=== PATIENT | male | born 1960 | race Caucasian/White ===

== ENCOUNTER 2021-06-10 14:45 | Inpatient (IN) | payer MEDICAID, SELFPAY ==
[2021-06-10] VITALS (28 sets, daily range): BP systolic 116–188; BP diastolic 29–129; PULSE 54–67; RESP 14–22; TEMP 36.5; O2SAT 96–100; BMI 36.3
--- NOTE | 2021-06-10 14:52 | PC.NURSE ---
1430: recd via ambulance from [place], [place]
--- NOTE | 2021-06-10 15:10 | PC.NURSE ---
pt. wishes to receive covid vax but refuses flu and pneumonia at this time
--- NOTE | 2021-06-10 15:59 | PC.NURSE ---
dr. mendes in.
--- NOTE | 2021-06-10 16:23 | PM.HP ---
Providers/Chief Complaint Admitting Physician: Lauro Carrera MD Chief Complaint: resp distress History of Present Illness Alvarado Park is a 61 year old male with no significant past medical history, is a direct admit from [facility], he went there with chief complaint of worsening shortness of breath, on minimal exertion, as well as worsening bilateral lower extremity swelling, going on for the last 7 days. He denies any cough, fever, chest pain, nausea, vomiting, abdominal pain, difficulty passing urine, headache. He has not seen a physician in last 15/ 20 years. Upon arrival in the ER He was worked up for above-mentioned: Pertinent labs: WBC;6.9, H&H 7.3/23, plt:v267, Serum sodium:141, BUN /serum creatinine: 107/13.9, serum potassium:5.8, AST 14 ALT 9 ALp:71 proBNP:>97299, D-dimer: 6.57, baseline troponin: 0.05, creatinine kinase:84, rapid Covid antigen: Negative Patient received: Patient received Kayexalate for hyperkalemia treatment in the ER. As well as 80 of Lasix x1 dose. Was transferred to [facility] as he needed higher level of care. Review of Systems Const: Denies: fever(s), chills, body aches, change in appetite or diaphoresis Card: Denies: edema Resp: Denies: productive cough, wheezing or pain on inspiration GI: Denies: abdominal pain, nausea, vomiting, diarrhea or constipation : Denies: flank pain or difficulty urinating Musc: Denies: back pain or extremity pain Neuro: Denies: headache(s), difficulty walking or confusion Medications/Allergies Home Medications Medication Instructions Recorded Confirmed Last Taken Type No Known Home Medications 06/10/21 06/10/21 Unknown History Allergies Allergy/AdvReac Type Severity Reaction Status Date / Time aspirin Allergy Severe ALGY-Hives Verified 06/10/21 15:35 Vitals/I&O/Wt Last Vital Signs Pulse 61 06/10/21 16:06 Weight last 48 hrs Weight 124.965 kg Physical Exam Const: COMMON NORMALS: patient oriented x3 HENMT: COMMON NORMALS: normocephalic and atraumatic HEAD & SCALP: normocephalic and atraumatic Resp: AUSCULTATION: clear to auscultation bilaterally OTHER: Diminished air entry at bases, minimum b/l basal crackles Cardio: COMMON NORMALS: regular rate, regular rhythm, S1 normal heart sound present, S2 normal heart sound present, No gallops present (Cardio), No murmurs present (Cardio), No rub (Cardio) and Peripheral pulses 2+ throughout RATE: regular rate RHYTHM: regular rhythm HEART SOUNDS: S1 normal heart sound present and S2 normal heart sound present PERIPHERAL PULSES: Peripheral pulses 2+ throughout GI: COMMON NORMALS: Normal to inspection, nondistended, normoactive bowel sounds present, Soft to palpation, non-tender, No hepatosplenomegaly present and no masses AUSCULTATION: Yes normoactive bowel sounds PALPATION: Yes Soft to palpation and Yes No hepatosplenomegaly present RECTAL EXAM: Yes deferred Back/Pelvis: COMMON NORMALS: no CVA tenderness Extremity: NARRATIVE EXTREMITY EXAM: 4+B/L PITTING EDEMA PRESENT IN BOTH L/E WITH CHRONIC STASIS CHANGES Neuro: COMMON NORMALS: patient oriented x3 A&P Assessment and plan (1) Acute renal failure: YNES on worsening CKD likely secondary to longstanding uncontrolled hypertension Monitor BMP Intake output charting Urine electrolytes Renal ultrasound Renal consult Avoid nephrotoxic Status: Acute (2) Heart failure: Decompensated heart failure: Elevated proBNP, bilateral lower extremity swelling, worsening shortness of breath Lasix 60 twice daily 2D echo: Intake output charting Daily weight K>4, MG>2 Status: Acute (3) Anemia: Likely anemia of renal disease Monitor CBC Transfuse to maintain hemoglobin greater than 7 Status: Acute (4) Uncontrolled hypertension: Amlodipine 10 mg p.o. daily Status: Acute (5) Hyperkalemia: Monitor BMP Status: Acute Additional A&P Information CODE STATUS: Full code DVT prophylaxis: Heparin 5000 units subcu every 12 hours Daily Attestations Medical Necessity Statement*: For management of renal failure. Anticipated length of stay greater than 2 midnights. 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
--- NOTE | 2021-06-10 17:12 | PC.NURSE ---
awakened to give meds.
[2021-06-10 17:13] LABS: Urine Creatinine 48 mg/dL (39-259); Urine Random Sodium 96 mmol/L
[2021-06-10] MEDS: cloNIDine 0.1 mg Tablet 0.2 MG PO (17:18)
[2021-06-10] MEDS: hyDRALAzine 50 mg Tablet PO (17:19)
[2021-06-10] MEDS: FUROsemide 10 mg/mL SDV 10mL 60 MG IVP (17:20)
[2021-06-10] MEDS: heparin 5,000 unit/mL INJ 1 mL 5000 UNIT SUBCUT ×2 (17:20→17:25)
--- NOTE | 2021-06-10 17:24 | PC.NURSE ---
scd's not applied at this time. will discuss condition of lower ext. before applying. heparin started.
[2021-06-10 17:33] LABS: Urine Protein Random 351 mg/dL
--- NOTE | 2021-06-10 17:36 | PC.NURSE ---
dozing intermittently
[2021-06-10 17:47] LABS: Anion Gap 20.8 (5-19); Calcium 7.6 mg/dL (8.5-10.5); Carbon Dioxide 18 mmol/L (22-29); Chloride 109 mmol/L (98-107); Glomerular Filtration Rate 4.3 mL/min (90-130); Glucose 124 mg/dL (65-115); Osmolality Calculated 325 mOsm/kg (285-295); Potassium 5.8 mmol/L (3.5-5.1); Sodium 142 mmol/L (136-145)
--- NOTE | 2021-06-10 17:48 | PC.NURSE ---
dr. mendes in. will d/c scds
[2021-06-10 18:00] LABS: Blood Urea Nitrogen 96 mg/dL (8-23)
--- NOTE | 2021-06-10 18:26 | PC.NURSE ---
pt. wishes to be referred for covid vax. when discharged.
--- NOTE | 2021-06-10 19:35 | PC.NURSE ---
Hygiene Patient was asked if he would like a bath or oral care done this evening; patient refused both and stated he would rather wait until in the morning.
--- NOTE | 2021-06-10 20:53 | ECG_ITS ---
[facility] Test Date: 2021-06-10 Pat Name: Alvarado Park Department: Room: [facility] Gender: Male Learning And Development Consultant: : 1960 Requested By: Lauro Carrera Order Number: [id number] MD: Sivan Moore M.D. Measurements Intervals [place] Rate: 59 P: 69 [place]: 165 QRS: 10 QRSD: 108 T: 89 QT: 440 QTc: 438 Interpretive Statements SINUS BRADYCARDIA NONSPECIFIC T-WAVE ABNORMALITY No previous ECG available for comparison Electronically Signed On 06-11-2021 21:27:31 CDT by Sivan Moore M.D. [id number]
[2021-06-10] MEDS: sodium bicarbonate 650 mg Tablet 1300 MG PO (21:13)
[2021-06-10] MEDS: sodium polystyrene sulfonate 15 gm/60 mL Btl PO (21:14)
[2021-06-10] MEDS: insulin regular-human 5 UNIT in SYRINGE 1 EACH IVP (21:16)
[2021-06-10] MEDS: dextrose 50% syringe 50 mL 25 ML IVP (21:19)
[2021-06-11] VITALS (55 sets, daily range): BP systolic 124–174; BP diastolic 68–106; PULSE 55–85; RESP 2–24; TEMP 36.5–36.8; O2SAT 86–100; BMI 36.5
--- NOTE | 2021-06-11 | SCC_ITS ---
Procedure Done: Placement of 16 Fr. 31 cm HemoSplit long-term dialysis catheter into the right internal jugular vein using intraoperative ultrasound guidance and intraoperative fluoroscopy. 7.3 seconds of fluoroscopic guidance, for a cumulative dose of 1.63 mGy, was provided to Dr. Huff by the radiology department. C-arm images of the chest were saved for the patient's permanent record. MATHEW
--- NOTE | 2021-06-11 01:48 | PC.NURSE ---
Commode Patient got out of bed and transferred to bedside commode with minimal assistance. Patient tolerated activity well.
[2021-06-11 02:42] LABS: Anion Gap 19.4 (5-19); Calcium 7.3 mg/dL (8.5-10.5); Carbon Dioxide 20 mmol/L (22-29); Chloride 106 mmol/L (98-107); Glomerular Filtration Rate 3.4 mL/min (90-130); Glucose 92 mg/dL (65-115); Osmolality Calculated 322 mOsm/kg (285-295); Potassium 5.4 mmol/L (3.5-5.1); Sodium 140 mmol/L (136-145)
[2021-06-11 02:47] LABS: Blood Urea Nitrogen 103 mg/dL (8-23)
[2021-06-11 04:17] LABS: Basophils % 0.6 %; Eosinophils # 0.5 10^3/uL (0.0-0.8); Hematocrit 22.8 % (42.0-52.0); Hemoglobin 6.6 g/dL (11.7-16.6); Lymphocytes # 0.8 10^3/uL (0.8-4.8); Lymphocytes % 12.1 %; Mean Corpuscular HGB Conc 28.9 g/dL (30.0-36.0); Mean Corpuscular Hemoglobin 28.4 pg (28.0-34.0); Mean Corpuscular Volume 98.3 fl (80-94); Monocytes # 0.7 10^3/uL (0.2-0.9); Monocytes % 10.9 %; Neutrophils # 4.64 10^3/uL (1.8-7.7); Nucleated Red Blood Cells % 0 %; Platelet Count 202 10^3/cmm (130-400); Red Blood Count 2.32 10^6/uL (4.1-5.3); Red Cell Distribution Width 14.7 % (12.1-15.1); White Blood Count 6.7 10^3/uL (4.0-10.0)
[2021-06-11 04:27] LABS: Partial Thromboplastin Time 38.4 SECONDS (23.9-36.7)
[2021-06-11 04:43] LABS: Alanine Aminotransferase < 5 U/L (0-41); Albumin Level 2.6 g/dL (3.5-5.2); Alkaline Phosphatase 52 IU/L (40-130); Aspartate Amino Transferase 7 U/L (0-40); Calcium 7.3 mg/dL (8.5-10.5); Carbon Dioxide 18 mmol/L (22-29); Chloride 106 mmol/L (98-107); Globulin 3.9 g/dL (1.3-4.6); Glomerular Filtration Rate 3.7 mL/min (90-130); Glucose 85 mg/dL (65-115); Osmolality Calculated 321 mOsm/kg (285-295); Sodium 140 mmol/L (136-145); Total Bilirubin 0.2 mg/dL (0.15-1.2); Total Protein 6.5 g/dL (6.6-8.7)
[2021-06-11 04:44] LABS: Anion Gap 21.8 (5-19); Potassium 5.8 mmol/L (3.5-5.1)
[2021-06-11 04:45] LABS: Blood Urea Nitrogen 102 mg/dL (8-23); Phosphorus 10.1 mg/dL (2.5-4.5)
--- NOTE | 2021-06-11 04:50 | PC.NURSE ---
Physician Communication Dr. Amin notified of critical labs BUN 102, Creatinine 13.5, and phosphorous 10.1. Dr. Amin also notified of potassium level increasing to 5.8 at 0345 from 5.4 at 0114 despite IV insulin and kayexelate administered earlier in the night. No new orders received.
--- NOTE | 2021-06-11 05:00 | XRR_ITS ---
PROCEDURE INFORMATION: Exam: XR Chest Exam date and time: 06/11/2021 5:00 AM Age: 61 years old Clinical indication: Dyspnea; Additional info: SOB TECHNIQUE: Imaging protocol: XR of the chest. Views: 1 view. COMPARISON: No relevant prior studies available. FINDINGS: Lungs: Opacities of the lower lungs are suspicious for pneumonic infiltrates with greatest involvement on the right. Pleural spaces: Right-sided pleural effusion and probably component of left effusion. Heart/Mediastinum: Accentuation of the cardiac silhouette. Bones/joints: Osteopenia. Other findings: Limited inspiration. XR/XR chest 1V portable [id number] IMPRESSION: 1. Cardiomegaly. 2. Suspicion right lower lobe pneumonia with right-sided parapneumonic effusion. 3. Left effusion with limited assessment of the lingula and left lower lobe could not exclude underlying component of atelectasis or infiltrate less prominent as compared to the right. Radiation Dose CTDIVOL = (mGy): DLP = (mGy-cm)
[2021-06-11] MEDS: FUROsemide 10 mg/mL SDV 10mL 60 MG IVP ×2 (05:34→18:38)
[2021-06-11] MEDS: sodium polystyrene sulfonate 15 gm/60 mL Btl PO ×2 (05:34→16:28)
--- NOTE | 2021-06-11 05:35 | PC.NURSE ---
Director Of Intelligence Nurse asked patient if he had any care coming to home for health purposes, patient stated no. When asked if he would like to speak to case management to discuss this as an option, patient stated, No, I don't want to talk to anybody. I can take care of myself.
--- NOTE | 2021-06-11 06:00 | USR_ITS ---
PROCEDURE INFORMATION: Exam: US Retroperitoneal; Complete; Kidneys and Bladder Exam date and time: 06/11/2021 6:00 AM Age: 61 years old Clinical indication: Other: Roman TECHNIQUE: Imaging protocol: Real-time ultrasound of the retroperitoneum with image documentation. Complete exam focused on the kidneys and bladder. COMPARISON: No relevant prior studies available. FINDINGS: Right kidney: The right kidney measures 14.4 x 6.9 x 7.3 cm, with scattered cortical scarring and slightly increased echogenicity. No hydronephrosis. No visualized stones or masses. Left kidney: The left kidney measures 12.3 x 4.9 x 5.3 cm with scattered cortical scarring and slightly increased echogenicity. No hydronephrosis. No visualized stones or masses. Aorta: The aorta and IVC are not well visualized. Urinary bladder: The bladder is partially filled and unremarkable in appearance. US/US renal BI* [id number] IMPRESSION: 1. No hydronephrosis. 2. Echogenic kidneys with cortical scarring. Correlate for medical renal disease. Radiation Dose CTDIVOL = (mGy): DLP = (mGy-cm)
--- NOTE | 2021-06-11 06:00 | USCV_ITS ---
Alvarado Park Age: 61 Gender: M : 1960 Exam Date: 06/11/2021 07:20 Ordering Phys: Lauro Carrera MD Technologist: Exam Location: [facility] [place] Indication: SOB BP: 166 / 96 HR: 63 Rhythm: Sinus Technical Quality: Adequate MEASUREMENTS (Male / Female) Normal Values 2D ECHO LV Diastolic Diameter PLAX 3.7 cm 4.2 - 5.9 / 3.9 - 5.3 cm LV Systolic Diameter PLAX 3.0 cm IVS Diastolic Thickness 1.1 cm 0.6 - 1.0 / 0.6 - 0.9 cm IVS Systolic Thickness 1.3 cm LVPW Diastolic Thickness 1.5 cm 0.6 - 1.0 / 0.6 - 0.9 cm LVPW Systolic Thickness 1.5 cm LVOT Diameter 2.0 cm LV Ejection Fraction 2D Teich 42.4 % LV Ejection Fraction MOD 2C 46.1 % LV Ejection Fraction 2C AL 45.0 % LA Diameter 4.5 cm LA Width 5.6 cm LA Height 6.0 cm RA Width 5.0 cm RA Height 5.9 cm Aorta at Sinotubular Diameter 3.7 cm DOPPLER AV Peak Velocity 196.0 cm/s LVOT Peak Velocity 96.0 cm/s AV Area Cont Eq vti 1.7 cm squared AV Area Cont Eq pk 1.6 cm squared MV Area PHT 5.0 cm squared Mitral E to A Ratio 1.2 MV E' Velocity 48.5 cm/s Mitral E to MV E' Ratio 12.2 Mitral E to LV E' Lateral Ratio 9.9 Mitral E to LV E' Septal Ratio 16.0 TR Peak Velocity 273.0 cm/s TR Peak Gradient 29.8 mmHg TV Peak E Velocity 73.0 cm/s Right Atrial Pressure 3.0 mmHg Pulmonary Artery Systolic Pressu 32.8 mmHg FINDINGS Left Ventricle Normal left ventricular cavity size. Mildly decreased left ventricular systolic function. Left ventricular ejection fraction is estimated at 50-55 %. Grade II diastolic dysfunction, moderately elevated filling pressures. Right Ventricle Upper normal right ventricular size and low normal systolic function. Right ventricular systolic pressure 43 mmHg. Right Atrium Normal right atrial size. Right atrial pressure estimated at 15 mmHg. Left Atrium Mildly increased left atrial size. Mitral Valve Mildly thickened mitral valve. No mitral valve stenosis. Trace to mild mitral valve regurgitation. Aortic Valve Probably trileaflet aortic valve. No aortic valve stenosis. No aortic valve regurgitation. Tricuspid Valve Structurally normal tricuspid valve. Mild tricuspid valve regurgitation. Pulmonic Valve Structurally normal pulmonic valve. Pericardium No pericardial effusion. Aorta Normal-sized aortic root. Dilated inferior vena cava with less than 50% respiratory variation. CONCLUSIONS 1. This is a technically difficult study. 2. Normal left ventricular cavity size. Mildly decreased left ventricular systolic function. Left ventricular ejection fraction is estimated at 50-55 %. Grade II diastolic dysfunction, moderately elevated filling pressures. 3. Upper normal right ventricular size and low normal systolic function. 4. Trace to mild mitral valve regurgitation. 5. Mild tricuspid valve regurgitation. 6. Pulmonary artery pressure estimated at 43 mmHg. 7. No prior similar studies to compare. Sivan Moore MD (Electronically Signed) Final Date: 11 June 2021 14:52 S
--- NOTE | 2021-06-11 06:38 | PC.NURSE ---
Shift Note Frequent safety and comfort rounds continue. Orders and/or nursing care completed as indicated. Patient monitored for response to intervention and treatment(s). Education provided includes information about kayexelate/lasix, NPO diet, and infection prevention. Patient verbalized understanding. Will continue to monitor.
[2021-06-11] MEDS: calcium acetate 667 mg Capsule 1334 MG PO ×2 (08:29→18:38)
[2021-06-11] MEDS: sodium bicarbonate 650 mg Tablet 1300 MG PO ×3 (08:29→21:06)
[2021-06-11] MEDS: amlodipine 10 mg Tablet PO (08:29)
--- NOTE | 2021-06-11 09:10 | PC.NURSE ---
Contacted Dr. Carrera regarding pt hemaglobin being 6.6. WAiting orders for type and screen.
[2021-06-11 09:52] LABS: NT Pro B Type Natriuretic Pept > 70000 pg/mL (0-125)
--- NOTE | 2021-06-11 10:03 | PM.CONSULT ---
Providers/Reason For Consult Consulting Physician/Specialty*: Nephrology Reason for Consult*: Eval for renal failure Attending Physician: Lauro Carrera MD History of Present Illness History of Present Illness Thank you for consultation today, today I had the pleasure of reviewing this very pleasant 61-year-old gentleman for evaluation of renal failure. He has not received any medical care for most of his life. He checked his blood pressure once many years ago and it was noted to be a little bit high. He now presents to the hospital with increasing lower extremity edema and is noted to be hypertensive. On arrival he was found to have an elevated serum creatinine of 12. He did receive some gentle diuretics, his creatinine actually increased slightly to 13.5. In addition to this he has a potassium of 5.8, bicarb 18, anion gap of 21.8 and a hemoglobin down to 6.6. Renal sonogram is performed, demonstrates echogenic kidneys but no evidence of hydronephrosis. Of note they are a good size. He denies [id number] anti-inflammatory medications regularly, did take Advil in the evening from time to time. No other known medical history. No other exposures. He specifically denies any other overt uremic symptoms including confusion, myoclonus, nausea vomiting, dysgeusia. Although he has lower extremity edema, no shortness of breath at rest. Review of Systems Narrative: ROS - 12 point review of systems completed per HPI and subjective assessment, this includes Constitutional: Weakness, fatigue Respiratory: No SOB on exertion, comfortable at rest CardioVasc: No chest pain, palpitations Gastrointestinal: No nausea, no vomiting Neurological: No seizures, no AMS Derm: No new rashes, lesions or wounds Immunological: No seasonal and no food allergies Meds/Allergies Home Medications and Allergies Home Medications Medication Instructions Recorded Confirmed Last Taken Type No Known Home Medications 06/10/21 06/10/21 Unknown History Allergies Allergy/AdvReac Type Severity Reaction Status Date / Time aspirin Allergy Severe ALGY-Hives Verified 06/10/21 15:35 Current Medications Current Medications Generic Name Dose Route Start Last Admin Trade Name Freq PRN Reason Stop Dose Admin Amlodipine Besylate 10 mg 06/11/21 09:00 06/11/21 08:29 Amlodipine 10 Mg Tablet PO 10 mg DAILY GONZALO Administration Calcium Acetate 1,334 mg 06/11/21 08:00 06/11/21 08:29 Calcium Acetate 667 Mg Capsule PO 1,334 mg TIDWM GONZALO Administration Furosemide 60 mg 06/10/21 17:30 06/11/21 05:34 Furosemide 10 Mg/Ml Sdv 10ml IVP 60 mg Q12H GONZALO Administration Heparin Sodium (Porcine) 5,000 unit 06/10/21 17:30 06/10/21 17:25 Heparin 5,000 Unit/Ml Inj 1 Ml SUBCUT 5,000 unit Q12H GONZALO Administration Sodium Bicarbonate 1,300 mg 06/10/21 21:00 06/11/21 08:29 Sodium Bicarbonate 650 Mg Tablet PO 1,300 mg TID GONZALO Administration Sodium Polystyrene Sulfonate 15 gm 06/10/21 21:00 06/11/21 05:34 Sodium Polystyrene Sulfonate 15 Gm/60 Ml Btl PO 15 gm Q8H GONZALO Administration Vitals/I&O/Wt Last Vital Signs Temp 98.1 F 06/11/21 04:00 Pulse 70 06/11/21 08:30 Resp 16 06/11/21 05:00 BP 151/95 06/11/21 08:30 Pulse Ox 99 06/11/21 07:30 06/10/21 06/11/21 06/11/21 22:59 06:59 14:59 Intake Total 720.05 / 720.05 320 / 320 Output Total 180 / 180 300 / 480 260 / 260 Balance 540.05 / 540.05 -300 / 240.05 60 / 60 Weight last 48 hrs Weight 125.464 kg Weight 124.965 kg Physical Exam Narrative: EXAM NARRATIVE: Constitutional: Awake, comfortable HEENT: Wet mucosa, no jvp, non icteric Lungs: Bilaterally clear without discernible wheeze or rales in all lung zones CVS: S1 S2, no murmurs Abdo: Soft, BS ok Ext 4: 2-3+ edema, peripheral perfusion with no cyanosis Neurological: Grossly non-focal A&P Additional A&P Information 1. Renal failure Looking at the kidney ultrasound scan and the degree of echogenicity, it is almost certain that we are dealing with very advanced, end-stage kidney disease. Given the size of the kidneys, an infiltrative disease is possible i.e. amyloidosis versus undiagnosed hypertension antihypertensive renovascular disease. We will do work-up to include SPEP, ANCA, complement profile, hepatitis profile, urinalysis with micro Renal biopsy unlikely to be diagnostic use given likelihood of renal scarring We will initiate hemodialysis tomorrow on low flow settings to avoid disequilibrium. Daily dialysis for the first 3 days with progressive increase in the intensity of dialysis prescription A.m. labs Avoid usual nephrotoxic agents Dose medication for GFR less than 15 on dialysis. Okay to continue diuretics for the time being. 2. Chemistry Reflective of end-stage kidney disease including nongap metabolic acidosis, hyperkalemia, hyperphosphatemia, hypocalcemia. We will give him a phosphorus binder with PhosLo We we will give him some Kayexalate today. We will initiate calcitriol low-dose He is currently on sodium bicarbonate 3. Anemia Again consistent with end-stage kidney disease. We will check iron levels and initiate some EPO for him. 4. Hypertension Currently on amlodipine, Lasix, will review his blood pressure after initiation of dialysis and ultrafiltration. 5. 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
--- NOTE | 2021-06-11 11:08 | PC.NURSE ---
Spoke with Dr. Huff about preparation for dialysis cath to be put in today. States he will be in to visit with the pt.
--- NOTE | 2021-06-11 11:17 | P.PN_ITS ---
Subjective Subjective: Interval history: Patient was seen and examined this morning.Resting comfortably in bed, feels better today, shortness of breath is better. Documented urine output 560 cc. Medications: Reviewed: Yes Vitals/I&O/Wt Last Vital Signs Temp 98.1 F 06/11/21 04:00 Pulse 63 06/11/21 10:30 Resp 16 06/11/21 05:00 BP 132/82 06/11/21 10:30 Pulse Ox 96 06/11/21 10:30 06/10/21 06/11/21 06/11/21 22:59 06:59 14:59 Intake Total 720.05 / 720.05 320 / 320 Output Total 180 / 180 300 / 480 260 / 260 Balance 540.05 / 540.05 -300 / 240.05 60 / 60 Weight last 48 hrs Weight 125.464 kg Weight 124.965 kg Physical Exam Const: COMMON NORMALS: patient oriented x3 HENMT: COMMON NORMALS: normocephalic and atraumatic HEAD & SCALP: normocephalic and atraumatic Resp: COMMON NORMALS: clear to auscultation bilaterally AUSCULTATION: clear to auscultation bilaterally OTHER: Diminished air entry at bases, minimum b/l basal crackles Cardio: COMMON NORMALS: regular rate, regular rhythm, S1 normal heart sound present, S2 normal heart sound present, No gallops present (Cardio), No murmurs present (Cardio), No rub (Cardio) and Peripheral pulses 2+ throughout RATE: regular rate RHYTHM: regular rhythm HEART SOUNDS: S1 normal heart sound present and S2 normal heart sound present PERIPHERAL PULSES: Peripheral p ulses 2+ throughout GI: COMMON NORMALS: Normal to inspection, nondistended, normoactive bowel sounds present, Soft to palpation, non-tender, No hepatosplenomegaly present and no masses AUSCULTATION: Yes normoactive bowel sounds PALPATION: Yes Soft to palpation and Yes No hepatosplenomegaly present RECTAL EXAM: Yes deferred : COMMON NORMALS: Yes no CVA tenderness BLADDER/KIDNEY EXAM: Yes no CVA tenderness Back/Pelvis: COMMON NORMALS: no CVA tenderness Extremity: NARRATIVE EXTREMITY EXAM: 4+B/L PITTING EDEMA PRESENT IN BOTH L/E WITH CHRONIC STASIS CHANGES Neuro: COMMON NORMALS: patient oriented x3 Data : 06/11/21 03:45 06/11/21 03:45 A&P Assessment and plan (1) Acute renal failure: End-stage renal disease: Urine electrolytes: Random urine sodium: 96, normal creatinine:48, random urine protein:351, Random UPCR: 7.3G/DAY Renal ultrasound:: No hydronephrosis. Echogenic kidneys with cortical scarring. SPEP ANCA complement: Monitor BMP Intake output charting Renal consult: S/P Permcath placement H/D from am Status: Acute (2) Heart failure: Heart failure Elevated proBNP, bilateral lower extremity swelling, worsening shortness of breath Lasix 60 twice daily 2D echo: Normal LV cavity size, estimated LVEF 50 to 55%, grade 2 diastolic dysfunction, mild MR, mild TR PAp: 43mm hg Intake output charting Daily weight K>4, MG>2 Status: Acute (3) Anemia: Likely anemia of renal disease S/P I U PRBC Transfusion procrit 20 0000 u sc once Monitor CBC Transfuse to maintain hemoglobin greater than 7 Status: Acute (4) Uncontrolled hypertension: Amlodipine 10 mg p.o. daily Status: Acute (5) Hyperkalemia: Received hyperkalemia cocktail. Kayexalate 15 mg po q8h Monitor BMP Status: Acute Additional A&P Information CODE STATUS: Full code DVT prophylaxis: Heparin 5000 units subcu every 12 hours Daily Attestations Medical Necessity Statement*: Patient needs to be in hospital for management of renal failure. 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
[2021-06-11 12:10] LABS: Bilirubin Urine Neg (Negative); Blood Urine Neg (Negative); Glucose Urine UA 1+ (Normal); Ketones Urine Negative (Negative); Leukocyte Esterase Urine Negative (Negative); Nitrate Urine Negative (Negative); Protein Urine 3+ (Negative); Urine Appearance Clear (CLEAR); Urine Color Yellow (Yellow); Urobilinogen Urine Norm (Negative); pH Urine 5 (5-7)
[2021-06-11 12:15] LABS: Add Urine Culture? No; Bacteria Urine TRACE /hpf; Mucus Urine TRACE /hpf
--- NOTE | 2021-06-11 13:31 | PM.CONSULT ---
Providers/Reason For Consult Consulting Physician/Specialty*: General Surgery Brian Huff MD Reason for Consult*: Request for hemodialysis catheter placement. Attending Physician: Lauro Carrera MD History of Present Illness History of Present Illness Alvarado Park is a 61 year old male admitted yesterday with worsening bilateral lower extremity edema. This had apparently been going on for over a week at home. The patient freely admits he does not see physicians. He was diagnosed with acute renal failure and hyperkalemia. He has been treated medically from that standpoint and says that his swelling is better. Dialysis has been planned for him for tomorrow. I have been asked to place a long-term hemodialysis catheter for him. The patient denies ever having any injury on the upper chest. He has not had any clavicular injury to his knowledge. He has never had a central line placed in the past. Review of Systems Const: Denies: fever(s) Resp: Reports: dyspnea (With exertion prior to admission) Musc: Reports: extremity swelling Meds/Allergies Home Medications and Allergies Home Medications Medication Instructions Recorded Confirmed Last Taken Type No Known Home Medications 06/10/21 06/10/21 Unknown History Allergies Allergy/AdvReac Type Severity Reaction Status Date / Time aspirin Allergy Severe ALGY-Hives Verified 06/10/21 15:35 Current Medications Current Medications Generic Name Dose Route Start Last Admin Trade Name Regi PRN Reason Stop Dose Admin Amlodipine Besylate 10 mg 06/11/21 09:00 06/11/21 08:29 Amlodipine 10 Mg Tablet PO 10 mg DAILY GONZALO Administration Calcium Acetate 1,334 mg 06/11/21 08:00 06/11/21 08:29 Calcium Acetate 667 Mg Capsule PO 1,334 mg TIDWM GONZALO Administration Furosemide 60 mg 06/10/21 17:30 06/11/21 05:34 Furosemide 10 Mg/Ml Sdv 10ml IVP 60 mg Q12H GONZALO Administration Heparin Sodium (Porcine) 5,000 unit 06/10/21 17:30 06/10/21 17:25 Heparin 5,000 Unit/Ml Inj 1 Ml SUBCUT 5,000 unit Q12H GONZALO Administration Sodium Bicarbonate 1,300 mg 06/10/21 21:00 06/11/21 08:29 Sodium Bicarbonate 650 Mg Tablet PO 1,300 mg TID GONZALO Administration Sodium Polystyrene Sulfonate 15 gm 06/10/21 21:00 06/11/21 05:34 Sodium Polystyrene Sulfonate 15 Gm/60 Ml Btl PO 15 gm Q8H GONZALO Administration PFSH Acute PFSH: Medical History (Updated 06/11/21 @ 13:33 by Brian Huff MD) Acute renal failure Uncontrolled hypertension Surgical History (Updated 06/11/21 @ 13:33 by Brian Huff MD) No significant past surgical history Vitals/I&O/Wt Last Vital Signs Temp 98.1 F 06/11/21 04:00 Pulse 67 06/11/21 12:00 Resp 16 06/11/21 05:00 BP 142/84 06/11/21 12:00 Pulse Ox 100 06/11/21 12:00 06/10/21 06/11/21 06/11/21 22:59 06:59 14:59 Intake Total 720.05 / 720.05 320 / 320 Output Total 180 / 480 300 / 480 260 / 260 Balance 540.05 / 240.05 -300 / 240.05 60 / 60 Weight last 48 hrs Weight 276 lb 9.6 oz Weight 275 lb 8 oz Physical Exam Narrative: EXAM NARRATIVE: The patient was encountered in his room in the intensive care unit. He is resting comfortably but is easily arousable. Vital signs appear stable and relatively normal. The pupils are equal. No carotid bruits are heard. The patient has a diaz of moderate length. The lungs are clear anteriorly. The heart seems regular. The abdomen is moderately obese but is soft and has good bowel sounds. The lower extremities reveal some mild edema with some chronic venous stasis changes. He can move all limbs to command. A&P Assessment and plan (1) Acute renal failure: The patient is in need of dialysis. I have been asked to place a hemodialysis catheter. Initially, the thought was we could do this tomorrow but it sounds like the operating rooms are going to be quite busy and they definitely want to do dialysis tomorrow from what I understand. For that reason, I discussed placing the catheter with the patient today. Surgical risks of bleeding, infection, pneumothorax, etc. were all gone over. He seems to understand and is agreeable to proceeding with dialysis catheter placement today. The patient ate breakfast today but has been n.p.o. since. His subcutaneous heparin has been on hold. We will make arrangements for a tunneled hemodialysis catheter placement later today. Status: Acute Consult Attestations Medical Necessity Statement: See admitting service's notation. 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
--- NOTE | 2021-06-11 14:30 | SC_ITS ---
WS: [id number] INTRAOPERATIVE TECHNIQUE: 2 Spot fluoroscopic images for intraoperative purposes. FLUOROSCOPY TIME: 7.3 seconds CLINICAL INFORMATION: intraop COMPARISON: None. FINDINGS: Dual lumen right central venous catheter traverses the SVC. Distal tip not included on this exam. No visualized pneumothorax. SC/C-arm FL for CVA [id number] IMPRESSION: Images obtained for intraoperative purposes.
--- NOTE | 2021-06-11 14:51 | ANES.PREANE2 ---
Pre-Anesthetic Assessment Pre-Anesthetic Assessment: Height/Weight: Height 1.85 m Weight 125.464 kg Temp Pulse Resp BP Pulse Ox 98.1 F 67 16 142/84 100 06/11/21 04:00 06/11/21 12:00 06/11/21 05:00 06/11/21 12:00 06/11/21 12:00 Preop Diagnosis: YNES Proposed Procedure: Operation Date: 06/11/21 14:50 Proposed Procedures p Dialysis Catheter Insertion(Not Applicable) - Brian Huff MD Familial anesthetic complications: None Last intake: Breakfast 0800 Social: Social History: No alcohol and No tobacco Exam: Pre-Anes Outpt Exam: alert, oriented x 3, clear to auscultation bilaterally and regular rate & rhythm Airway: MP: 3 Dentition: Other (poor dentition, multiple missing and discolored) Additional comments: full diaz CV/HEM: CV/HEM: Anemia and CHF (acute) : Comments: YNES Metabolic: Comments: Hyperkalemia Anesthetic Plan: ASA status: 4 Anesthesia: MAC Risk of > 500 ml blood loss (7ml/kg in children): No Other Pertinent Information: Patient prefers staying awake for procedure if possible Meds/Allergies Current Medications: Current Medications Generic Name Dose Route Start Last Admin Trade Name Freq PRN Reason Stop Dose Admin Amlodipine Besylat e 10 mg 06/11/21 09:00 06/11/21 08:29 Amlodipine 10 Mg Tablet PO 10 mg DAILY GONZALO Administration Calcium Acetate 1,334 mg 06/11/21 08:00 06/11/21 08:29 Calcium Acetate 667 Mg Capsule PO 1,334 mg TIDWM GONZALO Administration Furosemide 60 mg 06/10/21 17:30 06/11/21 05:34 Furosemide 10 Mg /Ml Sdv 10ml IVP 60 mg Q12H GONZALO Administration Heparin Sodium (Po rcine) 5,000 unit 06/10/21 17:30 06/10/21 17:25 Heparin 5,000 Un it/Ml Inj 1 Ml SUBCUT 5,000 unit Q12H GONZALO Administration Sodium Bicarbonate 1,300 mg 06/10/21 21:00 06/11/21 08:29 Sodium Bicarbona te 650 Mg Tablet PO 1,300 mg TID GONZALO Administration Sodium Polystyrene Sulfonate 15 gm 06/10/21 21:00 06/11/21 05:34 Sodium Polystyre ne Sulfonate 15 Gm /60 Ml Btl PO 15 gm Q8H GONZALO Administration PFSH Anesthesia PFSH: Medical History (Updated 06/11/21 @ 14:12 by Brian Huff MD) Acute renal failure Uncontrolled hypertension Surgical History (Updated 06/11/21 @ 13:33 by Brian Huff MD) No significant past surgical history Data Anesthesia CBC & Chem 7: 06/11/21 03:45 06/11/21 03:45 Other Labs: Laboratory Results - last 48 hr 06/10/21 06/10/21 06/11/21 16:15 17:09 01:14 WBC RBC Hgb Hct MCV MCH MCHC RDW Plt Count MPV Neut % (Auto) Lymph % (Auto) [place] % (Auto) Eos % (Auto) Baso % (Auto) Neut # (Auto) Lymph # (Auto) [place] # (Auto) Eos # (Auto) Baso # (Auto) Nucleated RBC % (auto) Nucleated RBCs # PT INR APTT Sodium 142 140 Potassium 5.8 H 5.4 H Chloride 109 H 106 Carbon Dioxide 18 L 20 L Anion Gap 20.8 H 19.4 H BUN 96 H* 103 H* Creatinine 12.0 H* 14.5 H* GFR Calculation 4.3 L 3.4 L Glucose 124 H 92 Calculated Osmolality 325 H 322 H Calcium 7.6 L 7.3 L Phosphorus Magnesium 2.0 Total Bilirubin AST ALT Alkaline Phosphatase NT-Pro-B Natriuret Pep Total Protein Albumin Globulin Urine Color Urine Appearance Urine pH Ur Specific [place] Urine Protein Urine Glucose (UA) Urine Ketones Urine Blood Urine Nitrate Urine Bilirubin Urine Urobilinogen Ur Leukocyte Esterase Urine RBC Urine WBC Ur Squamous Epith Cells Amorphous Sediment Urine Bacteria Urine Mucus U Random Total Protein 351 Ur Random Sodium 96 Urine Creatinine 48 06/11/21 06/11/21 06/11/21 03:45 03:45 03:45 WBC 6.7 RBC 2.32 L Hgb 6.6 L Hct 22.8 L MCV 98.3 H MCH 28.4 MCHC 28.9 L RDW 14.7 Plt Count 202 MPV 11.0 H Neut % (Auto) 69.0 Lymph % (Auto) 12.1 [place] % (Auto) 10.9 Eos % (Auto) 7.0 Baso % (Auto) 0.6 Neut # (Auto) 4.64 Lymph # (Auto) 0.8 [place] # (Auto) 0.7 Eos # (Auto) 0.5 Baso # (Auto) 0.0 Nucleated RBC % (auto) 0 Nucleated RBCs # 0.0 PT 16.50 H INR 1.30 H APTT 38.4 H Sodium 140 Potassium 5.8 H Chloride 106 Carbon Dioxide 18 L Anion Gap 21.8 H BUN 102 H* Creatinine 13.5 H* GFR Calculation 3.7 L Glucose 85 Calculated Osmolality 321 H Calcium 7.3 L Phosphorus 10.1 H* Magnesium 2.0 Total Bilirubin 0.2 AST 7 ALT < 5 Alkaline Phosphatase 52 NT-Pro-B Natriuret Pep Total Protein 6.5 L Albumin 2.6 L Globulin 3.9 Urine Color Urine Appearance Urine pH Ur Specific [place] Urine Protein Urine Glucose (UA) Urine Ketones Urine Blood Urine Nitrate Urine Bilirubin Urine Urobilinogen Ur Leukocyte Esterase Urine RBC Urine WBC Ur Squamous Epith Cells Amorphous Sediment Urine Bacteria Urine Mucus U Random Total Protein Ur Random Sodium Urine Creatinine 06/11/21 06/11/21 03:45 10:40 WBC RBC Hgb Hct MCV MCH MCHC RDW Plt Count MPV Neut % (Auto) Lymph % (Auto) [place] % (Auto) Eos % (Auto) Baso % (Auto) Neut # (Auto) Lymph # (Auto) [place] # (Auto) Eos # (Auto) Baso # (Auto) Nucleated RBC % (auto) Nucleated RBCs # PT INR APTT Sodium Potassium Chloride Carbon Dioxide Anion Gap BUN Creatinine GFR Calculation Glucose Calculated Osmolality Calcium Phosphorus Magnesium Total Bilirubin AST ALT Alkaline Phosphatase NT-Pro-B Natriuret Pep > 67361 H Total Protein Albumin Globulin Urine Color Yellow Urine Appearance Clear Urine pH 5 Ur Specific [place] 1.010 Urine Protein 3+ H Urine Glucose (UA) 1+ H Urine Ketones Negative Urine Blood Neg Urine Nitrate Negative Urine Bilirubin Neg Urine Urobilinogen Norm Ur Leukocyte Esterase Negative Urine RBC None Urine WBC None Ur Squamous Epith Cells None Amorphous Sediment Not Reportable Urine Bacteria Trace Urine Mucus Trace U Random Total Protein Ur Random Sodium Urine Creatinine Cardiac Studies: No Data to Display
[2021-06-11] MEDS: heparin, porcine 1,000 unit/mL INJ 10 mL 10000 UNIT INJECTION (15:30)
--- NOTE | 2021-06-11 15:45 | PM.OP ---
Operative Report Date of procedure: June 11, 2021 Pre-op Diagnosis: Acute kidney failure/CKD. Post-op diagnosis: same Procedure Done: Placement of 16 Fr. 31 cm HemoSplit long-term dialysis catheter into the right internal jugular vein using intraoperative ultrasound guidance and intraoperative fluoroscopy. Implants: See above. Pathology: none sent Surgeon: Brian Huff Anesthesia: MAC Estimated blood loss (mL): 10 Procedure: The patient was brought to the operating room and was placed in a supine position on the operating room table. A monitored anesthetic was induced. The right side of the neck and chest were prepped and draped in a sterile fashion. Intraoperative ultrasound was used to find the right internal jugular vein as evidenced by its size and compressibility. 1% lidocaine was used for local anesthetic on the neck and the right internal jugular vein was accessed on the first pass with a needle and syringe as evidenced by the return of dark nonpulsatile blood. The guidewire was easily passed down the needle and the needle was removed. The C-arm was positioned and showed the guidewire extending down the vena cava. A 16 Maur[place] 31 cm (from cuff to tip) HemoSplit long-term dialysis catheter was then placed on the right side of the chest and measured so that the subcutaneous cuff would be an appropriate location in the subcutaneous tunnel. A combination of 1% lidocaine and 0.5% bupivacaine with 1-200,000 parts epinephrine was used to anesthetize a subcutaneous tract from the right chest wall to the right side of the neck over the top of the clavicle. A small incision was made on the chest wall at the proposed exit point and a small incision was also made adjacent to the guidewire on the right side of the neck. The HemoSplit catheter was then tunneled from the small incision on the chest to the small incision on the right side of the neck using the passer provided in the kit. Small to medium sized dilators were then placed over the guidewire to dilate the skin opening and the subcutaneous tissue. The introducer and sheath were then passed over the guidewire easily into the right internal jugular vein. The guidewire and introducer were removed and the arms of the HemoSplit dialysis catheter were easily passed down the sheath which was then torn away. The C-arm was once again positioned and showed good placement of the dialysis catheter tip in the vena cava. Both ports were aspirated and flushed with hep flush solution. Both ports showed excellent flow and were then left filled with concentrated hep flush solution. The catheter was sewn in place at the skin on the chest with some sutures of 3-0 Prolene. The small incision on the right side of the neck was closed using some interrupted inverted sutures of 4-0 Vicryl. The incision on the neck was covered with some Dermabond. A sterile dressing was placed over the HemoSplit exit site on the chest. The patient was taken back to the recovery area postoperatively in stable condition. INTRAOPERATIVE FLUOROSCOPY interpretation: FINDINGS: Intraoperative fluoroscopic images of a hemodialysis catheter placement were reviewed. An initial image reveals a guidewire entering the right internal jugular vein and extending down the vena cava. Subsequent images reveal a dialysis catheter on that side of the chest with its tubing tip in good location in the superior vena cava/right atrium. No obvious pneumothorax is identified.
[2021-06-11 16:27] LABS: Iron 33 ug/dL (59-158); Percent Saturation 19.8 % (20-50); Total Iron Binding Capacity 166 mcg/dl; Unsaturated Iron Binding 133 ug/dL (112-347); Uric Acid 6.7 mg/dL (3.4-7.0)
[2021-06-11 16:37] LABS: Hepatitis A Antibody IgM Non-Reactive (Nonreactive); Hepatitis B Core IgM Non-Reactive (Nonreactive); Hepatitis B Surface Antigen Non-Reactive (Nonreactive); Hepatitis C Virus Antibody Non-Reactive (Nonreactive)
[2021-06-11 16:47] LABS: Complement C3 103 mg/dL (90-180)
--- NOTE | 2021-06-11 16:56 | PC.NURSE ---
$245 was counted with Boy from security and then taken down to hospital safe.
[2021-06-11] MEDS: calcitriol 0.25 mcg Capsule PO (18:38)
[2021-06-11] MEDS: sodium chloride 0.9% (100 ml) 100 ML (19:54)
[2021-06-12] VITALS (34 sets, daily range): BP systolic 138–191; BP diastolic 75–124; PULSE 65–77; RESP 0–32; TEMP 36.2–36.9; O2SAT 88–99
[2021-06-12] MEDS: HYDROcodone-acetaminophen 5-325 mg Tablet PO (04:39)
[2021-06-12] MEDS: FUROsemide 10 mg/mL SDV 10mL 60 MG IVP (04:40)
[2021-06-12] MEDS: heparin 5,000 unit/mL INJ 1 mL 5000 UNIT SUBCUT ×2 (04:40→18:09)
--- NOTE | 2021-06-12 04:51 | PC.NURSE ---
No acute changes on patient overnight. Patient very friendly and complaint with staff and cares. Patient does refuse kayexolate, continue care.
[2021-06-12 05:25] LABS: Basophils % 0.5 %; Eosinophils # 0.7 10^3/uL (0.0-0.8); Eosinophils % 9.6 %; Hematocrit 23.3 % (42.0-52.0); Hemoglobin 7.1 g/dL (11.7-16.6); Lymphocytes # 1.1 10^3/uL (0.8-4.8); Lymphocytes % 13.6 %; Mean Corpuscular HGB Conc 30.5 g/dL (30.0-36.0); Mean Corpuscular Hemoglobin 29.7 pg (28.0-34.0); Mean Corpuscular Volume 97.5 fl (80-94); Mean Platelet Volume 10.7 fL (7.4-10.4); Monocytes # 0.7 10^3/uL (0.2-0.9); Monocytes % 9.4 %; Neutrophils # 5.16 10^3/uL (1.8-7.7); Neutrophils % 66.6 %; Nucleated Red Blood Cells % 0 %; Platelet Count 204 10^3/cmm (130-400); Red Blood Count 2.39 10^6/uL (4.1-5.3); Red Cell Distribution Width 14.6 % (12.1-15.1); White Blood Count 7.7 10^3/uL (4.0-10.0)
[2021-06-12 05:49] LABS: Alanine Aminotransferase < 5 U/L (0-41); Albumin Level 2.8 g/dL (3.5-5.2); Alkaline Phosphatase 57 IU/L (40-130); Anion Gap 21.2 (5-19); Aspartate Amino Transferase 7 U/L (0-40); Calcium 6.8 mg/dL (8.5-10.5); Carbon Dioxide 19 mmol/L (22-29); Chloride 108 mmol/L (98-107); Globulin 3.5 g/dL (1.3-4.6); Glomerular Filtration Rate 4.2 mL/min (90-130); Glucose 105 mg/dL (65-115); Osmolality Calculated 328 mOsm/kg (285-295); Potassium 5.2 mmol/L (3.5-5.1); Sodium 143 mmol/L (136-145); Total Bilirubin 0.2 mg/dL (0.15-1.2); Total Protein 6.3 g/dL (6.6-8.7)
[2021-06-12 05:55] LABS: Blood Urea Nitrogen 100 mg/dL (8-23); Phosphorus 9.6 mg/dL (2.5-4.5)
[2021-06-12] MEDS: calcium acetate 667 mg Capsule 1334 MG PO ×3 (07:36→18:09)
[2021-06-12] MEDS: sodium bicarbonate 650 mg Tablet 1300 MG PO ×3 (08:36→20:11)
[2021-06-12] MEDS: calcitriol 0.25 mcg Capsule PO ×2 (08:36→19:00)
[2021-06-12] MEDS: amlodipine 10 mg Tablet PO (08:36)
--- NOTE | 2021-06-12 09:55 | PC.CHAP ---
Pastoral Care Encounter/Spiritual Assessment Type of Contact [] Declined hide measuring machine operator visit [] Patient/Family/Request visit [] Outpatient visit [] Follow-up visit [] Physician referral [] Code/Alert [x] Routine visit [] Staff referral [] Actively dying [] Patient sleeping [] Family support [] [] Out of room [] Palliative care [] [] Receiving care in room [] Pre-surgical visit [] Trauma [] Long length of stay [x] ICU visit [] Other: Relational/Emotional Strength [] Patient feels connected with others/family/visitors/staff [] Distress [] Loneliness/isolation [] Abandonment Spirituality of Patient [] Person of Isabella [] Attends Sikh of their Isabella [] Believes in Prayer [] Reads Bible or Catholic materials [] There are Spiritual issues to be addressed Social Science Teacher Interventions [x] Prayer [] Active listening [] Non-anxious presence [] Spiritual/emotional support [] Crisis/trauma care [] Spiritual counseling [] Bereavement support [] Provided bereavement packet [] Provided Bible/devotional materials [] Provided toy/stuffed animal, coloring book to patient or family member [] Provided Communion [] Anointing/[place] [] Salvation [x] Completed spiritual assessment [] Other: Impact on Illness or Injury [] Angry [] Fearful [] Anxious [] Often cries [] Exhaustion [] Unable to work [] Unable to attend confucianist [] Unable to walk/stand [] Unable to read [] Unable to drive [] Unable to eat/drink [] Unable to sleep [] Unable to be with family [] Patient intubated [] Other: Summary Time spent with patient
--- NOTE | 2021-06-12 12:53 | P.PN_ITS ---
Subjective Subjective: Interval history: Seen and examined on dialysis today. Tolerating the procedure well. Hemodynamics and dialysis parameters are reviewed in detail. Medications: Reviewed: Yes Vitals/I&O/Wt Last Vital Signs Temp 98.1 F 06/12/21 12:00 Pulse 73 06/12/21 12:00 Resp 12 06/12/21 12:00 BP 165/98 06/12/21 12:00 Pulse Ox 99 06/12/21 12:00 06/11/21 06/12/21 06/12/21 22:59 06:59 14:59 Intake Total 550 / 870 240 / 1110 360 / 360 Output Total 600 / 860 600 / 1460 250 / 250 Balance -50 / 10 -360 / -350 110 / 110 Weight last 48 hrs Weight 130.861 kg Weight 125.464 kg Weight 124.965 kg Physical Exam Narrative: EXAM NARRATIVE: Constitutional: Awake, comfortable HEENT: Wet mucosa, no jvp, non icteric Lungs: Bilaterally clear without discernible wheeze or rales in all lung zones CVS: S1 S2, no murmurs Abdo: Soft, BS ok Ext 4: 2-3+ edema, peripheral perfusion with no cyanosis Neurological: Grossly non-focal Data : 06/12/21 04:51 06/12/21 04:51 A&P Additional A&P Information 1. Renal failure Looking at the kidney ultrasound scan and the degree of echogenicity, it is almost certain that we are dealing with very advanced, end-stage kidney disease. Given the size of the kidneys, an infiltrative disease is possible i.e. amyloidosis versus undiagnosed hypertension antihypertensive renovascular disease. Work up is so far unrevealing although serology pending Dialysis 1/3 session today, will up-titrate prescription for tomorrow A.m. labs Avoid usual nephrotoxic agents Dose medication for GFR less than 15 on dialysis. Okay to continue diuretics for the time being. 2. Chemistry Reflective of end-stage kidney disease including nongap metabolic acidosis, hyperkalemia, hyperphosphatemia, hypocalcemia. We will give him a phosphorus binder with PhosLo Ok to DC Kayexalate Calcitriol added He is currently on sodium bicarbonate 3. Anemia Again consistent with end-stage kidney disease. Will load with iv iron 4. Hypertension Currently on amlodipine, Lasix, will review his blood pressure after initiation of dialysis and ultrafiltration. 5. Disposition exhibitions and collections manager to set up outpatient hemodialysis for him Thank you for consultation, it is a pleasure to follow these cases with you Exam and interview performed with aid of bedside RN using telemedicine Time spent 20 min inc > 50% of time in face to face counseling Alex Borjas MD 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
[2021-06-12] MEDS: iron sucrose 200 MG in sodium chloride 0.9% (100 ml) 100 ML 220 MG IV (14:05)
[2021-06-12] MEDS: heparin, porcine 1,000 unit/mL INJ 10 mL 10000 UNIT HE (14:05)
[2021-06-12] MEDS: losartan 50 mg Tablet 25 MG PO (14:07)
[2021-06-12] MEDS: acetaminophen 325 mg Tablet 650 MG PO (14:38)
--- NOTE | 2021-06-12 16:21 | PM.PN ---
Subjective Subjective: Interval history: Hospital course, labs appreciated. Examination today patient getting first session of dialysis. Tolerating well. Blood pressures have been running on the higher side. Denies any nausea vomiting, headache. We discussed in detail that most likely he will require long-term dialysis going forward. Patient did have tunneled catheter placed yesterday. Medications: Reviewed: Yes Vitals/I&O/Wt Last Vital Signs Temp 98.1 F 06/12/21 12:00 Pulse 69 06/12/21 14:00 Resp 17 06/12/21 14:00 BP 170/95 06/12/21 14:07 Pulse Ox 98 06/12/21 14:00 06/12/21 06/12/21 06/12/21 06:59 14:59 22:59 Intake Total 240 / 1110 960 / 960 Output Total 600 / 1460 550 / 550 Balance -360 / -350 410 / 410 Weight last 48 hrs Weight 130.861 kg Weight 125.464 kg Physical Exam Narrative: EXAM NARRATIVE: General: No acute distress, AO x3 HEENT: PERRLA, pupils bilaterally equal and reactive Chest: Normal vesicular breath sounds, no added sounds, equal good air entry bilaterally CVS: S1-S2 regular, no murmurs, no tachycardia, no gallops, no rubs Abdomen: Soft, nontender, no organomegaly, bowel sounds present Neuro: No focal deficits, no facial deformity, AO x3, power 5/5 in all limbs, bilateral lower limb edema present 2+ mid calf Data : 06/12/21 04:51 06/12/21 04:51 A&P Assessment and plan (1) Acute renal failure: Status: Acute (2) Heart failure: Status: Acute (3) Anemia: Status: Acute (4) Uncontrolled hypertension: Status: Acute (5) Hyperkalemia: Status: Acute Additional A&P Information End-stage renal disease: Most likely secondary to prolonged uncontrolled hypertension. Appreciate renal ultrasound. No hydronephrosis or concerns for obstructive uropathy. AVI/ANCA sent out. Check CT abdomen pelvis. Getting first session of dialysis today. Most likely will need long-term dialysis. Appreciate nephrology recommendations. Tunneled cath placed with Dr. Huff on June 11. Continue with PhosLo. Stop Kayexalate as patient during dialysis now. Anemia: Post to monitor blood transfusion early in the admission. Most likely secondary to end-stage renal disease. Start on IV iron supplementation. Check vitamin B12, folate levels. Check erythropoietin levels. Heart failure: Diastolic. Echocardiogram results appreciated with EF 55%, grade 2 diastolic dysfunction, without regional motion abnormality or valvular abnormalities. Continue with IV Lasix at 40 mg twice daily. Dialysis and ultrafiltrate progressively increasing within next 3 days. Hypertension: Uncontrolled. Continue with amlodipine. Add losartan 50 mg daily, hydralazine 25 mg 3 times daily. Goal blood pressure less than 140/90 mmHg. Renal dialysis diet. CODE STATUS: Full code DVT prophylaxis: Heparin 5000 units subcu every 12 hours Daily Transfer out of ICU. Attestations Medical Necessity Statement*: Further hospitalization for management of acute renal failure, new dialysis, uncontrolled hypertension Time Spent in Patient Care: Greater than 35 minutes (>than 50% of time spent in counselling and/or direct pt care on unit). 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
[2021-06-12] MEDS: FUROsemide 10 mg/mL SDV 10mL 40 MG IVP (18:10)
[2021-06-12] MEDS: hyDRALAzine 25 mg Tablet PO ×2 (18:10→20:11)
--- NOTE | 2021-06-12 20:36 | PC.HD ---
Initial hemodialysis treatment for this patient. Questions were answered and consent signed. BP started high and trended down some with treatment but no hemodynamic instability or symptoms noted. Fluid removal goal of 1000ml (net) acheived, pt tolerated treatment well, said he felt better post treatment.
[2021-06-13] VITALS (12 sets, daily range): BP systolic 142–177; BP diastolic 72–96; PULSE 65–95; RESP 16–18; TEMP 36.4–37.1; O2SAT 93–96
[2021-06-13] MEDS: FUROsemide 10 mg/mL SDV 10mL 40 MG IVP ×2 (05:19→18:46)
[2021-06-13] MEDS: heparin 5,000 unit/mL INJ 1 mL 5000 UNIT SUBCUT ×2 (05:20→18:49)
[2021-06-13 05:21] LABS: Basophils % 0.5 %; Eosinophils # 0.7 10^3/uL (0.0-0.8); Eosinophils % 11.2 %; Hematocrit 22.5 % (42.0-52.0); Hemoglobin 6.9 g/dL (11.7-16.6); Lymphocytes # 1.2 10^3/uL (0.8-4.8); Lymphocytes % 19.8 %; Mean Corpuscular HGB Conc 30.7 g/dL (30.0-36.0); Mean Corpuscular Hemoglobin 29.6 pg (28.0-34.0); Mean Corpuscular Volume 96.6 fl (80-94); Mean Platelet Volume 10.9 fL (7.4-10.4); Monocytes # 0.7 10^3/uL (0.2-0.9); Monocytes % 11.7 %; Neutrophils # 3.52 10^3/uL (1.8-7.7); Neutrophils % 56.3 %; Nucleated Red Blood Cells % 0 %; Platelet Count 203 10^3/cmm (130-400); Red Blood Count 2.33 10^6/uL (4.1-5.3); Red Cell Distribution Width 14.8 % (12.1-15.1); White Blood Count 6.3 10^3/uL (4.0-10.0)
[2021-06-13 05:55] LABS: Alanine Aminotransferase < 5 U/L (0-41); Albumin Level 2.7 g/dL (3.5-5.2); Alkaline Phosphatase 47 IU/L (40-130); Anion Gap 18.5 (5-19); Aspartate Amino Transferase 6 U/L (0-40); Carbon Dioxide 22 mmol/L (22-29); Chloride 106 mmol/L (98-107); Globulin 3.3 g/dL (1.3-4.6); Glomerular Filtration Rate 4.5 mL/min (90-130); Glucose 82 mg/dL (65-115); Osmolality Calculated 319 mOsm/kg (285-295); Phosphorus 7.5 mg/dL (2.5-4.5); Potassium 4.5 mmol/L (3.5-5.1); Sodium 142 mmol/L (136-145); Total Bilirubin 0.2 mg/dL (0.15-1.2)
[2021-06-13 06:03] LABS: Blood Urea Nitrogen 84 mg/dL (8-23)
[2021-06-13 07:37] LABS: PROTEIN, TOTAL 5.8 g/dL (6.1-8.1)
[2021-06-13] MEDS: losartan 50 mg Tablet PO (08:30)
[2021-06-13] MEDS: amlodipine 10 mg Tablet PO (08:30)
[2021-06-13] MEDS: sodium bicarbonate 650 mg Tablet 1300 MG PO (08:30)
[2021-06-13] MEDS: calcium acetate 667 mg Capsule 1334 MG PO ×3 (08:30→18:43)
[2021-06-13] MEDS: calcitriol 0.25 mcg Capsule PO ×2 (08:30→18:43)
[2021-06-13] MEDS: hyDRALAzine 25 mg Tablet PO ×3 (08:30→16:27)
--- NOTE | 2021-06-13 09:16 | PM.PN ---
Subjective Subjective: Interval history: Feels a little better today, no new issues. Swelling is a little better. Good urine output. Dialysis went well and is pending for today. No overt uremic Sx Mobilizing well. Medications: Reviewed: Yes Vitals/I&O/Wt Last Vital Signs Temp 97.9 F 06/13/21 07:26 Pulse 70 06/13/21 07:26 Resp 18 06/13/21 07:26 BP 176/96 06/13/21 08:30 Pulse Ox 93 06/13/21 07:26 06/12/21 06/13/21 06/13/21 22:59 06:59 14:59 Intake Total 230 / 1690 400 / 2090 240 / 240 Output Total 600 / 2708 125 / 125 Balance 230 / -418 -200 / -618 115 / 115 Weight last 48 hrs Weight 128.503 kg Weight 131.7 kg Weight 130.861 kg Physical Exam Narrative: EXAM NARRATIVE: Constitutional: Awake, comfortable HEENT: Wet mucosa, no jvp, non icteric Lungs: Bilaterally clear without discernible wheeze or rales in all lung zones CVS: S1 S2, no murmurs Abdo: Soft, BS ok Ext 4: 2-3+ edema, peripheral perfusion with no cyanosis Neurological: Grossly non-focal Data : 06/13/21 04:41 06/13/21 04:41 A&P Additional A&P Information 1. Renal failure Looking at the kidney ultrasound scan and the degree of echogenicity, it is almost certain that we are dealing with very advanced, end-stage kidney disease. Given the size of the kidneys, an infiltrative disease is possible i.e. amyloidosis versus undiagnosed hypertension antihypertensive renovascular disease. Work up is so far unrevealing although serology pending (inc ANCA, AVI, SPEP) Dialysis 2/3 session today, will up-titrate prescription for tomorrow A.m. labs Avoid usual nephrotoxic agents Dose medication for GFR less than 15 on dialysis. Okay to continue diuretics for the time being. 2. Chemistry Reflective of end-stage kidney disease including nongap metabolic acidosis, hyperkalemia, hyperphosphatemia, hypocalcemia. We will give him a phosphorus binder with PhosLo Calcitriol added He is currently on sodium bicarbonate; will stop this today 3. Anemia Again consistent with end-stage kidney disease. Will load with iv iron, EPO given today 06/13 4. Hypertension Currently on amlodipine, Lasix. Continue to bring down dry weight with dialysis 5. 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
[2021-06-13] MEDS: acetaminophen 325 mg Tablet 650 MG PO (12:13)
[2021-06-13] MEDS: epoetin alfa 1000 Unit/0.05 mL (ESRD) 20000 UNIT SUBCUT (13:37)
[2021-06-13] MEDS: sodium chloride 0.9% (100 ml) 100 ML 125 ML (14:00)
[2021-06-13 15:02] LABS: ABNORMAL PROTEIN BAND 1 0.5 g/dL (NONE DETECTED); ALBUMIN 2.4 g/dL (3.8-4.8); ALPHA 1 GLOBULIN 0.5 g/dL (0.2-0.3); ALPHA 2 GLOBULIN 0.8 g/dL (0.5-0.9); BETA 1 GLOBULIN 0.4 g/dL (0.4-0.6); BETA 2 GLOBULIN 0.4 g/dL (0.2-0.5); GAMMA GLOBULIN 1.4 g/dL (0.8-1.7)
[2021-06-13 15:22] LABS: Anti-Nuclear Antibody Screen NEGATIVE (NEGATIVE)
[2021-06-13] MEDS: heparin, porcine 1,000 unit/mL INJ 10 mL 10000 UNIT HE (16:04)
--- NOTE | 2021-06-13 16:05 | PM.PN ---
Subjective Subjective: Interval history: No events overnight. Patient has remained hemodynamically stable. On examination today sitting up in chair. Had 1 session of dialysis yesterday which he tolerated well. Plan for the session of dialysis later in the afternoon today. Discussed with the need for continued dialysis and regular follow-up as an outpatient. Patient verbalized understanding. Medications: Reviewed: Yes Vitals/I&O/Wt Last Vital Signs Temp 98.4 F 06/13/21 13:52 Pulse 74 06/13/21 13:52 Resp 16 06/13/21 13:52 BP 142/82 06/13/21 13:52 Pulse Ox 94 06/13/21 12:52 06/13/21 06/13/21 06/13/21 06:59 14:59 22:59 Intake Total 400 / 2090 830 / 830 Output Total 600 / 2708 325 / 325 Balance -200 / -618 505 / 505 Weight last 48 hrs Weight 128.503 kg Weight 131.7 kg Weight 130.861 kg Physical Exam Narrative: EXAM NARRATIVE: General: No acute distress, AO x3 HEENT: PERRLA, pupils bilaterally equal and reactive Chest: Normal vesicular breath sounds, no added sounds, equal good air entry bilaterally CVS: S1-S2 regular, no murmurs, no tachycardia, no gallops, no rubs Abdomen: Soft, nontender, no organomegaly, bowel sounds present Neuro: No focal deficits, no facial deformity, AO x3, power 5/5 in all limbs, bilateral lower limb edema present 2+ mid calf Tunneled catheter present in right upper thorax, no soakage around the dressing. Data : 06/13/21 04:41 06/13/21 04:41 A&P Assessment and plan (1) Acute renal failure: Status: Acute (2) Heart failure: Status: Acute (3) Anemia: Likely anemia of renal disease S/P I U PRBC Transfusion procrit 20 0000 u sc once Monitor CBC Transfuse to maintain hemoglobin greater than 7 Status: Acute (4) Uncontrolled hypertension: Amlodipine 10 mg p.o. daily Status: Acute (5) Hyperkalemia: Status: Acute Additional A&P Information End-stage renal disease: Most likely secondary to prolonged uncontrolled hypertension. Appreciate renal ultrasound. No hydronephrosis or concerns for obstructive uropathy. SPEP/AVI/ANCA sent out. Check CT abdomen pelvis. Post 1 session of dialysis. Plan to uptitrate dialysis treatment over next 2 days. Most likely will need long-term dialysis. Appreciate nephrology recommendations. Tunneled cath placed with Dr. Huff on June 11. Continue with PhosLo. Stop Kayexalate and sodium bicarbonate as patient during dialysis now. Anemia: Post monitor blood transfusion early in the admission. Hemoglobin again down to 6.9 today. Check erythropoietin. Procrit 20,000 units once. Transfuse 1 monitor blood transfusion today along with dialysis with target hemoglobin over 8. Continue with IV iron supplementation for 1 g overall. Day 2/5 today. Heart failure: Diastolic. Echocardiogram results appreciated with EF 55%, grade 2 diastolic dysfunction, without regional motion abnormality or valvular abnormalities. Continue with IV Lasix at 40 mg twice daily. Dialysis and ultrafiltrate progressively increasing within next 3 days. Hypertension: Better control. Continue with amlodipine, losartan 50 mg daily, hydralazine 25 3 times daily. Will uptitrate medications with target blood pressure less than 140/90 mmHg. Renal dialysis diet. CODE STATUS: Full code DVT prophylaxis: Heparin 5000 units subcu every 12 hours Daily Discharge planning: We will plan to discharge home. Patient will require long-term outpatient dialysis set up. Case management involved. Given social discord patient would need financial assistance. Plan to discharge once financial assistance and outpatient dialysis set up. 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
--- NOTE | 2021-06-13 16:06 | CTR_ITS ---
PROCEDURE INFORMATION: Exam: CT Abdomen And Pelvis Without Contrast Exam date and time: 06/13/2021 4:06 PM Age: 61 years old Clinical indication: Condition or disease; Kidney or ureter condition; Chronic kidney disease or failure; Additional info: New end-stage renal disease, rule out obstructive nephropath TECHNIQUE: Imaging protocol: Computed tomography of the abdomen and pelvis without contrast. Radiation optimization: All CT scans at this facility use at least one of these dose optimization techniques: automated exposure control; mA and/or kV adjustment per patient size (includes targeted exams where dose is matched to clinical indication); or iterative reconstruction. COMPARISON: US renal BI* [id number] 06/11/2021 7:32 AM RADIATION DOSE METRICS: Total DLP (mGy-cm): 1756.49 FINDINGS: Lungs: Bibasilar atelectasis. Posterior consolidation in the left lower lobe with parenchymal calcifications. Pleural spaces: Medium sized bilateral pleural fluid collections. There is pleural thickening on the right with inhomogenous material within the fluid. Mild pleural thickening on the left. Liver: Normal. No mass. Gallbladder and bile ducts: Contracted gallbladder with mild wall thickening and pericholecystic fat stranding. Pancreas: Normal. No ductal dilation. Spleen: Normal. No splenomegaly. Adrenal glands: Normal. No mass. Kidneys and ureters: Bilateral renal cortical thinning. Mild right hydronephrosis versus central cysts. No left hydronephrosis. No calculus. Stomach and bowel: Unremarkable. No obstruction. No mucosal thickening. Appendix: The appendix is visualized and is normal. Intraperitoneal space: Mild pelvic ascites. No free air. Vasculature: Arterial calcifications. No aneurysm. Lymph nodes: Prominent inguinal and iliac chain lymph nodes are most likely reactive. Urinary bladder: Unremarkable as visualized. Reproductive: Unremarkable as visualized. Bones/joints: Unremarkable. No acute fracture. Soft tissues: Small fat containing right inguinal hernia. Other findings: Diffuse body wall edema. CT/CT abdomen pelvis wo con [id number] IMPRESSION: 1. Mild right hydronephrosis versus central cysts. No ureteral calculus identified. 2. Bilateral pleural effusions with pleural thickening and inhomogeneous material on the right. This is suspicious for bilateral empyemas. 3. Consolidation in the posterior left lower lobe could represent atelectasis or pneumonia. 4. Diffuse body wall edema. 5. Mild pelvic ascites. Radiation Dose CTDIVOL = (mGy): DLP = 1756.49 (mGy-cm)
[2021-06-13] MEDS: iron sucrose 200 MG in sodium chloride 0.9% (100 ml) 100 ML 220 MG IV (16:29)
[2021-06-13] MEDS: pantoprazole DR 40 mg Tablet PO (18:43)
[2021-06-13 20:42] LABS: Hemoglobin 8.2 g/dL (11.7-16.6)
[2021-06-13] MEDS: hyDRALAzine 50 mg Tablet PO (20:49)
[2021-06-14 00:50] VITALS: BP 179/83; PULSE 70; RESP 17; TEMP 36.8; O2SAT 95
[2021-06-14] MEDS: FUROsemide 10 mg/mL SDV 10mL 40 MG IVP ×2 (05:06→17:34)
[2021-06-14] MEDS: heparin 5,000 unit/mL INJ 1 mL 5000 UNIT SUBCUT (05:06)
[2021-06-14 05:40] LABS: Basophils # 0.1 10^3/uL (0.0-0.1); Basophils % 0.9 %; Eosinophils # 0.5 10^3/uL (0.0-0.8); Eosinophils % 7.7 %; Hematocrit 26.9 % (42.0-52.0); Hemoglobin 8.3 g/dL (11.7-16.6); Lymphocytes # 1.4 10^3/uL (0.8-4.8); Lymphocytes % 19.9 %; Mean Corpuscular HGB Conc 30.9 g/dL (30.0-36.0); Mean Corpuscular Hemoglobin 30.1 pg (28.0-34.0); Mean Corpuscular Volume 97.5 fl (80-94); Mean Platelet Volume 10.5 fL (7.4-10.4); Monocytes # 0.9 10^3/uL (0.2-0.9); Monocytes % 12.1 %; Neutrophils # 4.15 10^3/uL (1.8-7.7); Neutrophils % 58.8 %; Nucleated Red Blood Cells % 0 %; Platelet Count 219 10^3/cmm (130-400); Red Blood Count 2.76 10^6/uL (4.1-5.3); Red Cell Distribution Width 15.5 % (12.1-15.1)
[2021-06-14 06:09] LABS: Alanine Aminotransferase < 5 U/L (0-41); Albumin Level 2.7 g/dL (3.5-5.2); Alkaline Phosphatase 49 IU/L (40-130); Aspartate Amino Transferase 8 U/L (0-40); Blood Urea Nitrogen 62 mg/dL (8-23); Calcium 7.6 mg/dL (8.5-10.5); Carbon Dioxide 23 mmol/L (22-29); Chloride 103 mmol/L (98-107); Globulin 3.7 g/dL (1.3-4.6); Glomerular Filtration Rate 5.7 mL/min (90-130); Glucose 84 mg/dL (65-115); Osmolality Calculated 309 mOsm/kg (285-295); Sodium 141 mmol/L (136-145); Total Bilirubin 0.2 mg/dL (0.15-1.2); Total Protein 6.4 g/dL (6.6-8.7)
[2021-06-14 08:00] VITALS: BP 179/83; PULSE 70; RESP 17; TEMP 36.8
[2021-06-14] MEDS: hyDRALAzine 50 mg Tablet PO ×3 (08:36→22:23)
[2021-06-14] MEDS: pantoprazole DR 40 mg Tablet PO ×2 (08:36→17:34)
[2021-06-14] MEDS: amlodipine 10 mg Tablet PO (08:36)
[2021-06-14] MEDS: losartan 50 mg Tablet PO (08:36)
[2021-06-14] MEDS: calcitriol 0.25 mcg Capsule PO ×2 (08:36→17:34)
[2021-06-14] MEDS: calcium acetate 667 mg Capsule 1334 MG PO ×3 (08:36→17:34)
--- NOTE | 2021-06-14 09:13 | PM.PN ---
Subjective Subjective: Interval history: Mr Mattson feels well today with no acute issues. Dialysis went well yesterday. With resolution of the lower extremity edema. No other symptoms of hypervolemia. No uremic symptoms. Mobilizing well without dyspnea on exertion. Medications: Reviewed: Yes Vitals/I&O/Wt Last Vital Signs Temp 98.2 F 06/14/21 00:50 Pulse 70 06/14/21 00:50 Resp 17 06/14/21 00:50 BP 179/83 06/14/21 00:50 Pulse Ox 95 06/14/21 00:50 06/13/21 06/14/21 06/14/21 22:59 06:59 14:59 Intake Total 1300 / 2130 300 / 2430 Output Total 2055 / 2380 700 / 3080 Balance -755 / -250 -400 / -650 Weight last 48 hrs Weight 128.452 kg Weight 128.2 kg Weight 128.503 kg Weight 131.7 kg Physical Exam Narrative: EXAM NARRATIVE: Constitutional: Awake, comfortable HEENT: Wet mucosa, no jvp, non icteric Lungs: Bilaterally clear without discernible wheeze or rales in all lung zones CVS: S1 S2, no murmurs Abdo: Soft, BS ok Ext 4: 2-3+ edema, peripheral perfusion with no cyanosis Neurological: Grossly non-focal Data : 06/14/21 05:18 06/14/21 05:18 A&P Additional A&P Information 1. Renal failure The kidneys are good size, however, there is increased echogenicity consistent with very chronic kidney disease. 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 If this is indeed MGRS, he would qualify for therapy given renal involvement. We will send kappa/lambda and serum immunofixation. Discussion with oncology about bone marrow versus renal biopsy. Dialysis 3/3 session today A.m. labs Avoid usual nephrotoxic agents Dose medication for GFR less than 15 on dialysis. Okay to continue diuretics for the time being. 2. Chemistry Reflective of end-stage kidney disease including nongap metabolic acidosis, hyperkalemia, hyperphosphatemia, hypocalcemia. Cont phosphorus binder with PhosLo Calcitriol added He is currently on sodium bicarbonate; will stop this today 3. Anemia Again consistent with end-stage kidney disease. Will load with iv iron, EPO given today 06/13 4. Hypertension Currently on amlodipine, Lasix. Continue to bring down dry weight with dialysis 5. 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
[2021-06-14 13:52] VITALS: BP 150/76; BP 173/99; PULSE 72; PULSE 78; RESP 16; TEMP 36.5
--- NOTE | 2021-06-14 14:01 | PC.HD ---
Patient brought to dialysis room via wheelchair, unable to weigh patient (too heavy to weigh on floor scale) and no weight provided by nurse.
[2021-06-14 14:17] LABS: INR 1.19 (0.8-1.2)
--- NOTE | 2021-06-14 14:32 | P.PN_ITS ---
Subjective Subjective: Interval history: No acute events overnight. Patient has remained stable. Tolerating the third session of dialysis well. Documented urine output appropriate. Denies any nausea vomiting, headache. Medications: Reviewed: Yes Vitals/I&O/Wt Last Vital Signs Temp 97.7 F 06/14/21 13:52 Pulse 78 06/14/21 13:52 Resp 16 06/14/21 13:52 BP 173/99 06/14/21 13:52 Pulse Ox 95 06/14/21 00:50 06/13/21 06/14/21 06/14/21 22:59 06:59 14:59 Intake Total 1300 / 2130 300 / 2430 500 / 500 Output Total 2055 / 2380 700 / 3080 3041 / 3041 Balance -755 / -250 -400 / -650 -2541 / -2541 Weight last 48 hrs Weight 0 g Weight 128.452 kg Weight 128.2 kg Weight 128.503 kg Physical Exam Narrative: EXAM NARRATIVE: General: No acute distress, AO x3 HEENT: PERRLA, pupils bilaterally equal and reactive Chest: Normal vesicular breath sounds, no added sounds, equal good air entry bilaterally CVS: S1-S2 regular, no murmurs, no tachycardia, no gallops, no rubs Abdomen: Soft, nontender, no organomegaly, bowel sounds present Neuro: No focal deficits, no facial deformity, AO x3, power 5/5 in all limbs, bilateral lower limb edema present 2+ mid calf Tunneled catheter present in right upper thorax, no soakage around the dressing. Data : 06/14/21 05:18 06/14/21 05:18 A&P Assessment and plan (1) Acute renal failure: Status: Acute (2) Heart failure: Status: Acute (3) Anemia: Likely anemia of renal disease S/P I U PRBC Transfusion procrit 20 0000 u sc once Monitor CBC Transfuse to maintain hemoglobin greater than 7 Status: Acute (4) Uncontrolled hypertension: Amlodipine 10 mg p.o. daily Status: Acute (5) Hyperkalemia: Status: Acute Additional A&P Information End-stage renal disease: Most likely secondary to prolonged uncontrolled hypertension. Appreciate renal ultrasound. No hydronephrosis or concerns for obstructive uropathy. SPEP mildly positive. AVI/ANCA negative. With concerns for possible MGUS, and MGRA case was further discussed with Dr. Oleary and Dr. Daigle. As per Dr. Oleary patient would need renal biopsy to confirm renal involvement and will be better than a bone biopsy. Discussed with patient and he is agreeable. Dr. Melton has agreed for renal biopsy. N.p.o. after midnight. Hold heparin subcu for now. Third dialysis session today. Most likely will need long-term dialysis. Appreciate nephrology recommendations. Tunneled cath placed with Dr. Huff on June 11. Continue with PhosLo. Anemia: Post 2 unit blood transfusion during admission. Hemoglobin stable today. Erythropoietin levels awaited. Awaited. Procrit 20,000 units once. Continue with IV iron supplementation. Day 3/5 today. Heart failure: Diastolic. Echocardiogram results appreciated with EF 55%, grade 2 diastolic dysfunction, without regional motion abnormality or valvular abnormalities. Continue with IV Lasix at 40 mg twice daily. Dialysis and ultrafiltrate progressively increasing within next 3 days. Hypertension: Better control. Continue with amlodipine, losartan 50 mg daily, hydralazine 50 mg 3 times a day. Will uptitrate keeping goal less than 140/90 mmHg. Renal dialysis diet. CODE STATUS: Full code DVT prophylaxis: Heparin 5000 units subcu every 12 hours Daily Discharge planning: We will plan to discharge home. Patient will require long- term outpatient dialysis set up. Case management involved. Given social discord patient would need financial assistance. Plan to discharge once financial assistance and outpatient dialysis set up. Tried calling patient's family and chart multiple times. Unfortunately unable to get in touch with them for now. Will confirm numbers again with patient. Attestations Medical Necessity Statement*: Requires further hospitalization for management of new diagnosis end-stage renal disease on maintenance hemodialysis, renal biopsy to rule out MGUS with renal involvement while safe discharge planning is sought. Time Spent in Patient Care: Greater than 35 minutes (>than 50% of time spent in counselling and/or direct pt care on unit) . 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
[2021-06-14] MEDS: acetaminophen 325 mg Tablet 650 MG PO (14:56)
[2021-06-14 16:00] VITALS: BP 167/83; PULSE 78; RESP 17; TEMP 36.8; O2SAT 96
[2021-06-14] MEDS: iron sucrose 200 MG in sodium chloride 0.9% (100 ml) 100 ML 220 MG IV (16:04)
[2021-06-14 20:00] VITALS: BP 170/87; PULSE 72; RESP 16; TEMP 36.7; O2SAT 96
[2021-06-15] VITALS (7 sets, daily range): BP systolic 159–196; BP diastolic 75–91; PULSE 56–95; RESP 16–18; TEMP 36.5–37; O2SAT 94–97
[2021-06-15 05:24] LABS: Basophils # 0.1 10^3/uL (0.0-0.1); Basophils % 0.7 %; Eosinophils # 0.7 10^3/uL (0.0-0.8); Hematocrit 27.2 % (42.0-52.0); Hemoglobin 8.3 g/dL (11.7-16.6); Lymphocytes # 1.5 10^3/uL (0.8-4.8); Lymphocytes % 17.9 %; Mean Corpuscular HGB Conc 30.5 g/dL (30.0-36.0); Mean Corpuscular Volume 98.2 fl (80-94); Mean Platelet Volume 10.7 fL (7.4-10.4); Monocytes # 1.1 10^3/uL (0.2-0.9); Monocytes % 12.5 %; Neutrophils # 5.13 10^3/uL (1.8-7.7); Neutrophils % 60.4 %; Nucleated Red Blood Cells % 0 %; Platelet Count 236 10^3/cmm (130-400); Red Blood Count 2.77 10^6/uL (4.1-5.3); Red Cell Distribution Width 15.6 % (12.1-15.1); White Blood Count 8.5 10^3/uL (4.0-10.0)
[2021-06-15 05:45] LABS: Alanine Aminotransferase < 5 U/L (0-41); Albumin Level 2.7 g/dL (3.5-5.2); Alkaline Phosphatase 46 IU/L (40-130); Anion Gap 15.7 (5-19); Aspartate Amino Transferase 6 U/L (0-40); Blood Urea Nitrogen 39 mg/dL (8-23); Calcium 7.8 mg/dL (8.5-10.5); Carbon Dioxide 25 mmol/L (22-29); Chloride 102 mmol/L (98-107); Creatinine Clr Calc Pharmacy 0; Globulin 3.5 g/dL (1.3-4.6); Glomerular Filtration Rate 8.7 mL/min (90-130); Glucose 84 mg/dL (65-115); Osmolality Calculated 297 mOsm/kg (285-295); Potassium 3.7 mmol/L (3.5-5.1); Sodium 139 mmol/L (136-145); Total Bilirubin 0.2 mg/dL (0.15-1.2); Total Protein 6.2 g/dL (6.6-8.7)
[2021-06-15] MEDS: FUROsemide 10 mg/mL SDV 10mL 40 MG IVP ×2 (05:50→17:17)
[2021-06-15] MEDS: calcitriol 0.25 mcg Capsule PO ×2 (08:04→17:17)
[2021-06-15] MEDS: hyDRALAzine 50 mg Tablet PO (08:04)
[2021-06-15] MEDS: pantoprazole DR 40 mg Tablet PO ×2 (08:04→17:17)
[2021-06-15] MEDS: amlodipine 10 mg Tablet PO (08:04)
[2021-06-15] MEDS: calcium acetate 667 mg Capsule 1334 MG PO ×3 (08:04→17:17)
[2021-06-15] MEDS: losartan 50 mg Tablet PO (08:05)
--- NOTE | 2021-06-15 12:13 | PC.CHAP ---
Pastoral Care Encounter/Spiritual Assessment Type of Contact [] Declined watch commander visit [] Patient/Family/Request visit [] Outpatient visit [] Follow-up visit [] Physician referral [] Code/Alert [x] Routine visit [] Staff referral [] Actively dying [] Patient sleeping [] Family support [] [] Out of room [] Palliative care [] [x] Receiving care in room [] Pre-surgical visit [] Trauma [] Long length of stay [] ICU visit [] Other: Relational/Emotional Strength [x] Patient feels connected with others/family/visitors/staff [X] Distress [] Loneliness/isolation [] Abandonment Spirituality of Patient [x] Person of Isabella [] Attends Yarsanism of their Isabella [x] Believes in Prayer [] Reads Bible or Cheondoism materials [] There are Spiritual issues to be addressed [facility] Psychiatrist Interventions [x] Prayer [x] Active listening [x] Non-anxious presence [x] Spiritual/emotional support [x] Crisis/trauma care [x] Spiritual counseling [] Bereavement support [] Provided bereavement packet [] Provided Bible/devotional materials [] Provided toy/stuffed animal, coloring book to patient or family member [] Provided Communion [] Anointing/[place] [] Salvation [x] Completed spiritual assessment [] Other: Impact on Illness or Injury [] Angry [] Fearful [x] Anxious [] Often cries [] Exhaustion [x] Unable to work [] Unable to attend faith [] Unable to walk/stand [] Unable to read [] Unable to drive [] Unable to eat/drink [] Unable to sleep [] Unable to be with family [] Patient intubated [] Other: Summary He is on dylises kindey has [facility] health problems feels good has a good attitude and wants to go home soon Time spent with patient 10 mins
[2021-06-15 12:57] LABS: KAPPA LIGHT CHAIN, FREE, SERUM 450.7 mg/L (3.3-19.4); KAPPA/LAMBDA LIGHT CHAINS FREE 3.35 (0.26-1.65); LAMBDA LIGHT CHAIN, FREE, SERU 134.4 mg/L (5.7-26.3)
--- NOTE | 2021-06-15 13:07 | P.PN_ITS ---
Subjective Subjective: Interval history: No acute events overnight. Patient has remained stable. Blood pressure still elevated but better controlled. Tolerated third session of dialysis well yesterday. Medications: Reviewed: Yes Vitals/I&O/Wt Last Vital Signs Temp 97.7 F 06/15/21 11:57 Pulse 56 L 06/15/21 11:57 Resp 16 06/15/21 11:57 BP 159/84 06/15/21 11:57 Pulse Ox 96 06/15/21 11:57 06/14/21 06/15/21 06/15/21 22:59 06:59 14:59 Intake Total 470 / 970 60 / 1030 120 / 120 Output Total 250 / 3541 275 / 3816 150 / 150 Balance 220 / -2571 -215 / -2786 -30 / -30 Weight last 48 hrs Weight 126.779 kg Weight 0 g Weight 128.452 kg Weight 128.2 kg Physical Exam Narrative: EXAM NARRATIVE: General: No acute distress, AO x3 HEENT: PERRLA, pupils bilaterally equal and reactive Chest: Normal vesicular breath sounds, no added sounds, equal good air entry bilaterally CVS: S1-S2 regular, no murmurs, no tachycardia, no gallops, no rubs Abdomen: Soft, nontender, no organomegaly, bowel sounds present Neuro: No focal deficits, no facial deformity, AO x3, power 5/5 in all limbs, bilateral lower limb edema present 2+ mid calf Tunneled catheter present in right upper thorax, no soakage around the dressing. Data : 06/15/21 04:30 06/15/21 04:30 A&P Assessment and plan (1) Acute renal failure: Status: Acute (2) Heart failure: Status: Acute (3) Anemia: Likely anemia of renal disease S/P I U PRBC Transfusion procrit 20 0000 u sc once Monitor CBC Transfuse to maintain hemoglobin greater than 7 Status: Acute (4) Uncontrolled hypertension: Amlodipine 10 mg p.o. daily Status: Acute (5) Hyperkalemia: Status: Acute Additional A&P Information End-stage renal disease: Most likely secondary to prolonged uncontrolled hypertension. Appreciate renal ultrasound. No hydronephrosis or concerns for obstructive uropathy. SPEP mildly positive. AVI/ANCA negative. With concerns for possible MGUS, and MGRA case was further discussed with Dr. Oleary and Dr. Daigle. As per Dr. Oleary patient would need renal biopsy to confirm renal involvement and will be better than a bone biopsy. Discussed with patient and he is agreeable. Dr. Melton has agreed for renal biopsy. N.p.o. after midnight. Hold heparin s ubcu for now. Most likely will need long-term dialysis. Appreciate nephrology recommendations. Tunneled cath placed with Dr. Huff on June 11. Continue with PhosLo. Anemia: Post 2 unit blood transfusion during admission. Hemoglobin stable today. Erythropoietin levels awaited. Awaited. Procrit 20,000 units once. Continue with IV iron supplementation. Day 4/5 today. Heart failure: Diastolic. Echocardiogram results appreciated with EF 55%, grade 2 diastolic dysfunction, without regional motion abnormality or valvular abnormalities. Continue with IV Lasix at 40 mg twice daily. Dialysis and ultrafiltrate progressively increasing within next 3 days. Hypertension: Better control. Continue amlodipine 10 mg daily, losartan 50 mg daily. Increase hydralazine to 75 mg 3 times a day, add clonidine 0.2 mg transdermal patch. Goal blood pressure less than 140/90 mmHg. Renal dialysis diet. CODE STATUS: Full code DVT prophylaxis: Heparin 5000 units subcu every 12 hours Daily Discharge planning: We will plan to discharge home. Patient will require long- term outpatient dialysis set up. Case management involved. Given social discord patient would need financial assistance. Plan to discharge once financial assistance and outpatient dialysis set up. Plan for today: Further adjustment of antihypertensives. Plan for renal biopsy tomorrow. Discharge planning with dialysis set up as an outpatient. Attestations Medical Necessity Statement*: Requires further hospitalization for management of end-stage renal disease, severely uncontrolled hypertension, need a renal biopsy to rule out MGUS while safe discharge planning and outpatient dialysis is set up Time Spent in Patient Care: Greater than 35 minutes (>than 50% of time spent in counselling and/or direct pt care on unit) . Coding Level of Care Code Acute Marketing Analytics Manager for [facility] Diagnoses Acute renal failure N17.9 Heart failure I50.9 Anemia D64.9 Uncontrolled hypertension I10 Hyperkalemia E87.5
--- NOTE | 2021-06-15 14:47 | P.PN_ITS ---
Subjective Subjective: Interval history: Mr. Mattson feels well today with no acute complaints. His legs are looking less edematous and getting wrinkle. He does have some mild orthostatic hypotension. No uremic space symptoms. Tolerated dialysis nicely yesterday. Still making good volume of urine. Medications: Reviewed: Yes Vitals/I&O/Wt Last Vital Signs Temp 97.7 F 06/15/21 11:57 Pulse 56 L 06/15/21 11:57 Resp 16 06/15/21 11:57 BP 159/84 06/15/21 11:57 Pulse Ox 96 06/15/21 11:57 06/14/21 06/15/21 06/15/21 22:59 06:59 14:59 Intake Total 470 / 970 60 / 1030 120 / 120 Output Total 250 / 3541 275 / 3816 150 / 150 Balance 220 / -2571 -215 / -2786 -30 / -30 Weight last 48 hrs Weight 126.779 kg Weight 0 g Weight 128.452 kg Weight 128.2 kg Physical Exam 2 Narrative: EXAM NARRATIVE: Constitutional: Awake, comfortable HEENT: Wet mucosa, no jvp, non icteric Lungs: Bilaterally clear without discernible wheeze or rales in all lung zones CVS: S1 S2, no murmurs Abdo: Soft, BS ok Ext 4: 2-3+ edema, peripheral perfusion with no cyanosis Neurological: Grossly non-focal Data : 06/15/21 04:30 06/15/21 04:30 A&P Additional A&P Information 1. Renal failure The kidneys are good size, however, there is increased echogenicity consistent with very chronic kidney disease. SPEP came back positive at 0.5 mg/dL consi stent with MGUS, however, could also be consistent with MGRS. Of note he has [address] dominance, ie this is more assoc with LCDD/HCDD/Cast nephropathy than [place] amyloidosis If this is indeed MGRS, he would qualify for therapy given renal involvement. Renal Biopsy in the am to see if this is hypertensive arterionephrosclerosis vs MGRS A.m. labs Avoid usual nephrotoxic agents Dose medication for GFR less than 15 on dialysis. Okay to continue diuretics for the time being. 2. Chemistry Well balanced now Cont phosphorus binder with PhosLo Calcitriol added 3. Anemia Again consistent with end-stage kidney disease. Will load with iv iron, EPO given 06/13 4. Hypertension Currently on amlodipine, Lasix. Continue to bring down dry weight with dialysis Clonidine dosing today 5. Disposition security operations manager to set up outpatient hemodialysis for him Thank you for consultation, it is a pleasure to follow these cases with you Exam and interview performed with aid of bedside RN using telemedicine Time spent 20 min inc > 50% of time in face to face counseling Alex Borjas MD [facility] [phone] Attestations Medical Necessity Statement*: Eval for renal failure Coding Level of Care Code Acute Client Services Coordinator for Chg Pawan
[2021-06-15 14:48] LABS: Erythropoietin 150.3 mIU/mL (2.6-18.5)
[2021-06-15] MEDS: cloNIDine 0.2 mg/24 hr Patch 1 PATCH TRANSDERMA (15:00)
[2021-06-15] MEDS: iron sucrose 200 MG in sodium chloride 0.9% (100 ml) 100 ML 220 MG IV (15:00)
[2021-06-15] MEDS: hyDRALAzine 50 mg Tablet 75 MG PO ×2 (15:00→21:51)
[2021-06-16 04:00] VITALS: BP 173/91; PULSE 69; RESP 17; TEMP 36.7; O2SAT 93
[2021-06-16] MEDS: FUROsemide 10 mg/mL SDV 10mL 40 MG IVP (05:44)
--- NOTE | 2021-06-16 06:53 | P.PN_ITS ---
Subjective Subjective: Interval history: feels better with dialysis. no n/v/f/c/diego/d/leg pain. good appetite, good uop Medications: Reviewed: Yes Medication Review Details: Current Medications Acetaminophen (Acetaminophen 325 Mg Tablet) 650 mg PO Q6H PRN PRN Reason: Mild/Mod Pain Or Temp >/= 101 Last Admin: 06/14/21 14:56 Dose: 650 mg Documented by: Amlodipine Besylate (Amlodipine 10 Mg Tablet) 10 mg PO DAILY [facility] Last Admin: 06/15/21 08:04 Dose: 10 mg Documented by: Bisacodyl (Bisacodyl 5 Mg Tablet) 10 mg PO DAILY PRN; Protocol PRN Reason: Constipation (see protocol) Calcitriol (Calcitriol 0.25 Mcg Capsule) 0.25 mcg PO BID [facility] Last Admin: 06/15/21 17:17 Dose: 0.25 mcg Documented by: Calcium Acetate (Calcium Acetate 667 Mg Capsule) 1,334 mg PO TIDWM [facility] Last Admin: 06/15/21 17:17 Dose: 1,334 mg Documented by: Clonidine HCl (Clonidine 0.2 Mg/24 Hr Patch) 1 patch TRANSDERMA Q7D [facility] Last Admin: 06/15/21 15:00 Dose: 1 patch Documented by: Furosemide (Furosemide 10 Mg/Ml Sdv 10ml) 40 mg IVP Q12H [facility] Last Admin: 06/16/21 05:44 Dose: 40 mg Documented by: Heparin Sodium (Porcine) (Heparin 5,000 Unit/Ml Inj 1 Ml) 5,000 unit SUBCUT Q12H [facility] Last Admin: 06/16/21 04:25 Dose: Not Given Documented by: Hydralazine HCl (Hydralazine 50 Mg Tablet) 75 mg PO TID [facility] Last Admin: 06/15/21 21:51 Dose: 75 mg Documented by: Iron Sucrose 200 mg/ Sodium (Chloride) 110 mls @ 220 mls/hr IV Q24H [facility] Stop: 06/16/21 13:59 Last Infusion: 06/15/21 15:31 Dose: Infused Documented by: Losartan Potassium (Losartan 50 Mg Tablet) 50 mg PO DAILY [facility] Last Admin: 06/15/21 08:05 Dose: 50 mg Documented by: Pantoprazole Sodium (Pantoprazole Dr 40 Mg Tablet) 40 mg PO BID [facility] Last Admin: 06/15/21 17:17 Dose: 40 mg Documented by: Vitals/I&O/Wt Last Vital Signs Temp 98.1 F 06/16/21 04:00 Pulse 69 06/16/21 04:00 Resp 17 06/16/21 04:00 BP 173/91 06/16/21 04:00 Pulse Ox 93 06/16/21 04:00 06/15/21 06/15/21 06/16/21 14:59 22:59 06:59 Intake Total 120 / 120 230 / 350 Output Total 150 / 150 250 / 400 Balance -30 / -30 -20 / -50 Weight last 48 hrs Weight 126.637 kg Weight 126.779 kg Weight 0 g Physical Exam Narrative: EXAM NARRATIVE: Constitutional: Awake, comfortable NARd BP elevated HEENT: nc/at, eomi, anicteric neck- supple, no jvp Lungs: good air moevement b/l CVS: S1 S2, no murmurs Abdo: Soft, nt, nd, +BS Ext 4: 1+ edema, no clubbing Neurological: a,a, o x 2+, moves all 4 rxt Data : 06/15/21 04:30 06/15/21 04:30 A&P Additional A&P Information 1. Renal failure The kidneys are good size, however, there is increased echogenicity consistent w ith very chronic kidney disease. 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 Of note he has [place] dominance, ie this is more assoc with LCDD/HCDD/Cast nephropathy than [place] amyloidosis If this is indeed MGRS, he would qualify for therapy given renal involvement. Renal Biopsy needed to diagnose possible MGRS HD today Avoid usual nephrotoxic agents Dose medication for GFR less than 15 on dialysis. Okay to continue diuretics for the time being. 2. renal bone- mineral- disease Cont phosphorus binder with PhosLo Calcitriol added 3. Anemia Again consistent with end-stage kidney disease. - iv iron, EPO given 06/13 4. Hypertension Currently on amlodipine, clonidine, hydralazine, losartan, and Lasix. Continue to bring down dry weight with dialysis 5. Disposition lead project manager to set up outpatient hemodialysis for him Exam and interview performed with aid of bedside RN using telemedicine Time spent seeing pt, reviewing chart, and coordinating care =30 min Attestations Medical Necessity Statement*: YNES/ ESRD- per medicine Time Spent in Patient Care: 16 - 35 minutes Coding Level of Care Code Acute Speech Language Therapist for Jah Villalta
[2021-06-16 08:00] VITALS: BP 190/109; PULSE 63; RESP 18; TEMP 36.5; O2SAT 96
[2021-06-16 08:42] VITALS: BP 190/109
[2021-06-16] MEDS: calcitriol 0.25 mcg Capsule PO (08:42)
[2021-06-16] MEDS: amlodipine 10 mg Tablet PO (08:42)
[2021-06-16] MEDS: pantoprazole DR 40 mg Tablet PO (08:42)
[2021-06-16] MEDS: hyDRALAzine 50 mg Tablet 75 MG PO ×2 (08:42→15:38)
[2021-06-16] MEDS: losartan 50 mg Tablet PO (08:42)
[2021-06-16] MEDS: heparin, porcine 1,000 unit/mL INJ 10 mL HE (08:43)
--- NOTE | 2021-06-16 08:56 | PC.NURSE ---
Notified DOROTA French of [facility] BP of 190/109
--- NOTE | 2021-06-16 13:07 | PC.CHAP ---
Pastoral Care Encounter/Spiritual Assessment Type of Contact [] Declined gmat tutor visit [] Patient/Family/Request visit [] Outpatient visit [xx] Follow-up visit [] Physician referral [] Code/Alert [xx] Routine visit [] Staff referral [] Actively dying [] Patient sleeping [] Family support [] [] Out of room [] Palliative care [] [] Receiving care in room [] Pre-surgical visit [] Trauma [xx] Long length of stay [] ICU visit [] Other: Relational/Emotional Strength [] Patient feels connected with others/family/visitors/staff [] Distress [] Loneliness/isolation [] Abandonment Spirituality of Patient [] Person of [place] [] Attends Anabaptism of their [place] [] Believes in Prayer [] Reads Bible or Adventism materials [] There are Spiritual issues to be addressed [employer] Interventions [] Prayer [] Active listening [] Non-anxious presence [] Spiritual/emotional support [] Crisis/trauma care [] Spiritual counseling [] Bereavement support [] Provided bereavement packet [] Provided Bible/devotional materials [] Provided toy/stuffed animal, coloring book to patient or family member [] Provided Communion [] Anointing/[place] [] Salvation [] Completed spiritual assessment [] Other: Impact on Illness or Injury [] Angry [] Fearful [] Anxious [] Often cries [] Exhaustion [] Unable to work [] Unable to attend congregation [] Unable to walk/stand [] Unable to read [] Unable to drive [] Unable to eat/drink [] Unable to sleep [] Unable to be with family [] Patient intubated [] Other: Summary Patient is being discharged. Time spent with patient
--- NOTE | 2021-06-16 14:42 | PM.TDS ---
Transfer Summary Providers Date of Admission: 06/10/21 14:45 Date of Discharge: 06/16/21 Attending Provider at Admission: Lauro Carrera MD Attending Provider at Transfer: Chito Mayberry MD Consults: Tele nephrology Anticipated Date of Transfer: Anticipated date of transfer: 06/16/21 Receiving Facility & Provider: Receiving Provider: [Dr. Boyle] Receiving facility: [facility]] Diagnoses at Discharge Discharge Diagnosis (1) Acute renal failure: Status: Acute (2) Heart failure: Status: Acute Permanent problem details: Diastolic grade 2, EF 50 to 55% (3) Anemia: Status: Acute (4) Uncontrolled hypertension: Status: Acute (5) Hyperkalemia: Status: Acute (6) MGUS (monoclonal gammopathy of unknown significance): Status: Acute Reason for Visit Reason for Visit: resp distress Hospital Course Hospital Course As per H&P from Dr. Carrera on 06/10. Alvarado Park is a 61 year old male with no significant past medical history, is a direct admit from [facility], he went there with chief complaint of worsening shortness of breath, on minimal exertion, as well as worsening bilateral lower extremity swelling, going on for the last 7 days. He denies any cough, fever, chest pain, nausea, vomiting, abdominal pain, difficulty passing urine, headache. He has not seen a physician in last 15/ 20 years. Pertinent labs: WBC;6.9, H&H 7.3/23, plt:v267, Serum sodium:141, BUN /serum creatinine: 107/13.9, serum potassium:5.8, AST 14 ALT 9 ALp:71 proBNP:>63652, D-dimer: 6.57, baseline troponin: 0.05, creatinine kinase:84, Rapid Covid antigen: Negative He was admitted to ICU for management of new onset renal failure. Nephrology was consulted. He was recommended to be started on dialysis. Surgery was consulted and he underwent tunnel catheter insertion on June 11. Patient was started on daily agreement of dialysis which he had been tolerating well. His symptoms of heart failure which were present on admission improved with dialysis and he is currently been on room air for last 4 days. Echocardiogram was done which showed no regional wall motion of normality, mild concentric LVH, EF of 50 to 55%, upon RV contractility with grade 2 LV diastolic dysfunction. Patient was not on admission was found to have anemia which is most likely secondary to end-stage renal disease. Work-up was sent which showed iron deficiency anemia and anemia of chronic disease. During hospitalization he received 5-day course of IV iron infusion. He also received 2 units of blood transfusion. His hemoglobin has remained stable over last 3 days. During hospitalization he was also found to have elevated blood pressures for which his antihypertensives have been uptitrated on a daily basis. Initial work-up was sent regarding renal failure which came back negative for AVI but SPEP came back mildly positive with abnormal protein of 0.5 with IgM monoclonal kappa bands present. Further work-up showed elevated kappa and free light chains. Given the above there was a concern for MGUS/and MG RA for which he was advised a renal biopsy. Case was also discussed with oncology and given his mildly abnormal protein on SPEP it was deemed that he has less likely brady of multiple myeloma hence renal biopsy is preferred over bone biopsy. As per nephrology patient should get renal biopsy at the earliest for starting on etiology directed treatment. Patient was being set up for outpatient continuous dialysis. After discussion with radiology unfortunately, currently [facility] does not have capability of doing renal biopsy at the earliest hence transfer to a higher facility was sought. Patient's care was discussed in detail with hospitalist at [facility] and he was accepted for the same. He has been transferred in hemodynamically stable condition. Physical Exam Narrative: EXAM NARRATIVE: General: No acute distress, AO x3 HEENT: PERRLA, pupils bilaterally equal and reactive Chest: Normal vesicular breath sounds, no added sounds, equal good air entry bilaterally CVS: S1-S2 regular, no murmurs, no tachycardia, no gallops, no rubs Abdomen: Soft, nontender, no organomegaly, bowel sounds present Neuro: No focal deficits, no facial deformity, AO x3, power 5/5 in all limbs, bilateral lower limb edema present 2+ mid calf Tunneled catheter present in right upper thorax, no soakage around the dressing. TS Data Data Completed and Pending: Completed Studies During Hospitalization Category Date Time Status CT abdomen pelvis wo con [id number] Rout ine Cat Scan 06/13/21 16:06 Completed XR chest 1V bruce ble [id number] Routine Exams 06/11/21 05:00 Completed CV. echo complete * [id number] Routine Ultrasound 06/11/21 06:00 Completed US renal BI* [id number] Routine Ultrasound 06/11/21 06:00 Completed Pending at discharge Category Date Time Status Anti Double Stran ded DNA AB Routine Lab 06/16/21 04:30 Received Anti-Neutrophil C ytoplasmic AB Rout ine Lab 06/11/21 15:40 Received Complete Blood Co unt w/Auto AM LABS Lab 06/17/21 04:00 Ordered Complete Blood Co unt w/Auto AM LABS Lab 06/18/21 04:00 Ordered Complete Blood Co unt w/Auto AM LABS Lab 06/19/21 04:00 Ordered Comprehensive Met abolic Panel AM LA BS Lab 06/17/21 04:00 Ordered Comprehensive Met abolic Panel AM LA BS Lab 06/18/21 04:00 Ordered Comprehensive Met abolic Panel AM LA BS Lab 06/19/21 04:00 Ordered Immunochemical Fe lorene OCB Routine Lab 06/13/21 10:57 Ordered Magnesium AM LABS Lab 06/17/21 04:00 Ordered Magnesium AM LABS Lab 06/18/21 04:00 Ordered Magnesium AM LABS Lab 06/19/21 04:00 Ordered Phosphorus AM LAB S Lab 06/17/21 04:00 Ordered Phosphorus AM LAB S Lab 06/18/21 04:00 Ordered Phosphorus AM LAB S Lab 06/19/21 04:00 Ordered Labs from last 24 hours 06/16/21 06/13/21 06/11/21 04:30 15:09 15:40 Erythropoietin 150.3 H Anti-ds DNA IgG Ab Pending Crossmatch See Detail Addt'l Data from Hospital Stay: Echocardiogram: CONCLUSIONS 1. This is a technically difficult study. 2. Normal left ventricular cavity size. Mildly decreased left ventricular systolic function. Left ventricular ejection fraction is estimated at 50-55 %. Grade II diastolic dysfunction, moderately elevated filling pressures. 3. Upper normal right ventricular size and low normal systolic function. 4. Trace to mild mitral valve regurgitation. 5. Mild tricuspid valve regurgitation. 6. Pulmonary artery pressure estimated at 43 mmHg. 7. No prior similar studies to compare. Sivan Moore MD (Electronically Signed) Final Date: 11 June 2021 14:52 Laboratory Results WBC 8.5 10^3/uL (4.0- 10.0) 06/15/21 04:30 RBC 2.77 10^6/uL (4.1 -5.3) L 06/15/21 04:30 Hgb 8.3 g/dL (11.7-16 .6) L 06/15/21 04:30 Hct 27.2 % (42.0-52.0 ) L 06/15/21 04:30 MCV 98.2 fl (80-94) H 06/15/21 04:30 MCH 30.0 pg (28.0-34. 0) 06/15/21 04:30 MCHC 30.5 g/dL (30.0-3 6.0) 06/15/21 04:30 RDW 15.6 % (12.1-15.1 ) H 06/15/21 04:30 Plt Count 236 10^3/cmm (130 -400) 06/15/21 04:30 MPV 10.7 fL (7.4-10.4 ) H 06/15/21 04:30 Neut % (Auto) 60.4 % 06/15/21 04:30 Lymph % (Auto) 17.9 % 06/15/21 04:30 Thurston % (Auto) 12.5 % 06/15/21 04:30 Eos % (Auto) 8.0 % 06/15/21 04:30 Baso % (Auto) 0.7 % 06/15/21 04:30 Neut # (Auto) 5.13 10^3/uL (1.8 -7.7) 06/15/21 04:30 Lymph # (Auto) 1.5 10^3/uL (0.8- 4.8) 06/15/21 04:30 Thurston # (Auto) 1.1 10^3/uL (0.2- 0.9) H 06/15/21 04:30 Eos # (Auto) 0.7 10^3/uL (0.0- 0.8) 06/15/21 04:30 Baso # (Auto) 0.1 10^3/uL (0.0- 0.1) 06/15/21 04:30 Nucleated RBC % (a uto) 0 % 06/15/21 04:30 Nucleated RBCs # 0.0 /100WBC 06/15/21 04:30 PT 15.50 SECONDS (12 .1-14.9) H 06/14/21 13:55 INR 1.19 (0.8-1.2) 06/14/21 13:55 APTT 38.4 SECONDS (23. 9-36.7) H 06/11/21 03:45 Sodium 139 mmol/L (136-1 45) 06/15/21 04:30 Potassium 3.7 mmol/L (3.5-5 .1) 06/15/21 04:30 Chloride 102 mmol/L (98-10 7) 06/15/21 04:30 Carbon Dioxide 25 mmol/L (22-29) 06/15/21 04:30 Anion Gap 15.7 (5-19) 06/15/21 04:30 BUN 39 mg/dL (8-23) H 06/15/21 04:30 Creatinine 6.5 mg/dL (0.7-1. 2) H* 06/15/21 04:30 GFR Calculation 8.7 mL/min (90-13 0) L 06/15/21 04:30 Glucose 84 mg/dL (65-115) 06/15/21 04:30 Calculated Osmolal ity 297 mOsm/kg (285- 295) H 06/15/21 04:30 Uric Acid 6.7 mg/dL (3.4-7. 0) 06/11/21 15:40 Calcium 7.8 mg/dL (8.5-10 .5) L 06/15/21 04:30 Phosphorus 7.5 mg/dL (2.5-4. 5) H 06/13/21 04:41 Magnesium 2.0 mg/dL (1.7-2. 3) 06/11/21 03:45 Iron 33 ug/dL (59-158) L 06/11/21 15:40 TIBC 166 mcg/dl 06/11/21 15:40 % Saturation 19.8 % (20-50) L 06/11/21 15:40 Unsat Iron Binding 133 ug/dL (112-34 7) 06/11/21 15:40 Erythropoietin 150.3 mIU/mL (2.6 -18.5) H 06/13/21 15:09 Total Bilirubin 0.2 mg/dL (0.15-1 .2) 06/15/21 04:30 AST 6 U/L (0-40) 06/15/21 04:30 ALT < 5 U/L (0-41) 06/15/21 04:30 Alkaline Phosphata se 46 IU/L (40-130) 06/15/21 04:30 NT-Pro-B Natriuret Pep > 77643 pg/mL (0- 125) H 06/11/21 03:45 Total Protein 6.2 g/dL (6.6-8.7 ) L 06/15/21 04:30 Albumin 2.7 g/dL (3.5-5.2 ) L 06/15/21 04:30 Globulin 3.5 g/dL (1.3-4.6 ) 06/15/21 04:30 Secrc-1-Keghrdvdc 0.5 g/dL (0.2-0.3 ) H 06/11/21 15:40 Wzbul-4-Mobtqgdjf 0.8 g/dL (0.5-0.9 ) 06/11/21 15:40 Kghh-9-Mrdpymft 0.4 g/dL (0.4-0.6 ) 06/11/21 15:40 Qbtc-8-Xkpishcd 0.4 g/dL (0.2-0.5 ) 06/11/21 15:40 Gamma Globulins 1.4 g/dL (0.8-1.7 ) 06/11/21 15:40 Abnorm Protein Ban d 1 0.5 g/dL (NONE DE TECTED) H 06/11/21 15:40 Urine Color Yellow (Yellow) 06/11/21 10:40 Urine Appearance Clear (CLEAR) 06/11/21 10:40 Urine pH 5 (5-7) 06/11/21 10:40 Ur Specific Gravit y 1.010 (1.005-1.0 30) 06/11/21 10:40 Urine Protein 3+ (Negative) H 06/11/21 10:40 Urine Glucose (UA) 1+ (Normal) H 06/11/21 10:40 Urine Ketones Negative (Negati ve) 06/11/21 10:40 Urine Blood Neg (Negative) 06/11/21 10:40 Urine Nitrate Negative (Negati ve) 06/11/21 10:40 Urine Bilirubin Neg (Negative) 06/11/21 10:40 Urine Urobilinogen Norm mg/dL (Negat cindy) 06/11/21 10:40 Ur Leukocyte Rachel ase Negative (Negati ve) 06/11/21 10:40 Urine RBC None /hpf (0-2) 06/11/21 10:40 Urine WBC None /hpf (0-5) 06/11/21 10:40 Ur Squamous Epith Cells None /hpf (0-5) 06/11/21 10:40 Amorphous Sediment Not Reportable 06/11/21 10:40 Urine Bacteria Trace /hpf (NONE) 06/11/21 10:40 Urine Mucus Trace /hpf 06/11/21 10:40 U Random Total Pro tein 351 mg/dL 06/10/21 16:15 Ur Random Sodium 96 mmol/L 06/10/21 16:15 Urine Creatinine 48 mg/dL (39-259) 06/10/21 16:15 U Abnormal Prot Ba nd 2 Not Reportable 06/11/21 15:40 U Abnormal Prot Ba nd 3 Not Reportable 06/11/21 15:40 Pro Electrophoresi s Int See note 06/11/21 15:40 Serum Immunofixati on See note 06/12/21 04:51 AVI Screen Negative (NEGATI VE) 06/11/21 15:40 Complement C3 103 mg/dL (90-180 ) 06/11/21 15:40 Complement C4 15 mg/dL (10-40) 06/11/21 15:40 Free Kendall Light C hains 450.7 mg/L (3.3-1 9.4) H 06/14/21 05:18 Free Lambda Light Chain 134.4 mg/L (5.7-2 6.3) H 06/14/21 05:18 Free Kendall/Lambda Ratio 3.35 (0.26-1.65) H 06/14/21 05:18 Hepatitis A IgM Ab Non-reactive (No nreactive) 06/11/21 15:40 Hep Bs Antigen Non-reactive (No nreactive) 06/11/21 15:40 Hep B Core IgM Ab Non-reactive (No nreactive) 06/11/21 15:40 Hepatitis C Antibo dy Non-reactive (No nreactive) 06/11/21 15:40 Blood Type A Negative 06/11/21 15:40 Rho(D) Type Negative 06/11/21 15:40 Antibody Screen Negative 06/11/21 15:40 Crossmatch See Detail 06/11/21 15:40 Impressions Chest X-Ray 06/11/21 05:00 IMPRESSION: 1. Cardiomegaly. 2. Suspicion right lower lobe pneumonia with right-sided parapneumonic effusion. 3. Left effusion with limited assessment of the lingula and left lower lobe could not exclude underlying component of atelectasis or infiltrate less prominent as compared to the right. Radiation Dose CTDIVOL = (mGy): DLP = (mGy-cm) Renal Ultrasound 06/11/21 06:00 IMPRESSION: 1. No hydronephrosis. 2. Echogenic kidneys with cortical scarring. Correlate for medical renal disease. Radiation Dose CTDIVOL = (mGy): DLP = (mGy-cm) C-Arm Fluoroscopy 06/11/21 14:30 IMPRESSION: Images obtained for intraoperative purposes. Abdomen/Pelvis CT 06/13/21 16:06 IMPRESSION: 1. Mild right hydronephrosis versus central cysts. No ureteral calculus identified. 2. Bilateral pleural effusions with pleural thickening and inhomogeneous material on the right. This is suspicious for bilateral empyemas. 3. Consolidation in the posterior left lower lobe could represent atelectasis or pneumonia. 4. Diffuse body wall edema. 5. Mild pelvic ascites. Radiation Dose CTDIVOL = (mGy): DLP = 1756.49 (mGy-cm) Vitals: Last Vital Signs Temp 97.7 F 06/16/21 08:00 Pulse 63 06/16/21 08:00 Resp 18 06/16/21 08:00 BP 190/109 06/16/21 08:42 Pulse Ox 96 06/16/21 08:00 TS Medications Medications Home Medications No Known Home Medications 06/10/21 [History Confirmed 06/10/21] Active Medications Acetaminophen (Acetaminophen 325 Mg Tablet) 650 mg PO Q6H PRN PRN Reason: Mild/Mod Pain Or Temp >/= 101 Last Admin: 06/14/21 14:56 Dose: 650 mg Documented by: Amlodipine Besylate (Amlodipine 10 Mg Tablet) 10 mg PO DAILY [facility] Last Admin: 06/16/21 08:42 Dose: 10 mg Documented by: Bisacodyl (Bisacodyl 5 Mg Tablet) 10 mg PO DAILY PRN; Protocol PRN Reason: Constipation (see protocol) Calcitriol (Calcitriol 0.25 Mcg Capsule) 0.25 mcg PO DAILY [facility] Last Admin: 06/16/21 08:42 Dose: 0.25 mcg Documented by: Calcium Acetate (Calcium Acetate 667 Mg Capsule) 1,334 mg PO TIDWM [facility] Last Admin: 06/16/21 13:45 Dose: Not Given Documented by: Clonidine HCl (Clonidine 0.2 Mg/24 Hr Patch) 1 patch TRANSDERMA Q7D [facility] Last Admin: 06/15/21 15:00 Dose: 1 patch Documented by: Furosemide (Furosemide 10 Mg/Ml Sdv 10ml) 40 mg IVP Q12H [facility] Last Admin: 06/16/21 05:44 Dose: 40 mg Documented by: Heparin Sodium (Porcine) (Heparin 5,000 Unit/Ml Inj 1 Ml) 5,000 unit SUBCUT Q12H [facility] Last Admin: 06/16/21 04:25 Dose: Not Given Documented by: Hydralazine HCl (Hydralazine 50 Mg Tablet) 75 mg PO TID [facility] Last Admin: 06/16/21 08:42 Dose: 75 mg Documented by: Losartan Potassium (Losartan 50 Mg Tablet) 50 mg PO DAILY [facility] Last Admin: 06/16/21 08:42 Dose: 50 mg Documented by: Pantoprazole Sodium (Pantoprazole Dr 40 Mg Tablet) 40 mg PO BID [facility] Last Admin: 06/16/21 08:42 Dose: 40 mg Documented by: Discharge Plan Discharge Patient Disposition: Home Condition: Stable Prescriptions: No Action No Known Home Medications RF: 0 Referrals: [facility] [Other] (You have been accepted at [facility] for hemodialysis. You are tentatively scheduled for Saturday, Saturday, and Fridays at 2:30. We have arranged for transportation with [employer]. Their phone number is [phone]. They have quoted $60/roundtrip to dialysis. Sunita stated that they will work out a payment plan with you. Please call [employer] Saturday morning to confirm your reservation so you are not late to your first appointment. Again, once your medicaid is processed, if you are approved Medicaid will pay for transportation. ) Ziyad Negrete DO [Physician] - 06/21/21 10:30 am (You will have a new patient appointment with Dr. Negrete on June 21 at 10:30 am. If you have any questions or need to reschedule for any reason please call them at [phone].) Patient Instructions: Opioid Safety Transfer Attestations Time Spent in Transfer Care*: greater than 30 min Specific Discharge Activities: Specific discharge activities: educating patient, discussing with pcp/other providers, discussing with counter caser/social workers/dc planners, documenting/other paperwork and evaluating patient/reviewing data Status at Transfer: Cognitive status at transfer: cognitively intact, Behavioral status at transfer: cooperative, Functional status at transfer: uses cane/walker Overall status at transfer: patient has a new baseline Quality Metrics Clinical Quality Measures: During this hospital stay, did patient experience: None Coding Level of Care Code Acute Stockroom Coordinator for Chg Fwd Diagnoses Acute renal failure N17.9 Heart failure I50.9 Anemia D64.9 Uncontrolled hypertension I10 Hyperkalemia E87.5 MGUS (monoclonal gammopathy of unknown significance) D47.2
[2021-06-16 15:02] VITALS: BP 176/80; BP 182/108; PULSE 62; PULSE 75; RESP 16; TEMP 36.5
[2021-06-16] MEDS: iron sucrose 200 MG in sodium chloride 0.9% (100 ml) 100 ML 220 MG IV (15:37)
--- NOTE | 2021-06-16 15:53 | ECG_ITS ---
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 Measurements Intervals [place] Rate: 78 P: 26 GA: 166 QRS: 2 QRSD: 108 T: 93 QT: 437 QTc: 499 Interpretive Statements SINUS RHYTHM NONSPECIFIC T-WAVE ABNORMALITY PROLONGED QT INTERVAL Compared to ECG 06/10/2021 21:03:36 Prolonged QT interval now present Sinus bradycardia no longer present T-wave abnormality still present Electronically Signed On 06-16-2021 22:38:12 CDT by Jean Kohler M.D. [id number]
[2021-06-16 16:00] VITALS: BP 164/78; PULSE 68; RESP 16; TEMP 36.4; O2SAT 96
[2021-06-16] MEDS: TRAMadol 50 mg Tablet PO (16:02)
[2021-06-16 17:30] VITALS: BP 164/78; PULSE 68; RESP 16; TEMP 36.4; O2SAT 96
[2021-06-22 00:17] LABS: Anti-Double Strand DNA AB 2 IU/mL
== END 2021-06-16 17:37 | disposition short-term general hospital (02) | DRG 291 ==
LOC: ICU 06-12 07:17 → MEDSURG 06-12 16:00
PROVIDERS: Hospitalist; Internal Medicine Nephrology; Student in an Organized Health Care Education/Training Program; Surgery; Admitting Provider Internal Medicine; Visit Provider Student in an Organized Health Care Education/Training Program
PROC: 0JH63XZ Insertion of Tunneled Vascular Access Device into Chest Subcutaneous Tissue and Fascia, Percutaneous Approach (ICD-10-PCS; principal; 2021-06-11 14:30)
DX: I13.2 Hypertensive heart and chronic kidney disease with heart failure and with stage 5 chronic kidney disease, or end stage renal disease (principal); N18.6 End stage renal disease; I50.33 Acute on chronic diastolic (congestive) heart failure; E87.2 Acidosis; D63.1 Anemia in chronic kidney disease; E87.5 Hyperkalemia; D50.9 Iron deficiency anemia, unspecified; D47.2 Monoclonal gammopathy
CPT/HCPCS: 36415; 36430; 71045; 74176; 76000; 76770; 77001; 80048; 80053; 80074; 81001; 82570; 82668; 83516; 83540; 83550; 83735; 83880; 83883; 84100; 84155; 84156; 84165; 84260; 84300; 84550; 85018; 85025; 85610; 85730; 86038; 86160; 86225; 86850; 86900; 86920; 90935; 93005; 93306; 96372; C1750; J0690; J1644; J1756; J1815; J1940; J2704; J3010; J3490; P9016; Q3014; Q4081

== ENCOUNTER 2021-06-26 09:46 | Observation (INO) | payer BC, MEDICAID, SELFPAY ==
[2021-06-26] VITALS (7 sets, daily range): BP systolic 162–189; BP diastolic 81–91; PULSE 80–89; RESP 15–22; TEMP 36.5–36.8; O2SAT 95–100; BMI 35.6; BMI 38.6
--- NOTE | 2021-06-26 09:54 | XRR_ITS ---
PROCEDURE INFORMATION: Exam: XR Chest Exam date and time: 06/26/2021 9:54 AM Age: 61 years old Clinical indication: Cough and dyspnea; Additional info: Dyspnea/cough TECHNIQUE: Imaging protocol: XR of the chest. Views: 1 view. Total images: 1 COMPARISON: CR (CHEST, ) 06/11/2021 5:46 AM FINDINGS: Tubes, catheters and devices: Right-sided hemodialysis catheter in satisfactory location. Lungs: Stable bilateral pleuroparenchymal disease. Pleural spaces: No pneumothorax. Heart/Mediastinum: Mild cardiomegaly stable. Bones/joints: Osseous structures are unchanged from the prior exam. XR/XR chest 1V portable [id number] IMPRESSION: 1. Mild cardiomegaly stable. 2. Stable bilateral pleuroparenchymal disease. Radiation Dose CTDIVOL = (mGy): DLP = (mGy-cm)
--- NOTE | 2021-06-26 09:55 | ECG_ITS ---
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
--- NOTE | 2021-06-26 09:57 | W.ED.SOB ---
HPI - SOB/Dyspnea General: Chief Complaint: Shortness of Breath/Dyspnea Stated Complaint: WEAKNESS, SOB Time Seen by Provider: 06/26/21 09:47 History of Present Illness: HPI Narrative: 61yo male presents emergency room via EMS with complaints of shortness of breath and edema. Patient has a history of end-stage renal disease.He was recently diagnosed and a dialysis catheter was placed in right subclavian dialysis was initiated. Patient was at [facility] in [place] where the catheter was placed he was here for a time and then transferred there and renal biopsy was done the results of that are not available. He had studiously avoided any medical interaction prior to this recent of revelation that he has renal failure. Today he presents in acute renal failure with fluid overload in need of dialysis. He is significantly short of breath with severe orthopnea. MD elicited complaint: shortness of breath and cough Pertinent past history: COPD Onset (ago): hour(s) Timing: constant Associated symptoms: Deny abdominal pain, chest pain, fever(s), nausea, orthopnea or vomiting Review of Systems Const: Denies: fever(s), chills, body aches, change in appetite, fatigue or malaise ENMT: Denies: throat pain, ear or mastoid pain, nasal discharge or nasal congestion Card: Denies: chest pain, edema, dyspnea on exertion or orthopnea Resp: Denies: dyspnea, productive cough or non-productive cough GI: Denies: abdominal pain, nausea, vomiting, hematemesis, coffee ground emesis, diarrhea, constipation, bloating, hematochezia or melena : Denies: flank pain, dysuria, urinary frequency or urinary urgency Skin/Breast: Denies: rash or pruritus PFSH ED PFSH: Medical History Acute renal failure End stage renal disease Hemodialysis initiated 06/15 Heart failure Diastolic grade 2, EF 50 to 55% Uncontrolled hypertension Surgical History No significant past surgical history Social History Smoking and tobacco status: never smoked Alcohol intake: never Substance/Drug Use: current Substance/Drug use type: Marijuana Physical Exam Const: COMMON NORMALS: no acute distress GENERAL APPEARANCE: cooperative and comfortable ORIENTATION/CONSCIOUSNESS: Yes awake, Yes oriented to person, Yes oriented to place and Yes oriented to time HENMT: COMMON NORMALS: normocephalic, atraumatic and hearing grossly normal bilaterally HEAD & SCALP: normocephalic and atraumatic Neck/C-Spine: COMMON NORMALS: no JVD Resp: COMMON NORMALS: normal respiratory effort, No retractions, No use of accessory muscles and clear to auscultation bilaterally AUSCULTATION: clear to auscultation bilaterally Cardio: COMMON NORMALS: no JVD, regular rate, regular rhythm and No murmurs present (Cardio) RATE: regular rate RHYTHM: regular rhythm GI: COMMON NORMALS: Soft to palpation and No hepatosplenomegaly present AUSCULTATION: Yes normoactive bowel sounds PALPATION: Yes Soft to palpation, No Tenderness to palpation present (GI), No Guarding due to palpation present (GI) and Yes No hepatosplenomegaly present Extremity: GENERAL: Yes edema (3+ edema) Neuro: SENSORIUM/ORIENTATION: Yes oriented to person, Yes oriented to place and Yes oriented to time Skin: COMMON NORMALS: no rashes or lesions noted GENERAL SKIN EXAM: no rashes or lesions noted Course Vital Signs: Vital signs: Vital Signs Temperature 98.3 F 06/27/21 04:00 Pulse Rate 91 06/27/21 04:00 Respiratory Rate 18 06/27/21 04:00 Blood Pressure 156/75 06/27/21 04:00 Pulse Oximetry 99 06/27/21 04:00 MDM - SOB/Dyspnea MDM Narrative: Medical decision making narrative: End-stage renal disease with fluid overload. He also according to his old records has a history of monoclonal gammopathy of unknown significance. Blood pressure continues to be poorly controlled as well. He will need dialysis. He also has some significant anemia. Dr. Dr. Ardon and was also consulted nephrology orders are written patient will be admitted. Due to patient volume in the hospital on it unsure when they will be able to dialyze him treatments for hyperkalemia initiated in the emergency room patient refused several of the treatments that were offered. We offered alternatives which were able to get him to take however we were not able to fully treat hyperkalemia as aggressively as we would have liked both the hospitalist and police matron are aware. Lab Data: Labs: Lab Results 06/26/21 06/26/21 06/26/21 09:22 09:22 09:22 WBC 14.5 10^3/uL H 10 ^3/uL (4.0-10.0) RBC 3.08 10^6/uL L 10 ^6/uL (4.1-5.3) Hgb 9.4 g/dL L g/dL (11.7-16.6) Hct 30.7 % L % (42.0-52.0) MCV 99.7 fl H fl (80-94) MCH 30.5 pg pg (28.0-34.0) MCHC 30.6 g/dL g/dL (30.0-36.0) RDW 16.6 % H % (12.1-15.1) Plt Count 291 10^3/cmm 10^3 /cmm (130-400) MPV 10.0 fL fL (7.4-10.4) Neut % (Auto) 72.8 % % Lymph % (Auto) 9.7 % % O'Brien % (Auto) 10.9 % % Eos % (Auto) 3.7 % % Baso % (Auto) 0.3 % % Neut # (Auto) 10.56 10^3/uL H 1 0^3/uL (1.8-7.7) Lymph # (Auto) 1.4 10^3/uL 10^3/ uL (0.8-4.8) O'Brien # (Auto) 1.6 10^3/uL H 10^ 3/uL (0.2-0.9) Eos # (Auto) 0.5 10^3/uL 10^3/ uL (0.0-0.8) Baso # (Auto) 0.0 10^3/uL 10^3/ uL (0.0-0.1) Nucleated RBC % (a uto) 0 % % Nucleated RBCs # 0.0 /100WBC /100W BC Sodium 135 mmol/L L mmol /L (136-145) Potassium 6.0 mmol/L H mmol /L (3.5-5.1) Chloride 100 mmol/L mmol/L (98-107) Carbon Dioxide 19 mmol/L L mmol/ L (22-29) Anion Gap 22.0 H (5-19) BUN 67 mg/dL H mg/dL (8-23) Creatinine 6.1 mg/dL H* mg/d L (0.7-1.2) GFR Calculation 9.4 mL/min L mL/m in (90-130) Glucose 92 mg/dL mg/dL (65-115) Calculated Osmolal ity 299 mOsm/kg H mOs m/kg (285-295) Uric Acid Calcium 7.9 mg/dL L mg/dL (8.5-10.5) Magnesium 1.6 mg/dL L mg/dL (1.7-2.3) Total Bilirubin 0.2 mg/dL mg/dL (0.15-1.2) AST 7 U/L U/L (0-40) ALT 15 U/L U/L (0-41) Alkaline Phosphata se 65 IU/L IU/L (40-130) Creatine Kinase 27 U/L L U/L (39-308) Troponin T Baselin e 144 ng/L H* ng/L (0-15) Troponin T 120 Min [place] Troponin T Total Protein 6.3 g/dL L g/dL (6.6-8.7) Albumin 3.2 g/dL L g/dL (3.5-5.2) Globulin 3.1 g/dL g/dL (1.3-4.6) Lipase 67 U/L H U/L (13-60) Urine Color Urine Appearance Urine pH Ur Specific Gravit y Urine Protein Urine Glucose (UA) Urine Ketones Urine Blood Urine Nitrate Urine Bilirubin Urine Urobilinogen Ur Leukocyte Rachel ase Urine RBC Urine WBC Ur Squamous Epith Cells Amorphous Sediment Urine Bacteria Urine Mucus Hep Bs Antigen Hep Bs Antibody Hepatitis C Antibo dy 06/26/21 06/26/21 06/26/21 09:22 09:22 10:26 WBC RBC Hgb Hct MCV MCH MCHC RDW Plt Count MPV Neut % (Auto) Lymph % (Auto) O'Brien % (Auto) Eos % (Auto) Baso % (Auto) Neut # (Auto) Lymph # (Auto) O'Brien # (Auto) Eos # (Auto) Baso # (Auto) Nucleated RBC % (a uto) Nucleated RBCs # Sodium Potassium Chloride Carbon Dioxide Anion Gap BUN Creatinine GFR Calculation Glucose Calculated Osmolal ity Uric Acid 5.2 mg/dL mg/dL (3.4-7.0) Calcium Magnesium Total Bilirubin AST ALT Alkaline Phosphata se Creatine Kinase Troponin T Baselin e Troponin T 120 Min [place] Troponin T Total Protein Albumin Globulin Lipase Urine Color Straw (Yellow) Urine Appearance Clear (CLEAR) Urine pH 7 (5-7) Ur Specific Gravit y 1.000 L (1.005-1.030) Urine Protein 3+ H (Negative) Urine Glucose (UA) 1+ H (Normal) Urine Ketones Negative (Negative) Urine Blood Neg (Negative) Urine Nitrate Negative (Negative) Urine Bilirubin Neg (Negative) Urine Urobilinogen Norm mg/dL mg/dL (Negative) Ur Leukocyte Rachel ase Negative (Negative) Urine RBC 0-4 /hpf H /hpf (0-2) Urine WBC 5-10 /hpf H /hpf (0-5) Ur Squamous Epith Cells 0-4 /hpf H /hpf (0-5) Amorphous Sediment Not Reportable Urine Bacteria Trace /hpf /hpf (NONE) Urine Mucus 1+ /hpf /hpf Hep Bs Antigen Non-reactive (Nonreactive) Hep Bs Antibody 3.5 L (11.5-1000) Hepatitis C Antibo dy Non-reactive (Nonreactive) 06/26/21 11:40 WBC RBC Hgb Hct MCV MCH MCHC RDW Plt Count MPV Neut % (Auto) Lymph % (Auto) O'Brien % (Auto) Eos % (Auto) Baso % (Auto) Neut # (Auto) Lymph # (Auto) O'Brien # (Auto) Eos # (Auto) Baso # (Auto) Nucleated RBC % (a uto) Nucleated RBCs # Sodium Potassium Chloride Carbon Dioxide Anion Gap BUN Creatinine GFR Calculation Glucose Calculated Osmolal ity Uric Acid Calcium Magnesium Total Bilirubin AST ALT Alkaline Phosphata se Creatine Kinase Troponin T Baselin e Troponin T 120 [address] [place] 146.6 ng/L H ng/L (0-15) Delta Troponin T 2.6 ABS# ABS# (0-10) Total Protein Albumin Globulin Lipase Urine Color Urine Appearance Urine pH Ur Specific Gravit y Urine Protein Urine Glucose (UA) Urine Ketones Urine Blood Urine Nitrate Urine Bilirubin Urine Urobilinogen Ur Leukocyte Rachel ase Urine RBC Urine WBC Ur Squamous Epith Cells Amorphous Sediment Urine Bacteria Urine Mucus Hep Bs Antigen Hep Bs Antibody Hepatitis C Antibo dy Discharge Plan Discharge Patient Disposition: Admitted As Inpatient Admit Provider: Sonny Ardon Clinical Impression: End stage renal disease, Uncontrolled hypertension, Anemia, MGUS (monoclonal gammopathy of unknown significance), Hyperkalemia Condition: Stable Coding Level of Care Code ED Industrial Safety And Health Manager for Jah Villalta
[2021-06-26 10:17] LABS: Basophils % 0.3 %; Eosinophils # 0.5 10^3/uL (0.0-0.8); Eosinophils % 3.7 %; Hematocrit 30.7 % (42.0-52.0); Hemoglobin 9.4 g/dL (11.7-16.6); Lymphocytes # 1.4 10^3/uL (0.8-4.8); Lymphocytes % 9.7 %; Mean Corpuscular HGB Conc 30.6 g/dL (30.0-36.0); Mean Corpuscular Hemoglobin 30.5 pg (28.0-34.0); Mean Corpuscular Volume 99.7 fl (80-94); Monocytes # 1.6 10^3/uL (0.2-0.9); Monocytes % 10.9 %; Neutrophils # 10.56 10^3/uL (1.8-7.7); Neutrophils % 72.8 %; Nucleated Red Blood Cells % 0 %; Platelet Count 291 10^3/cmm (130-400); Red Blood Count 3.08 10^6/uL (4.1-5.3); Red Cell Distribution Width 16.6 % (12.1-15.1); White Blood Count 14.5 10^3/uL (4.0-10.0)
[2021-06-26 10:32] LABS: Alanine Aminotransferase 15 U/L (0-41); Albumin Level 3.2 g/dL (3.5-5.2); Alkaline Phosphatase 65 IU/L (40-130); Aspartate Amino Transferase 7 U/L (0-40); Blood Urea Nitrogen 67 mg/dL (8-23); Calcium 7.9 mg/dL (8.5-10.5); Carbon Dioxide 19 mmol/L (22-29); Chloride 100 mmol/L (98-107); Creatine Phosphokinase 27 U/L (39-308); Globulin 3.1 g/dL (1.3-4.6); Glomerular Filtration Rate 9.4 mL/min (90-130); Glucose 92 mg/dL (65-115); Lipase 67 U/L (13-60); Magnesium 1.6 mg/dL (1.7-2.3); Osmolality Calculated 299 mOsm/kg (285-295); Sodium 135 mmol/L (136-145); Total Bilirubin 0.2 mg/dL (0.15-1.2); Total Protein 6.3 g/dL (6.6-8.7)
[2021-06-26 10:39] LABS: Troponin(5th) Baseline 144 ng/L (0-15)
[2021-06-26 10:55] LABS: Add Urine Microscopic? YES; Bilirubin Urine Neg (Negative); Blood Urine Neg (Negative); Glucose Urine UA 1+ (Normal); Ketones Urine Negative (Negative); Leukocyte Esterase Urine Negative (Negative); Nitrate Urine Negative (Negative); Protein Urine 3+ (Negative); Urine Appearance Clear (CLEAR); Urine Color Straw (Yellow); Urobilinogen Urine Norm (Negative); pH Urine 7 (5-7)
[2021-06-26 11:15] LABS: Add Urine Culture? No; Bacteria Urine TRACE /hpf; Mucus Urine 1+ /hpf; RBC Urine 0-4 /hpf (0-2); Squamous Epithelial Cell Urine 0-4 /hpf (0-5)
--- NOTE | 2021-06-26 11:55 | ECG_ITS ---
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
--- NOTE | 2021-06-26 11:57 | PM.HP ---
Providers/Chief Complaint Chief Complaint: WEAKNESS, SOB History of Present Illness Alvarado Park is a 61 year old male presenting to the emergency department for shortness of breath. He was recently diagnosed with end-stage renal disease and dialysis initiated. Last dialysis treatment was Saturday at which time he was discharged from [facility] after renal biopsy. He reports he is to have dialysis today in the afternoon. He states he is very swollen, over his baseline. Does have a mild cough when he exerts himself. No fever, chills. He reports he does not have the Covid vaccine but would like it. No personal history of Covid or exposure to it. No vomiting, or diarrhea. Recently was in the hospital here from June 10 until his transfer to [facility] on the for end-stage renal disease, hemodialysis, need for renal biopsy. Review of Systems General: Reports: 10 or more systems reviewed and unremarkable except in HPI and below Const: Denies: fever(s) or chills Eyes: Denies: change in vision ENMT: Denies: throat pain Card: Denies: chest pain Resp: Reports: dyspnea and non-productive cough GI: Denies: abdominal pain, nausea or vomiting : Denies: flank pain Musc: Denies: neck pain Skin/Breast: Denies: rash Neuro: Denies: headache(s) Psych: Denies: anxiety or depression Endo: Denies: polyuria [place]/Lymph: Denies: easy bruising All/Imm: Denies: urticaria Medications/Allergies Home Medications Medication Instructions Recorded Confirmed Last Taken Type amlodipine 10 mg PO QAM 06/26/21 06/26/21 06/26/21 06:00 History bisacodyl 10 mg PO DAILY PRN 06/26/21 06/26/21 Unknown History calcitriol 0.25 mcg PO BID 06/26/21 06/26/21 06/26/21 06:00 History hydralazine 75 mg PO TID 06/26/21 06/26/21 06/26/21 06:00 History ibuprofen 600 mg PO Q4H PRN 06/26/21 06/26/21 Unknown History pantoprazole [Protonix] 40 mg PO BID 06/26/21 06/26/21 06/26/21 06:00 History Allergies Allergy/AdvReac Type Severity Reaction Status Date / Time aspirin Allergy Severe ALGY-Hives Verified 06/26/21 10:20 PFSH Acute PFSH: Medical History (Updated 06/26/21 @ 12:06 by Sonny Ardon MD) Acute renal failure End stage renal disease Hemodialysis initiated 06/15 Heart failure Diastolic grade 2, EF 50 to 55% Uncontrolled hypertension Surgical History (Updated 06/11/21 @ 13:33 by Brian Huff MD) No significant past surgical history Social History (Updated 06/26/21 @ 12:00 by Sonny Ardon MD) Smoking and tobacco status: never smoked Alcohol intake: never Substance/Drug Use: current Substance/Drug use type: Marijuana Supplemental PFSH Information: History of renal biopsy Denies any significant family history Vitals/I&O/Wt Last Vital Signs Temp 98.2 F 06/26/21 10:16 Pulse 80 06/26/21 11:11 Resp 15 06/26/21 11:11 BP 162/83 06/26/21 11:11 Pulse Ox 99 06/26/21 11:11 Weight last 48 hrs Weight 122.47 kg Physical Exam Narrative: EXAM NARRATIVE: General exam demonstrates a white male, no distress HEENT: Atraumatic normocephalic. Oropharynx clear. Neck is supple no lymphadenopathy or thyromegaly Cardiovascular regular rate and rhythm, no murmur. Heart sounds distant Lungs diminished breath sounds bilaterally but no wheezing. A few scant bibasilar crackles are noted. Abdomen is soft with positive bowel sounds Extremities no cyanosis clubbing. 2+ edema is noted. Data : 06/26/21 09:22 06/26/21 09:22 Other data: Chest x-ray by my read bilateral pleural effusions, atelectasis. Hemodialysis catheter is noted. EKG demonstrates sinus rhythm, normal axis, nonspecific ST-T wave changes Calcium 9.7 Calcium 7.9 Magnesium 1.6 Troponin I 44, repeat pending CK 27 LFTs normal Urinalysis 3+ protein 5-10 whites 0-4 reds A&P Assessment and plan (1) Hyperkalemia: In hemodialysis patient Patient is due for hemodialysis today and if this can be arranged immediately no other intervention is needed. He did receive calcium gluconate, sodium bicarb in the ER as well as an albuterol treatment. He refused Kayexalate. It does not appear insulin and glucose were given. This will be ordered. Status: Acute (2) End stage renal disease: Needs hemodialysis. Also appears to have fluid overload(acute diastolic heart failure) with bilateral pleural effusions. Last echocardiogram recently done demonstrated EF of 50 to 55%, 2/4 diastolic dysfunction. Request records regarding his renal biopsy at [facility] Status: Acute (3) Uncontrolled hypertension: Continue amlodipine, hydralazine. Adjust as needed. Status: Acute (4) Anemia: No evidence of acute blood loss. Status: Acute (5) MGUS (monoclonal gammopathy of unknown significance): Apparently he had further work-up at [facility], including a renal biopsy. We will request records. Status: Acute Additional A&P Information Full code Heparin for DVT prophylaxis Attestations Medical Necessity Statement*: Will likely need less than 2 midnight stay for treatment of hyperkalemia, fluid overload in this patient initiating hemodialysis. Time Spent in Patient Care: Greater than 35 minutes Coding Level of Care Code Acute Service Correspondent for Chg Fwd Diagnoses Hyperkalemia E87.5 End stage renal disease N18.6 Uncontrolled hypertension I10 Anemia D64.9 MGUS (monoclonal gammopathy of unknown significance) D47.2
[2021-06-26 12:19] LABS: Troponin 5 2HR Delta 2.6 ABS# (0-10)
[2021-06-26 12:27] LABS: Troponin 5 2HR 146.6 ng/L (0-15)
--- NOTE | 2021-06-26 13:10 | P.CONIM_ITS ---
Providers/Reason For Consult Consulting Physician/Specialty*: niyah sanders md/ telenephrology Reason for Consult*: ESRD care Requesting Physician: Dr. Sonny Ardon Attending Physician: Dr. Sonny Ardon History of Present Illness History of Present Illness Alvarado Park is a 61 year old male recent dx of YNES vs ESRd. s/p recent renal biopsy at [facility]. Pt was due for dialysis today. He woke up swollen and sob and came to the ER. Recent renal w/u w/ a + SPEP, Review of Systems General: Reports: 10 or more systems reviewed and unremarkable except in HPI and below Narrative: weak, sob, swollen, poor appetite, SENA, orthopnea Meds/Allergies Home Medications and Allergies Home Medications Medication Instructions Recorded Confirmed Last Taken Type amlodipine 10 mg PO QAM 06/26/21 06/26/21 06/26/21 06:00 History bisacodyl 10 mg PO DAILY PRN 06/26/21 06/26/21 Unknown History calcitriol 0.25 mcg PO BID 06/26/21 06/26/21 06/26/21 06:00 History hydralazine 75 mg PO TID 06/26/21 06/26/21 06/26/21 06:00 History ibuprofen 600 mg PO Q4H PRN 06/26/21 06/26/21 Unknown History pantoprazole [Protonix] 40 mg PO BID 06/26/21 06/26/21 06/26/21 06:00 History Allergies Allergy/AdvReac Type Severity Reaction Status Date / Time aspirin Allergy Severe ALGY-Hives Verified 06/26/21 10:20 PFSH Acute PFSH: Medical History (Updated 06/26/21 @ 12:06 by Sonny Ardon MD) Acute renal failure End stage renal disease Hemodialysis initiated 06/15 Heart failure Diastolic grade 2, EF 50 to 55% Uncontrolled hypertension Surgical History (Updated 06/11/21 @ 13:33 by Brian Huff MD) No significant past surgical history Social History (Updated 06/26/21 @ 12:00 by Sonny Ardon MD) Smoking and tobacco status: never smoked Alcohol intake: never Substance/Drug Use: current Substance/Drug use type: Marijuana Vitals/I&O/Wt Last Vital Signs Temp 98.2 F 06/26/21 10:16 Pulse 86 06/26/21 12:37 Resp 18 06/26/21 12:37 BP 188/81 06/26/21 12:37 Pulse Ox 98 06/26/21 12:37 Weight last 48 hrs Weight 122.47 kg Physical Exam Narrative: EXAM NARRATIVE: obese, SOB in bed sitting up vs noted heent- nc/at, eomi, anicteric neck obese lung poor air movement b/l heart reg, no rub abd soft, nt, nd, +BS ext b/l 3+ leg edema dialysis access- RT IJ neuro- a,a, o x 2+, no asterixis pulses + b/l A&P Additional A&P Information 61 yr old man HTN, recent ESRD/ YNES- s/p recent renal biopsy at [facility]. 1. ESRD- f/u renal biopsy from [facility] -HD now- 3.5 hrs, 2k, remove 3l, QD and QB best 2. HTN- outpt meds and HD -here he was on clonidine, hydralazine -hold losartan due to hyperkalemia 3. anemia- ESRD vs Q myeloma- f/u w/u at [facility] 4. renal bone- mineral- disease Cont phosphorus binder with PhosLo Calcitriol added 5. recent echo- EF 50-55%, diastolic dysfunction grade 2 Exam and interview performed with aid of bedside RN using telemedicine Time spent seeing pt, reviewing chart, and coordinating care =45 min Consult Attestations Medical Necessity Statement: renal faiure, hyperkalemia, volume overload, htn Time Spent in Patient Care: Greater than 35 minutes Coding Level of Care Code Acute Coping Machine Assembler for Jah Villalta
[2021-06-26] MEDS: dextrose 50% syringe 50 mL IVP (13:29)
[2021-06-26] MEDS: sodium bicarbonate 8.4% 1 mEq/mL 50mL Syr 100 MEQ IVP (13:31)
[2021-06-26] MEDS: insulin regular-human 100 units/1 mL 10 UNIT IVP (13:37)
[2021-06-26] MEDS: hyDRALAzine 50 mg Tablet 75 MG PO ×2 (15:11→20:48)
--- NOTE | 2021-06-26 16:05 | PC.NURSE ---
Called and gave report to tee chang on the patient and informed her that the patient is at Dialysis
[2021-06-26 16:44] LABS: Troponin 5 6HR Delta -5.9 ng/L (0-12)
[2021-06-26 16:45] LABS: Troponin 5 6HR 138.1 ng/L (0-15)
[2021-06-26 16:53] LABS: Uric Acid 5.2 mg/dL (3.4-7.0)
[2021-06-26 17:03] LABS: Hepatitis B Surface AB 3.5 (11.5-1000); Hepatitis B Surface Antigen Non-Reactive (Nonreactive); Hepatitis C Virus Antibody Non-Reactive (Nonreactive)
--- NOTE | 2021-06-26 17:19 | PC.NUTR ---
Urgent nutrition consult received. Clarified with Dr. Ardon who stated urgent was unintentional. Will complete nutrition consult within 24 hrs as per policy.
[2021-06-26] MEDS: heparin 5,000 unit/mL INJ 1 mL 5000 UNIT SUBCUT (17:47)
[2021-06-26] MEDS: pantoprazole DR 40 mg Tablet PO (17:47)
[2021-06-26] MEDS: calcitriol 0.25 mcg Capsule PO (20:48)
[2021-06-27] VITALS (8 sets, daily range): BP systolic 100–185; BP diastolic 54–87; PULSE 78–91; RESP 16–20; TEMP 36.5–37.3; O2SAT 93–100
[2021-06-27] MEDS: heparin 5,000 unit/mL INJ 1 mL 5000 UNIT SUBCUT ×2 (05:08→14:58)
[2021-06-27] MEDS: amlodipine 10 mg Tablet PO (05:08)
[2021-06-27 06:19] LABS: Basophils % 0.3 %; Eosinophils # 0.4 10^3/uL (0.0-0.8); Eosinophils % 3.8 %; Hematocrit 28.2 % (42.0-52.0); Hemoglobin 8.6 g/dL (11.7-16.6); Lymphocytes % 8.8 %; Mean Corpuscular HGB Conc 30.5 g/dL (30.0-36.0); Mean Corpuscular Hemoglobin 30.6 pg (28.0-34.0); Mean Corpuscular Volume 100.4 fl (80-94); Mean Platelet Volume 9.7 fL (7.4-10.4); Monocytes # 1.5 10^3/uL (0.2-0.9); Monocytes % 13.7 %; Neutrophils # 7.72 10^3/uL (1.8-7.7); Neutrophils % 71.3 %; Nucleated Red Blood Cells % 0 %; Platelet Count 257 10^3/cmm (130-400); Red Blood Count 2.81 10^6/uL (4.1-5.3); Red Cell Distribution Width 16.7 % (12.1-15.1); White Blood Count 10.8 10^3/uL (4.0-10.0)
[2021-06-27 06:47] LABS: Alanine Aminotransferase 12 U/L (0-41); Albumin Level 3.1 g/dL (3.5-5.2); Alkaline Phosphatase 64 IU/L (40-130); Anion Gap 15.5 (5-19); Aspartate Amino Transferase 8 U/L (0-40); Blood Urea Nitrogen 45 mg/dL (8-23); Calcium 7.9 mg/dL (8.5-10.5); Carbon Dioxide 26 mmol/L (22-29); Chloride 101 mmol/L (98-107); Globulin 3.3 g/dL (1.3-4.6); Glomerular Filtration Rate 11.8 mL/min (90-130); Glucose 105 mg/dL (65-115); Iron 28 ug/dL (59-158); Magnesium 1.6 mg/dL (1.7-2.3); Osmolality Calculated 296 mOsm/kg (285-295); Parathyroid Hormone 140.6 pg/mL (15-65); Percent Saturation 14.2 % (20-50); Phosphorus 3.7 mg/dL (2.5-4.5); Potassium 5.5 mmol/L (3.5-5.1); Sodium 137 mmol/L (136-145); Total Bilirubin 0.2 mg/dL (0.15-1.2); Total Iron Binding Capacity 197 mcg/dl; Total Protein 6.4 g/dL (6.6-8.7); Unsaturated Iron Binding 169 ug/dL (112-347)
[2021-06-27 06:57] LABS: 25 Hydroxy Vitamin D 19 ng/mL (30-100)
[2021-06-27 07:10] LABS: Ferritin 1169 ng/mL (30-400)
--- NOTE | 2021-06-27 07:40 | P.PN_ITS ---
Subjective Subjective: Interval history: feels better. swollen, issues w/ toes. no n/v/f/c/diego/d. less sob Medications: Reviewed: Yes Medication Review Details: Current Medications Acetaminophen (Acetaminophen 325 Mg Tablet) 650 mg PO Q6H PRN PRN Reason: Mild/Mod Pain Or Temp >/= 101 Amlodipine Besylate (Amlodipine 10 Mg Tablet) 10 mg PO QAM [facility] Last Admin: 06/27/21 05:08 Dose: 10 mg Documented by: Calcitriol (Calcitriol 0.25 Mcg Capsule) 0.25 mcg PO BID [facility] Last Admin: 06/26/21 20:48 Dose: 0.25 mcg Documented by: Heparin Sodium (Porcine) (Heparin 5,000 Unit/Ml Inj 1 Ml) 5,000 unit SUBCUT Q12H [facility] Last Admin: 06/27/21 05:08 Dose: 5,000 unit Documented by: Hydralazine HCl (Hydralazine 50 Mg Tablet) 75 mg PO TID [facility] Last Admin: 06/26/21 20:48 Dose: 75 mg Documented by: Ondansetron HCl (Ondansetron 2 Mg/Ml Sdv 2 Ml) 4 mg IVP Q6H PRN PRN Reason: vomiting, or N/V if npo Pantoprazole Sodium (Pantoprazole Dr 40 Mg Tablet) 40 mg PO BID [facility] Last Admin: 06/26/21 17:47 Dose: 40 mg Documented by: Vitals/I&O/Wt Last Vital Signs Temp 98.3 F 06/27/21 04:00 Pulse 91 06/27/21 04:00 Resp 18 06/27/21 04:00 BP 156/75 06/27/21 04:00 Pulse Ox 99 06/27/21 04:00 06/26/21 06/27/21 06/27/21 22:59 06:59 14:59 Intake Total 0 / 60 Output Total 3508 / 3508 275 / 3783 Balance -3508 / -3448 -275 / -3723 Weight last 48 hrs Weight 132.903 kg Weight 132.8 kg Weight 122.47 kg Physical Exam Narrative: EXAM NARRATIVE: obese, more comfortable, nC02 vs noted heent- nc/at, eomi, anicteric neck obese lung poor air movement b/l heart reg, no rub abd soft, nt, nd, +BS ext b/l 3+ leg edema dialysis access- RT IJ neuro- a,a, o x 3, no asterixis pulses + b/l Data : 06/27/21 05:43 06/27/21 05:43 A&P Additional A&P Information 61 yr old man HTN, recent ESRD/ YNES- s/p recent renal biopsy at [facility] [place]. 1. ESRD- f/u renal biopsy from [facility] [place] -s/p HD yesterday -repeat HD now- 3.5 hrs, 2k, remove 3l, QD and QB best 2. HTN- hold norvasc to allow BP room for fluid removal 3. anemia- ESRD vs Q myeloma- f/u w/u at [facility] -low iron sat, ferritin 1169- give epo 4. renal bone- mineral- disease -replace mag -dec phoslo Calcitriol dec dose as pth is 140 5. recent echo- EF 50-55%, diastolic dysfunction grade 2 Exam and interview performed with aid of bedside RN using telemedicine Time spent seeing pt, reviewing chart, and coordinating care =30 min Attestations Medical Necessity Statement*: esrd, hyperkalemia Time Spent in Patient Care: 16 - 35 minutes (>than 50% of time spent in counselling and/or direct pt care on unit) . 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
--- NOTE | 2021-06-27 09:26 | P.PN_ITS ---
Subjective Subjective: Interval history: Alvarado reports he feels quite a bit better. Less short of breath. Still very swollen. No chest discomfort overnight. Medications: Reviewed: Yes Vitals/I&O/Wt Last Vital Signs Temp 98.3 F 06/27/21 04:00 Pulse 91 06/27/21 04:00 Resp 18 06/27/21 04:00 BP 156/75 06/27/21 04:00 Pulse Ox 99 06/27/21 04:00 06/26/21 06/27/21 06/27/21 22:59 06:59 14:59 Intake Total 0 / 60 Output Total 3508 / 3508 275 / 3783 Balance -3508 / -3448 -275 / -3723 Weight last 48 hrs Weight 132.903 kg Weight 132.8 kg Weight 122.47 kg Physical Exam Narrative: EXAM NARRATIVE: General exam demonstrates a white male, currently still requiring oxygen Neck is supple no lymphadenopathy or thyromegaly Cardiovascular regular rate and rhythm, no murmur. Heart sounds distant Lungs crackles bibasilar Abdomen is soft with positive bowel sounds Extremities no cyanosis clubbing. 2+ edema is noted. Data : 06/27/21 05:43 06/27/21 05:43 A&P Assessment and plan (1) Hyperkalemia: Improved following hemodialysis yesterday Repeat hemodialysis today Status: Acute (2) End stage renal disease: Also appears to have fluid overload(acute diastolic heart failure) with bilateral pleural effusions. Dialysis yesterday, and plan dialysis today will b e used to treat his acute diastolic heart failure. He is improving significantly currently. Last echocardiogram recently done demonstrated EF of 50 to 55%, 2/4 diastolic dysfunction. Request records regarding his renal biopsy at [facility] Status: Acute (3) Uncontrolled hypertension: Continue amlodipine, hydralazine. Adjust as needed. Status: Acute (4) Anemia: No evidence of acute blood loss. Status: Acute (5) MGUS (monoclonal gammopathy of unknown significance): Apparently he had further work-up at [facility], including a renal biopsy. We will request records. Status: Acute Additional A&P Information Full code Heparin for DVT prophylaxis I suspect he will be stable to be discharged tomorrow Attestations Medical Necessity Statement*: Needs continued hospitalization for further fluid removal by dialysis to improve his respiratory state prior to discharge home. 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
--- NOTE | 2021-06-27 10:53 | PC.NURSE ---
DIALYSIS OUT OF ROOM INTO DIALYSIS AT PRESENT TIME WITHFARZANEH RN AT SIDE
--- NOTE | 2021-06-27 14:52 | PC.NURSE ---
RETURN TO ROOM RETURN TO ROOM PER DIALYSIS NURSE, FARZANEH RN - PT [facility] DIALYSIS WELL
[2021-06-27] MEDS: heparin, porcine 1,000 unit/mL INJ 10 mL HE (14:57)
[2021-06-27] MEDS: pantoprazole DR 40 mg Tablet PO (17:08)
--- NOTE | 2021-06-27 17:41 | PC.NURSE ---
RIGHT LOWER MADRID WOUND RIGHT LOWER MADRID WOUND COVERED WITH TELFA AND KERLIX PER PT REQUEST
[2021-06-27] MEDS: hyDRALAzine 50 mg Tablet 75 MG PO (20:41)
[2021-06-28] VITALS (7 sets, daily range): BP systolic 150–190; BP diastolic 74–98; PULSE 68–94; RESP 16–18; TEMP 36.4–36.8; O2SAT 88–100
[2021-06-28] MEDS: heparin 5,000 unit/mL INJ 1 mL 5000 UNIT SUBCUT (04:12)
[2021-06-28 06:16] LABS: Basophils % 0.2 %; Eosinophils # 0.5 10^3/uL (0.0-0.8); Hematocrit 28.1 % (42.0-52.0); Hemoglobin 8.4 g/dL (11.7-16.6); Mean Corpuscular HGB Conc 29.9 g/dL (30.0-36.0); Mean Corpuscular Hemoglobin 30.4 pg (28.0-34.0); Mean Corpuscular Volume 101.8 fl (80-94); Mean Platelet Volume 9.5 fL (7.4-10.4); Monocytes # 1.4 10^3/uL (0.2-0.9); Monocytes % 14.4 %; Neutrophils # 6.41 10^3/uL (1.8-7.7); Neutrophils % 67.9 %; Nucleated Red Blood Cells % 0 %; Platelet Count 239 10^3/cmm (130-400); Red Blood Count 2.76 10^6/uL (4.1-5.3); Red Cell Distribution Width 16.5 % (12.1-15.1); White Blood Count 9.4 10^3/uL (4.0-10.0)
[2021-06-28 06:34] LABS: Alanine Aminotransferase 13 U/L (0-41); Alkaline Phosphatase 66 IU/L (40-130); Aspartate Amino Transferase 11 U/L (0-40); Blood Urea Nitrogen 35 mg/dL (8-23); Calcium 7.9 mg/dL (8.5-10.5); Carbon Dioxide 27 mmol/L (22-29); Chloride 99 mmol/L (98-107); Globulin 3.1 g/dL (1.3-4.6); Glomerular Filtration Rate 13.3 mL/min (90-130); Glucose 116 mg/dL (65-115); Magnesium 1.7 mg/dL (1.7-2.3); Osmolality Calculated 293 mOsm/kg (285-295); Phosphorus 3.5 mg/dL (2.5-4.5); Sodium 137 mmol/L (136-145); Total Bilirubin 0.2 mg/dL (0.15-1.2); Total Protein 6.1 g/dL (6.6-8.7)
--- NOTE | 2021-06-28 07:26 | P.PN_ITS ---
Subjective Subjective: Interval history: on bipap, states he feels better. less sob, dec edema. no n/v/f/c/diego/d. good MS Medications: Reviewed: Yes Medication Review Details: Current Medications Acetaminophen (Acetaminophen 325 Mg Tablet) 650 mg PO Q6H PRN PRN Reason: Mild/Mod Pain Or Temp >/= 101 Calcitriol (Calcitriol 0.25 Mcg Capsule) 0.25 mcg PO DAILY PENDING SALE TO [facility] Last Admin: 06/27/21 08:26 Dose: Not Given Documented by: Heparin Sodium (Porcine) (Heparin 5,000 Unit/Ml Inj 1 Ml) 5,000 unit SUBCUT Q12H PENDING SALE TO [facility] Last Admin: 06/28/21 04:12 Dose: 5,000 unit Documented by: Hydralazine HCl (Hydralazine 50 Mg Tablet) 75 mg PO TID PENDING SALE TO [facility] Last Admin: 06/27/21 20:41 Dose: 75 mg Documented by: Ondansetron HCl (Ondansetron 2 Mg/Ml Sdv 2 Ml) 4 mg IVP Q6H PRN PRN Reason: vomiting, or N/V if npo Pantoprazole Sodium (Pantoprazole Dr 40 Mg Tablet) 40 mg PO BID PENDING SALE TO [facility] Last Admin: 06/27/21 17:08 Dose: 40 mg Documented by: Vitals/I&O/Wt Last Vital Signs Temp 98.2 F 06/28/21 04:00 Pulse 74 06/28/21 04:00 Resp 16 06/28/21 04:00 BP 181/78 06/28/21 04:00 Pulse Ox 100 06/28/21 04:00 06/27/21 06/28/21 06/28/21 22:59 06:59 14:59 Intake Total 240 / 240 260 / 500 Output Total 3500 / 3500 280 / 3780 Balance -3260 / -3260 -20 / -3280 Weight last 48 hrs Weight 133.3 kg Weight 132.903 kg Weight 132.8 kg Weight 122.47 kg Physical Exam Narrative: EXAM NARRATIVE: obese, comfortable, on BiPAP vs noted heent- nc/at, eomi, anicteric neck obese lung wheezes and crackles b/l heart reg, no rub abd soft, nt, nd, +BS ext b/l 2+ leg edema dialysis access- RT IJ neuro- a,a, o x 3, no asterixis pulses + b/l Data : 06/28/21 06:00 06/28/21 06:00 A&P Additional A&P Information 61 yr old man HTN, recent ESRD/ YNES- s/p recent renal biopsy at [facility]. 1. ESRD- f/u renal biopsy from [facility] -s/p HD 06/26 and 06/27 -repeat HD now- 3.5 hrs, 2k, remove 3l, QD and QB best 2. HTN- monitor w/ fluid removal 3. anemia- ESRD vs Q myeloma- f/u w/u at [facility] -low iron sat, ferritin 1169- give epo 4. renal bone- mineral- disease -replace mag -low dose phoslo Calcitriol dec dose as pth is 140 5. recent echo- EF 50-55%, diastolic dysfunction grade 2/4 Exam and interview performed with aid of bedside RN using telemedicine Time spent seeing pt, reviewing chart, and coordinating care =30 min Attestations Medical Necessity Statement*: sob and htn, esrd Time Spent in Patient Care: 16 - 35 minutes (>than 50% of time spent in counselling and/or direct pt care on unit) . Coding Level of Care Code Acute Brand Marketing Coordinator for Jah Villalta
[2021-06-28] MEDS: hyDRALAzine 50 mg Tablet 75 MG PO ×2 (07:56→13:25)
[2021-06-28] MEDS: calcitriol 0.25 mcg Capsule PO (07:56)
[2021-06-28] MEDS: amlodipine 5 mg Tablet PO (07:57)
[2021-06-28] MEDS: pantoprazole DR 40 mg Tablet PO (07:57)
--- NOTE | 2021-06-28 10:23 | P.PN_ITS ---
Subjective Subjective: Interval history: Alvarado reports he is worried about going home. He reports he does not think he can manage on his own. He now states that he does not have anybody to go home with, or live with as he did when he was discharged from [facility]. He feels weak. He is willing to consider nursing facility placement. Medications: Reviewed: Yes Vitals/I&O/Wt Last Vital Signs Temp 97.9 F 06/28/21 08:00 Pulse 94 06/28/21 08:00 Resp 17 06/28/21 08:00 BP 150/74 06/28/21 08:00 Pulse Ox 96 06/28/21 08:00 06/27/21 06/28/21 06/28/21 22:59 06:59 14:59 Intake Total 240 / 240 260 / 500 120 / 120 Output Total 3500 / 3500 280 / 3780 Balance -3260 / -3260 -20 / -3280 120 / 120 Weight last 48 hrs Weight 133.3 kg Weight 132.903 kg Weight 132.8 kg Physical Exam Narrative: EXAM NARRATIVE: General exam demonstrates a white male, saturating 98% on 3 L. Oxygen was discontinued, and nursing will keep an eye on the saturation to see if it needs to be started. Neck is supple no lymphadenopathy or thyromegaly Cardiovascular regular rate and rhythm, no murmur. Heart sounds distant Lungs clear Abdomen is soft with positive bowel sounds Extremities no cyanosis clubbing. 1+ edema Data : 06/28/21 06:00 06/28/21 06:00 A&P Assessment and plan (1) Hyperkalemia: Resolved with hemodialysis Status: Acute (2) End stage renal disease: Also appears to have fluid overload(acute diastolic heart failure) with bilateral pleural effusions. Dialysis was initiated on admission that this is his third consecutive day. He is stable from this standpoint to be discharged home, however he now reports he does not feel comfortable going home and does not have anybody to go live with. Other alternatives are being reviewed. Last echocardiogram recently done demonstrated EF of 50 to 55%, 2/4 diastolic dysfunction. Requested records regarding his renal biopsy at [facility] Status: Acute (3) Uncontrolled hypertension: Continue amlodipine, hydralazine. Adjust as needed. Status: Acute (4) Anemia: No evidence of acute blood loss. Status: Acute (5) MGUS (monoclonal gammopathy of unknown significance): Apparently he had further work-up at [facility], including a renal biopsy. We will request records. Status: Acute Additional A&P Information Full code Heparin for DVT prophylaxis Patient reports he cannot live at home alone, that he is worried it will be unsafe as he has no support and is weak. Discharge planning to discuss with him nursing facility placement. Attestations Medical Necessity Statement*: Needs continued hospitalization for weakness evaluation and home safety evaluation to arrange potential placement. Coding Level of Care Code Acute Prefinish Operator for Chg Fwd Diagnoses Hyperkalemia E87.5 End stage renal disease N18.6 Uncontrolled hypertension I10 Anemia D64.9 MGUS (monoclonal gammopathy of unknown significance) D47.2
[2021-06-28] MEDS: heparin, porcine 1,000 unit/mL INJ 10 mL HE (13:22)
--- NOTE | 2021-06-28 15:26 | PC.NURSE ---
Dr Ardon Called to room via pt c/o shortness of breath - 02 Sats at 96% on room air - pt had a loose stool in bed - asst to chair per this nurse - linen change done - Dr Ardon notified
--- NOTE | 2021-06-28 15:52 | PM.DCS ---
Discharge Providers Date of Admission: 06/26/21 12:14 Date of Discharge: June 28, 2021 Attending Provider at Admission: Sonny Ardon MD Attending Provider at Discharge: Sonny Ardon MD Diagnoses at Discharge Discharge Diagnosis (1) Hyperkalemia: Status: Acute (2) End stage renal disease: Status: Acute Permanent problem details: Hemodialysis initiated 06/15 (3) Uncontrolled hypertension: Status: Acute (4) Anemia: Status: Acute (5) MGUS (monoclonal gammopathy of unknown significance): Status: Acute Reason for Visit Reason for Visit: WEAKNESS, SOB Hospital Course Hospital Course Alvarado presented with shortness of breath and hyperkalemia. Denied any chest pain. Recently had a diagnosis of ESRD and placed on hemodialysis. Troponin elevated but no significant delta. Previously had echo showing EF 50-55% and 2/4 diastolic dysfunction. obviously fluid overloaded on admission exam. Placed on oxygen, and dialysis initiated on admission. He received 3 consecutive dialysis sessions with removal of a great amount of fluid. With this, respiratory status improved greatly to where he was able to be weaned off all oxygen. Chest xray on admission was unchanged from previous xray here which showed pleural effusion. There was no suspicion of pneumonia. After dialysis 06/28 he was doing quite well but requested possible nursing facility placement secondary to his comorbidities, recent initiation of dialysis. Unfortunately, insurance did not have any benefit for this. Therapy evaluations were not conclusive that this would have benefitted him. As he was stable after appropriate treatment with dialysis, outpatient dialysis set up for resumption on Saturday, it was thought he could discharge home and have close follow up as an outpatient. Home oxygen eval will be done prior to discharge. Physical Exam Narrative: EXAM NARRATIVE: Gneral NAD Neck supple without LAD CV RRR without murmur Lungs CTAB Abd soft, pos BS Ext trace to 1 plus edema, much improved from admit. Discharge Data Data Completed and Pending: Completed Studies During Hospitalization Category Date Time Status XR chest 1V bruce ble [id number] Stat Exams 06/26/21 09:54 Completed Pending at discharge Category Date Time Status Complete Blood Co unt w/Auto AM LABS Lab 06/29/21 04:00 Ordered Complete Blood Co unt w/Auto AM LABS Lab 06/30/21 04:00 Ordered Comprehensive Met abolic Panel AM LA BS Lab 06/29/21 04:00 Ordered Magnesium AM LABS Lab 06/29/21 04:00 Ordered Magnesium AM LABS Lab 06/30/21 04:00 Ordered Phosphorus AM LAB S Lab 06/29/21 04:00 Ordered Phosphorus AM LAB S Lab 06/30/21 04:00 Ordered Labs from last 24 hours 06/28/21 06/28/21 06:00 06:00 WBC 9.4 RBC 2.76 L Hgb 8.4 L Hct 28.1 L MCV 101.8 H MCH 30.4 MCHC 29.9 L RDW 16.5 H Plt Count 239 MPV 9.5 Neut % (Auto) 67.9 Lymph % (Auto) 11.0 [place] % (Auto) 14.4 Eos % (Auto) 5.0 Baso % (Auto) 0.2 Neut # (Auto) 6.41 Lymph # (Auto) 1.0 [place] # (Auto) 1.4 H Eos # (Auto) 0.5 Baso # (Auto) 0.0 Nucleated RBC % (a uto) 0 Nucleated RBCs # 0.0 Sodium 137 Potassium 5.0 Chloride 99 Carbon Dioxide 27 Anion Gap 16.0 BUN 35 H Creatinine 4.5 H GFR Calculation 13.3 L Glucose 116 H Calculated Osmolal ity 293 Calcium 7.9 L Phosphorus 3.5 Magnesium 1.7 Total Bilirubin 0.2 AST 11 ALT 13 Alkaline Phosphata se 66 Total Protein 6.1 L Albumin 3.0 L Globulin 3.1 Vitals: Last Vital Signs Temp 98.2 F 06/28/21 12:00 Pulse 68 06/28/21 12:00 Resp 18 06/28/21 12:00 BP 175/81 06/28/21 12:00 Pulse Ox 97 06/28/21 12:00 Discharge Plan Discharge Patient Disposition: Home Condition: Stable Prescriptions: Continued amlodipine 10 mg Tablet 10 mg PO QAM RF: 0 Protonix 40 mg Tablet,Delayed Release (Dr/Ec) 40 mg PO BID RF: 0 hydralazine 50 mg Tablet 75 mg PO TID RF: 0 calcitriol 0.25 mcg Capsule 0.25 mcg PO BID RF: 0 bisacodyl 5 mg Tablet 10 mg PO DAILY PRN (Reason: Constipation) RF: 0 Discontinued ibuprofen 200 mg Tablet 600 mg PO Q4H PRN (Reason: Pain) RF: 0 Discharge Orders: Discharge Order (Routine); Ordered 06/28/21 Ordered By: Sonny Ardon Discharge Activity: Increase activity as tolerated Patient Instructions: Opioid Safety Activity Restrictions/Additional Instructions: Home oxygen eval prior to discharge Keep follow up with nephrology or dialysis on Saturday Follow up with PCP in 3-5 days, please arrange this prior to discharge. Please keep follow up arranged for you for your MGUS. If none is arranged please follow up with our Hematology services for this as an outpatient. [place] prior to discharge if needed. Follow a renal diet, avoid foods high in potassium. Discharge Attestations Time Spent in Discharge Care*: greater than 30 min Status at Discharge: Cognitive status at discharge: cognitively intact, Behavioral status at discharge: cooperative, Quality Metrics Clinical Quality Measures During this hospital stay, did patient experience: None Coding Level of Care Code Acute g [facility] note Diagnoses Hyperkalemia E87.5 End stage renal disease N18.6 Uncontrolled hypertension I10 Anemia D64.9 MGUS (monoclonal gammopathy of unknown significance) D47.2
--- NOTE | 2021-06-28 16:31 | PC.NURSE ---
pt was very worked up with anger at the time. moved and eventually knocked the supplies off so..
--- NOTE | 2021-06-28 18:48 | PC.NURSE ---
DISCHARGE INSTRUCTIONS DISCHARGE EDUCATION GIVEN PER THIS NURSE WELL HOME MEDS TO PT AND S/O - BOTH VERBALIZE UNDERSTANDING
== END 2021-06-28 18:54 | disposition home or self-care (01) ==
LOC: ER 11:15 → MEDSURG 15:44
PROVIDERS: Internal Medicine Nephrology; Admitting Provider Internal Medicine; Emergency Provider Family Medicine; Visit Provider Internal Medicine
DX: E87.5 Hyperkalemia (principal); I12.0 Hypertensive chronic kidney disease with stage 5 chronic kidney disease or end stage renal disease; N18.6 End stage renal disease; I11.0 Hypertensive heart disease with heart failure; I50.30 Unspecified diastolic (congestive) heart failure; N17.9 Acute kidney failure, unspecified; D64.9 Anemia, unspecified; D47.2 Monoclonal gammopathy; J90 Pleural effusion, not elsewhere classified; J98.11 Atelectasis; E66.9 Obesity, unspecified; Z68.39 Body mass index [BMI] 39.0-39.9, adult; Z99.2 Dependence on renal dialysis; Z79.899 Other long term (current) drug therapy
CPT/HCPCS: 36415; 71045; 80053; 81001; 82306; 82310; 82550; 82728; 83540; 83550; 83690; 83735; 83970; 84100; 84484; 84550; 85025; 86706; 86803; 87340; 93005; 94760; 96365; 96372; 96375; 97161; 97165; 99285; G0378; J0610; J1644; J1815; J7611; Q4081

== ENCOUNTER → 2021-07-06 12:09 | Outpatient (BNVA) | payer BC, SELFPAY | PROVIDERS: PCP Family Medicine; Visit Provider Family Medicine | DX: D47.2 Monoclonal gammopathy (principal); D64.9 Anemia, unspecified; N18.6 End stage renal disease; Z99.2 Dependence on renal dialysis; I12.0 Hypertensive chronic kidney disease with stage 5 chronic kidney disease or end stage renal disease | CPT/HCPCS: 80048; 85025 ==

== ENCOUNTER 2022-03-28 12:07 | Inpatient (IN) | payer MEDICARE, MEDICAID, SELFPAY ==
[2022-03-28] VITALS (24 sets, daily range): BP systolic 126–205; BP diastolic 64–105; PULSE 75–98; RESP 16–25; TEMP 36.9–37.1; O2SAT 94–100; BMI 34.2
--- NOTE | 2022-03-28 13:25 | USCV_ITS ---
Alvarado Park Age: 61 Gender: M : 1960 Exam Date: 03/28/2022 14:17 Ordering Phys: Lorenza Lamb Technologist: CASSIDY [place] [facility] [place]: RLE PAIN AND SWELLING HISTORY: Lower extremity swelling. Lower extremity pain. PROCEDURES: Venous duplex imaging was performed in only the right lower extremity. The following venous structures were evaluated: common femoral vein, profunda vein, proximal portion of the greater saphenous vein, superficial femoral vein, and the popliteal vein. In addition, the posterior tibial and peroneal trunk were evaluated. Serial compression, augmentation maneuvers, and spectral Doppler flow evaluation were performed. FINDINGS: Examination was technically limited due to body habitus. No evidence of DVT seen in any vessel visualized at this time. CONCLUSIONS No evidence of right lower extremity DVT. Patrick Melton MD (Electronically Signed) Final Date: 28 March 2022 16:25 S
--- NOTE | 2022-03-28 13:26 | XRR_ITS ---
PROCEDURE INFORMATION: Exam: XR Chest Exam date and time: 03/28/2022 1:34 PM Age: 61 years old Clinical indication: Shortness of breath; Patient HX: History--lower leg swelling, weakness, SOB; Additional info: Le swelling TECHNIQUE: Imaging protocol: Radiologic exam of the chest. Views: 1 view. COMPARISON: CR XR chest 1V portable [id number] 06/26/2021 10:01 AM FINDINGS: Tubes, catheters and devices: A right central line extends into the right atrium. Lungs: Right lower lobe interstitial congestion is seen the lungs are otherwise clear acute No consolidation. Pleural spaces: Unremarkable. No pleural effusion. No pneumothorax. Heart/Mediastinum: Unremarkable. No cardiomegaly. Bones/joints: Unremarkable. XR/XR chest 1V portable [id number] IMPRESSION: 1. No acute findings. 2. Right central line is in the right atrium
--- NOTE | 2022-03-28 13:27 | W.ED.EXTPRO ---
Documented by User: TIMBO Laboy 03/28/22 16:02 HPI - Extremity Problem General: Chief complaint: ER Hold Stated complaint: LOWER LEG SWELLING Time Seen by Provider: 03/28/22 12:48 Source: patient Mode of arrival: wheelchair Limitations: no limitations History of Present Illness: Patient is a 61-year-old male with a history of obesity, ESRD on hemodialysis MWF, controlled hypertension, and monoclonal gammopathy of unknown significance here for complaints of right leg swelling. Patient states symptoms began yesterday. He does have a history of bilateral lower extremity edema but states his right leg is significantly more swollen today compared to the left and he has noticed redness and warmth. He does not complain of shortness of breath or difficulty breathing. Patient overall is a fairly poor historian. He apparently was at dialysis today they stated he needed to come to the ED for DVT rule out. His dialysis was not completed. MD Complaint: extremity pain and extremity swelling Onset (ago): day(s) (yesterday) Pain Consistency: constant Location: right and lower extremity Radiation: none Relieving factors: nothing Exacerbating factors: nothing Associated symptoms: Reports no associated symptoms; Deny chest pain or fever(s) Review of Systems Const: Denies: fever(s), chills, body aches, fatigue or malaise Card: Denies: chest pain, palpitations, irregular heart rhythm, lightheadedness, syncope or pre-syncope Resp: Denies: dyspnea GI: Denies: abdominal pain Musc: Reports: extremity pain and extremity swelling; Denies: neck pain or back pain Neuro: Denies: headache(s), numbness in extremities or sensory changes [facility] ED PFSH: Medical History Acute renal failure End stage renal disease Hemodialysis initiated 06/15 Heart failure Diastolic grade 2, EF 50 to 55% Uncontrolled hypertension Surgical History No significant past surgical history Social History Smoking and tobacco status: current every day smoker smokeless tobacco Smokeless tobacco user: chewing tobacco Alcohol intake: never Physical Exam Const: COMMON NORMALS: patient oriented x3, no limitations and alert GENERAL APPEARANCE: disheveled and other (poor hygiene noted) NUTRITIONAL APPEARANCE: obese ORIENTATION/CONSCIOUSNESS: Yes awake, Yes oriented to person, Yes oriented to place and Yes oriented to time HENMT: COMMON NORMALS: normocephalic and atraumatic HEAD & SCALP: normal to inspection, normocephalic and atraumatic Resp: COMMON NORMALS: normal respiratory effort and clear to auscultation bilaterally AUSCULTATION: clear to auscultation bilaterally Cardio: COMMON NORMALS: regular rate and regular rhythm RATE: regular rate RHYTHM: regular rhythm Extremity: COMMON NORMALS: capillary refill normal GENERAL: Yes normal exam except as noted RIGHT LOWER EXTREMITY: Yes lower leg, Yes foot & digits and Yes foot & digits OTHER: pt has fairly significant swelling to R LE when compared to L; he has erythema and warmth affecting mid lower leg and extending distally; some areas are circumferential-others just affecting mainly posterior aspects of the leg; he does have bilateral chronic skin changes Neuro: PELON COMA SCALE: document GCS findings [place] coma scale eye opening: Spontaneous [place] coma scale verbal response: Orientated [place] coma scale motor response: Obey commands [place] coma scale total score: 15 COMMON NORMALS: patient oriented x3, moves all extremities, no focal motor deficits and no sensory deficits noted SENSORIUM/ORIENTATION: Yes alert, Yes oriented to person, Yes oriented to place and Yes oriented to time Course Vital Signs: Vital signs: Vital Signs Temperature 98.0 F 03/31/22 04:00 Pulse Rate 64 03/31/22 12:00 Respiratory Rate 16 03/31/22 12:00 Blood Pressure 129/64 03/31/22 12:00 Pulse Oximetry 97 03/31/22 04:00 Oxygen Delivery Me thod 03/31/22 00:56 Oxygen Flow Rate 3 03/31/22 00:56 MDM - Extremity (Nontraumatic) Lab Data : 03/31/22 04:07 03/31/22 04:07 Radiology Impressions Chest X-Ray 03/28/22 13:26 IMPRESSION: 1. No acute findings. 2. Right central line is in the right atrium Lower Extremity CT 03/28/22 20:18 IMPRESSION: Diffuse subcutaneous edema and nonlocalized fluid suggestive of a cellulitis without focal fluid collection to indicate an abscess or bony findings to suggest osteomyelitis. Laboratory Results WBC 15.3 10^3/uL (4.0-10.0) H 03/29/22 04:08 RBC 3.07 10^6/uL (4.1-5.3) L 03/29/22 04:08 Hgb 9.5 g/dL (11.7-16.6) L 03/29/22 04:08 Hct 29.0 % (42.0-52.0) L 03/29/22 04:08 MCV 94.5 fl (80-94) H 03/29/22 04:08 MCH 30.9 pg (28.0-34.0) 03/29/22 04:08 MCHC 32.8 g/dL (30.0-36.0) 03/29/22 04:08 RDW 13.4 % (12.1-15.1) 03/29/22 04:08 Plt Count 236 10^3/cmm (130-400) 03/29/22 04:08 MPV 8.7 fL (7.4-10.4) 03/29/22 04:08 Neut % (Auto) 78.7 % 03/29/22 04:08 Lymph % (Auto) 9.5 % 03/29/22 04:08 [place] % (Auto) 10.0 % 03/29/22 04:08 Eos % (Auto) 0.3 % 03/29/22 04:08 Baso % (Auto) 0.4 % 03/29/22 04:08 Neut # (Auto) 12.02 10^3/uL (1.8-7.7) H 03/29/22 04:08 Lymph # (Auto) 1.5 10^3/uL (0.8-4.8) 03/29/22 04:08 [place] # (Auto) 1.5 10^3/uL (0.2-0.9) H 03/29/22 04:08 Eos # (Auto) 0.1 10^3/uL (0.0-0.8) 03/29/22 04:08 Baso # (Auto) 0.1 10^3/uL (0.0-0.1) 03/29/22 04:08 Nucleated RBC % (auto) 0 % 03/29/22 04:08 Nucleated RBCs # 0.0 /100WBC 03/29/22 04:08 ESR 35 mm/hr (0-10) H 03/28/22 14:42 Sodium 134 mmol/L (136-145) L 03/29/22 04:08 Potassium 4.7 mmol/L (3.5-5.1) 03/29/22 04:08 Chloride 92 mmol/L (98-107) L 03/29/22 04:08 Carbon Dioxide 31 mmol/L (22-29) H 03/29/22 04:08 Anion Gap 15.7 (5-19) 03/29/22 04:08 BUN 53 mg/dL (8-23) H 03/29/22 04:08 Creatinine 10.3 mg/dL (0.7-1.2) H* 03/29/22 04:08 GFR Calculation 5.1 mL/min (90-130) L 03/29/22 04:08 Glucose 100 mg/dL (65-115) 03/29/22 04:08 Calculated Osmolality 292 mOsm/kg (285-295) 03/29/22 04:08 Lactic Acid 1.3 mmol/L (0.5-2.2) 03/28/22 20:10 Uric Acid 5.0 mg/dL (3.4-7.0) 03/28/22 14:42 Calcium 8.5 mg/dL (8.5-10.5) 03/29/22 04:08 Phosphorus 2.7 mg/dL (2.5-4.5) 03/29/22 04:08 Phosphorus Cancelled 03/29/22 04:08 Magnesium 2.0 mg/dL (1.7-2.3) 03/29/22 04:08 Total Bilirubin 0.4 mg/dL (0.15-1.2) 03/29/22 04:08 AST 10 U/L (0-40) 03/29/22 04:08 ALT 6 U/L (0-41) 03/29/22 04:08 Alkaline Phosphatase 70 IU/L (40-130) 03/29/22 04:08 C-Reactive Protein 236.1 mg/L (0.0-4.9) H 03/28/22 14:42 Total Protein 5.9 g/dL (6.6-8.7) L D 03/29/22 04:08 Albumin 3.2 g/dL (3.5-5.2) L 03/29/22 04:08 Globulin 2.7 g/dL (1.3-4.6) 03/29/22 04:08 25-OH Vitamin D Total 60 ng/mL (30-100) 03/29/22 04:08 25-OH Vitamin D Total Cancelled 03/29/22 04:08 Procalcitonin 2.48 ng/mL (0-0.5) H 03/28/22 14:42 Vancomycin Trough 12.3 ug/mL (10-15) 03/29/22 04:08 Hep Bs Antigen Non-reactive (Nonreactive) 03/28/22 14:42 Hep Bs Antibody 3.5 (11.5-1000) L 03/28/22 14:42 Hepatitis C Antibody Non-reactive (Nonreactive) 03/28/22 14:42 Discharge Plan Discharge Patient Disposition: Admitted As Inpatient Admit Provider: Elizabeth Boles Clinical Impression: Cellulitis Qualifiers: Site of cellulitis: extremity Site of cellulitis of extremity: lower extremity Laterality: right Qualified Code(s): L03.115 - Cellulitis of right lower limb Condition: Stable Sign Out Sign Out Data: Patient Sign Out occurred on 03/28/22 at 17:15. Patient's care was discussed, and care was transferred from to TIMBO Hernandez. Coding Level of Care Code ED [place] Guide for Chg Fwd Exam Detailed Documented by User: TIMBO Hernandez 03/28/22 23:35 HPI - Extremity Problem General: Chief complaint: ER Hold Stated complaint: LOWER LEG SWELLING Time Seen by Provider: 03/28/22 12:48 PFSH ED PFSH: Medical History Acute renal failure End stage renal disease Hemodialysis initiated 06/15 Heart failure Diastolic grade 2, EF 50 to 55% Uncontrolled hypertension Surgical History No significant past surgical history Social History Smoking and tobacco status: current every day smoker smokeless tobacco Smokeless tobacco user: chewing tobacco Alcohol intake: never Physical Exam Neuro: PELON COMA SCALE: document GCS findings [place] coma scale total score: 15 Course Consultations: Consultation #1: Contacted the hospitalist Dr. Kolb told her about patient case. She agreed given patient's end-stage renal disease and rapidly progressing cellulitis he should be admitted for inpatient IV antibiotic treatment and to get dialysis as well. Patient will be admitted to the hospital. Time: 19:25 Consultation #2: I contacted the client onboarding analyst on-call and talked with him about patient case and let him know that patient is being admitted for cellulitis but will need dialysis since he is end-stage renal disease patient and gets dialysis every Saturday and missed his dialysis today (Saturday). Time: 19:39 Vital Signs: Vital signs: Vital Signs Temperature 98.0 F 03/31/22 04:00 Pulse Rate 64 03/31/22 12:00 Respiratory Rate 16 03/31/22 12:00 Blood Pressure 129/64 03/31/22 12:00 Pulse Oximetry 97 03/31/22 04:00 Oxygen Delivery Me thod 03/31/22 00:56 Oxygen Flow Rate 3 03/31/22 00:56 MDM - Extremity (Nontraumatic) Medical Decision Making Patient is a 61-year-old male with a history of obesity, ESRD on hemodialysis MWF, controlled hypertension, and monoclonal gammopathy of unknown significance here for complaints of right leg swelling. Patient states symptoms began yesterday. Patient is afebrile rest of vitals are stable. Exam shows signs of cellulitis on right lower extremity. White blood cell count 16.1 and creatinine level was 9.0. Patient missed dialysis today. Due to patient's end-stage renal disease and rapidly progressing cellulitis recommended patient be admitted. He was given dose of IV Rocephin here in the ED. I contacted Dr. Boles the hospitalist on-call and she agreed to have patient admitted and I also contacted the client onboarding analyst chemical reclamation equipment operator and let them know the patient will need inpatient dialysis. Dr. Flowers placed the admitting orders. Lab Data I reviewed the patient's lab results. : 03/31/22 04:07 03/31/22 04:07 Radiology Impressions Chest X-Ray 03/28/22 13:26 IMPRESSION: 1. No acute findings. 2. Right central line is in the right atrium Lower Extremity CT 03/28/22 20:18 IMPRESSION: Diffuse subcutaneous edema and nonlocalized fluid suggestive of a cellulitis without focal fluid collection to indicate an abscess or bony findings to suggest osteomyelitis. Laboratory Results WBC 15.3 10^3/uL (4.0-10.0) H 03/29/22 04:08 RBC 3.07 10^6/uL (4.1-5.3) L 03/29/22 04:08 Hgb 9.5 g/dL (11.7-16.6) L 03/29/22 04:08 Hct 29.0 % (42.0-52.0) L 03/29/22 04:08 MCV 94.5 fl (80-94) H 03/29/22 04:08 MCH 30.9 pg (28.0-34.0) 03/29/22 04:08 MCHC 32.8 g/dL (30.0-36.0) 03/29/22 04:08 RDW 13.4 % (12.1-15.1) 03/29/22 04:08 Plt Count 236 10^3/cmm (130-400) 03/29/22 04:08 MPV 8.7 fL (7.4-10.4) 03/29/22 04:08 Neut % (Auto) 78.7 % 03/29/22 04:08 Lymph % (Auto) 9.5 % 03/29/22 04:08 [place] % (Auto) 10.0 % 03/29/22 04:08 Eos % (Auto) 0.3 % 03/29/22 04:08 Baso % (Auto) 0.4 % 03/29/22 04:08 Neut # (Auto) 12.02 10^3/uL (1.8-7.7) H 03/29/22 04:08 Lymph # (Auto) 1.5 10^3/uL (0.8-4.8) 03/29/22 04:08 [place] # (Auto) 1.5 10^3/uL (0.2-0.9) H 03/29/22 04:08 Eos # (Auto) 0.1 10^3/uL (0.0-0.8) 03/29/22 04:08 Baso # (Auto) 0.1 10^3/uL (0.0-0.1) 03/29/22 04:08 Nucleated RBC % (auto) 0 % 03/29/22 04:08 Nucleated RBCs # 0.0 /100WBC 03/29/22 04:08 ESR 35 mm/hr (0-10) H 03/28/22 14:42 Sodium 134 mmol/L (136-145) L 03/29/22 04:08 Potassium 4.7 mmol/L (3.5-5.1) 03/29/22 04:08 Chloride 92 mmol/L (98-107) L 03/29/22 04:08 Carbon Dioxide 31 mmol/L (22-29) H 03/29/22 04:08 Anion Gap 15.7 (5-19) 03/29/22 04:08 BUN 53 mg/dL (8-23) H 03/29/22 04:08 Creatinine 10.3 mg/dL (0.7-1.2) H* 03/29/22 04:08 GFR Calculation 5.1 mL/min (90-130) L 03/29/22 04:08 Glucose 100 mg/dL (65-115) 03/29/22 04:08 Calculated Osmolality 292 mOsm/kg (285-295) 03/29/22 04:08 Lactic Acid 1.3 mmol/L (0.5-2.2) 03/28/22 20:10 Uric Acid 5.0 mg/dL (3.4-7.0) 03/28/22 14:42 Calcium 8.5 mg/dL (8.5-10.5) 03/29/22 04:08 Phosphorus 2.7 mg/dL (2.5-4.5) 03/29/22 04:08 Phosphorus Cancelled 03/29/22 04:08 Magnesium 2.0 mg/dL (1.7-2.3) 03/29/22 04:08 Total Bilirubin 0.4 mg/dL (0.15-1.2) 03/29/22 04:08 AST 10 U/L (0-40) 03/29/22 04:08 ALT 6 U/L (0-41) 03/29/22 04:08 Alkaline Phosphatase 70 IU/L (40-130) 03/29/22 04:08 C-Reactive Protein 236.1 mg/L (0.0-4.9) H 03/28/22 14:42 Total Protein 5.9 g/dL (6.6-8.7) L D 03/29/22 04:08 Albumin 3.2 g/dL (3.5-5.2) L 03/29/22 04:08 Globulin 2.7 g/dL (1.3-4.6) 03/29/22 04:08 25-OH Vitamin D Total 60 ng/mL (30-100) 03/29/22 04:08 25-OH Vitamin D Total Cancelled 03/29/22 04:08 Procalcitonin 2.48 ng/mL (0-0.5) H 03/28/22 14:42 Vancomycin Trough 12.3 ug/mL (10-15) 03/29/22 04:08 Hep Bs Antigen Non-reactive (Nonreactive) 03/28/22 14:42 Hep Bs Antibody 3.5 (11.5-1000) L 03/28/22 14:42 Hepatitis C Antibody Non-reactive (Nonreactive) 03/28/22 14:42 Discharge Plan Discharge Patient Disposition: Admitted As Inpatient Admit Provider: Elizabeth Boles Clinical Impression: Cellulitis Qualifiers: Site of cellulitis: extremity Site of cellulitis of extremity: lower extremity Laterality: right Qualified Code(s): L03.115 - Cellulitis of right lower limb Condition: Stable Sign Out Sign Out Data: Patient Sign Out occurred on 03/28/22 at 17:15. Patient's care was discussed, and care was transferred from to TIMBO Hernandez. Coding Level of Care Code ED [place] Guide for Chg Fwd Exam Detailed Documented by User: Nidia Flowers MD 04/01/22 11:56 HPI - Extremity Problem General: Chief complaint: ER Hold Stated complaint: LOWER LEG SWELLING Time Seen by Provider: 03/28/22 12:48 [facility] ED PFSH: Medical History Acute renal failure End stage renal disease Hemodialysis initiated 06/15 Heart failure Diastolic grade 2, EF 50 to 55% Uncontrolled hypertension Surgical History No significant past surgical history Social History Smoking and tobacco status: current every day smoker smokeless tobacco Smokeless tobacco user: chewing tobacco Alcohol intake: never Physical Exam Neuro: PELON COMA SCALE: document GCS findings [place] coma scale total score: 15 Course Vital Signs: Vital signs: Vital Signs Temperature 98.0 F 03/31/22 04:00 Pulse Rate 64 03/31/22 12:00 Respiratory Rate 16 03/31/22 12:00 Blood Pressure 129/64 03/31/22 12:00 Pulse Oximetry 97 03/31/22 04:00 Oxygen Delivery Me thod 03/31/22 00:56 Oxygen Flow Rate 3 03/31/22 00:56 MDM - Extremity (Nontraumatic) Lab Data : 03/31/22 04:07 03/31/22 04:07 Radiology Impressions Chest X-Ray 03/28/22 13:26 IMPRESSION: 1. No acute findings. 2. Right central line is in the right atrium Lower Extremity CT 03/28/22 20:18
[2022-03-28 14:55] LABS: Basophils % 0.2 %; Eosinophils # 0.2 10^3/uL (0.0-0.8); Eosinophils % 1.1 %; Hemoglobin 11.7 g/dL (11.7-16.6); Lymphocytes % 6.3 %; Mean Corpuscular HGB Conc 32.5 g/dL (30.0-36.0); Mean Corpuscular Hemoglobin 30.8 pg (28.0-34.0); Mean Corpuscular Volume 94.7 fl (80-94); Mean Platelet Volume 9.2 fL (7.4-10.4); Monocytes # 1.6 10^3/uL (0.2-0.9); Monocytes % 10.2 %; Neutrophils # 13.14 10^3/uL (1.8-7.7); Neutrophils % 81.5 %; Nucleated Red Blood Cells % 0 %; Platelet Count 270 10^3/cmm (130-400); Red Cell Distribution Width 13.2 % (12.1-15.1); White Blood Count 16.1 10^3/uL (4.0-10.0)
[2022-03-28] MEDS: fentaNYL 50 mcg/mL INJ 2mL IVP ×3 (15:26→20:23)
[2022-03-28] MEDS: vancomycin 1,000 MG in sodium chloride 0.9% 250 ML 250 MG IV (15:27)
--- NOTE | 2022-03-28 15:37 | PC.PHAR ---
PT UNABLE TO VERIFY STATED HIS FRIEND LINETTE HELPS HIM- CALLED LINETTE AND SHE WAS UNABLE TO ASSIST - MEDS VERIFIED USING EXTERNAL MED LIST AND [facility].
[2022-03-28 15:40] LABS: Erythrocyte Sedimentation Rate 35 mm/hr (0-10)
[2022-03-28 17:03] LABS: Lactic Sepsis W/Reflex 1.5 mmol/L (0.5-2.2)
[2022-03-28] MEDS: labetalol 5 mg/mL SDV 20mL 10 MG IVP (17:34)
[2022-03-28 19:21] LABS: Alanine Aminotransferase 8 U/L (0-41); Alkaline Phosphatase 92 IU/L (40-130); Anion Gap 19.8 (5-19); Aspartate Amino Transferase 14 U/L (0-40); Blood Urea Nitrogen 47 mg/dL (8-23); C Reactive Protein 236.1 mg/L (0.0-4.9); Carbon Dioxide 29 mmol/L (22-29); Chloride 90 mmol/L (98-107); Globulin 3.4 g/dL (1.3-4.6); Glucose 112 mg/dL (65-115); Osmolality Calculated 291 mOsm/kg (285-295); Potassium 4.8 mmol/L (3.5-5.1); Sodium 134 mmol/L (136-145); Total Bilirubin 0.4 mg/dL (0.15-1.2); Total Protein 7.4 g/dL (6.6-8.7)
--- NOTE | 2022-03-28 19:29 | P.HP_ITS ---
Providers/Chief Complaint Primary Care Provider: Ziyad Negrete DO Chief Complaint: LOWER LEG SWELLING History of Present Illness Alvarado Park is a 61 year old male with past medical history of end-stage renal disease dialysis Saturday, chronic systolic and diastolic congestive heart failure, uncontrolled hypertension, MGUS presented to the hospital for complaints of right leg swelling. This started yesterday. He does have chronic lower extremity edema bilaterally but he felt that his right leg was more swollen compared to the left and he has noticed redness and warmth. He does not recall getting bit by any spiders or other animals. There has been no trauma to the area. Patient usually goes to dialysis Saturday but did not go today because of his leg hurting so much and he presented to the ER instead. He is somewhat of a poor historian. Unable to give a lot of details. Nothing really makes it better or worse. Denies fever, headache, nausea, vomiting, diarrhea, constipation at this time. He does smoke daily but denies drinking. ER course: On arrival blood pressure 194/95, respiratory rate 18, pulse 96, temperature 98.7, pulse ox 96%, on room air. Patient was given fentanyl 25x3 for pain and 1 dose of IV vancomycin. Hospitalist was called to admit patient. Medications/Allergies Home Medications Medication Instructions Recorded Confirmed Last Taken Type hydralazine 50 mg tablet 75 mg PO TID 06/26/21 03/28/22 06/26/21 06:00 History calcitriol 0.25 mcg capsule 0.25 mcg PO BID #60 caps 07/11/21 03/28/22 Unknown Rx pantoprazole 40 mg tablet,delayed 40 mg PO BID #60 tabs 07/11/21 03/28/22 U nknown Rx release (Protonix) amlodipine 10 mg tablet 10 mg PO QPM 03/28/22 03/28/22 Unknown History calcium acetate(phosphat bind) 667 667 mg PO TID 03/28/22 03/28/22 Unknown History mg capsule losartan 100 mg tablet 100 mg PO DAILY 03/28/22 03/28/22 Unknown History olmesartan 5 mg tablet 10 mg PO QPM 03/28/22 03/28/22 Unknown History sevelamer carbonate 800 mg tablet 1,600 mg PO TID 03/28/22 03/28/22 Unknown History triamcinolone acetonide 0.025 % 1 applic topical BID 03/28/22 03/28/22 Unknown History topical cream vit B,C-folic ac 800 mcg-zinc 12.5 1 tab PO DAILY 03/28/22 03/28/22 Unknown History mg-selen-D3 2,000 unit-vit E tablet (RenaPlex-D) Allergies Allergy/AdvReac Type Severity Reaction Status Date / Time aspirin Allergy Severe ALGY-Hives Verified 03/28/22 15:35 PFSH Acute PFSH: Medical History Acute renal failure End stage renal disease Hemodialysis initiated 06/15 Heart failure Diastolic grade 2, EF 50 to 55% Uncontrolled hypertension Surgical History No significant past surgical history Social History Smoking and tobacco status: current every day smoker smokeless tobacco Smokeless tobacco user: chewing tobacco Alcohol intake: never Vitals/I&O/Wt Last Vital Signs Temp 98.7 F 03/28/22 13:00 Pulse 96 03/28/22 16:48 Resp 18 03/28/22 17:33 BP 194/95 03/28/22 17:30 Pulse Ox 96 03/28/22 17:30 O2 Del Method 03/28/22 16:48 O2 Flow Rate 3 03/28/22 13:00 Weight last 48 hrs Weight 117.934 kg Physical Exam Narrative: General: Alert oriented x3, patient seen sitting up in bed appearing comfortable at this time HEENT: Normocephalic, atraumatic, EOMI, breathing room air, no acute distress. Cardio: Regular rate rhythm, normal S1-S2, dialysis catheter present right side of chest Respiratory: Clear to auscultation bilaterally no wheezes no rhonchi. GI: Abdomen soft, nontender, nondistended, bowel sounds + Extremities: 2+ bilateral lower extremity edema present with pitting. Chronic venous stasis, right leg more swollen compared to left. Erythema and warmth present medication and extends distally. Data : 03/28/22 14:42 03/28/22 14:42 Micro: Microbiology 03/28/22 15:46 Blood Culture - Preliminary Blood SPECIMEN COLLECTED 03/28/22 15:50 Blood Culture - Preliminary Blood SPECIMEN COLLECTED A&P Assessment and plan (1) ESRD (end stage renal disease) on dialysis: Status: Acute (2) End stage renal disease: Status: Acute (3) MGUS (monoclonal gammopathy of unknown significance): Status: Acute (4) Uncontrolled hypertension: Status: Acute (5) Cellulitis: Status: Acute Plan #Right Leg Cellulitis #End-stage renal disease, dialysis dependent Saturday missed dialysis today #Uncontrolled hypertension #History of MGUS #Chronic systolic and diastolic congestive heart failure ? WBC 16,000, ESR 35, CRP 236. Creatinine 9, BUN 47, anion gap 19.8. ? Check CT scan right leg to rule out deep infection ? Dopplers done in ER rule out DVT ? Restart patient's home medications amlodipine, hydralazine, losartan, sevelamer, calcium acetate ? Consult nephrology for dialysis. Patient will need to have his dialysis ? I expect his blood pressure to improve after dialysis session and once he takes his night time medications. Full code DVT prophylaxis: Heparin 5000 twice daily subcu Attestations Medical Necessity Statement*: Admit to observation for IV antibiotics for right leg cellulitis. Get further imaging to rule out deep tissue infection. Possibly be discharged tomorrow unless clinically worsening for which he will require to stay greater than 2 midnights. Will observe overnight for now. Coding Level of Care Code Acute Activities Assistant for Jah Fwd Diagnoses ESRD (end stage renal disease) on dialysis N18.6; Z99.2 End stage renal disease N18.6 MGUS (monoclonal gammopathy of unknown significance) D47.2 Uncontrolled hypertension I10 Cellulitis L03.90
--- NOTE | 2022-03-28 19:53 | PM.CONSULT ---
Providers/Reason For Consult Consulting Physician/Specialty*: Ethan sanders md / telenephrology Reason for Consult*: ESRD care Requesting Physician: DR Mukund Boles Attending Physician: Dr Mukund Boles Primary Care Provider: Ziyad Negrete DO History of Present Illness History of Present Illness [place] Park is a 61 year old male obesity, ESRD on HD MWF, HTN, CHF. Pt missed HD today due to RLE edema, redness, and tenderness. he was sent to ER and admitted for Cellulitis. renal called for ESRD care. Review of Systems Narrative: weak, poorly controlled BP, sob, diego, no cp, + nausea, no abd pain, no vomiting. still urinates. RL E edema. denies fevers, chills Medications/Allergies Home Medications Medication Instructions Recorded Confirmed Last Taken Type hydralazine 50 mg tablet 75 mg PO TID 06/26/21 03/28/22 06/26/21 06:00 History calcitriol 0.25 mcg capsule 0.25 mcg PO BID #60 caps 07/11/21 03/28/22 Unknown Rx pantoprazole 40 mg tablet,delayed 40 mg PO BID #60 tabs 07/11/21 03/28/22 Unknown Rx release (Protonix) amlodipine 10 mg tablet 10 mg PO QPM 03/28/22 03/28/22 Unknown History calcium acetate(phosphat bind) 667 667 mg PO TID 03/28/22 03/28/22 Unknown History mg capsule losartan 100 mg tablet 100 mg PO DAILY 03/28/22 03/28/22 Unknown History olmesartan 5 mg tablet 10 mg PO QPM 03/28/22 03/28/22 Unknown History sevelamer carbonate 800 mg tablet 1,600 mg PO TID 03/28/22 03/28/22 Unknown History triamcinolone acetonide 0.025 % 1 applic topical BID 03/28/22 03/28/22 Unknown History topical cream vit B,C-folic ac 800 mcg-zinc 12.5 1 tab PO DAILY 03/28/22 03/28/22 Unknown History mg-selen-D3 2,000 unit-vit E tablet (RenaPlex-D) Allergies Allergy/AdvReac Type Severity Reaction Status Date / Time aspirin Allergy Severe ALGY-Hives Verified 03/28/22 15:35 PFSH Acute PFSH: Medical History Acute renal failure End stage renal disease Hemodialysis initiated 06/15 Heart failure Diastolic grade 2, EF 50 to 55% Uncontrolled hypertension Surgical History No significant past surgical history Social History Smoking and tobacco status: current every day smoker smokeless tobacco Smokeless tobacco user: chewing tobacco Alcohol intake: never Vitals/I&O/Wt Last Vital Signs Temp 98.7 F 03/28/22 13:00 Pulse 96 03/28/22 16:48 Resp 18 03/28/22 17:33 BP 194/95 03/28/22 17:30 Pulse Ox 96 03/28/22 17:30 O2 Del Method 03/28/22 16:48 O2 Flow Rate 3 03/28/22 13:00 Weight last 48 hrs Weight 117.934 kg Physical Exam Narrative: obese man in NARD in bed VS noted heent- nc/at, eomi, anicteric neck supple lungs RT base dull, b/l cracklesa heart reg, +DANIELLE abd soft, nt, nd, + bs access - rt chest wall permacath ext RLE red, swollen, tender, LLE 1+ edema neuro a,a, o x 3 Data : 03/28/22 14:42 03/28/22 14:42 Micro: Microbiology 03/28/22 15:46 Blood Culture - Preliminary Blood SPECIMEN COLLECTED 03/28/22 15:50 Blood Culture - Preliminary Blood SPECIMEN COLLECTED A&P Assessment and plan (1) ESRD (end stage renal disease) on dialysis: 61 yr old man 1. Cellulitis- abx renal dose -no rt leg DVT on venous doppler -monitor wbc ( leukocytosis) w/ Abx 2. ESRD- HD in am- 4 hrs, remove 4 l as tolerated 3. htn- home meds and HD in am 4. mild hyponatremia- check tsh. monitor na w/ hd 5. Q LAQUITA 6. hgb good for ESRD pt -high free kappa/ lambda ratio in May 2021- please f/u w/ heme and get results from renal bx in 2020 7. monitor phos and pth seen and examined w/ RN -telehealth visit time spent 50 + minutes informed consent for HD and telehealth obtianed from pt HD in am Status: Acute Plan see above Consult Attestations Medical Necessity Statement: ESRD , htn, cellulitis Time Spent in Patient Care: Greater than 35 minutes (>than 50% of time spent in counselling and/or direct pt care on unit). Coding Level of Care Code Acute Student Recruiter for Jah Fwd Diagnoses ESRD (end stage renal disease) on dialysis N18.6; Z99.2
--- NOTE | 2022-03-28 20:18 | CTR_ITS ---
PROCEDURE INFORMATION: Exam: CT Right Lower Extremity Without Contrast; Lower Leg Exam date and time: 03/28/2022 8:44 PM Age: 61 years old Clinical indication: Cellulitis; Right; Patient HX: Redness and swelling to entirety to RT lower leg. ; Additional info: Cellulitis, R/O deep infection TECHNIQUE: Imaging protocol: CT of the Right lower extremity without contrast was performed. Exam focused on the lower leg. Radiation optimization: All CT scans at this facility use at least one of these dose optimization techniques: automated exposure control; mA and/or kV adjustment per patient size (includes targeted exams where dose is matched to clinical indication); or iterative reconstruction. Contrast material: OMNI 350; Contrast volume: 80 ml; Contrast route: INTRAVENOUS (IV); COMPARISON: No relevant prior studies available. RADIATION DOSE METRICS: Total DLP (mGy-cm): 502.51 FINDINGS: Bones/joints: Normal. No acute fracture or dislocation. Soft tissues: Diffuse subcutaneous edema and nonlocalized fluid suggestive of a cellulitis without focal fluid collection to indicate an abscess or bony findings to suggest osteomyelitis. CT/CT lower leg RT w con [id number] IMPRESSION: Diffuse subcutaneous edema and nonlocalized fluid suggestive of a cellulitis without focal fluid collection to indicate an abscess or bony findings to suggest osteomyelitis.
[2022-03-28] MEDS: piperacillin-tazobactam 3.375 GM in sodium chloride 0.9% (plus) 50 ML IV (20:19)
[2022-03-28] MEDS: heparin 5,000 unit/mL INJ 1 mL 5000 UNIT SUBCUT (20:20)
[2022-03-28] MEDS: labetalol 200 mg Tablet PO (20:29)
[2022-03-28] MEDS: hyDRALAzine 25 mg Tablet PO (20:29)
[2022-03-28 20:30] LABS: Procalcitonin 2.48 ng/mL (0-0.5)
[2022-03-28] MEDS: iohexol 350 mg/mL 100 mL Btl IV (20:40)
[2022-03-28 20:42] LABS: Lactic Sepsis W/Reflex 1.3 mmol/L (0.5-2.2)
[2022-03-28 21:59] LABS: Hepatitis B Surface AB 3.5 (11.5-1000); Hepatitis B Surface Antigen Non-Reactive (Nonreactive); Hepatitis C Virus Antibody Non-Reactive (Nonreactive)
[2022-03-29] VITALS (7 sets, daily range): BP systolic 100–148; BP diastolic 46–76; PULSE 65–94; RESP 16–24; TEMP 37–37.2; O2SAT 93–96; BMI 34.2
[2022-03-29] MEDS: sevelamer 800 mg Tablet 1600 MG PO ×3 (00:14→20:55)
[2022-03-29] MEDS: calcium acetate 667 mg Capsule PO (00:16)
[2022-03-29 04:15] LABS: Basophils # 0.1 10^3/uL (0.0-0.1); Basophils % 0.4 %; Eosinophils # 0.1 10^3/uL (0.0-0.8); Eosinophils % 0.3 %; Hemoglobin 9.5 g/dL (11.7-16.6); Lymphocytes # 1.5 10^3/uL (0.8-4.8); Lymphocytes % 9.5 %; Mean Corpuscular HGB Conc 32.8 g/dL (30.0-36.0); Mean Corpuscular Hemoglobin 30.9 pg (28.0-34.0); Mean Corpuscular Volume 94.5 fl (80-94); Mean Platelet Volume 8.7 fL (7.4-10.4); Monocytes # 1.5 10^3/uL (0.2-0.9); Neutrophils # 12.02 10^3/uL (1.8-7.7); Neutrophils % 78.7 %; Nucleated Red Blood Cells % 0 %; Platelet Count 236 10^3/cmm (130-400); Red Blood Count 3.07 10^6/uL (4.1-5.3); Red Cell Distribution Width 13.4 % (12.1-15.1); White Blood Count 15.3 10^3/uL (4.0-10.0)
[2022-03-29 04:30] LABS: Vancomycin Trough 12.3 ug/mL (10-15)
[2022-03-29 04:47] LABS: Alanine Aminotransferase 6 U/L (0-41); Albumin Level 3.2 g/dL (3.5-5.2); Alkaline Phosphatase 70 IU/L (40-130); Anion Gap 15.7 (5-19); Aspartate Amino Transferase 10 U/L (0-40); Blood Urea Nitrogen 53 mg/dL (8-23); Calcium 8.5 mg/dL (8.5-10.5); Carbon Dioxide 31 mmol/L (22-29); Chloride 92 mmol/L (98-107); Globulin 2.7 g/dL (1.3-4.6); Glomerular Filtration Rate 5.1 mL/min (90-130); Glucose 100 mg/dL (65-115); Osmolality Calculated 292 mOsm/kg (285-295); Phosphorus 2.7 mg/dL (2.5-4.5); Potassium 4.7 mmol/L (3.5-5.1); Sodium 134 mmol/L (136-145); Total Bilirubin 0.4 mg/dL (0.15-1.2); Total Protein 5.9 g/dL (6.6-8.7)
[2022-03-29 05:38] LABS: 25 Hydroxy Vitamin D 60 ng/mL (30-100)
[2022-03-29] MEDS: heparin 5,000 unit/mL INJ 1 mL 5000 UNIT SUBCUT ×2 (06:46→18:38)
--- NOTE | 2022-03-29 07:23 | PC.NURSE ---
Report received from police shift commander RN, patient being transported to dialysis by this RN and tech
--- NOTE | 2022-03-29 08:42 | P.PN_ITS ---
Subjective Subjective: weak, sob. nausea. no diego or cp or diarrhea Medications: Reviewed: Yes Medication Review Details: Current Medications Acetaminophen (Acetaminophen 325 Mg Tablet) 650 mg PO Q6H PRN PRN Reason: Mild/Mod Pain Or Temp >/= 101 Amlodipine Besylate (Amlodipine 10 Mg Tablet) 10 mg PO QPM [facility] Calcitriol (Calcitriol 0.25 Mcg Capsule) 0.25 mcg PO BID [facility] Calcium Acetate (Calcium Acetate 667 Mg Capsule) 667 mg PO TID [facility] Last Admin: 03/29/22 00:16 Dose: 667 mg Heparin Sodium (Porcine) (Heparin 5,000 Unit/Ml Inj 1 Ml) 5,000 unit SUBCUT Q12H [facility] Last Admin: 03/29/22 06:46 Dose: 5,000 unit Hydralazine HCl (Hydralazine 25 Mg Tablet) 25 mg PO TID [facility] Last Admin: 03/28/22 20:29 Dose: 25 mg Hydralazine HCl (Hydralazine 50 Mg Tablet) 75 mg PO TID [facility] Last Admin: 03/29/22 00:12 Dose: Not Given Vancomycin/PEG/NADA/Lysine/Water (Vancocin) 1,250 mg in 250 mls @ 250 mls/hr IV Q72H [facility] Piperacillin Sod/Tazobactam (Sod 3.375 gm/ Sodium Chloride) 50 mls @ 12.5 mls/hr IV Q12H [facility] Last Infusion: 03/29/22 05:14 Dose: Infused Labetalol HCl (Labetalol 200 Mg Tablet) 200 mg PO TID [facility] Last Admin: 03/28/22 20:29 Dose: 200 mg Losartan Potassium (Losartan 50 Mg Tablet) 100 mg PO DAILY [facility] Losartan Potassium (Losartan 50 Mg Tablet) 25 mg PO QPM [facility] Multivitamins (N-Ohcotqn-Ejhzplg C Tablet) 1 each PO DAILY [facility] Non-Formulary Medication (Vit B,R-Ci-Ursj-Selen-Vit D3-E [Renaplex-D]) 1 tab PO DAILY [facility] Pantoprazole Sodium (Pantoprazole Dr 40 Mg Tablet) 40 mg PO BID [facility] Sevelamer Carbonate (Sevelamer 800 Mg Tablet) 1,600 mg PO TID [facility] Last Admin: 03/29/22 00:14 Dose: 1,600 mg Vitals/I&O/Wt Last Vital Signs Temp 98.6 F 03/29/22 08:00 Pulse 76 03/29/22 08:00 Resp 16 03/29/22 08:00 BP 127/75 03/29/22 08:00 Pulse Ox 93 03/29/22 07:24 O2 Del Method 03/29/22 07:24 O2 Flow Rate 3 03/28/22 13:00 03/28/22 03/29/22 03/29/22 22:59 06:59 14:59 Intake Total 50 / 50 Balance 50 / 50 Weight last 48 hrs Weight 117.934 kg Physical Exam Narrative: sob, weak on dialysis VS noted heent- nc/at, eomi, anicteric neck supple lungs RT base dull, b/l crackles heart reg, +DANIELLE abd soft, nt, nd, + bs access - rt chest wall permacath ext RLE red, swollen, tender, LLE 1+ edema neuro a,a, o x 3 Data : 03/29/22 04:08 03/29/22 04:08 Micro: Microbiology 03/28/22 15:46 Blood Culture - Preliminary Blood SPECIMEN COLLECTED 03/28/22 15:50 Blood Culture - Preliminary Blood SPECIMEN COLLECTED A&P Assessment and plan (1) ESRD (end stage renal disease) on dialysis: 61 yr old man 1. Cellulitis- abx renal dose -no rt leg DVT on venous doppler -monitor wbc ( leukocytosis) w/ Abx 2. ESRD- HD now- 4 hrs, remove 4 l as tolerated -repeat hd on sat 3. htn- improved. dec meds to allow for fluid removal on HD. 4. mild hyponatremia- check tsh. monitor na w/ hd 5. Q LAQUITA 6. hgb 9.4- monitor and may need cayden -high free kappa/ lambda ratio in May 2021- please f/u w/ heme and get results from renal bx in 2020 7. monitor phos and pth. normal phos now seen and examined w/ RN -telehealth visit time spent 25 minutes informed consent for HD and telehealth obtained from pt. Status: Acute Plan see above Attestations Medical Necessity Statement*: esrd, htn, anemia, cellulitis Time Spent in Patient Care: 16 - 35 minutes (>than 50% of time spent in counselling and/or direct pt care on unit) . Coding Level of Care Code Acute Lumber Sticker for Chg Fwd Diagnoses ESRD (end stage renal disease) on dialysis N18.6; Z99.2
--- NOTE | 2022-03-29 12:44 | P.PN_ITS ---
Subjective Subjective: Patient was seen and examined this morning continues to complain of weakness shortness of breath nausea Undergoing hemodialysis. Medications: Reviewed: Yes Medication Review Details: Generic Name Dose Route Start Last Admin Trade Name Regi PRN Reason Stop Dose Admin Heparin Sodium (Po rcine) 5,000 unit 03/28/22 19:30 03/29/22 06:46 Heparin 5,000 Un it/Ml Inj 1 Ml SUBCUT 5,000 unit Q12H GONZALO Administration Hydralazine HCl 75 mg 03/28/22 23:33 03/29/22 00:12 Hydralazine 50 M g Tablet PO Not Given TID GONZALO Piperacillin Sod/T azobactam 50 mls @ 12.5 mls /hr 03/28/22 20:00 03/29/22 05:14 Sod 3.375 gm/ So dium Chloride IV Infused Q12H GONZALO Infusion Labetalol HCl 200 mg 03/28/22 21:00 03/28/22 20:29 Labetalol 200 Mg Tablet PO 200 mg TID GONZALO Administration Sevelamer Carbonat e 1,600 mg 03/28/22 23:33 03/29/22 00:14 Sevelamer 800 Mg Tablet PO 1,600 mg TID GONZALO Administration Vitals/I&O/Wt Last Vital Signs Temp 98.6 F 03/29/22 08:00 Pulse 76 03/29/22 08:00 Resp 16 03/29/22 08:00 BP 127/75 03/29/22 08:00 Pulse Ox 93 03/29/22 07:24 O2 Del Method 03/29/22 07:24 O2 Flow Rate 3 03/28/22 13:00 03/28/22 03/29/22 03/29/22 22:59 06:59 14:59 Intake Total 50 / 50 Balance 50 / 50 Weight last 48 hrs Weight 117.934 kg Physical Exam Resp: COMMON NORMALS: normal respiratory effort, No retractions, No use of accessory muscles and clear to auscultation bilaterally EFFORT & INSPECTION: Yes symmetric chest movement AUSCULTATION: clear to auscultation bilaterally Cardio: COMMON NORMALS: regular rate, regular rhythm, S1 normal heart sound present, S2 normal heart sound present, No gallops present (Cardio), No murmurs present (Cardio), No rub (Cardio) and Peripheral pulses 2+ throughout RATE: regular rate RHYTHM: regular rhythm HEART SOUNDS: S1 normal heart sound present and S2 normal heart sound present PERIPHERAL PULSES: Peripheral pulses 2+ throughout GI: COMMON NORMALS: Normal to inspection, nondistended, normoactive bowel sounds present, Soft to palpation, non-tender, No hepatosplenomegaly present and no masses AUSCULTATION: Yes normoactive bowel sounds PALPATION: Yes Soft to palpation and Yes No hepatosplenomegaly present RECTAL EXAM: Yes deferred Extremity: COMMON NORMALS: no clubbing, cyanosis or edema and no pedal edema Data : 03/29/22 04:08 03/29/22 04:08 Micro: Microbiology 03/28/22 15:46 Blood Culture - Preliminary Blood SPECIMEN COLLECTED 03/28/22 15:50 Blood Culture - Preliminary Blood SPECIMEN COLLECTED A&P Assessment and plan (1) ESRD (end stage renal disease) on dialysis: Status: Acute (2) End stage renal disease: Status: Acute (3) MGUS (monoclonal gammopathy of unknown significance): Status: Acute (4) Uncontrolled hypertension: Status: Acute (5) Cellulitis: Status: Acute Qualifiers: Laterality: right Site of cellulitis: extremity Site of cellulitis of extremity: lower extremity Qualified Code(s): L03.115 - Cellulitis of right lower limb Plan 61-year-old male with past medical history of hypertension end-stage renal disease dialysis dependent Combined heart failure, admitted for the management of worsening right lower extremity swelling as well as Redness, unfortunately he also missed dialysis on Saturday. Assessment #Right Leg Cellulitis #ESRD D/D #Uncontrolled hypertension #History of MGUS #Chronic HFpEF & HFrEF Plan: CT lower leg RT w con?:Diffuse subcutaneous edema and nonlocalized fluid suggestive of a cellulitis without focal fluid collection to indicate an abscess or bony findings to suggest osteomyelitis. CV venous duplex LE RT?: No evidence of right lower extremity DVT. WBC 16,000, ESR 35, CRP 236. Blood culture: Will receive dialysis today renal on board Currently on Vanco and Zosyn. On hydralazine labetalol losartan Full code DVT prophylaxis: Heparin 5000 twice daily subcu Attestations Medical Necessity Statement*: Patient is still in hospital for management of cellulitis need for IV antibiotics. Coding Level of Care Code Acute Delicate Fabrics Presser for g Fwd Exam Expanded Problem Focused Diagnoses ESRD (end stage renal disease) on dialysis N18.6; Z99.2 End stage renal disease N18.6 MGUS (monoclonal gammopathy of unknown significance) D47.2 Uncontrolled hypertension I10 Cellulitis L03.115 Laterality: right Site of cellulitis: extremity Site of cellulitis of extremity: lower extremity
[2022-03-29] MEDS: piperacillin-tazobactam 3.375 GM in sodium chloride 0.9% (plus) 50 ML IV (13:24)
[2022-03-29] MEDS: losartan 50 mg Tablet 100 MG PO (13:25)
[2022-03-29] MEDS: hyDRALAzine 50 mg Tablet 75 MG PO ×2 (13:25→20:54)
[2022-03-29] MEDS: b-complex-vitamin c Tablet 1 EACH PO (13:25)
[2022-03-29] MEDS: pantoprazole DR 40 mg Tablet PO ×2 (13:26→17:33)
[2022-03-29] MEDS: calcitriol 0.25 mcg Capsule PO ×2 (13:27→17:33)
[2022-03-29] MEDS: labetalol 200 mg Tablet PO ×2 (13:28→20:54)
[2022-03-30] MEDS: piperacillin-tazobactam 3.375 GM in sodium chloride 0.9% (plus) 50 ML IV ×2 (00:27→14:28)
[2022-03-30 04:00] VITALS: BP 113/64; PULSE 68; RESP 18; TEMP 36.7; O2SAT 97
[2022-03-30 04:12] LABS: Basophils # 0.1 10^3/uL (0.0-0.1); Basophils % 0.5 %; Eosinophils # 0.3 10^3/uL (0.0-0.8); Eosinophils % 2.2 %; Hematocrit 30.8 % (42.0-52.0); Hemoglobin 9.8 g/dL (11.7-16.6); Lymphocytes # 1.7 10^3/uL (0.8-4.8); Lymphocytes % 11.2 %; Mean Corpuscular HGB Conc 31.8 g/dL (30.0-36.0); Mean Corpuscular Hemoglobin 30.6 pg (28.0-34.0); Mean Corpuscular Volume 96.3 fl (80-94); Mean Platelet Volume 9.6 fL (7.4-10.4); Monocytes # 1.3 10^3/uL (0.2-0.9); Monocytes % 8.6 %; Neutrophils # 11.71 10^3/uL (1.8-7.7); Neutrophils % 76.7 %; Nucleated Red Blood Cells % 0 %; Platelet Count 286 10^3/cmm (130-400); Red Cell Distribution Width 13.7 % (12.1-15.1); White Blood Count 15.3 10^3/uL (4.0-10.0)
[2022-03-30 04:44] LABS: Alanine Aminotransferase < 5 U/L (0-41); Alkaline Phosphatase 85 IU/L (40-130); Anion Gap 16.4 (5-19); Aspartate Amino Transferase 9 U/L (0-40); Blood Urea Nitrogen 35 mg/dL (8-23); Calcium 8.8 mg/dL (8.5-10.5); Carbon Dioxide 28 mmol/L (22-29); Chloride 97 mmol/L (98-107); Globulin 3.8 g/dL (1.3-4.6); Glomerular Filtration Rate 7.2 mL/min (90-130); Glucose 96 mg/dL (65-115); Magnesium 2.1 mg/dL (1.7-2.3); Osmolality Calculated 292 mOsm/kg (285-295); Phosphorus 2.7 mg/dL (2.5-4.5); Potassium 4.4 mmol/L (3.5-5.1); Sodium 137 mmol/L (136-145); Total Bilirubin 0.4 mg/dL (0.15-1.2); Total Protein 6.8 g/dL (6.6-8.7)
[2022-03-30 04:49] LABS: Parathyroid Hormone 68.8 pg/mL (15-65)
[2022-03-30 04:51] LABS: Calcium 8.7 mg/dL (8.5-10.5); Vancomycin Trough 7.1 ug/mL (10-15)
[2022-03-30 07:38] VITALS: BP 136/73; PULSE 68; RESP 18; TEMP 36.4; O2SAT 97
[2022-03-30] MEDS: sevelamer 800 mg Tablet 1600 MG PO (08:55)
[2022-03-30] MEDS: labetalol 200 mg Tablet PO ×2 (08:55→14:29)
[2022-03-30] MEDS: losartan 50 mg Tablet 100 MG PO (08:55)
[2022-03-30] MEDS: calcitriol 0.25 mcg Capsule PO (08:56)
[2022-03-30] MEDS: b-complex-vitamin c Tablet 1 EACH PO (08:56)
[2022-03-30] MEDS: hyDRALAzine 50 mg Tablet 75 MG PO ×2 (08:56→14:29)
[2022-03-30] MEDS: pantoprazole DR 40 mg Tablet PO (08:56)
[2022-03-30] MEDS: heparin 5,000 unit/mL INJ 1 mL 5000 UNIT SUBCUT ×2 (08:57→20:59)
--- NOTE | 2022-03-30 11:12 | PM.PN ---
Subjective Subjective: reports right leg is not better. Having trouble ambulating on it. Vitals/I&O/Wt Last Vital Signs Temp 97.6 F 03/30/22 07:38 Pulse 68 03/30/22 07:38 Resp 18 03/30/22 07:38 BP 136/73 03/30/22 07:38 Pulse Ox 97 03/30/22 07:38 O2 Del Method 03/30/22 07:38 O2 Flow Rate 3 03/29/22 20:57 03/29/22 03/30/22 03/30/22 22:59 06:59 14:59 Intake Total 170 / 290 860 / 1150 360 / 360 Balance 170 / 290 860 / 1150 360 / 360 Weight last 48 hrs Weight 120.111 kg Weight 117.934 kg Weight 117.934 kg Physical Exam Const: COMMON NORMALS: no acute distress and alert Neck/C-Spine: OTHER: tunneled right IJ HD catheter. Extremity: NARRATIVE EXTREMITY EXAM: no leg leg swelling right leg 1+ edema, + circumferential erythema Neuro: SENSORIUM/ORIENTATION: Yes alert Data : 03/30/22 03:36 03/30/22 03:36 Other Labs: Ca 8.8, albumin 3.0, phos 2.7, Mg 2.1, PTH 68 BC no growth Micro: Microbiology 03/28/22 15:50 Blood Culture - Preliminary Blood NEGATIVE TO DATE 03/28/22 15:46 Blood Culture - Preliminary Blood NEGATIVE TO DATE A&P Assessment and plan (1) ESRD (end stage renal disease) on dialysis: Status: Acute Plan seen via telehealth with assistance of RN at bedside 1. ESRD, HD T/Th/Sat. Scheduled for LUE AVF creation 04/10/22 2. Cellulitis: timing of vancomycin IV should be at end or after HD 3x weekly 3. Hypertension, well-controlled 4. Anemia, Hb stable. Epogen at HD 5. Hyponatremia, resolved 6. Phos and PTH lower than goal: reduce sevelemar and calcitriol Rec: HD tomorrow, 4h , 1.5L UF, 2K, 2.5Ca. No IVs or blood draws LUE Attestations Medical Necessity Statement*: per primary service Time Spent in Patient Care: 16 - 35 minutes Coding Level of Care Code Acute Publications Designer for g Fwd Diagnoses ESRD (end stage renal disease) on dialysis N18.6; Z99.2
[2022-03-30 12:00] VITALS: BP 132/74; PULSE 69; RESP 18; TEMP 36.7; O2SAT 98
[2022-03-30] MEDS: sevelamer 800 mg Tablet PO ×2 (14:29→20:58)
[2022-03-30] MEDS: vancomycin 1,000 MG in sodium chloride 0.9% 250 ML 250 MG IV (14:29)
[2022-03-30 15:29] VITALS: BP 127/71; PULSE 70; RESP 18; TEMP 36.7; O2SAT 97
--- NOTE | 2022-03-30 16:17 | P.PN_ITS ---
Subjective Subjective: Patient was seen and examined this morning continue to complain of significant right lower extremity pain. Medications: Reviewed: Yes Medication Review Details: Generic Name Dose Route Start Last Admin Trade Name Regi PRN Reason Stop Dose Admin Heparin Sodium (Po rcine) 5,000 unit 03/28/22 19:30 03/29/22 06:46 Heparin 5,000 Un it/Ml Inj 1 Ml SUBCUT 5,000 unit Q12H GONZALO Administration Hydralazine HCl 75 mg 03/28/22 23:33 03/29/22 00:12 Hydralazine 50 M g Tablet PO Not Given TID GONZALO Piperacillin Sod/T azobactam 50 mls @ 12.5 mls /hr 03/28/22 20:00 03/29/22 05:14 Sod 3.375 gm/ So dium Chloride IV Infused Q12H [facility]ON[facility]ALO Infusion Labetalol HCl 200 mg 03/28/22 21:00 03/28/22 20:29 Labetalol 200 Mg Tablet PO 200 mg TID GONZALO Administration Sevelamer Carbonat e 1,600 mg 03/28/22 23:33 03/29/22 00:14 Sevelamer 800 Mg Tablet PO 1,600 mg TID GONZALO Administration Vitals/I&O/Wt Last Vital Signs Temp 98.1 F 03/30/22 15:29 Pulse 70 03/30/22 15:29 Resp 18 03/30/22 15:29 BP 127/71 03/30/22 15:29 Pulse Ox 97 03/30/22 15:29 O2 Del Method 03/30/22 15:29 O2 Flow Rate 3 03/29/22 20:57 03/30/22 03/30/22 03/30/22 06:59 14:59 22:59 Intake Total 860 / 1150 600 / 600 Balance 860 / 1150 600 / 600 Weight last 48 hrs Weight 120.111 kg Weight 117.934 kg Physical Exam Resp: COMMON NORMALS: normal respiratory effort, No retractions, No use of accessory muscles and clear to auscultation bilaterally EFFORT & INSPECTION: Yes symmetric chest movement AUSCULTATION: clear to auscultation bilaterally Cardio: COMMON NORMALS: regular rate, regular rhythm, S1 normal heart sound present, S2 normal heart sound present, No gallops present (Cardio), No murmurs present (Cardio), No rub (Cardio) and Peripheral pulses 2+ throughout RATE: regular rate RHYTHM: regular rhythm HEART SOUNDS: S1 normal heart sound present and S2 normal heart sound present PERIPHERAL PULSES: Peripheral pulses 2+ throughout GI: COMMON NORMALS: Normal to inspection, nondistended, normoactive bowel sounds present, Soft to palpation, non-tender, No hepatosplenomegaly present and no masses AUSCULTATION: Yes normoactive bowel sounds PALPATION: Yes Soft to palpation and Yes No hepatosplenomegaly present RECTAL EXAM: Yes deferred Extremity: COMMON NORMALS: no clubbing, cyanosis or edema and no pedal edema NARRATIVE EXTREMITY EXAM: RT LOWER EXTREMITY REDNESS AND SWELLING PRESENT Data : 03/30/22 03:36 03/30/22 03:36 Micro: Microbiology 03/28/22 15:50 Blood Culture - Preliminary Blood NEGATIVE TO DATE 03/28/22 15:46 Blood Culture - Preliminary Blood NEGATIVE TO DATE A&P Assessment and plan (1) ESRD (end stage renal disease) on dialysis: Status: Acute (2) End stage renal disease: Status: Acute (3) MGUS (monoclonal gammopathy of unknown significance): Status: Acute (4) Uncontrolled hypertension: Status: Acute (5) Cellulitis: Status: Acute Qualifiers: Laterality: right Site of cellulitis: extremity Site of cellulitis of extremity: lower extremity Qualified Code(s): L03.115 - Cellulitis of right lower limb Plan 61-year-old male with past medical history of hypertension end-stage renal disease dialysis dependent Combined heart failure, admitted for the management of worsening right lower extremity swelling as well as Redness, unfortunately he also missed dialysis on Saturday. Assessment #Right Leg Cellulitis #ESRD D/D #Uncontrolled hypertension #History of MGUS #Chronic HFpEF & HFrEF Plan: CT lower leg RT w con?:Diffuse subcutaneous edema and nonlocalized fluid sugges tive of a cellulitis without focal fluid collection to indicate an abscess or bony findings to suggest osteomyelitis. CV venous duplex LE RT?: No evidence of right lower extremity DVT. WBC 16,000, ESR 35, CRP 236. Blood culture:NTD Will receive dialysis today renal on board Currently on Vanco and Zosyn. On hydralazine losartan Full code DVT prophylaxis: Heparin 5000 twice daily subcu Attestations Medical Necessity Statement*: In Hospital for continued IV antibiotics. Coding Level of Care Code Acute Briefcase Sewer for [facility] Fwd Diagnoses ESRD (end stage renal disease) on dialysis N18.6; Z99.2 End stage renal disease N18.6 MGUS (monoclonal gammopathy of unknown significance) D47.2 Uncontrolled hypertension I10 Cellulitis L03.115 Laterality: right Site of cellulitis: extremity Site of cellulitis of extremity: lower extremity
[2022-03-30 20:00] VITALS: BP 131/75; PULSE 67; RESP 18; TEMP 36.9; O2SAT 99
[2022-03-30] MEDS: hyDRALAzine 50 mg Tablet 100 MG PO (20:57)
[2022-03-31] MEDS: piperacillin-tazobactam 3.375 GM in sodium chloride 0.9% (plus) 50 ML IV (00:53)
[2022-03-31 00:56] VITALS: BP 131/75; PULSE 67; RESP 18; TEMP 36.9
--- NOTE | 2022-03-31 03:57 | NUR.SHIFT ---
Pt in bed resting, not needs at assessment, bed locked and low, call light in reach, pt stated today [birth year],
[2022-03-31 04:00] VITALS: BP 131/74; PULSE 65; RESP 19; TEMP 36.7; O2SAT 97
[2022-03-31 05:11] LABS: Basophils # 0.1 10^3/uL (0.0-0.1); Basophils % 0.6 %; Eosinophils # 0.9 10^3/uL (0.0-0.8); Eosinophils % 6.8 %; Hemoglobin 9.9 g/dL (11.7-16.6); Lymphocytes # 2.1 10^3/uL (0.8-4.8); Lymphocytes % 15.3 %; Mean Corpuscular HGB Conc 31.9 g/dL (30.0-36.0); Mean Corpuscular Hemoglobin 30.4 pg (28.0-34.0); Mean Corpuscular Volume 95.1 fl (80-94); Mean Platelet Volume 9.6 fL (7.4-10.4); Monocytes % 6.9 %; Neutrophils # 9.49 10^3/uL (1.8-7.7); Neutrophils % 69.4 %; Nucleated Red Blood Cells % 0 %; Platelet Count 348 10^3/cmm (130-400); Red Blood Count 3.26 10^6/uL (4.1-5.3); Red Cell Distribution Width 13.7 % (12.1-15.1); White Blood Count 13.7 10^3/uL (4.0-10.0)
[2022-03-31 05:34] LABS: Vancomycin Trough 12.1 ug/mL (10-15)
[2022-03-31 05:38] LABS: Alanine Aminotransferase < 5 U/L (0-41); Alkaline Phosphatase 92 IU/L (40-130); Aspartate Amino Transferase 9 U/L (0-40); Blood Urea Nitrogen 47 mg/dL (8-23); Calcium 9.3 mg/dL (8.5-10.5); Carbon Dioxide 24 mmol/L (22-29); Chloride 92 mmol/L (98-107); Globulin 4.3 g/dL (1.3-4.6); Glomerular Filtration Rate 5.5 mL/min (90-130); Glucose 89 mg/dL (65-115); Magnesium 2.4 mg/dL (1.7-2.3); Osmolality Calculated 294 mOsm/kg (285-295); Phosphorus 2.5 mg/dL (2.5-4.5); Sodium 136 mmol/L (136-145); Total Bilirubin 0.3 mg/dL (0.15-1.2); Total Protein 7.3 g/dL (6.6-8.7)
[2022-03-31] MEDS: heparin 5,000 unit/mL INJ 1 mL 5000 UNIT SUBCUT (07:35)
[2022-03-31] MEDS: losartan 50 mg Tablet 100 MG PO (07:37)
[2022-03-31] MEDS: pantoprazole DR 40 mg Tablet PO (07:37)
[2022-03-31] MEDS: sevelamer 800 mg Tablet PO (07:37)
[2022-03-31] MEDS: calcitriol 0.25 mcg Capsule PO (07:39)
[2022-03-31] MEDS: b-complex-vitamin c Tablet 1 EACH PO (07:39)
[2022-03-31] MEDS: hyDRALAzine 50 mg Tablet 100 MG PO (07:39)
--- NOTE | 2022-03-31 11:32 | PC.NURSE ---
PATIENTS PRESCRIPTIONS CALLED INTO [facility] TO BE DELIVERED BEFORE DISCHARGE
--- NOTE | 2022-03-31 11:37 | P.PN_ITS ---
Subjective Subjective: Seen at end of dialysis. feels much better. reports he is ambulating without difficulty Vitals/I&O/Wt Last Vital Signs Temp 98.0 F 03/31/22 04:00 Pulse 65 03/31/22 04:00 Resp 19 H 03/31/22 04:00 BP 131/74 03/31/22 04:00 Pulse Ox 97 03/31/22 04:00 O2 Del Method 03/31/22 00:56 O2 Flow Rate 3 03/31/22 00:56 03/30/22 03/31/22 03/31/22 22:59 06:59 14:59 Intake Total 290 / 890 840 / 1730 Balance 290 / 890 840 / 1730 Weight last 48 hrs Weight 121.517 kg Weight 120.111 kg Weight 117.934 kg Physical Exam Const: COMMON NORMALS: no acute distress and alert Neuro: SENSORIUM/ORIENTATION: Yes alert Data : 03/31/22 04:07 03/31/22 04:07 A&P Assessment and plan (1) ESRD (end stage renal disease) on dialysis: Status: Acute Plan seen via telehealth with assistance of RN at bedside 1. ESRD, HD T/Th/Sat. Scheduled for LUE AVF creation 04/10/22 2. Cellulitis: plan is for last dose IV antibiotics today and discharge home on oral 3. Hypertension, well-controlled 4. Anemia, Hb stable. Epogen at HD Rec: Next HD at outpatient unit Tuesday 04/03.. 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
--- NOTE | 2022-03-31 11:47 | PM.DCS ---
Discharge Providers Date of Admission: 03/29/22 16:44 Date of Discharge: March 31, 2022 Attending Provider at Admission: Elizabeth Boles MD Attending Provider at Discharge: Lauro Carrera MD Primary Care Provider: Ziyad Negrete DO Diagnoses at Discharge Discharge Diagnosis (1) ESRD (end stage renal disease) on dialysis: Status: Acute Reason for Visit Reason for Visit: LOWER LEG SWELLING Hospital Course Hospital Course 61-year-old male with past medical history of hypertension end-stage renal disease dialysis dependent Combined heart failure, admitted for the management of worsening right lower extremity swelling as well as Redness, unfortunately he also missed dialysis on Saturday. He was admitted for the management of Right Leg Cellulitis: CT lower leg RT w con?:Diffuse subcutaneous edema and nonlocalized fluid suggestive of a cellulitis without focal fluid collection to indicate an abscess or bony findings to suggest osteomyelitis. CV venous duplex LE RT?: No evidence of right lower extremity DVT.He was kept on broad spectrum Abxs Blood culture was negative,he is being discharged on po augmentin as well as po levofloxacin. He was continued on H/D.Patient overall has responded well to above medical management and is being discharged in stable condition to home.He will continue to follow his PCP as outpatient. Physical Exam Resp: COMMON NORMALS: normal respiratory effort, No retractions, No use of accessory muscles and clear to auscultation bilaterally EFFORT & INSPECTION: Yes symmetric chest movement AUSCULTATION: clear to auscultation bilaterally Cardio: COMMON NORMALS: regular rate, regular rhythm, S1 normal heart sound present, S2 normal heart sound present, No gallops present (Cardio), No murmurs present (Cardio), No rub (Cardio) and Peripheral pulses 2+ throughout RATE: regular rate RHYTHM: regular rhythm HEART SOUNDS: S1 normal heart sound present and S2 normal heart sound present PERIPHERAL PULSES: Peripheral pulses 2+ throughout GI: COMMON NORMALS: Normal to inspection, nondistended, normoactive bowel sounds present, Soft to palpation, non-tender, No hepatosplenomegaly present and no masses AUSCULTATION: Yes normoactive bowel sounds PALPATION: Yes Soft to palpation and Yes No hepatosplenomegaly present RECTAL EXAM: Yes deferred Extremity: COMMON NORMALS: no clubbing, cyanosis or edema and no pedal edema NARRATIVE EXTREMITY EXAM: RT LOWER EXTREMITY REDNESS AND SWELLING PRESENT Discharge Data Studies Completed and Pending Completed Studies During Hospitalization Category Date Time Status CT lower leg RT w con [id number] Urgent Cat Scan 03/28/22 20:18 Completed XR chest 1V portable [id number] Urgent Exams 03/28/22 13:26 Completed US venous duplex lower extremity RT [CV venous duplex Ultrasound 03/28/22 13:[place] [id number]] Urgent Pending at discharge Category Date Time Status Blood Culture Stat Lab 03/28/22 15:46 Results Complete Blood Count w/Auto AM LABS Lab 04/01/22 04:00 Ordered Comprehensive Metabolic Panel AM LABS Lab 04/01/22 04:00 Ordered Magnesium AM LABS Lab 04/01/22 04:00 Ordered Phosphorus AM LABS Lab 04/01/22 04:00 Ordered Radiology Impressions Chest X-Ray 03/28/22 13:26 IMPRESSION: 1. No acute findings. 2. Right central line is in the right atrium Lower Extremity CT 03/28/22 20:18 IMPRESSION: Diffuse subcutaneous edema and nonlocalized fluid suggestive of a cellulitis without focal fluid collection to indicate an abscess or bony findings to suggest osteomyelitis. Laboratory Results WBC 13.7 10^3/uL (4.0-10.0) H 03/31/22 04:07 RBC 3.26 10^6/uL (4.1-5.3) L 03/31/22 04:07 Hgb 9.9 g/dL (11.7-16.6) L 03/31/22 04:07 Hct 31.0 % (42.0-52.0) L 03/31/22 04:07 MCV 95.1 fl (80-94) H 03/31/22 04:07 MCH 30.4 pg (28.0-34.0) 03/31/22 04:07 MCHC 31.9 g/dL (30.0-36.0) 03/31/22 04:07 RDW 13.7 % (12.1-15.1) 03/31/22 04:07 Plt Count 348 10^3/cmm (130-400) 03/31/22 04:07 MPV 9.6 fL (7.4-10.4) 03/31/22 04:07 Neut % (Auto) 69.4 % 03/31/22 04:07 Lymph % (Auto) 15.3 % 03/31/22 04:07 [place] % (Auto) 6.9 % 03/31/22 04:07 Eos % (Auto) 6.8 % 03/31/22 04:07 Baso % (Auto) 0.6 % 03/31/22 04:07 Neut # (Auto) 9.49 10^3/uL (1.8-7.7) H 03/31/22 04:07 Lymph # (Auto) 2.1 10^3/uL (0.8-4.8) 03/31/22 04:07 [place] # (Auto) 1.0 10^3/uL (0.2-0.9) H 03/31/22 04:07 Eos # (Auto) 0.9 10^3/uL (0.0-0.8) H 03/31/22 04:07 Baso # (Auto) 0.1 10^3/uL (0.0-0.1) 03/31/22 04:07 Nucleated RBC % (auto) 0 % 03/31/22 04:07 Nucleated RBCs # 0.0 /100WBC 03/31/22 04:07 ESR 35 mm/hr (0-10) H 03/28/22 14:42 Sodium 136 mmol/L (136-145) 03/31/22 04:07 Potassium 4.0 mmol/L (3.5-5.1) 03/31/22 04:07 Chloride 92 mmol/L (98-107) L 03/31/22 04:07 Carbon Dioxide 24 mmol/L (22-29) 03/31/22 04:07 Anion Gap 24.0 (5-19) H 03/31/22 04:07 BUN 47 mg/dL (8-23) H 03/31/22 04:07 Creatinine 9.7 mg/dL (0.7-1.2) H* 03/31/22 04:07 GFR Calculation 5.5 mL/min (90-130) L 03/31/22 04:07 Glucose 89 mg/dL (65-115) 03/31/22 04:07 Calculated Osmolality 294 mOsm/kg (285-295) 03/31/22 04:07 Lactic Acid 1.3 mmol/L (0.5-2.2) 03/28/22 20:10 Uric Acid 5.0 mg/dL (3.4-7.0) 03/28/22 14:42 Calcium 9.3 mg/dL (8.5-10.5) 03/31/22 04:07 Phosphorus 2.5 mg/dL (2.5-4.5) 03/31/22 04:07 Magnesium 2.4 mg/dL (1.7-2.3) H 03/31/22 04:07 Total Bilirubin 0.3 mg/dL (0.15-1.2) 03/31/22 04:07 AST 9 U/L (0-40) 03/31/22 04:07 ALT < 5 U/L (0-41) 03/31/22 04:07 Alkaline Phosphatase 92 IU/L (40-130) 03/31/22 04:07 C-Reactive Protein 236.1 mg/L (0.0-4.9) H 03/28/22 14:42 Total Protein 7.3 g/dL (6.6-8.7) 03/31/22 04:07 Albumin 3.0 g/dL (3.5-5.2) L 03/31/22 04:07 Globulin 4.3 g/dL (1.3-4.6) 03/31/22 04:07 25-OH Vitamin D Total 60 ng/mL (30-100) 03/29/22 04:08 25-OH Vitamin D Total Cancelled 03/29/22 04:08 Procalcitonin 2.48 ng/mL (0-0.5) H 03/28/22 14:42 PTH Intact 68.8 pg/mL (15-65) H 03/30/22 03:36 Calcium (PTH Intact) 8.7 mg/dL (8.5-10.5) 03/30/22 03:36 Vancomycin Trough 12.1 ug/mL (10-15) 03/31/22 04:07 Hep Bs Antigen Non-reactive (Nonreactive) 03/28/22 14:42 Hep Bs Antibody 3.5 (11.5-1000) L 03/28/22 14:42 Hepatitis C Antibody Non-reactive (Nonreactive) 03/28/22 14:42 Vitals Last Vital Signs Temp 98.0 F 03/31/22 04:00 Pulse 65 03/31/22 04:00 Resp 19 H 03/31/22 04:00 BP 131/74 03/31/22 04:00 Pulse Ox 97 03/31/22 04:00 O2 Del Method 03/31/22 00:56 O2 Flow Rate 3 03/31/22 00:56 Discharge Plan Discharge Patient Disposition: Home Condition: Stable Prescriptions: New Augmentin 500-125 mg tablet See Rx Instructions .ROUTE .COMPLEX Qty: 10 0RF Rx Instructions: 1 tab orally on dialysis day after dialysis levofloxacin 500 mg tablet 500 mg PO Q48H 7 Days Qty: 4 0RF Continued Protonix 40 mg tablet,delayed release (DR/EC) 40 mg PO BID Qty: 60 2RF calcitriol 0.25 mcg capsule 0.25 mcg PO BID Qty: 60 2RF hydralazine 50 mg Tablet 75 mg PO TID triamcinolone acetonide 0.025 % cream 1 applic TOPICAL BID losartan 100 mg tablet 100 mg PO DAILY olmesartan 5 mg tablet 10 mg PO QPM calcium acetate(phosphat bind) 667 mg capsule 667 mg PO TID sevelamer carbonate 800 mg tablet 1,600 mg PO TID RenaPlex-D 800 mcg-12.5 mg -2,000 unit Tablet 1 tab PO DAILY amlodipine 10 mg tablet 10 mg PO QPM Discharge Orders: Discharge Order (Routine); Ordered 03/31/22 Ordered By: Lauro Carrera Referrals: Ziyad Negrete DO [Primary Care Provider] - 1 week (Please call Dr. Negrete's office Saturday morning to schedule a hospital follow up appointment within 1 week. ) Patient Instructions: Amoxicillin/Clavulanate Potassium (By mouth), Levofloxacin (By mouth), Cellulitis (GEN), Opioid Safety Discharge Attestations Time Spent in Discharge Care*: less than 30 min Status at Discharge: Cognitive status at discharge: cognitively intact, Behavioral status at discharge: cooperative, Quality Metrics Clinical Quality Measures [ No reported AMI, CVA or VTE this stay] Coding Level of Care Code Acute Chg FW DC note Diagnoses ESRD (end stage renal disease) on dialysis N18.6; Z99.2
[2022-03-31 12:00] VITALS: BP 129/64; PULSE 64; RESP 16
== END 2022-03-31 14:40 | disposition home or self-care (01) | DRG 602 ==
LOC: ER 23:56 → ER IP 03-29 05:46 → MEDSURG 03-29 07:37
PROVIDERS: Internal Medicine Nephrology; Physician Assistant; Admitting Provider Internal Medicine; Emergency Provider Physician Assistant; PCP Family Medicine; Visit Provider Internal Medicine
DX: L03.115 Cellulitis of right lower limb (principal); N18.6 End stage renal disease; I13.2 Hypertensive heart and chronic kidney disease with heart failure and with stage 5 chronic kidney disease, or end stage renal disease; I50.42 Chronic combined systolic (congestive) and diastolic (congestive) heart failure; E87.1 Hypo-osmolality and hyponatremia; D63.1 Anemia in chronic kidney disease; D47.2 Monoclonal gammopathy; F17.220 Nicotine dependence, chewing tobacco, uncomplicated; E66.9 Obesity, unspecified; Z68.35 Body mass index [BMI] 35.0-35.9, adult; Z99.2 Dependence on renal dialysis
CPT/HCPCS: 36415; 71045; 73701; 80053; 80202; 82306; 82310; 83605; 83735; 83970; 84100; 84145; 84550; 85025; 85651; 86140; 86706; 86803; 87040; 87340; 93971; 96372; G0378; J1644; J2543; J3010; J3370; J3490; J7050; Q9967

== ENCOUNTER 2023-01-14 15:20 | Emergency (ER) | payer MEDICARE, MEDICAID, SELFPAY ==
[2023-01-14] VITALS (10 sets, daily range): BP systolic 150–190; BP diastolic 62–97; PULSE 72–118; RESP 18–20; TEMP 36.7; O2SAT 95–100; BMI 30.9
--- NOTE | 2023-01-14 15:39 | XRR_ITS ---
PROCEDURE INFORMATION: Exam: XR Chest Exam date and time: 01/14/2023 3:52 PM Age: 62 years old Clinical indication: Cough and shortness of breath TECHNIQUE: Imaging protocol: Radiologic exam of the chest. Views: 1 view. COMPARISON: CR XR chest 1V portable [id number] 03/28/2022 1:34 PM FINDINGS: Lungs: Right perihilar interstitial densities seen increased since prior examination. The lungs are otherwise clear No consolidation. Pleural spaces: Unremarkable. No pleural effusion. No pneumothorax. Heart/Mediastinum: Unremarkable. No cardiomegaly. Bones/joints: Unremarkable. XR/XR chest 1V portable [id number] IMPRESSION: 1. Nonspecific right perihilar interstitial densities 2. Otherwise No acute findings.
[2023-01-14 16:47] LABS: Basophils # 0.1 10^3/uL (0.0-0.1); Basophils % 0.7 %; Eosinophils # 0.4 10^3/uL (0.0-0.8); Eosinophils % 5.8 %; Hematocrit 34.6 % (42.0-52.0); Hemoglobin 11.2 g/dL (11.7-16.6); Lymphocytes # 1.5 10^3/uL (0.8-4.8); Lymphocytes % 22.2 %; Mean Corpuscular HGB Conc 32.4 g/dL (30.0-36.0); Mean Corpuscular Hemoglobin 31.1 pg (28.0-34.0); Mean Corpuscular Volume 96.1 fl (80-94); Mean Platelet Volume 9.1 fL (7.4-10.4); Neutrophils # 3.86 10^3/uL (1.8-7.7); Neutrophils % 55.7 %; Nucleated Red Blood Cells % 0 %; Platelet Count 189 10^3/cmm (130-400); Red Cell Distribution Width 12.7 % (12.1-15.1); White Blood Count 6.9 10^3/uL (4.0-10.0)
--- NOTE | 2023-01-14 16:47 | W.ED.SOB ---
HPI - SOB/Dyspnea General: Chief Complaint: Shortness of Breath/Dyspnea Stated Complaint: respiratory Distress-Cough Time Seen by Provider: 01/14/23 15:58 History of Present Illness: HPI Narrative: Patient presents to the ER with a history of shortness of breath times last 2 days with productive cough and yellow sputum. Patient was at dialysis morning and had to be put on 2 L of oxygen to keep his sat up. Patient normally does not even take any breathing medicines at home but patient does have a portable oxygen concentrator with him. Patient is currently requiring 3 L of oxygen. Patient does states he feels better. MD elicited complaint: shortness of breath and cough Onset (ago): day(s) (About 2 days ago) Timing: constant and progressively worsening Severity: moderate Exacerbating factors: exertion and coughing Relieving factors: oxygen Associated symptoms: Deny abdominal pain, chest pain, extremity pain, fever(s), nausea or vomiting Treatment prior to arrival: oxygen and bronchodilator Review of Systems General: Reports: 10 or more systems reviewed and unremarkable except in HPI and below Const: Denies: fever(s) or chills Eyes: Denies: change in vision or photophobia ENMT: Denies: throat pain or odynophagia Card: Denies: chest pain or edema Resp: Reports: dyspnea and productive cough GI: Denies: abdominal pain, nausea, vomiting or diarrhea : Denies: flank pain, difficulty urinating or dysuria Musc: Denies: neck pain, back pain or extremity pain PFS ED PFSH: Medical History Acute renal failure End stage renal disease Hemodialysis initiated 06/15 Heart failure Diastolic grade 2, EF 50 to 55% MGUS (monoclonal gammopathy of unknown significance) Uncontrolled hypertension Surgical History No significant past surgical history Social History Smoking and tobacco status: current every day smoker smokeless tobacco Smokeless tobacco user: chewing tobacco Alcohol intake: never Substance/Drug Use: never Physical Exam Const: COMMON NORMALS: no acute distress, average body habitus, patient oriented x3, no limitations, healthy appearing, alert and well nourished HENMT: COMMON NORMALS: normocephalic, atraumatic, hearing grossly normal bilaterally, external ears normal, Normal external nose present and moist oral mucous membranes HEAD & SCALP: normocephalic and atraumatic NOSE: Normal external nose present EXTERNAL EAR: Yes external ears normal Eye: COMMON NORMALS: Equal, round and reactive pupils present, EOMs intact bilaterally, conjunctivae normal and no scleral icterus CONJUNCTIVA: Yes conjunctivae normal PUPIL: Yes Equal, round and reactive pupils present Neck/C-Spine: COMMON NORMALS: no JVD Chest: COMMONS NORMALS: normal inspection of the chest and normal palpation of entire chest wall Resp: EFFORT & INSPECTION: Yes able to speak in complete sentences, Yes Actively coughing and Yes audible wheezes AUSCULTATION: rhonchi and wheezes Cardio: COMMON NORMALS: no JVD, S1 normal heart sound present, S2 normal heart sound present, No gallops present (Cardio), No clicks present (Cardio) and No murmurs present (Cardio) RATE: tachycardic HEART SOUNDS: S1 normal heart sound present and S2 normal heart sound present GI: COMMON NORMALS: Normal to inspection, nondistended, normoactive bowel sounds present, Soft to palpation, non-tender, No hepatosplenomegaly present and no masses PALPATION: Yes Soft to palpation and Yes No hepatosplenomegaly present : COMMON NORMALS: Yes no CVA tenderness BLADDER/KIDNEY EXAM: Yes no CVA tenderness Back/Pelvis: COMMON NORMALS: no CVA tenderness Neuro: COMMON NORMALS: patient oriented x3 SENSORIUM/ORIENTATION: Yes alert Course Vital Signs: Vital signs: Vital Signs Temperature 98.1 F 01/14/23 15:48 Pulse Rate 79 01/14/23 18:00 Respiratory Rate 20 H 01/14/23 17:26 Blood Pressure 186/86 01/14/23 18:00 Pulse Oximetry 100 01/14/23 18:00 Oxygen Delivery Me thod Nasal Cannula 01/14/23 17:26 Oxygen Flow Rate 2 01/14/23 17:26 MDM - SOB/Dyspnea Medical Decision Making Patient presents to the ER with 2-day complaint of worsening shortness of breath requiring oxygen. Physical exam was performed lab work and imaging was undertaken which showed patient's white count was 6.9 BUN/creatinine was 17 and 4.6 patient just finished dialysis today. Patient's chest x-ray showed nonspecific right perihilar interstitial densities patient underwent a chest CT which did show that he he may have some mild acute pneumonia in the mid to right lower lobe of the lung. Patient was given Rocephin 1 g IV and titrated off his oxygen where he remained at 95% or better pulse oxygen on room air. Medical Records I reviewed the patient's medical records. Lab Data I reviewed the patient's lab results. 01/14/23 16:30 01/14/23 16:30 Labs/Radiology: Radiology Impressions Chest X-Ray 01/14/23 15:39 IMPRESSION: 1. Nonspecific right perihilar interstitial densities 2. Otherwise No acute findings. Chest CT 01/14/23 18:00 IMPRESSION: 1. Chronic changes lower chest suggestive of loculated effusions with component of mild pleural thickening, [id number]-djph-left, along with component of pleural calcification. An area of increased focal pleural thickening noted in the posterior left lung base with a couple of calcifications, as well. There is a significant chronic component when compared with images through the lower lungs with CT abdomen and pelvis of 2020. 2. Mild benign healed granulomatous disease. 3. Lung windows demonstrate mild ill-defined ground-glass opacity mid to lower right lung, with inability to exclude a component of mild acute pneumonia. 4. Vascular disease of the thoracic aorta and coronary arteries. Laboratory Results WBC 6.9 10^3/uL (4.0-10.0) 01/14/23 16:30 RBC 3.60 10^6/uL (4.1-5.3) L 01/14/23 16:30 Hgb 11.2 g/dL (11.7-16.6) L 01/14/23 16:30 Hct 34.6 % (42.0-52.0) L 01/14/23 16:30 MCV 96.1 fl (80-94) H 01/14/23 16:30 MCH 31.1 pg (28.0-34.0) 01/14/23 16:30 MCHC 32.4 g/dL (30.0-36.0) 01/14/23 16:30 RDW 12.7 % (12.1-15.1) 01/14/23 16:30 Plt Count 189 10^3/cmm (130-400) 01/14/23 16:30 MPV 9.1 fL (7.4-10.4) 01/14/23 16:30 Neut % (Auto) 55.7 % 01/14/23 16:30 Lymph % (Auto) 22.2 % 01/14/23 16:30 [place] % (Auto) 15.0 % 01/14/23 16:30 Eos % (Auto) 5.8 % 01/14/23 16:30 Baso % (Auto) 0.7 % 01/14/23 16:30 Neut # (Auto) 3.86 10^3/uL (1.8-7.7) 01/14/23 16:30 Lymph # (Auto) 1.5 10^3/uL (0.8-4.8) 01/14/23 16:30 [place] # (Auto) 1.0 10^3/uL (0.2-0.9) H 01/14/23 16:30 Eos # (Auto) 0.4 10^3/uL (0.0-0.8) 01/14/23 16:30 Baso # (Auto) 0.1 10^3/uL (0.0-0.1) 01/14/23 16:30 Nucleated RBC % (auto) 0 % 01/14/23 16: Nucleated RBCs # 0.0 /100WBC 01/14/23 16:30 Sodium 139 mmol/L (136-145) 01/14/23 16:30 Potassium 3.7 mmol/L (3.5-5.1) 01/14/23 16:30 Chloride 97 mmol/L (98-107) L 01/14/23 16:30 Carbon Dioxide 29 mmol/L (22-29) 01/14/23 16:30 Anion Gap 16.7 (5-19) 01/14/23 16:30 BUN 17 mg/dL (8-23) 01/14/23 16:30 Creatinine 4.6 mg/dL (0.7-1.2) H 01/14/23 16:30 GFR Calculation 12.9 mL/min (90-130) L 01/14/23 16:30 Glucose 90 mg/dL (65-115) 01/14/23 16:30 Calculated Osmolality 289 mOsm/kg (285-295) 01/14/23 16:30 Lactic Acid 1.0 mmol/L (0.5-2.2) 01/14/23 17:07 Calcium 8.4 mg/dL (8.5-10.5) L 01/14/23 16:30 Phosphorus 2.9 mg/dL (2.5-4.5) 01/14/23 16:30 Magnesium 1.9 mg/dL (1.7-2.3) 01/14/23 16:30 Total Bilirubin 0.3 mg/dL (0.15-1.2) 01/14/23 16:30 AST 12 U/L (0-40) 01/14/23 16:30 ALT 8 U/L (0-41) 01/14/23 16:30 Alkaline Phosphatase 99 U/L (40-130) 01/14/23 16:30 Total Protein 7.4 g/dL (6.6-8.7) 01/14/23 16:30 Albumin 3.8 g/dL (3.5-5.2) 01/14/23 16:30 Globulin 3.6 g/dL (1.3-4.6) 01/14/23 16:30 Procalcitonin 0.46 ng/mL (0-0.5) 01/14/23 17:07 Discharge Plan Discharge Patient Disposition: Home Clinical Impression: ESRD (end stage renal disease) on dialysis Community acquired pneumonia Qualifiers: Laterality: right Lung location: middle lobe of lung Qualified Code(s): J18.9 - Pneumonia, unspecified organism Condition: Stable Prescriptions: New levofloxacin 250 mg tablet 250 mg PO DAILY Qty: 7 0RF No Action Protonix 40 mg tablet,delayed release (DR/EC) 40 mg PO BID Qty: 60 2RF calcitriol 0.25 mcg capsule 0.25 mcg PO BID Qty: 60 2RF hydralazine 50 mg Tablet 25 mg PO TID triamcinolone acetonide 0.025 % cream 1 applic TOPICAL BID losartan 100 mg tablet 100 mg PO DAILY calcium acetate(phosphat bind) 667 mg capsule 667 mg PO TID sevelamer carbonate 800 mg tablet 1,600 mg PO TID RenaPlex-D 800 mcg-12.5 mg -2,000 unit Tablet 1 tab PO DAILY lisinopril 20 mg tablet 20 mg PO DAILY amlodipine 10 mg tablet 10 mg PO DAILY Discharge Orders: Discharge ED (Routine); Ordered 01/14/23 Ordered By: Frederick Oconnell Referrals: Ziyad Negrete DO [Primary Care Provider] - 1 week Patient Instructions: Pneumonia (ED) Activity Restrictions/Additional Instructions: Please take all your antibiotics as directed. Coding Level of Care Code ED Distance Education Coordinator for Jah Villalta
[2023-01-14 17:08] LABS: Alanine Aminotransferase 8 U/L (0-41); Albumin Level 3.8 g/dL (3.5-5.2); Alkaline Phosphatase 99 U/L (40-130); Anion Gap 16.7 (5-19); Aspartate Amino Transferase 12 U/L (0-40); Blood Urea Nitrogen 17 mg/dL (8-23); Calcium 8.4 mg/dL (8.5-10.5); Carbon Dioxide 29 mmol/L (22-29); Chloride 97 mmol/L (98-107); Globulin 3.6 g/dL (1.3-4.6); Glomerular Filtration Rate 12.9 mL/min (90-130); Glucose 90 mg/dL (65-115); Magnesium 1.9 mg/dL (1.7-2.3); Osmolality Calculated 289 mOsm/kg (285-295); Phosphorus 2.9 mg/dL (2.5-4.5); Potassium 3.7 mmol/L (3.5-5.1); Sodium 139 mmol/L (136-145); Total Bilirubin 0.3 mg/dL (0.15-1.2); Total Protein 7.4 g/dL (6.6-8.7)
[2023-01-14] MEDS: ipratropium-albuterol 3 mL Neb INHALATION (17:23)
[2023-01-14 17:54] LABS: Procalcitonin 0.46 ng/mL (0-0.5)
--- NOTE | 2023-01-14 18:00 | CTR_ITS ---
PROCEDURE INFORMATION: Exam: CT Chest Without Contrast; Diagnostic Exam date and time: 01/14/2023 6:42 PM Age: 62 years old Clinical indication: Dyspnea and shortness of breath; Additional info: Dyspnea hypoxia TECHNIQUE: Imaging protocol: Diagnostic computed tomography of the chest without contrast. Radiation optimization: All CT scans at this facility use at least one of these dose optimization techniques: automated exposure control; mA and/or kV adjustment per patient size (includes targeted exams where dose is matched to clinical indication); or iterative reconstruction. REPORTING DATA: Count of CT and Cardiac NM exams in prior 12 months: This patient has received [address] and 0 known cardiac nuclear medicine studies in the 12 months prior to the current study. COMPARISON: CR (CHEST, ) 01/14/2023 3:52 PM RADIATION DOSE METRICS: Total DLP (mGy-cm): 755 FINDINGS: Lungs: Lung windows suggest small amount of apical scarring right lung apex. Lung windows demonstrate mild ill-defined ground-glass opacity mid to lower right lung. No pneumothorax is seen. Pleural spaces: Loculated appearing pleural effusion is seen within the lower chest bilaterally, orgge-gqjhrmp-akbd-left with component of mild pleural thickening. Compared with images through the lower lungs with CT abdomen and pelvis 06/13/2021 findings appear chronic though improved on the left. An area of focal pleural thickening and/or component of atelectasis is seen posterior left lung base. Several calcifications are seen in association with the pleura, gbgbc-nioxliw-rgjt-left. Mild benign healed granulomatous disease, with a few benign calcified granulomas right lung and involving mediastinal and right hilar nodes. Heart: No significant cardiomegaly or pericardial effusion. Lymph nodes: No significant lymph node enlargement or adenopathy. Vasculature: Atherosclerotic disease of the thoracic aorta and coronary artery calcifications are seen. Bones/joints: Spondylotic change thoracic with component of mild degenerative disc disease. Soft tissues: Unremarkable. CT/CT chest wo con [id number] IMPRESSION: 1. Chronic changes lower chest suggestive of loculated effusions with component of mild pleural thickening, kkfvo-arlxanh-sqsy-left, along with component of pleural calcification. An area of increased focal pleural thickening noted in the posterior left lung base with a couple of calcifications, as well. There is a significant chronic component when compared with images through the lower lungs with CT abdomen and pelvis of 2021. 2. Mild benign healed granulomatous disease. 3. Lung windows demonstrate mild ill-defined ground-glass opacity mid to lower right lung, with inability to exclude a component of mild acute pneumonia. 4. Vascular disease of the thoracic aorta and coronary arteries.
[2023-01-14] MEDS: cefTRIAXone 1,000 MG in sodium chloride 0.9% (plus) 50 ML 100 MG IV (18:05)
== END 2023-01-14 20:38 | disposition home or self-care (01) ==
PROVIDERS: Emergency Provider Emergency Medicine; PCP Family Medicine
DX: J18.9 Pneumonia, unspecified organism (principal); I13.2 Hypertensive heart and chronic kidney disease with heart failure and with stage 5 chronic kidney disease, or end stage renal disease; N18.6 End stage renal disease; I50.30 Unspecified diastolic (congestive) heart failure; Z99.2 Dependence on renal dialysis; F17.220 Nicotine dependence, chewing tobacco, uncomplicated
CPT/HCPCS: 36415; 71045; 71250; 80053; 83605; 83735; 84100; 84145; 85025; 87040; 94640; 96365; 99285; J0696

== ENCOUNTER 2024-10-02 11:30 | Inpatient (IN) | payer MEDICARE, MEDICAID, SELFPAY ==
[2024-10-02] VITALS (16 sets, daily range): BP systolic 101–215; BP diastolic 63–124; PULSE 84–100; RESP 16–23; TEMP 36.5–37.1; O2SAT 92–100; BMI 29.0
--- NOTE | 2024-10-02 11:40 | ECG_ITS ---
[facility] Test Date: 2024-10-02 Pat Name: [place] Department: Room: Gender: Male Tapper Bit: : 1960 Requested By: Juventino Whiting Order Number: [id number] Reading MD: FARHAD KRISHNA Measurements Intervals [place] Rate: 92 P: 73 NC: 182 QRS: -10 QRSD: 114 T: 43 QT: 380 QTc: 471 Interpretive Statements SINUS RHYTHM WITH OCCASIONAL SUPRAVENTRICULAR PREMATURE COMPLEXES POSSIBLE LATERAL MYOCARDIAL INFARCTION , PROBABLY OLD [30 ms Q WAVE IN I/aVL/V5/V6] Compared to ECG 06/26/2021 14:40:06 Myocardial infarct finding now present Electronically Signed On 10-04-2024 21:04:47 SPECIAL EDUCATION TEACHING ASSISTANT by FARHAD KRISHNA [email or web address]
--- NOTE | 2024-10-02 11:40 | XR_ITS ---
WS: [id number] Portable AP upright chest, 10/02/2024 Clinical Data: dyspnea/cough Comparison: Portable chest, 01/14/2023 Findings: Patchy bilateral basilar pulmonary opacities are present, there is a moderate right pleural effusion. The upper lobes are clear. No nodules, masses or effusions are seen. The heart is normal. The pulmonary vascularity is not increased. No pneumothorax is seen. The aortic arch and descending thoracic aorta show calcification and tortuosity. Monitor leads are on the chest wall. XR/XR chest 1V portable [id number] Impression: 1. Bilateral pulmonary basilar opacities which could represent atelectasis and pneumonia. 2. Moderate right pleural effusion. 3. Atherosclerosis.
--- NOTE | 2024-10-02 11:59 | ED_ITS ---
HPI - SOB/Dyspnea 2 General: Chief Complaint: Shortness of Breath/Dyspnea Stated Complaint: dyspnea x 2 weeks Time Seen by Provider: 10/02/24 11:39 History of Present Illness: HPI Narrative: 64-year-old male who presents to the [facility] room with shortness of breath for last 2 weeks. He has been progressively weaker. Patient has had a productive cough he states he has a chronic baseline productive cough and this is mildly changed. He is aching all over he states he more or less slowly slid to the floor he was on the floor for approximately 2 hours before being found. Patient has end-stage renal disease he gets dialysis Saturday he did not receive dialysis today (today is Saturday) he did receive all of his other dialysis runs on the usual schedule earlier this week. Associated symptoms: Reports chest congestion; Deny abdominal pain, chest pain or fever(s) Related Data Home Medications ?Medication ?Instructions ?Recorded ?Confirmed losartan 100 mg tablet 100 mg PO DAILY 03/28/2207/20 sevelamer carbonate 800 mg tablet 1,600 mg PO TID 11/1410/06/24 Previous Rx's ?Medication ?Instructions ?Recorded pantoprazole 40 mg tablet,delayed 40 mg PO BID #60 tab s 07/11/21 release (Protonix) amoxicillin 500 mg-potassium 1 tab PO QPM #5 tabs 05/20 clavulanate 125 mg tablet (Augmentin) carvedilol 6.25 mg tablet 6.25 mg PO BID #60 tabs 05/20 hydralazine 50 mg tablet 25 mg (1/2 x 50 mg) PO TID 3 0 days 10/04/24 #45 tabs prednisone 20 mg tablet 40 mg (2 x 20 mg) PO DAILY # 10 tabs 10/04/24 albuterol sulfate 90 mcg/actuation 2 inh inhalation Q8 H PRN shortness 10/05/24 aerosol inhaler (Ventolin HFA) of breath or wheezing # 6.7 grams budesonide-formoterol HFA 80 2 inh inhalation BID #10. 2 grams 10/05/24 mcg-4.5 mcg/actuation aerosol inhaler (Symbicort) tiotropium bromide 1.25 2 inh inhalation DAILY #4 gr ams 10/05/24 mcg/actuation mist for inhalation (Spiriva Respimat) Allergies Allergy/AdvReac Type Severity Reaction Status Date / Time aspirin Allergy Severe ALGY-Hives Verified 03/28/22 15:35 Review of Systems 2 Const: Denies: fever(s) or chills Card: Reports: edema and swelling of feet/ankles; Denies: chest pain Resp: Reports: dyspnea, productive cough and chest congestion GI: Denies: abdominal pain : Denies: dysuria, urinary frequency or urinary urgency Musc: Denies: neck pain or back pain Skin/Breast: Denies: rash PFSH ED 2 PFSH: Medical History (Updated 10/10/24 @ 10:37 by Juventino Perea DO) Amphetamine abuse RSV bronchitis Hyponatremia Hypertensive urgency Congestive heart failure Shortness of breath ESRD (end stage renal disease) on dialysis Hyperkalemia Moderate aortic stenosis Uncontrolled hypertension End stage renal disease Hemodialysis initiated 06/15 MGUS (monoclonal gammopathy of unknown significance) Heart failure Diastolic grade 2, EF 50 to 55% Acute renal failure Surgical History No significant past surgical history Social History Smoking and tobacco/nicotine status: current every day tobacco/nicotine user smokeless tobacco Smokeless tobacco user: chewing tobacco Alcohol intake: never Substance/Drug Use: never Physical Exam 2 Const: GENERAL APPEARANCE: cooperative ORIENTATION/CONSCIOUSNESS: Yes awake, Yes oriented to person, Yes oriented to place and Yes oriented to time HENMT: COMMON NORMALS: normocephalic, atraumatic and hearing grossly normal bilaterally HEAD & SCALP: normocephalic and atraumatic Resp: AUSCULTATION: rhonchi and wheezes Cardio: COMMON NORMALS: regular rate, regular rhythm and No murmurs present (Cardio) RATE: regular rate RHYTHM: regular rhythm GI: COMMON NORMALS: Soft to palpation and No hepatosplenomegaly present A USCULTATION: Yes normoactive bowel sounds PALPATION: Yes Soft to palpation, No Tenderness to palpation present (GI), No Guarding due to palpation present (GI) and Yes No hepatosplenomegaly present Extremity: COMMON NORMALS: normal to inspection, capillary refill normal, no clubbing, cyanosis or edema, no calf tenderness and no pedal edema Neuro: SENSORIUM/ORIENTATION: Yes oriented to person, Yes oriented to place and Yes oriented to time Skin: COMMON NORMALS: no rashes or lesions noted GENERAL SKIN EXAM: no rashes or lesions noted Course 2 Vital Signs: Vital signs: Vital Signs Temperature 97.5 F L 10/05/24 15:22 Pulse Rate 78 10/05/24 15:22 Respiratory Rate 20 H 10/05/24 15:22 Blood Pressure 158/79 10/05/24 15:22 Pulse Oximetry 93 10/05/24 15:22 Oxygen Delivery Me thod Nasal Cannula 10/05/24 13:22 Oxygen Flow Rate 3 10/05/24 08:42 MDM - SOB/Dyspnea Medical Decision Making Patient will require dialysis today he is mildly fluid overloaded. Additionally will need better blood pressure control he also has exacerbation of his COPD in the setting of his congestive heart failure. Discussed with hospitalist orders written consult nephrology. Hyponatremia and hyperkalemia will need to be addressed as well. Hyperkalemia treated with albuterol insulin and calcium chloride in the emergency room. He is also been started on antibiotics for concern of underlying pneumonia. Lab Data 10/05/24 12:16 10/05/24 12:16 Labs/Radiology: Radiology Impressions Chest CTA 10/02/24 14:31 IMPRESSION: 1. Ill-defined ground-glass opacities in the right upper lobe concerning for infection/inflammation. Recommend imaging follow-up after clinical treatment to document resolution. 2. Small to moderate right and small left pleural effusions. The right effusion appears loculated. Pleural-based calcifications surrounding the effusions bilaterally, [id number], suggests a chronic process. 3. Mildly dilated ascending thoracic aorta measuring 4 cm. 4. Dilated main pulmonary artery can be seen with pulmonary hypertension. 5. Atherosclerotic calcifications along the aortic valve plane can be seen with aortic stenosis. Chest X-Ray 10/05/24 07:49 IMPRESSION: Stable abnormal chest with no acute abnormality. Laboratory Results WBC 7.79 10^3/uL (3.29-11.43) 10/02/24 11:52 RBC 5.18 10^6/uL (3.85-5.65) 10/02/24 11:52 Hgb 15.90 g/dL (11.27-16.99) 10/02/24 11:52 Hct 49.4 % (37-53) 10/02/24 11:52 MCV 95.4 fl (82-101) 10/02/24 11:52 MCH 30.7 pg (27-33) 10/02/24 11:52 MCHC 32.2 g/dL (30-55) 10/02/24 11:52 RDW 12.8 % (12.1-15.1) 10/02/24 11:52 Plt Count 276 10^3/cmm (157-399) 10/02/24 11:52 MPV 8.8 fL (7.4-10.4) 10/02/24 11:52 Neut % (Auto) 73.5 % 10/02/24 11:52 Lymph % (Auto) 8.9 % 10/02/24 11:52 Garza % (Auto) 15.5 % 10/02/24 11:52 Eos % (Auto) 0.8 % 10/02/24 11:52 Baso % (Auto) 0.5 % 10/02/24 11:52 Neut # (Auto) 5.73 10^3/uL (1.8-7.7) 10/02/24 11:52 Lymph # (Auto) 0.7 10^3/uL (0.8-4.8) L 10/02/24 11:52 Garza # (Auto) 1.2 10^3/uL (0.2-0.9) H 10/02/24 11:52 Eos # (Auto) 0.1 10^3/uL (0.0-0.8) 10/02/24 11:52 Baso # (Auto) 0.0 10^3/uL (0.0-0.1) 10/02/24 11:52 Nucleated RBC % (auto) 0 % 10/02/24 11:52 Nucleated RBCs # 0.0 /100WBC 10/02/24 11:52 Sodium 132 mmol/L (136-145) L 10/02/24 11:52 Potassium 5.3 mmol/L (3.5-5.1) H 10/02/24 11:52 Chloride 89 mmol/L (98-107) L 10/02/24 11:52 Carbon Dioxide 28 mmol/L (22-29) 10/02/24 11:52 Anion Gap 20.3 (5-19) H 10/02/24 11:52 BUN 35 mg/dL (8-23) H 10/02/24 11:52 Creatinine 8.5 mg/dL (0.7-1.2) H* 10/02/24 11:52 GFR Calculation 6.3 mL/min (90-130) L 10/02/24 11:52 Glucose 110 mg/dL (65-115) 10/02/24 11:52 Estimat Average Glucose 100 10/02/24 11:52 Hemoglobin A1c 5.1 % (4.0-6.0) 10/02/24 11:52 Calculated Osmolality 283 mOsm/kg (285-295) L 10/02/24 11:52 Lactic Acid 1.6 mmol/L (0.5-2.2) 10/02/24 11:52 Calcium 8.9 mg/dL (8.5-10.5) 10/02/24 11:52 Magnesium 1.9 mg/dL (1.7-2.3) 10/02/24 11:52 Iron 31 ug/dL (59-158) L 10/02/24 11:52 TIBC 208 mcg/dl 10/02/24 11:52 % Saturation 14.9 % (20-50) L 10/02/24 11:52 Unsat Iron Binding 177 ug/dL (112-347) 10/02/24 11:52 Total Bilirubin 0.3 mg/dL (0.15-1.2) 10/02/24 11:52 AST 11 U/L (0-40) 10/02/24 11:52 ALT 7 U/L (0-41) 10/02/24 11:52 Alkaline Phosphatase 94 U/L (40-130) 10/02/24 11:52 Creatine Kinase 153 U/L (39-308) 10/02/24 11:52 NT-Pro-B Natriuret Pep 49120 pg/mL (0-125) H 10/02/24 11:52 Total Protein 8.0 g/dL (6.6-8.7) 10/02/24 11:52 Albumin 3.9 g/dL (3.5-5.2) 10/02/24 11:52 Globulin 4.1 g/dL (1.3-4.6) 10/02/24 11:52 Vitamin B12 835 pg/mL (232-1245) 10/02/24 11:52 Procalcitonin 1.39 ng/mL (0-0.5) H 10/02/24 11:52 TSH 5.34 uIU/mL (0.27-4.20) H 10/02/24 11:52 Coronavirus (PCR) Negative (Negative) 10/02/24 11:54 Hep Bs Antigen Non-reactive (Nonreactive) 10/02/24 11:52 Hep Bs Antibody 32.1 (11.5-1000) 10/02/24 11:52 Influenza A (PCR) Negative (Negative) 10/02/24 11:54 Influenza Type B (PCR) Negative (Negative) 10/02/24 11:54 RSV (PCR) Negative (Negative) 10/02/24 11:54 All radiology interpretation(s) finalized by discharge Discharge Plan Discharge Patient Disposition: Admitted As Inpatient Admit Provider: Chito Mayberry Clinical Impression: Acute exacerbation of chronic obstructive airways disease, Congestive heart failure, Hypertensive urgency, Acute hyponatremia, Hyperkalemia, End stage renal disease on dialysis Condition: Stable Discharge Diet: Cardiac Discharge Activity: Resume usual activity and Increase activity as tolerated Coding Level of Care Code ED [employer] for Jah Villalta
[2024-10-02 12:08] LABS: Basophils % 0.5 %; Eosinophils # 0.1 10^3/uL (0.0-0.8); Eosinophils % 0.8 %; Hematocrit 49.4 % (37-53); Lymphocytes # 0.7 10^3/uL (0.8-4.8); Lymphocytes % 8.9 %; Mean Corpuscular HGB Conc 32.2 g/dL (30-55); Mean Corpuscular Hemoglobin 30.7 pg (27-33); Mean Corpuscular Volume 95.4 fl (82-101); Mean Platelet Volume 8.8 fL (7.4-10.4); Monocytes # 1.2 10^3/uL (0.2-0.9); Monocytes % 15.5 %; Neutrophils # 5.73 10^3/uL (1.8-7.7); Neutrophils % 73.5 %; Nucleated Red Blood Cells % 0 %; Platelet Count 276 10^3/cmm (157-399); Red Blood Count 5.18 10^6/uL (3.85-5.65); Red Cell Distribution Width 12.8 % (12.1-15.1); White Blood Count 7.79 10^3/uL (3.29-11.43)
[2024-10-02 12:26] LABS: Alanine Aminotransferase 7 U/L (0-41); Albumin Level 3.9 g/dL (3.5-5.2); Alkaline Phosphatase 94 U/L (40-130); Anion Gap 20.3 (5-19); Aspartate Amino Transferase 11 U/L (0-40); Blood Urea Nitrogen 35 mg/dL (8-23); Calcium 8.9 mg/dL (8.5-10.5); Carbon Dioxide 28 mmol/L (22-29); Chloride 89 mmol/L (98-107); Creatinine Clr Calc Pharmacy 10.6231; Globulin 4.1 g/dL (1.3-4.6); Glomerular Filtration Rate 6.3 mL/min (90-130); Glucose 110 mg/dL (65-115); Osmolality Calculated 283 mOsm/kg (285-295); Potassium 5.3 mmol/L (3.5-5.1); Sodium 132 mmol/L (136-145); Total Bilirubin 0.3 mg/dL (0.15-1.2)
[2024-10-02 12:43] LABS: Creatine Phosphokinase 153 U/L (39-308); Magnesium 1.9 mg/dL (1.7-2.3)
[2024-10-02 12:44] LABS: Influenza A NEGATIVE (Negative); Influenza B NEGATIVE (Negative); Respiratory Syncytial Virus Ce NEGATIVE (Negative); SARS-CoV-2 PCR NEGATIVE (Negative)
[2024-10-02] MEDS: calcium chloride 10% Syr 10 mL 1 GM IVP (13:12)
[2024-10-02 13:33] LABS: Lactic Sepsis W/Reflex 1.6 mmol/L (0.5-2.2)
[2024-10-02] MEDS: albuterol 2.5 mg/3 mL Neb INHALATION (14:01)
[2024-10-02] MEDS: hyDRALAzine 20 mg/mL INJ 1 mL IVP (14:05)
[2024-10-02] MEDS: labetalol 5 mg/mL SDV 20mL 10 MG IVP (14:05)
[2024-10-02] MEDS: piperacillin-tazobactam 3.375 GM in sodium chloride 0.9% (plus) 50 ML IV (14:17)
--- NOTE | 2024-10-02 14:31 | CTR_ITS ---
PROCEDURE INFORMATION: Exam: CTA Chest With Contrast Exam date and time: 10/02/2024 3:51 PM Age: 64 years old Clinical indication: Shortness of breath; Additional info: SOB TECHNIQUE: Imaging protocol: Computed tomographic angiography of the chest with contrast. Exam focused on the arteries. 3D rendering (Not supervised by radiologist): MIP and/or 3D reconstructed images were created by the technologist. Radiation optimization: All CT scans at this facility use at least one of these dose optimization techniques: automated exposure control; mA and/or kV adjustment per patient size (includes targeted exams where dose is matched to clinical indication); or iterative reconstruction. Contrast material: OMNIPAQUE 350; Contrast volume: 85 ml; Contrast route: INTRAVENOUS (IV); COMPARISON: CR (CHEST, ) 06/11/2021 5:46 AM RADIATION DOSE METRICS: Total DLP (mGy-cm): 533.82 FINDINGS: Pulmonary arteries: Mildly dilated main pulmonary artery measures 3 cm in caliber. No definite filling defects to the level of the proximal subsegmental pulmonary arteries. Assessment of the more distal pulmonary arteries is limited by timing of contrast. Aorta: Moderate atherosclerotic aortic calcifications, including along the aortic valve plane. Mildly dilated ascending thoracic aorta measures 4 cm in caliber. Lungs: Ill-defined ground-glass opacity in the right upper lobe. Bibasilar atelectasis/scarring Pleural spaces: Small to moderate loculated right-sided pleural effusion with pleural calcifications. Small left pleural effusion, also with some calcifications. Heart: Mild reflux of contrast into the IVC can be seen with tricuspid regurgitation. Mild cardiomegaly. Mitral annular calcifications. Coronary arteries: Multivessel coronary artery calcifications. Lymph nodes: Calcified mediastinal/hilar lymph nodes from prior granulomatous disease. Diaphragm: Small sliding-type hiatal hernia. Kidneys: Visualized portions of the kidneys appear atrophic. Bones/joints: Degenerative changes of the visualized spine. No acute fracture. Soft tissues: Partially imaged left-sided gynecomastia. CT/CT angio chest PE protcl [id number] IMPRESSION: 1. Ill-defined ground-glass opacities in the right upper lobe concerning for infection/inflammation. Recommend imaging follow-up after clinical treatment to document resolution. 2. Small to moderate right and small left pleural effusions. The right effusion appears loculated. Pleural-based calcifications surrounding the effusions bilaterally, [id number]-left, suggests a chronic process. 3. Mildly dilated ascending thoracic aorta measuring 4 cm. 4. Dilated main pulmonary artery can be seen with pulmonary hypertension. 5. Atherosclerotic calcifications along the aortic valve plane can be seen with aortic stenosis.
[2024-10-02 15:01] LABS: Procalcitonin 1.39 ng/mL (0-0.5)
[2024-10-02 15:26] LABS: Hepatitis B Surface AB 32.1 (11.5-1000); Hepatitis B Surface Antigen Non-Reactive (Nonreactive)
[2024-10-02] MEDS: iohexol 350 mg/mL 500 mL Btl (per mL) IV (16:01)
--- NOTE | 2024-10-02 16:25 | PC.NURSE ---
Dr. betancourt gave me a verbal order for 100 mg ivp of lasix
--- NOTE | 2024-10-02 16:28 | P.HP_ITS ---
Providers/Chief Complaint 2 Admitting Physician: Chito Mayberry MD Primary Care Provider: Ziyad Negrete DO Chief Complaint: dyspnea x 2 weeks History of Present Illness Alvarado Park is a 64 year old male with past medical history of end-stage renal disease on hemodialysis Saturday, Saturday, Saturday with last dialysis on Saturday. States he uses oxygen on and off as needed. He has been using up to 2 to 3 L recently. Patient states he has been difficulty breathing worsening over last 1 week. Overnight he had worsening difficulty in breathing hence he presented to the ER. He did not get dialysis today. Patient does not have a primary care doctor and only goes for dialysis. He states his blood pressures are usually running very high. He is not able to lie down flat because he feels as if he is choking for a very very long time currently side having difficulty breathing on minimal exertion. Denies any sick contacts. Complaining of cough with worsening expectoration. Today morning he was trying to get out of bed but could not get up and slid down to the floor. Patient was laying on the floor until somebody came to help him for around 2 to 3 hours. Denies hitting his head. In the ER he was found to have a blood pressure of more than 200 systolic with difficulty in breathing with oxygen saturating more than 95% on room air. Patient on examination looks tachypneic. He was given IV hydralazine and labetalol in the ER. Review of Systems 2 General: Reports: 10 or more systems reviewed and unremarkable except in HPI and below Const: Denies: fever(s), chills, body aches, change in appetite, change in weight, malaise, night sweats, diaphoresis, change in sleep pattern, daytime sleepiness or snoring Eyes: Denies: change in vision, blurry vision, photophobia, eye discomfort or eye discharge ENMT: Denies: throat pain, enlarged tonsils, hoarseness, mouth pain, oral sores, dry mouth, tinnitus, nasal congestion or post nasal drip Card: Denies: chest pain, palpitations, irregular heart rhythm, edema, swelling of feet/ankles, lightheadedness, syncope, pre-syncope, dyspnea on exertion, orthopnea, leg pain with exertion or acrocyanosis Resp: Denies: dyspnea, productive cough, non-productive cough, wheezing, stridor, pain on inspiration, change in phlegm color, hemoptysis or chest congestion GI: Denies: abdominal pain, nausea, vomiting, hematemesis, coffee ground emesis, dysphagia, heartburn, diarrhea, constipation, bloating, GI cramping, change in bowel habits, pain on defecation, hematochezia or melena : Denies: flank pain, difficulty urinating, dysuria, urinary frequency, urinary urgency, urinary hesitancy, urinary dribbling, difficulty starting urination, change in urine stream, nocturia or hematuria Musc: Denies: neck pain, back pain, extremity pain, joint pain, joint swelling, joint redness, joint stiffness or limited range of motion Neuro: Denies: headache(s), numbness in extremities, weakness in extremities, sensory changes, lack of coordination, difficulty walking, frequent falls, dizziness, vertigo, confusion, Slurred speech present, difficulty communicating thoughts or seizure-like activity Psych: Denies: anxiety, depression, mood swings, panic attacks, hopelessness or irritability Endo: Denies: polyuria, polydipsia, tired all the time, cold intolerance, excessive sweating, flushing or heat intolerance [place]/Lymph: Denies: easy bruising or easy bleeding All/Imm: Denies: tongue swelling, facial swelling or acute wheezing Medications/Allergies Home Medications ?Medication ?Instructions ?Recorded ?Confirmed ?Last Taken ?Type pantoprazole 40 mg tablet,delayed 40 mg PO BID #60 tab s 07/11/21 10/02/24 01/13/23 Rx release (Protonix) losartan 100 mg tablet 100 mg PO DAILY 03/28/2203/1901/13/23 History sevelamer carbonate 800 mg tablet 1,600 mg PO TID 11/1410/02/24 10/01/24 History Allergies Allergy/AdvReac Type Severity Reaction Status Date / Time aspirin Allergy Severe ALGY-Hives Verified 03/28/22 15:35 PFSH Acute 2 PFSH: Medical History (Updated 10/02/24 @ 16:33 by Chito Mayberry MD) Uncontrolled hypertension End stage renal disease Hemodialysis initiated 06/15 MGUS (monoclonal gammopathy of unknown significance) Heart failure Diastolic grade 2, EF 50 to 55% Acute renal failure Surgical History No significant past surgical history Social History Smoking and tobacco/nicotine status: current every day tobacco/nicotine user smokeless tobacco Smokeless tobacco user: chewing tobacco Alcohol intake: never Substance/Drug Use: never Vitals/I&O/Wt Last Vital Signs Temp 98.0 F 10/02/24 11:40 Pulse 95 10/02/24 16:19 Resp 20 H 10/02/24 16:19 BP 177/95 10/02/24 16:19 Pulse Ox 96 10/02/24 16:19 O2 Del Method Room Air 10/02/24 14:01 Weight last 48 hrs Weight 99.79 kg Physical Exam 2 Narrative: General: No acute distress, AO x3, chronically sick appearing HEENT: PERRLA, pupils bilaterally equal and reactive Chest: Normal vesicular breath sounds, decreased air entry bilaterally with fine crackles up to mid lungs equal good air entry bilaterally CVS: S1-S2 regular, pansystolic murmur at apex radiating to anterior axillary line, pansystolic murmur at fourth intercostal space no tachycardia, no gallops, no rubs, JVD elevated. Abdomen: Soft, nontender, no organomegaly, bowel sounds present Neuro: No focal deficits, no facial deformity, AO x3, power 5/5 in all limbs Data 10/02/24 11:52 10/02/24 11:52 Micro: Microbiology 10/02/24 14:33 Blood Culture - Preliminary Blood SPECIMEN COLLECTED 10/02/24 14:30 Blood Culture - Preliminary Blood SPECIMEN COLLECTED A&P Assessment and plan (1) Shortness of breath: Most likely in setting of congestive heart failure due to uncontrolled hypertension in setting of end-stage renal disease. Cannot rule out baseline COPD. Check CTA. Check respiratory viral panel, MRSA swab, sputum culture. For now empirically start patient on IV ceftriaxone and vancomycin. If MRSA swab is negative will discontinue vancomycin. Add azithromycin for atypical coverage. (2) Congestive heart failure: Concerns of congestive heart failure. Last echocardiogram from few years ago showed diastolic heart failure. Check echocardiogram. Fluid restriction up to 1500 cc. IV Lasix 100 mg one-time. Patient is being planned to go for dialysis. (3) Hypertensive urgency: Goal blood pressure less than 140/90 mmHg. Patient does not follow-up with any physician as an outpatient. Continue with home dose of losartan. Add hydralazine 50 mg 3 times daily, Coreg 6.25 mg twice daily. Uptitrate as for goal blood pressures. (4) ESRD (end stage renal disease) on dialysis: Nephrology consulted from ER. Check A1c, lipid panel, vitamin B12, TSH levels. Currently associated with hyperkalemia, hyponatremia. Will continue to monitor BMP daily. (5) Uncontrolled hypertension: (6) Hyponatremia: (7) Hyperkalemia: Plan Full code Renal dialysis diet Heparin for DVT prophylaxis Protonix OPD prophylaxis PDMP PDMP Reviewed: Last Reviewed 10/02/24 16:20 by Chito Mayberry MD Attestations 2 Medical Necessity Statement*: Admission for more than 2 midnights for management of shortness of breath in setting of congestive heart failure, hypertensive urgency in a patient with history of end-stage renal disease on hemodialysis, hyponatremia, hyperkalemia Diagnoses Shortness of breath R06.02 Congestive heart failure I50.9 Hypertensive urgency I16.0 ESRD (end stage renal disease) on dialysis N18.6; Z99.2 Uncontrolled hypertension I10 Hyponatremia E87.1 Hyperkalemia E87.5
[2024-10-02 17:16] LABS: Estmated Average Glucose 100; Hemoglobin A1C 5.1 % (4.0-6.0)
[2024-10-02 17:20] LABS: Iron 31 ug/dL (59-158); NT Pro B Type Natriuretic Pept 33107 pg/mL (0-125); Percent Saturation 14.9 % (20-50); Thyroid Stimulating Hormone 5.34 uIU/mL (0.27-4.20); Total Iron Binding Capacity 208 mcg/dl; Unsaturated Iron Binding 177 ug/dL (112-347); Vitamin B12 835 pg/mL (232-1245)
--- NOTE | 2024-10-02 17:20 | PHA.VACGOAL ---
Vancomycin Goal - Goal Vancomycin Goal:: 15-20 mg/L Vancomycin Indication:: Pneumonia - Therapy Day of therpy:: Day []of [] . Actual body weight (kg): 220 lb - Data Labs: WBC 7.79 10^3/uL (3.29-11.43) 10/02/24 11:52 RBC 5.18 10^6/uL (3.85-5.65) 10/02/24 11:52 Hgb 15.90 g/dL (11.27-16.99) 10/02/24 11:52 Hct 49.4 % (37-53) 10/02/24 11:52 MCV 95.4 fl (82-101) 10/02/24 11:52 MCH 30.7 pg (27-33) 10/02/24 11:52 MCHC 32.2 g/dL (30-55) 10/02/24 11:52 RDW 12.8 % (12.1-15.1) 10/02/24 11:52 Sodium 132 mmol/L (136-145) L 10/02/24 11:52 Potassium 5.3 mmol/L (3.5-5.1) H 10/02/24 11:52 Chloride 89 mmol/L (98-107) L 10/02/24 11:52 Carbon Dioxide 28 mmol/L (22-29) 10/02/24 11:52 Anion Gap 20.3 (5-19) H 10/02/24 11:52 BUN 35 mg/dL (8-23) H 10/02/24 11:52 Creatinine 8.5 mg/dL (0.7-1.2) H* 10/02/24 11:52 GFR Calculation 6.3 mL/min (90-130) L 10/02/24 11:52 Treatment plan:: new consult Regimen:: DIALYSIS PT 1000 MG POST HD 10/02 CHECK LEVEL @ AM LAB TO DETERMINE NEXT DOSE
--- NOTE | 2024-10-02 19:23 | P.CONIM_ITS ---
Providers/Reason For Consult 2 Consulting Physician/Specialty*: kommana/Nephrology Reason for Consult*: esrd Attending Physician: Chito Mayberry MD Primary Care Provider: Ziyad Negrete DO History of Present Illness History of Present Illness Alvarado Park is a 64 year old male Patient is a 64-year-old male with past medical history of end-stage renal disease on dialysis for hemodialysis per Saturday, hypertension presented to the emergency department due to shortness of breath in the emergency department blood pressure was elevated in 200s systolic. Patient was also hypoxic. Patient received IV hydralazine in the ER other vital signs are stable lab data is significant for potassium of 5.3 creatinine 8.5 sodium 132. Patient is admitted for hypertensive urgency congestive cardiac failure Review of Systems 2 Narrative: negative Medications/Allergies Home Medications ?Medication ?Instructions ?Recorded ?Confirmed ?Last Taken ?Type pantoprazole 40 mg tablet,delayed 40 mg PO BID #60 tab s 07/11/21 10/02/24 01/13/23 Rx release (Protonix) losartan 100 mg tablet 100 mg PO DAILY 03/28/2203/1901/13/23 History sevelamer carbonate 800 mg tablet 1,600 mg PO TID 11/1410/02/24 10/01/24 History Allergies Allergy/AdvReac Type Severity Reaction Status Date / Time aspirin Allergy Severe ALGY-Hives Verified 03/28/22 15:35 PFSH Acute 2 PFSH: Medical History (Updated 10/02/24 @ 16:33 by Chito Maybrery MD) Uncontrolled hypertension End stage renal disease Hemodialysis initiated 06/15 MGUS (monoclonal gammopathy of unknown significance) Heart failure Diastolic grade 2, EF 50 to 55% Acute renal failure Surgical History No significant past surgical history Social History Smoking and tobacco/nicotine status: current every day tobacco/nicotine user smokeless tobacco Smokeless tobacco user: chewing tobacco Alcohol intake: never Substance/Drug Use: never Vitals/I&O/Wt Last Vital Signs Temp 98.8 F 10/02/24 17:15 Pulse 94 10/02/24 17:15 Resp 16 10/02/24 17:15 BP 186/90 10/02/24 17:15 Pulse Ox 96 10/02/24 16:19 O2 Del Method Room Air 10/02/24 14:01 Weight last 48 hrs Weight 99.79 kg Physical Exam 2 Narrative: awake , alert No distress s1s2 rrr per report Lungs clear per report No edema Data 10/02/24 11:52 10/02/24 11:52 Micro: Microbiology 10/02/24 14:33 Blood Culture - Preliminary Blood SPECIMEN COLLECTED 10/02/24 14:30 Blood Culture - Preliminary Blood SPECIMEN COLLECTED A&P Assessment and plan (1) ESRD (end stage renal disease) on dialysis: 1. End-stage renal disease: On MWF schedule, missed HD today, will plan on HD in the hospital. 2. Acute respiratory failure multifactorial in the setting of CHF, likely flash pulmonary edema due to hypertensive urgency 3. History of hypertension now with blood pressures in the 200s systolic, resumed home medications and follow 4. Hyperkalemia, should improve with HD and placed on low K diet 5. 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 Time spent 40 minutes. Plan see above PDMP PDMP Reviewed: Not Reviewed Consult Attestations 2 Medical Necessity Statement: per cecilia Coding Level of Care Code Acute Code for Chg Fwd Diagnoses ESRD (end stage renal disease) on dialysis N18.6; Z99.2
[2024-10-02] MEDS: carvedilol 6.25 mg Tablet PO (20:51)
[2024-10-02] MEDS: docusate sodium 100 mg Capsule PO (20:51)
[2024-10-02] MEDS: sevelamer 800 mg Tablet 1600 MG PO (20:51)
[2024-10-02] MEDS: hyDRALAzine 50 mg Tablet PO (20:51)
[2024-10-02] MEDS: FUROsemide 10 mg/mL SDV 10mL 100 MG IVP (20:52)
[2024-10-02] MEDS: pantoprazole 40 mg SDV IVP (20:56)
[2024-10-02] MEDS: cefTRIAXone 1,000 mg SDV 1000 MG IVP (20:59)
[2024-10-02] MEDS: VANCOMYCIN ADD-Vantage 1,000 MG in 0.9% NaCl ADD-Vantage 250 ML 250 MG IV (21:02)
[2024-10-02 21:04] LABS: Alcohol Level < 10 mg/dL (0-10)
[2024-10-02] MEDS: heparin 5,000 unit/mL INJ 1 mL 5000 UNIT SUBCUT (21:04)
[2024-10-02] MEDS: ipratropium-albuterol 3 mL Neb INHALATION (21:09)
[2024-10-03] VITALS (11 sets, daily range): BP systolic 119–172; BP diastolic 70–89; PULSE 77–97; RESP 21–28; TEMP 36.4–36.9; O2SAT 95–100
[2024-10-03 00:14] LABS: Adenovirus Not Detected (NOT DETECT); Chlamydia Pneumoniae Not Detected (NOT DETECT); Coronavirus 229E,HKU1,NL63,OC4 Not Detected (NOT DETECT); Human Metapneumovirus Not Detected (NOT DETECT); Human Rhinovirus/Enterovirus Not Detected (NOT DETECT); Influenza A Not Detected (NOT DETECT); Influenza A H1 Not Detected (NOT DETECT); Influenza A H1-2009 Not Detected (NOT DETECT); Influenza A H3 Not Detected (NOT DETECT); Influenza B Not Detected (NOT DETECT); Mycoplasma Pneumoniae Not Detected (NOT DETECT); Parainfluenza Virus Type 1 Not Detected (NOT DETECT); Parainfluenza Virus Type 2 Not Detected (NOT DETECT); Parainfluenza Virus Type 3 Not Detected (NOT DETECT); Parainfluenza Virus Type 4 Not Detected (NOT DETECT); Respiratory Syncytial Virus B Not Detected (NOT DETECT); SARS-COV-2 Not Detected (NOT DETECT)
[2024-10-03 00:21] LABS: Respiratory Syncytial Virus A Detected (NOT DETECT)
[2024-10-03 00:25] LABS: MRSA PCR OZH (swab) NOT DETECTED (Negative)
[2024-10-03 00:53] LABS: Amphetamines Screen Urine Positive (Negative); Barbiturates Screen Urine Negative (Negative); Benzodiazepines Screen Urine Negative (Negative); Cocaine Screen Urine Negative (Negative); Opiate Screen Urine Negative (Negative); PCP Screen Urine Negative (Negative); THC Screen Urine Negative (Negative)
--- NOTE | 2024-10-03 06:04 | P.PN_ITS ---
Subjective 2 Subjective: s/p HD yesterday Medications: Reviewed: Yes Vitals/I&O/Wt Last Vital Signs Temp 97.6 F 10/03/24 03:38 Pulse 88 10/03/24 05:54 Resp 21 H 10/03/24 03:38 BP 131/70 10/03/24 03:38 Pulse Ox 100 10/03/24 03:38 O2 Del Method Nasal Cannula 10/03/24 03:38 O2 Flow Rate 3 10/03/24 03:38 10/02/24 10/02/24 10/03/24 14:59 22:59 06:59 Intake Total 1500 / 1500 Output Total 2925 / 2925 20 / 2945 Balance -1425 / -1425 -20 / -1445 Weight last 48 hrs Weight 141.339 kg Weight 141.566 kg Weight 96.6 kg Weight 99.79 kg Physical Exam 2 Narrative: awake , alert No distress s1s2 rrr per report Lungs clear per report No edema Data 10/04/24 05:33 10/04/24 05:33 Micro: Microbiology 10/02/24 14:33 Blood Culture - Preliminary Blood SPECIMEN COLLECTED 10/02/24 14:30 Blood Culture - Preliminary Blood SPECIMEN COLLECTED A&P Assessment and plan (1) ESRD (end stage renal disease) on dialysis: 1. End-stage renal disease: On MWF schedule, s/p HD yesterday 2. Acute respiratory failure multifactorial in the setting of CHF, likely flash pulmonary edema due to hypertensive urgency 3. History of hypertension now with blood pressures in the 200s systolic, resumed home medications and follow 4. Hyperkalemia, improved , and placed on low K diet 5. 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 Time spent 40 minutes. Plan see above PDMP PDMP Reviewed: Not Reviewed Attestations 2 Medical Necessity Statement*: per cecilia Coding Level of Care Code Acute Code for Chg Fwd Diagnoses ESRD (end stage renal disease) on dialysis N18.6; Z99.2
--- NOTE | 2024-10-03 06:06 | PC.NURSE ---
patient refusing to let us put him in hospital gown or take his jeans off
[2024-10-03] MEDS: pantoprazole 40 mg SDV IVP ×2 (06:09→18:08)
[2024-10-03] MEDS: heparin 5,000 unit/mL INJ 1 mL 5000 UNIT SUBCUT ×2 (06:09→18:01)
[2024-10-03 08:25] LABS: Basophils # 0.1 10^3/uL (0.0-0.1); Eosinophils # 0.2 10^3/uL (0.0-0.8); Eosinophils % 3.1 %; Hematocrit 48.5 % (37-53); Lymphocytes % 17.1 %; Mean Corpuscular HGB Conc 31.5 g/dL (30-55); Mean Corpuscular Volume 98.4 fl (82-101); Mean Platelet Volume 8.8 fL (7.4-10.4); Monocytes # 1.3 10^3/uL (0.2-0.9); Monocytes % 22.5 %; Neutrophils # 3.28 10^3/uL (1.8-7.7); Neutrophils % 55.6 %; Nucleated Red Blood Cells % 0 %; Platelet Count 282 10^3/cmm (157-399); Red Blood Count 4.93 10^6/uL (3.85-5.65); Red Cell Distribution Width 13.2 % (12.1-15.1)
[2024-10-03] MEDS: sevelamer 800 mg Tablet 1600 MG PO ×3 (08:43→20:32)
[2024-10-03] MEDS: docusate sodium 100 mg Capsule PO ×2 (08:44→18:01)
[2024-10-03] MEDS: hyDRALAzine 50 mg Tablet PO (08:44)
[2024-10-03] MEDS: losartan 50 mg Tablet 100 MG PO (08:44)
[2024-10-03] MEDS: carvedilol 6.25 mg Tablet PO ×2 (08:44→18:01)
[2024-10-03] MEDS: azithromycin 250 mg Tablet 500 MG PO (08:44)
[2024-10-03 08:45] LABS: Vancomycin Trough 10.2 ug/mL (10-15)
[2024-10-03 08:48] LABS: Alanine Aminotransferase 6 U/L (0-41); Albumin Level 3.7 g/dL (3.5-5.2); Alkaline Phosphatase 80 U/L (40-130); Anion Gap 21.1 (5-19); Aspartate Amino Transferase 9 U/L (0-40); Blood Urea Nitrogen 26 mg/dL (8-23); Calcium 9.3 mg/dL (8.5-10.5); Carbon Dioxide 26 mmol/L (22-29); Chloride 95 mmol/L (98-107); Creatinine Clr Calc Pharmacy 16.2693; Globulin 3.8 g/dL (1.3-4.6); Glomerular Filtration Rate 8.5 mL/min (90-130); Glucose 84 mg/dL (65-115); Magnesium 2.4 mg/dL (1.7-2.3); Osmolality Calculated 288 mOsm/kg (285-295); Phosphorus 6.6 mg/dL (2.5-4.5); Potassium 5.1 mmol/L (3.5-5.1); Sodium 137 mmol/L (136-145); Total Bilirubin 0.3 mg/dL (0.15-1.2); Total Protein 7.5 g/dL (6.6-8.7)
[2024-10-03 09:02] LABS: Folate Level 3.6 ng/mL (4.5-32.2)
[2024-10-03 09:14] LABS: Chol HDL Ratio 3.73 mg/dL (1.0-5.00); Cholesterol 190 mg/dL (0-200); HDL Cholesterol 51 mg/dL (60-100); LDL Cholesterol Calculated 124 mg/dL (50-129); LDL HDL Ratio 2.43 RATIO (0.00-3.22); Triglycerides 76 mg/dL (0-150)
[2024-10-03] MEDS: ipratropium-albuterol 3 mL Neb INHALATION ×2 (09:27→15:02)
[2024-10-03] MEDS: vancomycin 1,500 MG/300 ML PIGGYBACK 200 MG IV (10:54)
--- NOTE | 2024-10-03 12:29 | P.DS_ITS ---
Discharge Providers Date of Admission: 10/02/24 14:20 Date of Discharge: October 03, 2024 Attending Provider at Admission: Chito Mayberry MD Attending Provider at Discharge: Chito Mayberry MD Primary Care Provider: Ziyad Negrete DO Diagnoses at Discharge Discharge Diagnosis (1) ESRD (end stage renal disease) on dialysis: Status: Acute Reason for Visit Reason for Visit: dyspnea x 2 weeks Discharge Data Studies Completed and Pending Completed Studies During Hospitalization Category Date Time Status CTA chest [CT angio chest PE protcl [id number]] Stat Cat Scan 10/02/24 14:31 Completed XR chest 1V portable [id number] Stat Exams 10/02/24 11:40 Completed Pending at discharge Category Date Time Status Blood Culture Stat Lab 10/02/24 14:33 Results Complete Blood Count w/Auto AM LABS Lab 10/04/24 04:00 Ordered Complete Blood Count w/Auto AM LABS Lab 10/05/24 04:00 Ordered Comprehensive Metabolic Panel AM LABS Lab 10/04/24 04:00 Ordered Comprehensive Metabolic Panel AM LABS Lab 10/05/24 04:00 Ordered Magnesium AM LABS Lab 10/04/24 04:00 Ordered Magnesium AM LABS Lab 10/05/24 04:00 Ordered Phosphorus AM LABS Lab 10/04/24 04:00 Ordered Phosphorus AM LABS Lab 10/05/24 04:00 Ordered Sputum Culture and Gram Stain Stat Lab 10/03/24 01:45 Received CV. echo complete* [id number] Routine Ultrasound 10/03/24 16:31 Taken Radiology Impressions Chest X-Ray 10/02/24 11:40 Impression: 1. Bilateral pulmonary basilar opacities which could represent atelectasis and pneumonia. 2. Moderate right pleural effusion. 3. Atherosclerosis. Chest CTA 10/02/24 14:31 IMPRESSION: 1. Ill-defined ground-glass opacities in the right upper lobe concerning for infection/inflammation. Recommend imaging follow-up after clinical treatment to document resolution. 2. Small to moderate right and small left pleural effusions. The right effusion appears loculated. Pleural-based calcifications surrounding the effusions bilaterally, [id number], suggests a chronic process. 3. Mildly dilated ascending thoracic aorta measuring 4 cm. 4. Dilated main pulmonary artery can be seen with pulmonary hypertension. 5. Atherosclerotic calcifications along the aortic valve plane can be seen with aortic stenosis. Laboratory Results WBC 5.90 10^3/uL (3.29-11.43) 10/03/24 07:44 RBC 4.93 10^6/uL (3.85-5.65) 10/03/24 07:44 Hgb 15.30 g/dL (11.27-16.99) 10/03/24 07:44 Hct 48.5 % (37-53) 10/03/24 07:44 MCV 98.4 fl (82-101) 10/03/24 07:44 MCH 31.0 pg (27-33) 10/03/24 07:44 MCHC 31.5 g/dL (30-55) 10/03/24 07:44 RDW 13.2 % (12.1-15.1) 10/03/24 07:44 Plt Count 282 10^3/cmm (157-399) 10/03/24 07:44 MPV 8.8 fL (7.4-10.4) 10/03/24 07:44 Neut % (Auto) 55.6 % 10/03/24 07:44 Lymph % (Auto) 17.1 % 10/03/24 07:44 [place] % (Auto) 22.5 % 10/03/24 07:44 Eos % (Auto) 3.1 % 10/03/24 07:44 Baso % (Auto) 1.0 % 10/03/24 07:44 Neut # (Auto) 3.28 10^3/uL (1.8-7.7) 10/03/24 07:44 Lymph # (Auto) 1.0 10^3/uL (0.8-4.8) 10/03/24 07:44 [place] # (Auto) 1.3 10^3/uL (0.2-0.9) H 10/03/24 07:44 Eos # (Auto) 0.2 10^3/uL (0.0-0.8) 10/03/24 07:44 Baso # (Auto) 0.1 10^3/uL (0.0-0.1) 10/03/24 07:44 Nucleated RBC % (auto) 0 % 10/03/24 07:44 Nucleated RBCs # 0.0 /100WBC 10/03/24 07:44 Sodium 137 mmol/L (136-145) 10/03/24 07:44 Potassium 5.1 mmol/L (3.5-5.1) 10/03/24 07:44 Chloride 95 mmol/L (98-107) L 10/03/24 07:44 Carbon Dioxide 26 mmol/L (22-29) 10/03/24 07:44 Anion Gap 21.1 (5-19) H 10/03/24 07:44 BUN 26 mg/dL (8-23) H 10/03/24 07:44 Creatinine 6.6 mg/dL (0.7-1.2) H* 10/03/24 07:44 GFR Calculation 8.5 mL/min (90-130) L 10/03/24 07:44 Glucose 84 mg/dL (65-115) 10/03/24 07:44 Estimat Average Glucose 100 10/02/24 11:52 Hemoglobin A1c 5.1 % (4.0-6.0) 10/02/24 11:52 Calculated Osmolality 288 mOsm/kg (285-295) 10/03/24 07:44 Lactic Acid 2.0 mmol/L (0.5-2.2) 10/02/24 14:33 Calcium 9.3 mg/dL (8.5-10.5) 10/03/24 07:44 Phosphorus 6.6 mg/dL (2.5-4.5) H 10/03/24 07:44 Magnesium 2.4 mg/dL (1.7-2.3) H 10/03/24 07:44 Iron 31 ug/dL (59-158) L 10/02/24 11:52 TIBC 208 mcg/dl 10/02/24 11:52 % Saturation 14.9 % (20-50) L 10/02/24 11:52 Unsat Iron Binding 177 ug/dL (112-347) 10/02/24 11:52 Total Bilirubin 0.3 mg/dL (0.15-1.2) 10/03/24 07:44 AST 9 U/L (0-40) 10/03/24 07:44 ALT 6 U/L (0-41) 10/03/24 07:44 Alkaline Phosphatase 80 U/L (40-130) 10/03/24 07:44 Creatine Kinase 153 U/L (39-308) 10/02/24 11:52 NT-Pro-B Natriuret Pep 91003 pg/mL (0-125) H 10/02/24 11:52 Total Protein 7.5 g/dL (6.6-8.7) 10/03/24 07:44 Albumin 3.7 g/dL (3.5-5.2) 10/03/24 07:44 Globulin 3.8 g/dL (1.3-4.6) 10/03/24 07:44 Triglycerides 76 mg/dL (0-150) 10/03/24 07:44 Cholesterol 190 mg/dL (0-200) 10/03/24 07:44 LDL Cholesterol, Calc 124 mg/dL (50-129) 10/03/24 07:44 HDL Cholesterol 51 mg/dL (60-100) L 10/03/24 07:44 LDL/HDL Ratio 2.43 RATIO (0.00-3.22) 10/03/24 07:44 Cholesterol/HDL Ratio 3.73 mg/dL (1.0-5.00) 10/03/24 07:44 Vitamin B12 835 pg/mL (232-1245) 10/02/24 11:52 Folate 3.6 ng/mL (4.5-32.2) L 10/03/24 07:44 Procalcitonin 2.60 ng/mL (0-0.5) H 10/03/24 07:44 TSH 5.34 uIU/mL (0.27-4.20) H 10/02/24 11:52 Nasal MRSA (PCR) Not detected (Negative) 10/02/24 22:00 Vancomycin Trough 10.2 ug/mL (10-15) 10/03/24 07:44 Urine Opiates Screen Negative ng/mL (Negative) 10/03/24 00:30 Ur Barbiturates Screen Negative ng/mL (Negative) 10/03/24 00:30 Ur Phencyclidine Scrn Negative ng/mL (Negative) 10/03/24 00:30 Ur Amphetamines Screen Positive ng/mL (Negative) H 10/03/24 00:30 U Benzodiazepines Scrn Negative ng/mL (Negative) 10/03/24 00:30 Urine Cocaine Screen Negative ng/mL (Negative) 10/03/24 00:30 U Marijuana (THC) Screen Negative ng/mL (Negative) 10/03/24 00:30 Ethyl Alcohol < 10 mg/dL (0-10) 10/02/24 20:33 Adenovirus (PCR) Not detected (NOT DETECT) 10/02/24 22:00 C. pneumoniae DNA (PCR) Not detected (NOT DETECT) 10/02/24 22:00 Coronavirus (PCR) Negative (Negative) 10/02/24 11:54 Coronavirus 229E (PCR) Not detected (NOT DETECT) 10/02/24 22:00 Hep Bs Antigen Non-reactive (Nonreactive) 10/02/24 11:52 Hep Bs Antibody 32.1 (11.5-1000) 10/02/24 11:52 Human Metapneumovir PCR Not detected (NOT DETECT) 10/02/24 22:00 Influenza A (H1) PCR Not detected (NOT DETECT) 10/02/24 22:00 Influenza A (PCR) Negative (Negative) 10/02/24 11:54 Influ A (H1/09) PCR Not detected (NOT DETECT) 10/02/24 22:00 Influenza A (H3) PCR Not detected (NOT DETECT) 10/02/24 22:00 Influenza Type A (PCR) Not detected (NOT DETECT) 10/02/24 22:00 Influenza Type B (PCR) Not detected (NOT DETECT) 10/02/24 22:00 M. pneumoniae (PCR) Not detected (NOT DETECT) 10/02/24 22:00 Parainfluenza 1 (PCR) Not detected (NOT DETECT) 10/02/24 22:00 Parainfluenza 2 (PCR) Not detected (NOT DETECT) 10/02/24 22:00 Parainfluenza 3 (PCR) Not detected (NOT DETECT) 10/02/24 22:00 Parainfluenza 4 (PCR) Not detected (NOT DETECT) 10/02/24 22:00 RSV (PCR) Negative (Negative) 10/02/24 11:54 RSV Type A (PCR) Detected (NOT DETECT) A 10/02/24 22:00 RSV Type B (PCR) Not detected (NOT DETECT) 10/02/24 22:00 Entero/Rhino (PCR) Not detected (NOT DETECT) 10/02/24 22:00 SARS-CoV-2 (PCR) Not detected (NOT DETECT) 10/02/24 22:00 Vitals Last Vital Signs Temp 97.8 F 10/03/24 08:00 Pulse 92 10/03/24 09:27 Resp 24 H 10/03/24 09:27 BP 140/83 10/03/24 08:44 Pulse Ox 95 10/03/24 09:30 O2 Del Method Nasal Cannula 10/03/24 09:30 O2 Flow Rate 3 10/03/24 09:30 Discharge Plan Discharge Patient Disposition: Home Condition: Stable Prescriptions: No Action Protonix 40 mg tablet,delayed release (DR/EC) 40 mg PO BID Qty: 60 2RF losartan 100 mg tablet 100 mg PO DAILY sevelamer carbonate 800 mg tablet 1,600 mg PO TID Referrals: Ziyad Negrete DO [Primary Care Provider] - Patient Instructions: Opioid Safety Discharge Attestations Status at Discharge: Cognitive status at discharge: cognitively intact , Behavioral status at discharge: cooperative , Coding Level of Care Code Acute Code for Chg Fwd Diagnoses ESRD (end stage renal disease) on dialysis N18.6; Z99.2
[2024-10-03] MEDS: predniSONE 20 mg Tablet 40 MG PO (12:53)
--- NOTE | 2024-10-03 14:13 | P.PN_ITS ---
Subjective 2 Subjective: No acute vents overnight. Patient down to 2 L of oxygen supplementation saturating more than 97%. Blood pressure better controlled. Underwent hemodialysis yesterday. States feeling a lot better. Denies any nausea, vomiting, headache. Medications: Reviewed: Yes Vitals/I&O/Wt Last Vital Signs Temp 97.7 F 10/03/24 12:00 Pulse 77 10/03/24 12:00 Resp 22 H 10/03/24 12:00 BP 119/77 10/03/24 12:00 Pulse Ox 100 10/03/24 12:00 O2 Del Method Nasal Cannula 10/03/24 12:00 O2 Flow Rate 3 10/03/24 12:00 10/02/24 10/03/24 10/03/24 22:59 06:59 14:59 Intake Total 1500 / 1500 780 / 780 Output Total 2925 / 2925 20 / 2945 Balance -1425 / -1425 -20 / -1445 780 / 780 Weight last 48 hrs Weight 141.339 kg Weight 141.566 kg Weight 96.6 kg Weight 99.79 kg Physical Exam 2 Narrative: General: No acute distress, AO x3, chronically sick appearing HEENT: PERRLA, pupils bilaterally equal and reactive Chest: Normal vesicular breath sounds, decreased air entry bilaterally with fine crackles up to mid lungs equal good air entry bilaterally CVS: S1-S2 regular, pansystolic murmur at apex radiating to anterior axillary line, pansystolic murmur at fourth intercostal space no tachycardia, no gallops, no rubs, JVD elevated. Abdomen: Soft, nontender, no organomegaly, bowel sounds present Neuro: No focal deficits, no facial deformity, AO x3, power 5/5 in all limbs Data 10/03/24 07:44 10/03/24 07:44 Micro: Microbiology 10/02/24 14:33 Blood Culture - Preliminary Blood SPECIMEN COLLECTED 10/02/24 14:30 Blood Culture - Preliminary Blood SPECIMEN COLLECTED A&P Assessment and plan (1) ESRD (end stage renal disease) on dialysis: Nephrology consulted from ER. Appreciate A1c, lipid panel, vitamin B12, TSH levels. TSH mildly elevated. Will check free T3 and free T4. Hyperkalemia and hyponatremia has resolved. Dialysis as per nephrology. (2) Shortness of breath: Most likely in setting of congestive heart failure due to uncontrolled hypertension in setting of end-stage renal disease along with RSV bronchitis. Appreciate CTA with concerns for no PE RSV positive respiratory viral panel. MRSA swab negative. Sputum culture pending. Continue with IV ceftriaxone and oral azithromycin. Discontinue vancomycin. Start on prednisone 40 mg oral daily. DuoNeb every 6 hour. Start on Robitussin every 6 hour as needed for cough. (3) Congestive heart failure: Concerns of congestive heart failure. Last echocardiogram from few years ago showed diastolic heart failure. Check echocardiogram. Fluid restriction up to 1500 cc. IV Lasix 100 mg one-time. Patient is being planned to go for dialysis. (4) Hypertensive urgency: Goal blood pressure less than 140/90 mmHg. Patient does not follow-up with any physician as an outpatient. Continue with home dose of losartan, hydralazine 25 mg 3 times daily, Coreg 6.25 mg twice daily. Blood pressure better controlled. Uptitrate as per goal blood pressures. (5) Uncontrolled hypertension: (6) Hyponatremia: (7) Hyperkalemia: (8) RSV bronchitis: (9) Amphetamine abuse: Plan Urine drug screen positive for amphetamines. Watch for withdrawal symptoms. TSH mildly elevated. Check free T3, free T4. Full code Renal dialysis diet Heparin for DVT prophylaxis Protonix OPD prophylaxis PDMP PDMP Reviewed: Last Reviewed 10/02/24 16:20 by Chito Mayberry MD Attestations 2 Medical Necessity Statement*: Requires further hospitalization for management of hypoxia in setting of RSV, congestive heart failure in a patient with uncontrolled hypertension in setting of end-stage renal disease on hemodialysis, Diagnoses ESRD (end stage renal disease) on dialysis N18.6; Z99.2 Shortness of breath R06.02 Congestive heart failure I50.9 Hypertensive urgency I16.0 Uncontrolled hypertension I10 Hyponatremia E87.1 Hyperkalemia E87.5 RSV bronchitis J20.5 Amphetamine abuse F15.10
[2024-10-03] MEDS: hyDRALAzine 50 mg Tablet 25 MG PO ×2 (14:34→20:31)
[2024-10-03 14:53] LABS: Free T4 Free Thyroxine 1.29 ng/dL (0.82-1.77)
--- NOTE | 2024-10-03 16:31 | USCV_ITS ---
[place] Age: 64 Gender: M : 1960 Exam Date: 10/03/2024 06:51 Ordering Phys: Chito Mayberry MD Technologist: Rodriguez Anne [place] [facility] [place]: chf BP: 186 / 90 HR: 89 Rhythm: Sinus Technical Quality: Adequate MEASUREMENTS (Male / Female) Normal Values 2D ECHO LV Diastolic Diameter PLAX 4.5 cm 4.2 - 5.9 / 3.9 - 5.3 cm IVS Diastolic Thickness 1.3 cm 0.6 - 1.0 / 0.6 - 0.9 cm IVS Systolic Thickness 1.6 cm LVPW Diastolic Thickness 1.9 cm 0.6 - 1.0 / 0.6 - 0.9 cm LVPW Systolic Thickness 2.6 cm LVOT Diameter 2.1 cm LV Ejection Fraction 2D Teich 59.7 % LV Ejection Fraction MOD 4C 66.5 % LV Ejection Fraction MOD 2C 66.3 % LV Ejection Fraction 2C AL 67.0 % LA Diameter 3.4 cm RA Systolic Volume 4C AL 43.2 ml RA Systolic Volume 4C MOD 44.3 ml LA Sys Volume AL 68.3 cm cubed LA Sys Volume Index AL 29.9 cm cubed/m squared Aorta at Sinotubular Diameter 2.6 cm IVC Diameter 1.9 cm M-MODE LA Ao Ratio MM 1.6 AV Cusp Separation MM 1.2 cm DOPPLER AV Peak Velocity 243.0 cm/s LVOT Peak Velocity 118.0 cm/s AV Area Cont Eq vti 1.8 cm squared AV Area Cont Eq pk 1.7 cm squared MV Peak Velocity 127.0 cm/s MV Area PHT 5.3 cm squared Mitral E to A Ratio 0.9 TV Peak Velocity 247.5 cm/s TR Peak Velocity 329.0 cm/s TR Peak Gradient 43.3 mmHg TR Mean Velocity 255.0 cm/s TR Mean Gradient 28.8 mmHg TR Velocity Time Integral 75.9 cm PV Peak Velocity 125.0 cm/s RV Ejection Time 0.3 s FINDINGS Left Ventricle Normal left ventricular size, systolic function and wall thickness, with no regional wall motion abnormalities. Left ventricular ejection fraction is estimated at 60 %. Grade I/IV diastolic dysfunction (abnormal relaxation filling pattern), normal to mildly elevated filling pressures. Right Ventricle The right ventricle is normal in size and function. Right Atrium The right atrium is normal in size. Left Atrium Moderately increased left atrial size. Mitral Valve Moderately thickened mitral valve. Moderate mitral annular calcification. Aortic Valve Severe aortic valve calcification. Moderate aortic valve stenosis, mean gradient 15.6 mmHg, KATY 1.8 cm squared. Trace aortic valve regurgitation. Tricuspid Valve Structurally normal tricuspid valve without significant stenosis or regurgitation. Pulmonic Valve Structurally normal pulmonic valve without significant stenosis. There is no pulmonic regurgitation. Pericardium Normal pericardium without effusion. Aorta Normal ascending aorta dimension. IVC Mildly dilated IVC. CONCLUSIONS Normal left ventricular size, systolic function and wall thickness, with no regional wall motion abnormalities. Left ventricular ejection fraction is estimated at 60 %. Grade I/IV diastolic dysfunction (abnormal relaxation filling pattern), normal to mildly elevated filling pressures. Moderately increased left atrial size. Moderately thickened mitral valve. Moderate mitral annular calcification. Severe aortic valve calcification. Moderate aortic valve stenosis, mean gradient 15.6 mmHg, KATY 1.8 cm squared. Trace aortic valve regurgitation. Right atrial pressure is around 15 mm of mercury. Jessica Lugo MD (Electronically Signed) Final Date: 03 October 2024 18:16 S
[2024-10-03] MEDS: cefTRIAXone 1,000 mg SDV 1000 MG IVP (16:37)
[2024-10-04] VITALS (16 sets, daily range): BP systolic 134–192; BP diastolic 71–93; PULSE 69–88; RESP 16–22; TEMP 36.3–36.7; O2SAT 94–100
[2024-10-04] MEDS: hyDRALAzine 20 mg/mL INJ 1 mL 10 MG IVP ×2 (00:19→23:27)
[2024-10-04] MEDS: ipratropium-albuterol 3 mL Neb INHALATION ×4 (01:12→21:24)
[2024-10-04 05:56] LABS: Basophils % 0.6 %; Hematocrit 46.6 % (37-53); Lymphocytes # 1.1 10^3/uL (0.8-4.8); Lymphocytes % 17.9 %; Mean Corpuscular HGB Conc 31.5 g/dL (30-55); Mean Corpuscular Hemoglobin 30.9 pg (27-33); Mean Corpuscular Volume 97.9 fl (82-101); Mean Platelet Volume 8.8 fL (7.4-10.4); Monocytes # 0.8 10^3/uL (0.2-0.9); Monocytes % 12.6 %; Neutrophils # 4.23 10^3/uL (1.8-7.7); Neutrophils % 68.3 %; Nucleated Red Blood Cells % 0 %; Platelet Count 299 10^3/cmm (157-399); Red Blood Count 4.76 10^6/uL (3.85-5.65)
[2024-10-04] MEDS: heparin 5,000 unit/mL INJ 1 mL 5000 UNIT SUBCUT ×2 (06:13→17:22)
[2024-10-04] MEDS: pantoprazole 40 mg SDV IVP ×2 (06:13→17:22)
[2024-10-04 06:21] LABS: Alanine Aminotransferase 7 U/L (0-41); Albumin Level 3.5 g/dL (3.5-5.2); Alkaline Phosphatase 78 U/L (40-130); Anion Gap 25.9 (5-19); Aspartate Amino Transferase 8 U/L (0-40); Blood Urea Nitrogen 40 mg/dL (8-23); Calcium 8.6 mg/dL (8.5-10.5); Carbon Dioxide 21 mmol/L (22-29); Chloride 92 mmol/L (98-107); Globulin 4.1 g/dL (1.3-4.6); Glomerular Filtration Rate 6.1 mL/min (90-130); Glucose 103 mg/dL (65-115); Magnesium 2.5 mg/dL (1.7-2.3); Osmolality Calculated 286 mOsm/kg (285-295); Phosphorus 6.9 mg/dL (2.5-4.5); Potassium 5.9 mmol/L (3.5-5.1); Sodium 133 mmol/L (136-145); Total Bilirubin 0.3 mg/dL (0.15-1.2); Total Protein 7.6 g/dL (6.6-8.7)
[2024-10-04 06:38] LABS: Creatinine Clr Calc Pharmacy 12.2084
[2024-10-04] MEDS: carvedilol 6.25 mg Tablet PO ×2 (10:03→17:22)
[2024-10-04] MEDS: predniSONE 20 mg Tablet 40 MG PO (10:03)
[2024-10-04] MEDS: hyDRALAzine 50 mg Tablet 25 MG PO ×3 (10:03→20:27)
[2024-10-04] MEDS: sevelamer 800 mg Tablet 1600 MG PO ×3 (10:03→20:27)
[2024-10-04] MEDS: losartan 50 mg Tablet 100 MG PO (10:04)
[2024-10-04] MEDS: azithromycin 250 mg Tablet 500 MG PO (10:04)
[2024-10-04] MEDS: docusate sodium 100 mg Capsule PO ×2 (10:04→17:22)
--- NOTE | 2024-10-04 10:10 | P.PN_ITS ---
Subjective 2 Subjective: no new c/o Medications: Reviewed: Yes Vitals/I&O/Wt Last Vital Signs Temp 97.7 F 10/04/24 08:00 Pulse 87 10/04/24 08:07 Resp 18 10/04/24 08:07 BP 154/79 10/04/24 10:04 Pulse Ox 99 10/04/24 08:07 O2 Del Method Nasal Cannula 10/04/24 08:07 O2 Flow Rate 3 10/04/24 08:07 10/03/24 10/04/24 10/04/24 22:59 06:59 14:59 Intake Total 480 / 1380 120 / 1500 600 / 600 Balance 480 / 1380 120 / 1500 600 / 600 Weight last 48 hrs Weight 141.475 kg Weight 141.339 kg Weight 141.566 kg Weight 96.6 kg Weight 99.79 kg Physical Exam 2 Narrative: awake , alert No distress s1s2 rrr per report Lungs clear per report No edema Data 10/04/24 05:33 10/04/24 05:33 Micro: Microbiology 10/03/24 01:45 Gram Stain - Final Sputum - Expectorated Sputum 10/02/24 14:33 Blood Culture - Preliminary Blood NEGATIVE TO DATE 10/02/24 14:30 Blood Culture - Preliminary Blood NEGATIVE TO DATE A&P Assessment and plan (1) ESRD (end stage renal disease) on dialysis: 1. End-stage renal disease: On MWF schedule, HD today for hyperkalemia 2. Acute respiratory failure multifactorial in the setting of CHF, likely flash pulmonary edema due to hypertensive urgency 3. History of hypertension now with blood pressures in the 200s systolic, resumed home medications and follow 4. Hyperkalemia, improved , and placed on low K diet 5. 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 Time spent 40 minutes. Plan see above PDMP PDMP Reviewed: Not Reviewed Attestations 2 Medical Necessity Statement*: per cecilia Coding Level of Care Code Acute Code for Chg Fwd Diagnoses ESRD (end stage renal disease) on dialysis N18.6; Z99.2
--- NOTE | 2024-10-04 11:47 | P.DS_ITS ---
Discharge Providers Date of Admission: 10/02/24 14:20 Date of Discharge: October 04, 2024 Attending Provider at Admission: Chito Mayberry MD Attending Provider at Discharge: Chito Mayberry MD Primary Care Provider: Ziyad Negrete DO Diagnoses at Discharge Discharge Diagnosis (1) ESRD (end stage renal disease) on dialysis: Status: Acute Reason for Visit Reason for Visit: dyspnea x 2 weeks Discharge Data Studies Completed and Pending Completed Studies During Hospitalization Category Date Time Status CTA chest [CT angio chest PE protcl [id number]] Stat Cat Scan 10/02/24 14:31 Completed XR chest 1V portable [id number] Stat Exams 10/02/24 11:40 Completed CV. echo complete* [id number] Routine Ultrasound 10/03/24 16:31 Completed Pending at discharge Category Date Time Status Blood Culture Stat Lab 10/02/24 14:33 Results Complete Blood Count w/Auto AM LABS Lab 10/05/24 04:00 Ordered Comprehensive Metabolic Panel AM LABS Lab 10/05/24 04:00 Ordered Magnesium AM LABS Lab 10/05/24 04:00 Ordered Phosphorus AM LABS Lab 10/05/24 04:00 Ordered Sputum Culture and Gram Stain Stat Lab 10/03/24 01:45 Results Radiology Impressions Chest X-Ray 10/02/24 11:40 Impression: 1. Bilateral pulmonary basilar opacities which could represent atelectasis and pneumonia. 2. Moderate right pleural effusion. 3. Atherosclerosis. Chest CTA 10/02/24 14:31 IMPRESSION: 1. Ill-defined ground-glass opacities in the right upper lobe concerning for infection/inflammation. Recommend imaging follow-up after clinical treatment to document resolution. 2. Small to moderate right and small left pleural effusions. The right effusion appears loculated. Pleural-based calcifications surrounding the effusions bilaterally, [id number], suggests a chronic process. 3. Mildly dilated ascending thoracic aorta measuring 4 cm. 4. Dilated main pulmonary artery can be seen with pulmonary hypertension. 5. Atherosclerotic calcifications along the aortic valve plane can be seen with aortic stenosis. Laboratory Results WBC 6.20 10^3/uL (3.29-11.43) 10/04/24 05:33 RBC 4.76 10^6/uL (3.85-5.65) 10/04/24 05:33 Hgb 14.70 g/dL (11.27-16.99) 10/04/24 05:33 Hct 46.6 % (37-53) 10/04/24 05:33 MCV 97.9 fl (82-101) 10/04/24 05:33 MCH 30.9 pg (27-33) 10/04/24 05:33 MCHC 31.5 g/dL (30-55) 10/04/24 05:33 RDW 13.0 % (12.1-15.1) 10/04/24 05:33 Plt Count 299 10^3/cmm (157-399) 10/04/24 05:33 MPV 8.8 fL (7.4-10.4) 10/04/24 05:33 Neut % (Auto) 68.3 % 10/04/24 05:33 Lymph % (Auto) 17.9 % 10/04/24 05:33 [place] % (Auto) 12.6 % 10/04/24 05:33 Eos % (Auto) 0.0 % 10/04/24 05:33 Baso % (Auto) 0.6 % 10/04/24 05:33 Neut # (Auto) 4.23 10^3/uL (1.8-7.7) 10/04/24 05:33 Lymph # (Auto) 1.1 10^3/uL (0.8-4.8) 10/04/24 05:33 [place] # (Auto) 0.8 10^3/uL (0.2-0.9) 10/04/24 05:33 Eos # (Auto) 0.0 10^3/uL (0.0-0.8) 10/04/24 05:33 Baso # (Auto) 0.0 10^3/uL (0.0-0.1) 10/04/24 05:33 Nucleated RBC % (auto) 0 % 10/04/24 05:33 Nucleated RBCs # 0.0 /100WBC 10/04/24 05:33 Sodium 133 mmol/L (136-145) L 10/04/24 05:33 Potassium 5.9 mmol/L (3.5-5.1) H 10/04/24 05:33 Chloride 92 mmol/L (98-107) L 10/04/24 05:33 Carbon Dioxide 21 mmol/L (22-29) L 10/04/24 05:33 Anion Gap 25.9 (5-19) H 10/04/24 05:33 BUN 40 mg/dL (8-23) H 10/04/24 05:33 Creatinine 8.8 mg/dL (0.7-1.2) H* 10/04/24 05:33 GFR Calculation 6.1 mL/min (90-130) L 10/04/24 05:33 Glucose 103 mg/dL (65-115) 10/04/24 05:33 Estimat Average Glucose 100 10/02/24 11:52 Hemoglobin A1c 5.1 % (4.0-6.0) 10/02/24 11:52 Calculated Osmolality 286 mOsm/kg (285-295) 10/04/24 05:33 Lactic Acid 2.0 mmol/L (0.5-2.2) 10/02/24 14:33 Calcium 8.6 mg/dL (8.5-10.5) 10/04/24 05:33 Phosphorus 6.9 mg/dL (2.5-4.5) H 10/04/24 05:33 Magnesium 2.5 mg/dL (1.7-2.3) H 10/04/24 05:33 Iron 31 ug/dL (59-158) L 10/02/24 11:52 TIBC 208 mcg/dl 10/02/24 11:52 % Saturation 14.9 % (20-50) L 10/02/24 11:52 Unsat Iron Binding 177 ug/dL (112-347) 10/02/24 11:52 Total Bilirubin 0.3 mg/dL (0.15-1.2) 10/04/24 05:33 AST 8 U/L (0-40) 10/04/24 05:33 ALT 7 U/L (0-41) 10/04/24 05:33 Alkaline Phosphatase 78 U/L (40-130) 10/04/24 05:33 Creatine Kinase 153 U/L (39-308) 10/02/24 11:52 NT-Pro-B Natriuret Pep 50636 pg/mL (0-125) H 10/02/24 11:52 Total Protein 7.6 g/dL (6.6-8.7) 10/04/24 05:33 Albumin 3.5 g/dL (3.5-5.2) 10/04/24 05:33 Globulin 4.1 g/dL (1.3-4.6) 10/04/24 05:33 Triglycerides 76 mg/dL (0-150) 10/03/24 07:44 Cholesterol 190 mg/dL (0-200) 10/03/24 07:44 LDL Cholesterol, Calc 124 mg/dL (50-129) 10/03/24 07:44 HDL Cholesterol 51 mg/dL (60-100) L 10/03/24 07:44 LDL/HDL Ratio 2.43 RATIO (0.00-3.22) 10/03/24 07:44 Cholesterol/HDL Ratio 3.73 mg/dL (1.0-5.00) 10/03/24 07:44 Vitamin B12 835 pg/mL (232-1245) 10/02/24 11:52 Folate 3.6 ng/mL (4.5-32.2) L 10/03/24 07:44 Procalcitonin 2.60 ng/mL (0-0.5) H 10/03/24 07:44 TSH 5.34 uIU/mL (0.27-4.20) H 10/02/24 11:52 Free T4 1.29 ng/dL (0.82-1.77) 10/03/24 07:44 Free T3 2.0 PG/ML (2.0-4.4) 10/03/24 07:44 Nasal MRSA (PCR) Not detected (Negative) 10/02/24 22:00 Vancomycin Trough 10.2 ug/mL (10-15) 10/03/24 07:44 Urine Opiates Screen Negative ng/mL (Negative) 10/03/24 00:30 Ur Barbiturates Screen Negative ng/mL (Negative) 10/03/24 00:30 Ur Phencyclidine Scrn Negative ng/mL (Negative) 10/03/24 00:30 Ur Amphetamines Screen Positive ng/mL (Negative) H 10/03/24 00:30 U Benzodiazepines Scrn Negative ng/mL (Negative) 10/03/24 00:30 Urine Cocaine Screen Negative ng/mL (Negative) 10/03/24 00:30 U Marijuana (THC) Screen Negative ng/mL (Negative) 10/03/24 00:30 Ethyl Alcohol < 10 mg/dL (0-10) 10/02/24 20:33 Adenovirus (PCR) Not detected (NOT DETECT) 10/02/24 22:00 C. pneumoniae DNA (PCR) Not detected (NOT DETECT) 10/02/24 22:00 Coronavirus (PCR) Negative (Negative) 10/02/24 11:54 Coronavirus 229E (PCR) Not detected (NOT DETECT) 10/02/24 22:00 Hep Bs Antigen Non-reactive (Nonreactive) 10/02/24 11:52 Hep Bs Antibody 32.1 (11.5-1000) 10/02/24 11:52 Human Metapneumovir PCR Not detected (NOT DETECT) 10/02/24 22:00 Influenza A (H1) PCR Not detected (NOT DETECT) 10/02/24 22:00 Influenza A (PCR) Negative (Negative) 10/02/24 11:54 Influ A (H1/09) PCR Not detected (NOT DETECT) 10/02/24 22:00 Influenza A (H3) PCR Not detected (NOT DETECT) 10/02/24 22:00 Influenza Type A (PCR) Not detected (NOT DETECT) 10/02/24 22:00 Influenza Type B (PCR) Not detected (NOT DETECT) 10/02/24 22:00 M. pneumoniae (PCR) Not detected (NOT DETECT) 10/02/24 22:00 Parainfluenza 1 (PCR) Not detected (NOT DETECT) 10/02/24 22:00 Parainfluenza 2 (PCR) Not detected (NOT DETECT) 10/02/24 22:00 Parainfluenza 3 (PCR) Not detected (NOT DETECT) 10/02/24 22:00 Parainfluenza 4 (PCR) Not detected (NOT DETECT) 10/02/24 22:00 RSV (PCR) Negative (Negative) 10/02/24 11:54 RSV Type A (PCR) Detected (NOT DETECT) A 10/02/24 22:00 RSV Type B (PCR) Not detected (NOT DETECT) 10/02/24 22:00 Entero/Rhino (PCR) Not detected (NOT DETECT) 10/02/24 22:00 SARS-CoV-2 (PCR) Not detected (NOT DETECT) 10/02/24 22:00 Vitals Last Vital Signs Temp 97.7 F 10/04/24 10:49 Pulse 81 10/04/24 10:49 Resp 20 H 10/04/24 10:49 BP 136/81 10/04/24 10:49 Pulse Ox 99 10/04/24 08:07 O2 Del Method Nasal Cannula 10/04/24 08:07 O2 Flow Rate 2.5 10/04/24 10:07 Discharge Plan Discharge Patient Disposition: Home Condition: Stable Prescriptions: New carvedilol 6.25 mg Tablet 6.25 mg PO BID Qty: 60 0RF amoxicillin-pot clavulanate [Augmentin] 500-125 mg tablet 1 tab PO QPM Qty: 5 0RF prednisone 20 mg Tablet 40 mg PO DAILY Qty: 10 0RF hydralazine 50 mg Tablet 25 mg PO TID 30 Days Qty: 45 0RF Continued Protonix 40 mg tablet,delayed release (DR/EC) 40 mg PO BID Qty: 60 2RF losartan 100 mg tablet 100 mg PO DAILY sevelamer carbonate 800 mg tablet 1,600 mg PO TID Referrals: Ziyad Negrete, [Primary Care Provider] - 7-10 days (We have notified your physician's clinic of the need for a follow-up appointment to be scheduled. If you have not heard from them within the next 2 business days, please call them directly. ) Discharge Diet: Cardiac Discharge Activity: Resume usual activity and Increase activity as tolerated Patient Instructions: Opioid Safety Activity Restrictions/Additional Instructions: Please continue losartan as before. Along with that with her medications have been added. Take Coreg 6.25 mg twice daily. Hydralazine 25 mg 3 times daily. Goal blood pressure less than 140/90 mmhg. Please check your blood pressures daily at home maintain a blood pressure diary. Please follow-up with a primary care provider within next 2 weeks for further adjustment of medications as needed. Continue with your hemodialysis sessions as before. Discharge Attestations Status at Discharge: Cognitive status at discharge: cognitively intact , Behavioral status at discharge: cooperative , Coding Level of Care Code Acute Code for g Fwd Diagnoses ESRD (end stage renal disease) on dialysis N18.6; Z99.2
--- NOTE | 2024-10-04 14:42 | P.PN_ITS ---
Subjective 2 Subjective: Overnight patient could not sleep because he had difficulty in breathing. Today morning feeling better during dialysis. States breathing is better since dialysis started. Currently on 2 L. Denies any nausea vomiting, headache or chest pain. Blood pressure is better controlled. Medications: Reviewed: Yes Vitals/I&O/Wt Last Vital Signs Temp 97.9 F 10/04/24 14:06 Pulse 81 10/04/24 14:06 Resp 16 10/04/24 14:06 BP 134/80 10/04/24 14:06 Pulse Ox 99 10/04/24 12:00 O2 Del Method Nasal Cannula 10/04/24 12:00 O2 Flow Rate 2.5 10/04/24 10:07 10/03/24 10/04/24 10/04/24 22:59 06:59 14:59 Intake Total 480 / 1380 120 / 1500 1100 / 1100 Output Total 3500 / 3500 Balance 480 / 1380 120 / 1500 -2400 / -2400 Weight last 48 hrs Weight 135 kg Weight 141.475 kg Weight 141.339 kg Weight 141.566 kg Weight 96.6 kg Physical Exam 2 Narrative: General: No acute distress, AO x3, chronically sick appearing, morbidly obese HEENT: PERRLA, pupils bilaterally equal and reactive Chest: Normal vesicular breath sounds, decreased air entry bilaterally with fine crackles up to mid lungs equal good air entry bilaterally CVS: S1-S2 regular, ejection systolic murmur at aortic region radiating to apex, no gallops, no rubs, JVD elevated. Abdomen: Soft, nontender, no organomegaly, bowel sounds present Neuro: No focal deficits, no facial deformity, AO x3, power 5/5 in all limbs Data 10/04/24 05:33 10/04/24 05:33 Micro: Microbiology 10/03/24 01:45 Gram Stain - Final Sputum - Expectorated Sputum Sputum Culture - Preliminary 10/02/24 14:33 Blood Culture - Preliminary Blood NEGATIVE TO DATE 10/02/24 14:30 Blood Culture - Preliminary Blood NEGATIVE TO DATE A&P Assessment and plan (1) Shortness of breath: Most likely in setting of congestive heart failure due to uncontrolled hypertension in setting of end-stage renal disease along with RSV bronchitis. Appreciate CTA with concerns for no PE RSV positive respiratory viral panel. MRSA swab negative. Sputum culture pending. Continue with IV ceftriaxone and oral azithromycin. Continue with prednisone 40 mg oral daily. DuoNeb every 6 hour. Robitussin every 6 hour as needed for cough. Overnight concerns for orthopnea and PND. Blood pressure slightly elevated at that time. Currently getting extra session of dialysis. IV hydralazine 10 mg every 4 hours as needed for systolic blood pressure more than 160 mmHg. (2) Congestive heart failure: Most like diastolic heart failure in setting of uncontrolled hypertension. Echocardiogram shows an EF of 60% with grade 1 diastolic dysfunction, moderate aortic valve stenosis with mean gradient 15.6, aortic valve area of 1.8 Fluid restriction up to 1500 cc. (3) ESRD (end stage renal disease) on dialysis: Nephrology consulted from ER. Appreciate A1c, lipid panel, vitamin B12, TSH levels. TSH mildly elevated with a normal free T3 and T4. Hyperkalemia and hyponatremia has resolved. Getting extra session of dialysis today because of concerns for heart failure. Dialysis as per nephrology. (4) Hypertensive urgency: Goal blood pressure less than 140/90 mmHg. Patient does not follow-up with any physician as an outpatient. Blood pressure is better controlled for now. Continue with losartan, hydralazine 25 mg 3 times daily, Coreg 6.25 mg twice daily. Blood pressure better controlled. Uptitrate as per goal blood pressures. (5) Uncontrolled hypertension: (6) Hyponatremia: (7) Hyperkalemia: (8) RSV bronchitis: (9) Amphetamine abuse: (10) Moderate aortic stenosis: Plan Urine drug screen positive for amphetamines. Watch for withdrawal symptoms. Full code Renal dialysis diet Heparin for DVT prophylaxis Protonix OPD prophylaxis PDMP PDMP Reviewed: Last Reviewed 10/02/24 16:20 by Chito Mayberry MD Attestations 2 Medical Necessity Statement*: Requires further hospitalization for management of shortness of breath in setting of diastolic congestive heart failure in setting of moderate aortic stenosis, uncontrolled hypertension in a patient with end-stage renal disease on hemodialysis, RSV bronchitis Diagnoses Shortness of breath R06.02 Congestive heart failure I50.9 ESRD (end stage renal disease) on dialysis N18.6; Z99.2 Hypertensive urgency I16.0 Uncontrolled hypertension I10 Hyponatremia E87.1 Hyperkalemia E87.5 RSV bronchitis J20.5 Amphetamine abuse F15.10 Moderate aortic stenosis I35.0
[2024-10-04] MEDS: cefTRIAXone 1,000 mg SDV 1000 MG IVP (16:13)
[2024-10-05] VITALS (10 sets, daily range): BP systolic 125–158; BP diastolic 74–86; PULSE 74–83; RESP 16–22; TEMP 36.4–36.8; O2SAT 88–98
[2024-10-05] MEDS: ipratropium-albuterol 3 mL Neb INHALATION ×2 (02:17→08:20)
[2024-10-05] MEDS: heparin 5,000 unit/mL INJ 1 mL 5000 UNIT SUBCUT (05:54)
[2024-10-05] MEDS: pantoprazole 40 mg SDV IVP (05:55)
--- NOTE | 2024-10-05 07:49 | XR_ITS ---
WS: [id number] XR chest 1V portable [id number] REASON FOR EXAM: hypoxia FINDINGS: Examination significantly degraded by respiratory motion artifact. Right pleural effusion and pleural thickening Interstitial lung opacities in both lower lobes which appear chronic. Moderate tortuosity and ectasia of the thoracic aorta with the heart at the upper limits of normal in size. The chest appears relatively stable compared to 10/02/2024. XR/XR chest 1V portable [id number] IMPRESSION: Stable abnormal chest with no acute abnormality.
--- NOTE | 2024-10-05 07:52 | PM.PN ---
Subjective Subjective: remains sob, swollen, cough, weak, nausea, + edema Medications: Reviewed: Yes Medication Review Details: Current Medications Acetaminophen (Acetaminophen 325 Mg Tablet) 650 mg PO Q6H PRN PRN Reason: Mild/Mod Pain Or Temp >/= 101 Albuterol/Ipratropium (Ipratropium-Albuterol 3 Ml Neb) 3 ml INHALATION Q6H.RESP [facility] Last Admin: 10/05/24 02:17 Dose: 3 ml Azithromycin (Azithromycin 250 Mg Tablet) 500 mg PO DAILY [facility]; Protocol Last Admin: 10/04/24 10:04 Dose: 500 mg Carvedilol (Carvedilol 6.25 Mg Tablet) 6.25 mg PO BID [facility] Last Admin: 10/04/24 17:22 Dose: 6.25 mg Ceftriaxone Sodium (Ceftriaxone 1,000 Mg Sdv) 1,000 mg IVP Q24H [facility]; Protocol Last Admin: 10/04/24 16:13 Dose: 1,000 mg Docusate Sodium (Docusate Sodium 100 Mg Capsule) 100 mg PO BID [facility] Last Admin: 10/04/24 17:22 Dose: 100 mg Heparin Sodium (Porcine) (Heparin 5,000 Unit/Ml Inj 1 Ml) 5,000 unit SUBCUT Q12H [facility] Last Admin: 10/05/24 05:54 Dose: 5,000 unit Hydralazine HCl (Hydralazine 50 Mg Tablet) 25 mg PO TID [facility] Last Admin: 10/04/24 20:27 Dose: 25 mg Hydralazine HCl (Hydralazine 20 Mg/Ml Inj 1 Ml) 10 mg IVP Q4H PRN PRN Reason: SBP More than 160 mmhg Last Admin: 10/04/24 23:27 Dose: 10 mg Sodium Chloride (Sodium Chloride 0.9%) 1,000 mls @ 0 mls/hr IV .Q0M PRN PRN Reason: hypotension or symptomatic Albumin Human (Albumin) 12.5 gm in 50 mls @ 60 mls/hr IV PRN PRN PRN Reason: Hypotension and/or symptomatic Lactulose (Lactulose Oral Liq 20 Gm/30 Ml Udc) 10 gm PO DAILY PRN; Protocol PRN Reason: Constipation (see protocol) Losartan Potassium (Losartan 50 Mg Tablet) 100 mg PO DAILY [facility] Last Admin: 10/04/24 10:04 Dose: 100 mg Magnesium Hydroxide (Magnesium Hydroxide 30 Ml Udc) 30 ml PO DAILY PRN; Protocol PRN Reason: Constipation (see protocol) Morphine Sulfate (Morphine 4 Mg/Ml Sdv 1 Ml) 2 mg IVP Q4H PRN PRN Reason: SEVERE PAIN Ondansetron HCl (Ondansetron 2 Mg/Ml Sdv 2 Ml) 4 mg IVP Q6H PRN PRN Reason: vomiting, or N/V if npo Pantoprazole Sodium (Pantoprazole 40 Mg Sdv) 40 mg IVP Q12H [facility] Last Admin: 10/05/24 05:55 Dose: 40 mg Prednisone (Prednisone 20 Mg Tablet) 40 mg PO DAILY [facility] Last Admin: 10/04/24 10:03 Dose: 40 mg Sevelamer Carbonate (Sevelamer 800 Mg Tablet) 1,600 mg PO TID [facility] Last Admin: 10/04/24 20:27 Dose: 1,600 mg Vitals/I&O/Wt Last Vital Signs Temp 97.6 F 10/05/24 04:27 Pulse 80 10/05/24 04:27 Resp 16 10/05/24 04:27 BP 158/83 10/05/24 04:27 Pulse Ox 98 10/05/24 04:27 O2 Del Method Nasal Cannula 10/05/24 04:27 O2 Flow Rate 2 10/05/24 02:18 10/04/24 10/05/24 10/05/24 22:59 06:59 14:59 Intake Total 660 / 1760 240 / 2000 Balance 660 / -1740 240 / -1500 Weight last 48 hrs Weight 136.078 kg Weight 135 kg Weight 141.475 kg Physical Exam Narrative: VS noted- using 2 l nc 02 mild resp discomfort in bed HEENT- nc/at, eomi neck obese lungs+ wheezes and crackles b/l heart reg + s1, s2 abdomen + soft, nt, nd, + bs ext 1+ b/l leg edema neuro- a,a, o x 3 seen and examined using A/V equipment w/ the AID pat henderson nurse Data 10/04/24 05:33 10/04/24 05:33 Micro: Microbiology 10/03/24 01:45 Gram Stain - Final Sputum - Expectorated Sputum Sputum Culture - Preliminary A&P Assessment and plan (1) ESRD (end stage renal disease) on dialysis: 64 yr old man w/ morbid obesity, HTN, ESRD, HFpEF, moderate , + amphetamines use 1. HTN improving w/ dialysis 2. ESRD- may need to hold losartan w/ hyperkalemia repeat HD today or tomorrow per RN availability 3. needs a phos binder. check vit d and pth levels -repeat kappa/ lambda ratio - was 3.35 in 2020 seen and examined w/ RN using A/V equipment pt conseents to HD and telehealth Plan 64 yr old man w/ morbid obesity, HTN, ESRD, HFpEF, moderate , + amphetamines use 1. HTN improving w/ dialysis 2. ESRD- may need to hold losartan w/ hyperkalemia repeat HD today or tomorrow per RN availability 3. needs a phos binder. check vit d and pth levels -repeat kappa/ lambda ratio - was 3.35 in 2020 seen and examined w/ RN using A/V equipment pt conseents to HD and telehealth PDMP PDMP Reviewed: Not Reviewed Attestations Medical Necessity Statement*: SOB, esrd, chf, as Time Spent in Patient Care: 16 - 35 minutes (>than 50% of time spent in counselling and/or direct pt care on unit). Coding Level of Care Code Acute Code for Chg Fwd Diagnoses ESRD (end stage renal disease) on dialysis N18.6; Z99.2
--- NOTE | 2024-10-05 07:59 | P.DS_ITS ---
Discharge Providers Date of Admission: 10/02/24 14:20 Date of Discharge: October 05, 2024 Attending Provider at Admission: Chito Mayberry MD Attending Provider at Discharge: Jessica Soto MD Primary Care Provider: Ziyad Negrete DO Diagnoses at Discharge Discharge Diagnosis (1) Shortness of breath: Status: Acute (2) Congestive heart failure: Status: Acute (3) ESRD (end stage renal disease) on dialysis: Status: Acute (4) Hypertensive urgency: Status: Acute (5) Uncontrolled hypertension: Status: Acute (6) Hyponatremia: Status: Acute (7) Hyperkalemia: Status: Acute (8) RSV bronchitis: Status: Acute (9) Amphetamine abuse: Status: Acute (10) Moderate aortic stenosis: Status: Acute Reason for Visit Reason for Visit: dyspnea x 2 weeks Hospital Course Hospital Course 64-year-old male with history of end-stage renal disease morbid obesity, has poor insight to his medical conditions, lives alone, presented with worsening of shortness of breath, tested positive for RSV, history of positive for methamphetamine and marijuana, patient is stating that he does not use oxygen at home, he grows marijuana in his backyard, patient received after sessions of dialysis during hospitalizations, received extra session of dialysis during hospitalization, blood pressure improved along orthopnea and PND. Plan to discharge him home after home oxygen evaluation, patient will get dialysis Saturday. Currently requiring 2 to 3 L of oxygen at rest. CTA chest rule out PE he does have loculated chronic appearing effusion. No active fever. Patient has not follow-up with PCP, will give him another referral Physical Exam Narrative: Currently on 3 L Signs of fluid overload present but improving Sitting in his chair Hemodynamically stable Pleasant and cooperative Mild crackles at base of the lungs S1, S2 Discharge Data Studies Completed and Pending Completed Studies During Hospitalization Category Date Time Status CTA chest [CT angio chest PE protcl [id number]] Stat Cat Scan 10/02/24 14:31 Completed XR chest 1V portable [id number] Stat Exams 10/02/24 11:40 Completed CV. echo complete* [id number] Routine Ultrasound 10/03/24 16:31 Completed Pending at discharge Category Date Time Status XR chest 1V portable [id number] Routine Exams 10/05/24 07:49 Ordered Blood Culture Stat Lab 10/02/24 14:33 Results Complete Blood Count w/Auto AM LABS Lab 10/05/24 04:00 Ordered Comprehensive Metabolic Panel AM LABS Lab 10/05/24 04:00 Ordered Sputum Culture and Gram Stain Stat Lab 10/03/24 01:45 Results Radiology Impressions Chest X-Ray 10/02/24 11:40 Impression: 1. Bilateral pulmonary basilar opacities which could represent atelectasis and pneumonia. 2. Moderate right pleural effusion. 3. Atherosclerosis. Chest CTA 10/02/24 14:31 IMPRESSION: 1. Ill-defined ground-glass opacities in the right upper lobe concerning for infection/inflammation. Recommend imaging follow-up after clinical treatment to document resolution. 2. Small to moderate right and small left pleural effusions. The right effusion appears loculated. Pleural-based calcifications surrounding the effusions bilaterally, [id number], suggests a chronic process. 3. Mildly dilated ascending thoracic aorta measuring 4 cm. 4. Dilated main pulmonary artery can be seen with pulmonary hypertension. 5. Atherosclerotic calcifications along the aortic valve plane can be seen with aortic stenosis. Laboratory Results WBC 6.20 10^3/uL (3.29-11.43) 10/04/24 05:33 RBC 4.76 10^6/uL (3.85-5.65) 10/04/24 05:33 Hgb 14.70 g/dL (11.27-16.99) 10/04/24 05:33 Hct 46.6 % (37-53) 10/04/24 05:33 MCV 97.9 fl (82-101) 10/04/24 05:33 MCH 30.9 pg (27-33) 10/04/24 05:33 MCHC 31.5 g/dL (30-55) 10/04/24 05:33 RDW 13.0 % (12.1-15.1) 10/04/24 05:33 Plt Count 299 10^3/cmm (157-399) 10/04/24 05:33 MPV 8.8 fL (7.4-10.4) 10/04/24 05:33 Neut % (Auto) 68.3 % 10/04/24 05:33 Lymph % (Auto) 17.9 % 10/04/24 05:33 Morris % (Auto) 12.6 % 10/04/24 05:33 Eos % (Auto) 0.0 % 10/04/24 05:33 Baso % (Auto) 0.6 % 10/04/24 05:33 Neut # (Auto) 4.23 10^3/uL (1.8-7.7) 10/04/24 05:33 Lymph # (Auto) 1.1 10^3/uL (0.8-4.8) 10/04/24 05:33 Morris # (Auto) 0.8 10^3/uL (0.2-0.9) 10/04/24 05:33 Eos # (Auto) 0.0 10^3/uL (0.0-0.8) 10/04/24 05:33 Baso # (Auto) 0.0 10^3/uL (0.0-0.1) 10/04/24 05:33 Nucleated RBC % (auto) 0 % 10/04/24 05:33 Nucleated RBCs # 0.0 /100WBC 10/04/24 05:33 Sodium 133 mmol/L (136-145) L 10/04/24 05:33 Potassium 5.9 mmol/L (3.5-5.1) H 10/04/24 05:33 Chloride 92 mmol/L (98-107) L 10/04/24 05:33 Carbon Dioxide 21 mmol/L (22-29) L 10/04/24 05:33 Anion Gap 25.9 (5-19) H 10/04/24 05:33 BUN 40 mg/dL (8-23) H 10/04/24 05:33 Creatinine 8.8 mg/dL (0.7-1.2) H* 10/04/24 05:33 GFR Calculation 6.1 mL/min (90-130) L 10/04/24 05:33 Glucose 103 mg/dL (65-115) 10/04/24 05:33 Estimat Average Glucose 100 10/02/24 11:52 Hemoglobin A1c 5.1 % (4.0-6.0) 10/02/24 11:52 Calculated Osmolality 286 mOsm/kg (285-295) 10/04/24 05:33 Lactic Acid 2.0 mmol/L (0.5-2.2) 10/02/24 14:33 Calcium 8.6 mg/dL (8.5-10.5) 10/04/24 05:33 Phosphorus 6.9 mg/dL (2.5-4.5) H 10/04/24 05:33 Magnesium 2.5 mg/dL (1.7-2.3) H 10/04/24 05:33 Iron 31 ug/dL (59-158) L 10/02/24 11:52 TIBC 208 mcg/dl 10/02/24 11:52 % Saturation 14.9 % (20-50) L 10/02/24 11:52 Unsat Iron Binding 177 ug/dL (112-347) 10/02/24 11:52 Total Bilirubin 0.3 mg/dL (0.15-1.2) 10/04/24 05:33 AST 8 U/L (0-40) 10/04/24 05:33 ALT 7 U/L (0-41) 10/04/24 05:33 Alkaline Phosphatase 78 U/L (40-130) 10/04/24 05:33 Creatine Kinase 153 U/L (39-308) 10/02/24 11:52 NT-Pro-B Natriuret Pep 34565 pg/mL (0-125) H 10/02/24 11:52 Total Protein 7.6 g/dL (6.6-8.7) 10/04/24 05:33 Albumin 3.5 g/dL (3.5-5.2) 10/04/24 05:33 Globulin 4.1 g/dL (1.3-4.6) 10/04/24 05:33 Triglycerides 76 mg/dL (0-150) 10/03/24 07:44 Cholesterol 190 mg/dL (0-200) 10/03/24 07:44 LDL Cholesterol, Calc 124 mg/dL (50-129) 10/03/24 07:44 HDL Cholesterol 51 mg/dL (60-100) L 10/03/24 07:44 LDL/HDL Ratio 2.43 RATIO (0.00-3.22) 10/03/24 07:44 Cholesterol/HDL Ratio 3.73 mg/dL (1.0-5.00) 10/03/24 07:44 Vitamin B12 835 pg/mL (232-1245) 10/02/24 11:52 Folate 3.6 ng/mL (4.5-32.2) L 10/03/24 07:44 Procalcitonin 2.60 ng/mL (0-0.5) H 10/03/24 07:44 TSH 5.34 uIU/mL (0.27-4.20) H 10/02/24 11:52 Free T4 1.29 ng/dL (0.82-1.77) 10/03/24 07:44 Free T3 2.0 PG/ML (2.0-4.4) 10/03/24 07:44 Nasal MRSA (PCR) Not detected (Negative) 10/02/24 22:00 Vancomycin Trough 10.2 ug/mL (10-15) 10/03/24 07:44 Urine Opiates Screen Negative ng/mL (Negative) 10/03/24 00:30 Ur Barbiturates Screen Negative ng/mL (Negative) 10/03/24 00:30 Ur Phencyclidine Scrn Negative ng/mL (Negative) 10/03/24 00:30 Ur Amphetamines Screen Positive ng/mL (Negative) H 10/03/24 00:30 U Benzodiazepines Scrn Negative ng/mL (Negative) 10/03/24 00:30 Urine Cocaine Screen Negative ng/mL (Negative) 10/03/24 00:30 U Marijuana (THC) Screen Negative ng/mL (Negative) 10/03/24 00:30 Ethyl Alcohol < 10 mg/dL (0-10) 10/02/24 20:33 Adenovirus (PCR) Not detected (NOT DETECT) 10/02/24 22:00 C. pneumoniae DNA (PCR) Not detected (NOT DETECT) 10/02/24 22:00 Coronavirus (PCR) Negative (Negative) 10/02/24 11:54 Coronavirus 229E (PCR) Not detected (NOT DETECT) 10/02/24 22:00 Hep Bs Antigen Non-reactive (Nonreactive) 10/02/24 11:52 Hep Bs Antibody 32.1 (11.5-1000) 10/02/24 11:52 Human Metapneumovir PCR Not detected (NOT DETECT) 10/02/24 22:00 Influenza A (H1) PCR Not detected (NOT DETECT) 10/02/24 22:00 Influenza A (PCR) Negative (Negative) 10/02/24 11:54 Influ A (H1/09) PCR Not detected (NOT DETECT) 10/02/24 22:00 Influenza A (H3) PCR Not detected (NOT DETECT) 10/02/24 22:00 Influenza Type A (PCR) Not detected (NOT DETECT) 10/02/24 22:00 Influenza Type B (PCR) Not detected (NOT DETECT) 10/02/24 22:00 M. pneumoniae (PCR) Not detected (NOT DETECT) 10/02/24 22:00 Parainfluenza 1 (PCR) Not detected (NOT DETECT) 10/02/24 22:00 Parainfluenza 2 (PCR) Not detected (NOT DETECT) 10/02/24 22:00 Parainfluenza 3 (PCR) Not detected (NOT DETECT) 10/02/24 22:00 Parainfluenza 4 (PCR) Not detected (NOT DETECT) 10/02/24 22:00 RSV (PCR) Negative (Negative) 10/02/24 11:54 RSV Type A (PCR) Detected (NOT DETECT) A 10/02/24 22:00 RSV Type B (PCR) Not detected (NOT DETECT) 10/02/24 22:00 Entero/Rhino (PCR) Not detected (NOT DETECT) 10/02/24 22:00 SARS-CoV-2 (PCR) Not detected (NOT DETECT) 10/02/24 22:00 Vitals Last Vital Signs Temp 97.6 F 10/05/24 04:27 Pulse 80 10/05/24 04:27 Resp 16 10/05/24 04:27 BP 158/83 10/05/24 04:27 Pulse Ox 98 10/05/24 04:27 O2 Del Method Nasal Cannula 10/05/24 04:27 O2 Flow Rate 2 10/05/24 02:18 Discharge Plan Discharge Patient Disposition: Home Condition: Stable Prescriptions: New carvedilol 6.25 mg Tablet 6.25 mg PO BID Qty: 60 0RF prednisone 20 mg Tablet 40 mg PO DAILY Qty: 10 0RF hydralazine 50 mg Tablet 25 mg PO TID 30 Days Qty: 45 0RF amoxicillin-pot clavulanate [Augmentin] 500-125 mg tablet 1 tab PO QPM Qty: 5 0RF budesonide-formoterol [Symbicort] 80-4.5 mcg/actuation HFA aerosol inhaler 2 inh inhalation BID Qty: 10.2 5RF albuterol sulfate [Ventolin HFA] 90 mcg/actuation HFA aerosol inhaler 2 inh inhalation Q8H PRN (Reason: shortness of breath or wheezing) Qty: 6.7 3RF Spiriva Respimat 1.25 mcg/actuation mist 2 inh inhalation DAILY Qty: 4 3RF Continued Protonix 40 mg tablet,delayed release (DR/EC) 40 mg PO BID Qty: 60 2RF losartan 100 mg tablet 100 mg PO DAILY sevelamer carbonate 800 mg tablet 1,600 mg PO TID Discharge Orders: Discharge Order (Routine); Ordered 10/05/24 Ordered By: Jessica Soto Referrals: Ziyad Negrete, DO [Primary Care Provider] - 7-10 days (We have notified your physician's clinic of the need for a follow-up appointment to be scheduled. If you have not heard from them within the next 2 business days, please call them directly. ) Discharge Diet: Cardiac Discharge Activity: Resume usual activity and Increase activity as tolerated Patient Instructions: Opioid Safety Activity Restrictions/Additional Instructions: Please continue losartan as before. Along with that with her medications have been added. Take Coreg 6.25 mg twice daily. Hydralazine 25 mg 3 times daily. Goal blood pressure less than 140/90 mmhg. Please check your blood pressures daily at home maintain a blood pressure diary. Please follow-up with a primary care provider within next 2 weeks for further adjustment of medications as needed. Continue with your hemodialysis sessions as before. Discharge Attestations Time Spent in Discharge Care*: greater than 30 min Status at Discharge: Cognitive status at discharge: cognitively intact , Behavioral status at discharge: cooperative , Quality Metrics Clinical Quality Measures [ No reported AMI, CVA or VTE this stay] Coding Level of Care Code Acute Code for Chg Fwd Diagnoses Shortness of breath R06.02 Congestive heart failure I50.9 ESRD (end stage renal disease) on dialysis N18.6; Z99.2 Hypertensive urgency I16.0 Uncontrolled hypertension I10 Hyponatremia E87.1 Hyperkalemia E87.5 RSV bronchitis J20.5 Amphetamine abuse F15.10 Moderate aortic stenosis I35.0
[2024-10-05] MEDS: sevelamer 800 mg Tablet 1600 MG PO (08:58)
[2024-10-05] MEDS: azithromycin 250 mg Tablet 500 MG PO (08:58)
[2024-10-05] MEDS: hyDRALAzine 50 mg Tablet 25 MG PO (08:58)
[2024-10-05] MEDS: carvedilol 6.25 mg Tablet PO (08:58)
[2024-10-05] MEDS: predniSONE 20 mg Tablet 40 MG PO (08:59)
[2024-10-05] MEDS: docusate sodium 100 mg Capsule PO (08:59)
[2024-10-05] MEDS: losartan 50 mg Tablet 100 MG PO (08:59)
[2024-10-05] MEDS: heparin, porcine 1,000 unit/mL INJ 10 mL 1000 UNIT IV (09:45)
--- NOTE | 2024-10-05 09:55 | PC.CHAP ---
Pastoral Care Encounter/Spiritual Assessment Type of Contact [] Declined principal planner visit [] Patient/Family/Request visit [] Outpatient visit [] Follow-up visit [] Physician referral [] Code/Alert [x] Routine visit [] Staff referral [] Actively dying [] Patient sleeping [] Family support [] [] Out of room [] Palliative care [] [] Receiving care in room [] Pre-surgical visit [] Trauma [] Long length of stay [] ICU visit [] Other: Relational/Emotional Strength [] Patient feels connected with others/family/visitors/staff [] Distress [] Loneliness/isolation [] Abandonment Spirituality of Patient [] Person of Isabella [] Attends Bahai of their Isabella [] Believes in Prayer [] Reads Bible or Sabianism materials [] There are Spiritual issues to be addressed Instrumentation Supervisor Interventions [] Prayer [] Active listening [] Non-anxious presence [] Spiritual/emotional support [] Crisis/trauma care [] Spiritual counseling [] Bereavement support [] Provided bereavement packet [] Provided Bible/devotional materials [] Provided toy/stuffed animal, coloring book to patient or family member [] Provided Communion [] Anointing/Hawley [] Salvation [] Completed spiritual assessment [] Other: Impact on Illness or Injury [] Angry [] Fearful [] Anxious [] Often cries [] Exhaustion [] Unable to work [] Unable to attend mandaeism [] Unable to walk/stand [] Unable to read [] Unable to drive [] Unable to eat/drink [] Unable to sleep [] Unable to be with family [] Patient intubated [] Other: Summary precaution Time spent with patient
[2024-10-05 13:00] LABS: Basophils % 0.5 %; Eosinophils # 0.1 10^3/uL (0.0-0.8); Eosinophils % 0.9 %; Hematocrit 47.3 % (37-53); Lymphocytes # 0.8 10^3/uL (0.8-4.8); Lymphocytes % 10.5 %; Mean Corpuscular HGB Conc 31.3 g/dL (30-55); Mean Corpuscular Hemoglobin 30.2 pg (27-33); Mean Corpuscular Volume 96.5 fl (82-101); Mean Platelet Volume 8.9 fL (7.4-10.4); Monocytes # 0.6 10^3/uL (0.2-0.9); Monocytes % 8.1 %; Neutrophils # 6.19 10^3/uL (1.8-7.7); Neutrophils % 79.2 %; Nucleated Red Blood Cells % 0 %; Platelet Count 296 10^3/cmm (157-399); Red Cell Distribution Width 13.3 % (12.1-15.1); White Blood Count 7.81 10^3/uL (3.29-11.43)
[2024-10-05 13:20] LABS: Alanine Aminotransferase 7 U/L (0-41); Albumin Level 3.8 g/dL (3.5-5.2); Alkaline Phosphatase 81 U/L (40-130); Anion Gap 17.3 (5-19); Aspartate Amino Transferase 10 U/L (0-40); Blood Urea Nitrogen 20 mg/dL (8-23); Carbon Dioxide 26 mmol/L (22-29); Chloride 95 mmol/L (98-107); Creatinine Clr Calc Pharmacy 20.6304; Globulin 4.3 g/dL (1.3-4.6); Glomerular Filtration Rate 11.4 mL/min (90-130); Glucose 115 mg/dL (65-115); Osmolality Calculated 282 mOsm/kg (285-295); Potassium 4.3 mmol/L (3.5-5.1); Sodium 134 mmol/L (136-145); Total Bilirubin 0.3 mg/dL (0.15-1.2); Total Protein 8.1 g/dL (6.6-8.7)
[2024-10-05 13:42] LABS: Hepatitis B Surface AB 44.9 (11.5-1000); Hepatitis B Surface Antigen Non-Reactive (Nonreactive); Hepatitis C Virus Antibody Non-Reactive (Nonreactive)
--- NOTE | 2024-10-05 13:43 | PC.NURSE ---
Patient completed dialysis at approximately 1320 and had stated that his friend was going to run some errands and come back to pick him up and take him home. At this time, patient's friend has not been to the floor. Upon inquiry, he states that he can't get ahold of his friend again. I spoke with Rakel with Case Management and inquired about a Medicaid ride if needed and she states that she will call. If patient's friend calls or comes to the floor, I'll let her know to cancel the ride. Currently waiting on HOME to deliver O2 at this time.
--- NOTE | 2024-10-05 15:17 | PC.SOCIAL ---
IMM Updated Updated pt on IMM. No questions voiced. Provided pt a copy. Initialed, dated, & timed a copy & placed in chart.
[2024-10-06 07:06] LABS: PROTEIN, TOTAL 7.4 g/dL (6.1-8.1)
[2024-10-06 15:35] LABS: KAPPA LIGHT CHAIN, FREE, SERUM 576.5 mg/L (3.3-19.4); KAPPA/LAMBDA LIGHT CHAINS FREE 5.87 (0.26-1.65); LAMBDA LIGHT CHAIN, FREE, SERU 98.2 mg/L (5.7-26.3)
[2024-10-06 19:24] LABS: ABNORMAL PROTEIN BAND 1 0.7 g/dL (NONE DETECTED); ALBUMIN 3.7 g/dL (3.8-4.8); ALPHA 1 GLOBULIN 0.4 g/dL (0.2-0.3); ALPHA 2 GLOBULIN 0.9 g/dL (0.5-0.9); BETA 1 GLOBULIN 0.4 g/dL (0.4-0.6); BETA 2 GLOBULIN 0.4 g/dL (0.2-0.5); GAMMA GLOBULIN 1.5 g/dL (0.8-1.7)
== END 2024-10-05 15:05 | disposition home or self-care (01) | DRG 291 ==
LOC: ER 12:31 → ER IP 14:20 → CSU 17:23 → MEDSURG 10-03 22:19
PROVIDERS: Hospitalist; Internal Medicine Nephrology; Admitting Provider Student in an Organized Health Care Education/Training Program; Emergency Provider Family Medicine; PCP Family Medicine; Visit Provider Internal Medicine
DX: I13.2 Hypertensive heart and chronic kidney disease with heart failure and with stage 5 chronic kidney disease, or end stage renal disease (principal); I50.31 Acute diastolic (congestive) heart failure; N18.6 End stage renal disease; E87.1 Hypo-osmolality and hyponatremia; J44.1 Chronic obstructive pulmonary disease with (acute) exacerbation; J20.5 Acute bronchitis due to respiratory syncytial virus; Z99.2 Dependence on renal dialysis; I16.0 Hypertensive urgency; E87.5 Hyperkalemia; F15.10 Other stimulant abuse, uncomplicated; F12.90 Cannabis use, unspecified, uncomplicated; I35.0 Nonrheumatic aortic (valve) stenosis; E66.01 Morbid (severe) obesity due to excess calories; Z68.39 Body mass index [BMI] 39.0-39.9, adult; D47.2 Monoclonal gammopathy; F17.220 Nicotine dependence, chewing tobacco, uncomplicated; Z79.51 Long term (current) use of inhaled steroids
CPT/HCPCS: 36415; 71045; 71275; 80053; 80061; 80202; 80306; 80307; 82550; 82607; 82746; 83036; 83540; 83550; 83605; 83735; 83880; 83883; 84100; 84145; 84155; 84165; 84439; 84443; 84481; 85025; 86334; 86706; 86803; 87040; 87070; 87205; 87340; 87486; 87581; 87633; 87637; 90935; 93005; 93306; 94640; 94664; 94760; 96365; 96372; 96375; 96376; 99285; J0360; J0696; J1644; J1940; J2470; J2543; J3370; J3490; J7050; J7512; J7613; Q0144

== ENCOUNTER 2024-12-25 16:04 | Inpatient (IN) | payer MEDICARE, MEDICAID, SELFPAY ==
[2024-12-25] VITALS (9 sets, daily range): BP systolic 106–158; BP diastolic 69–92; PULSE 70–113; RESP 15–16; TEMP 36.4–37.1; O2SAT 82–100; BMI 33.0; BMI 37.0
[2024-12-25 16:34] LABS: ABG PCO2 42.7 mmHg (35-45); ABG PH Result 7.46 (7.35-7.45); Alveolar-Arterial Oxygen Gradi 9.3 mmHg (5-10); Arterial Blood Gas Hematocrit 46.5 % (42-52); Base Excess ABG 5.9 mmol/L (-2.0-2.0); Blood Gas Allen Test Pos; Blood Gas Operator Identificat glc; Blood Gas Sample Site Radial, left; Blood Gas Sample Type Arterial; Carboxyhemoglobin 1.3 %THgb (0.4-20.1); HCO3 ABG 30.4 mmol/L (22-26); HGB O2 Sat 95.1 % (95-100); Ionized Calcium Level - ABG 1.1 mmol/L (1.1-1.4); Methemoglobin 0.1 % (0.4-1.5); Oxygen Device NC; Oxygen Saturation ABG 96.4; PO2 ABG 74.4 mmHg (80.0-100.0); PO2 FiO2 Ratio Arterial Blood 265; Potassium Level - ABG 3.8 mmol/L (3.5-5.0); Total Hemoglobin 15.2 g/dL (14-18)
--- NOTE | 2024-12-25 16:35 | ECG_ITS ---
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 Measurements Intervals [place] Rate: 90 P: 57 RI: 169 QRS: -29 QRSD: 110 T: 46 QT: 385 QTc: 473 Interpretive Statements SINUS RHYTHM WITH SINUS ARRHYTHMIA BORDERLINE LEFT AXIS DEVIATION [QRS AXIS < -20] Compared to ECG 10/02/2024 12:07:58 Myocardial infarct finding no longer present Electronically Signed On 12-28-2024 09:24:44 CDT by Jean Kohler M.D. [email or web address]
--- NOTE | 2024-12-25 16:41 | XRR_ITS ---
PROCEDURE INFORMATION: Exam: XR Chest Exam date and time: 12/25/2024 4:41 PM Age: 64 years old Clinical indication: Dyspnea; Cough; SOB; Esrd; Additional info: Dyspnea/cough TECHNIQUE: Imaging protocol: Radiologic exam of the chest. Views: 1 view. COMPARISON: CR XR chest 1V portable [id number] 10/05/2024 8:49 AM FINDINGS: Lungs: Minimal right basilar atelectasis or scar. No consolidation. Pleural spaces: Probable small right pleural effusion. Heart/Mediastinum: Unremarkable. No cardiomegaly. Bones/joints: Unremarkable. XR/XR chest 1V portable [id number] IMPRESSION: 1. Probable small right pleural effusion. 2. Minimal right basilar atelectasis or scar.
[2024-12-25 17:04] LABS: Basophils # 0.1 10^3/uL (0.0-0.1); Basophils % 0.4 %; Eosinophils # 0.3 10^3/uL (0.0-0.8); Eosinophils % 2.1 %; Hematocrit 47.3 % (37-53); Lymphocytes # 1.5 10^3/uL (0.8-4.8); Lymphocytes % 12.2 %; Mean Corpuscular HGB Conc 31.3 g/dL (30-55); Mean Corpuscular Hemoglobin 29.8 pg (27-33); Mean Corpuscular Volume 95.4 fl (82-101); Mean Platelet Volume 8.9 fL (7.4-10.4); Monocytes # 1.3 10^3/uL (0.2-0.9); Monocytes % 10.6 %; Neutrophils % 73.8 %; Nucleated Red Blood Cells % 0 %; Platelet Count 208 10^3/cmm (157-399); Red Blood Count 4.96 10^6/uL (3.85-5.65); Red Cell Distribution Width 13.6 % (12.1-15.1); White Blood Count 12.59 10^3/uL (3.29-11.43)
--- NOTE | 2024-12-25 17:05 | W.ED.SOB ---
HPI - SOB/Dyspnea General: Chief Complaint: Nausea/Vomiting/Diarrhea Stated Complaint: sob Time Seen by Provider: 12/25/24 16:14 History of Present Illness: HPI Narrative: 64-year-old male presents to the emergency room with complaints of chest pain and shortness of breath. He was at dialysis began to get some chest discomfort shortness of breath he recently had a pneumonia he was has finished the antibiotics has had diarrhea since that happened. He had a large loose stool while he was here. Reviewing his chart he was previously on amoxicillin. He denies any productive cough. Associated symptoms: Deny abdominal pain, chest pain or fever(s) Related Data Home Medications ?Medication ?Instructions ?Recorded ?Confirmed losartan 100 mg tablet 100 mg PO DAILY 03/28/22 10/06/24 sevelamer carbonate 800 mg tablet 1,600 mg PO TID 03/28/22 10/06/24 Previous Rx's ?Medication ?Instructions ?Recorded pantoprazole 40 mg tablet,delayed 40 mg PO BID #60 tabs 07/11/21 release (Protonix) amoxicillin 500 mg-potassium 1 tab PO QPM #5 tabs 10/04/24 clavulanate 125 mg tablet (Augmentin) carvedilol 6.25 mg tablet 6.25 mg PO BID #60 tabs 10/04/24 prednisone 20 mg tablet 40 mg (2 x 20 mg) PO DAILY #10 tabs 10/04/24 albuterol sulfate 90 mcg/actuation 2 inh inhalation Q8H PRN shortness 10/05/24 aerosol inhaler (Ventolin HFA) of breath or wheezing #6.7 grams budesonide-formoterol HFA 80 2 inh inhalation BID #10.2 grams 10/05/24 mcg-4.5 mcg/actuation aerosol inhaler (Symbicort) tiotropium bromide 1.25 2 inh inhalation DAILY #4 grams 10/05/24 mcg/actuation mist for inhalation (Spiriva Respimat) Allergies Allergy/AdvReac Type Severity Reaction Status Date / Time aspirin Allergy Severe ALGY-Hives Verified 03/28/22 15:35 Review of Systems Const: Denies: fever(s) or chills Card: Denies: chest pain Resp: Denies: dyspnea GI: Denies: abdominal pain : Denies: dysuria, urinary frequency or urinary urgency Musc: Denies: neck pain or back pain Skin/Breast: Denies: rash PFSH ED PFSH: Medical History Amphetamine abuse RSV bronchitis Hyponatremia Hypertensive urgency Congestive heart failure Shortness of breath ESRD (end stage renal disease) on dialysis Hyperkalemia Moderate aortic stenosis Uncontrolled hypertension End stage renal disease Hemodialysis initiated 06/15 MGUS (monoclonal gammopathy of unknown significance) Heart failure Diastolic grade 2, EF 50 to 55% Acute renal failure Surgical History No significant past surgical history Social History Smoking and tobacco/nicotine status: current every day tobacco/nicotine user smokeless tobacco Smokeless tobacco user: chewing tobacco Alcohol intake: never Substance/Drug Use: never Physical Exam Const: GENERAL APPEARANCE: cooperative ORIENTATION/CONSCIOUSNESS: Yes awake, Yes oriented to person, Yes oriented to place and Yes oriented to time HENMT: COMMON NORMALS: normocephalic, atraumatic and hearing grossly normal bilaterally HEAD & SCALP: normocephalic and atraumatic Resp: AUSCULTATION: rhonchi and wheezes Cardio: COMMON NORMALS: regular rate, regular rhythm and No murmurs present (Cardio) RATE: regular rate RHYTHM: regular rhythm GI: COMMON NORMALS: Soft to palpation and No hepatosplenomegaly present AUSCULTATION: Yes normoactive bowel sounds PALPATION: Yes Soft to palpation, No Tenderness to palpation present (GI), No Guarding due to palpation present (GI) and Yes No hepatosplenomegaly present Extremity: COMMON NORMALS: normal to inspection, capillary refill normal, no clubbing, cyanosis or edema, no calf tenderness and no pedal edema Neuro: SENSORIUM/ORIENTATION: Yes oriented to person, Yes oriented to place and Yes oriented to time Skin: COMMON NORMALS: no rashes or lesions noted GENERAL SKIN EXAM: no rashes or lesions noted Course Vital Signs: Vital signs: Vital Signs Temperature 97.6 F 12/25/24 16:05 Pulse Rate 76 12/25/24 19:38 Respiratory Rate 16 12/25/24 19:38 Blood Pressure 149/91 12/25/24 19:38 Pulse Oximetry 100 12/25/24 19:38 Oxygen Delivery Me thod Nasal Cannula 12/25/24 19:38 Oxygen Flow Rate 3 12/25/24 19:38 MDM - SOB/Dyspnea Medical Decision Making Patient initially was hypoxic chest x-ray shows persistent pneumonia will start on Vanco and Zosyn cultures done lactic normal white count elevated. Discussed with hospitalist will place on observation check C. difficile. Patient may need to complete his dialysis will need to be reassessed. Lab Data 12/25/24 16:45 12/25/24 16:45 Labs/Radiology: Radiology Impressions Chest X-Ray 12/25/24 16:41 IMPRESSION: 1. Probable small right pleural effusion. 2. Minimal right basilar atelectasis or scar. Chest CTA 12/25/24 18:59 IMPRESSION: 1. No large or central pulmonary emboli. Limited assessment of some of the peripheral branches. 2. Moderate diffuse bibasilar bronchial wall thickening and retained secretions in has increased. No focal consolidation. Previous ground-glass opacity in the right upper lobe has resolved. Otherwise no significant interval change from 10/02/2024 . 3. Mild cardiomegaly, mitral calcification, moderate coronary calcification, left ventricular hypertrophy and bilateral mildly complex pleural effusions with patchy pleural calcification again demonstrated. Laboratory Results WBC 12.59 10^3/uL (3.29-11.43) H 12/25/24 16:45 RBC 4.96 10^6/uL (3.85-5.65) 12/25/24 16:45 Hgb 14.80 g/dL (11.27-16.99) 12/25/24 16:45 Hct 47.3 % (37-53) 12/25/24 16:45 MCV 95.4 fl (82-101) 12/25/24 16:45 MCH 29.8 pg (27-33) 12/25/24 16:45 MCHC 31.3 g/dL (30-55) 12/25/24 16:45 RDW 13.6 % (12.1-15.1) 12/25/24 16:45 Plt Count 208 10^3/cmm (157-399) 12/25/24 16:45 MPV 8.9 fL (7.4-10.4) 12/25/24 16:45 Neut % (Auto) 73.8 % 12/25/24 16:45 Lymph % (Auto) 12.2 % 12/25/24 16:45 Edgar % (Auto) 10.6 % 12/25/24 16:45 Eos % (Auto) 2.1 % 12/25/24 16:45 Baso % (Auto) 0.4 % 12/25/24 16:45 Neut # (Auto) 9.30 10^3/uL (1.8-7.7) H 12/25/24 16:45 Lymph # (Auto) 1.5 10^3/uL (0.8-4.8) 12/25/24 16:45 Edgar # (Auto) 1.3 10^3/uL (0.2-0.9) H 12/25/24 16:45 Eos # (Auto) 0.3 10^3/uL (0.0-0.8) 12/25/24 16:45 Baso # (Auto) 0.1 10^3/uL (0.0-0.1) 12/25/24 16:45 Nucleated RBC % (auto) 0 % 12/25/24 16:45 Nucleated RBCs # 0.0 /100WBC 12/25/24 16:45 Specimen Type Arterial 12/25/24 16:22 Sample Site Radial, left 12/25/24 16:22 ABG pH 7.46 (7.35-7.45) H 12/25/24 16:22 ABG pCO2 42.7 mmHg (35-45) 12/25/24 16:22 ABG pO2 74.4 mmHg (80.0-100.0) L 12/25/24 16:22 ABG PO2/FiO2 Ratio 265 12/25/24 16:22 ABG HCO3 30.4 mmol/L (22-26) H 12/25/24 16:22 ABG O2 Saturation 96.4 12/25/24 16:22 ABG Base Excess 5.9 mmol/L (-2.0-2.0) H 12/25/24 16:22 Samuel Test Pos 12/25/24 16:22 A-a O2 Gradient 9.3 mmHg (5-10) 12/25/24 16:22 Hematocrit 46.5 % (42-52) 12/25/24 16:22 Hgb O2 Saturation 95.1 % (95-100) 12/25/24 16:22 Carboxyhemoglobin 1.3 %THgb (0.4-20.1) 12/25/24 16:22 Methemoglobin 0.1 % (0.4-1.5) L 12/25/24 16:22 Total Hemoglobin 15.2 g/dL (14-18) 12/25/24 16:22 Sodium 133.0 mmol/L (131-143) 12/25/24 16:22 Potassium 3.8 mmol/L (3.5-5.0) 12/25/24 16:22 Glucose 109.0 mg/dL (70-115) 12/25/24 16:22 Ionized Calcium 1.1 mmol/L (1.1-1.4) 12/25/24 16:22 O2 Delivery Device Nc 12/25/24 16:22 O2 Liters/Min 2.0 % 12/25/24 16:22 FiO2 28.0 % 12/25/24 16:22 Machine Paint Mixer ID glc 12/25/24 16:22 Sodium 136 mmol/L (136-145) 12/25/24 16:45 Potassium 4.2 mmol/L (3.5-5.1) 12/25/24 16:45 Chloride 93 mmol/L (98-107) L 12/25/24 16:45 Carbon Dioxide 28 mmol/L (22-29) 12/25/24 16:45 Anion Gap 19.2 (5-19) H 12/25/24 16:45 BUN 19 mg/dL (8-23) 12/25/24 16:45 Creatinine 4.3 mg/dL (0.7-1.2) H 12/25/24 16:45 GFR Calculation 13.9 mL/min (90-130) L 12/25/24 16:45 Glucose 101 mg/dL (65-115) 12/25/24 16:45 Calculated Osmolality 284 mOsm/kg (285-295) L 12/25/24 16:45 Lactic Acid 1.3 mmol/L (0.5-2.2) 12/25/24 18:53 Calcium 8.9 mg/dL (8.5-10.5) 12/25/24 16:45 Total Bilirubin 0.3 mg/dL (0.15-1.2) 12/25/24 16:45 AST 12 U/L (0-40) 12/25/24 16:45 ALT 10 U/L (0-41) 12/25/24 16:45 Alkaline Phosphatase 112 U/L (40-130) 12/25/24 16:45 Troponin T Baseline 163 ng/L (0-15) H* 12/25/24 16:45 Troponin T 120 Minute 154.7 ng/L (0-15) H 12/25/24 18:53 Delta Troponin T -8.3 ABS# (0-10) L 12/25/24 18:53 Total Protein 7.4 g/dL (6.6-8.7) 12/25/24 16:45 Albumin 3.9 g/dL (3.5-5.2) 12/25/24 16:45 Globulin 3.5 g/dL (1.3-4.6) 12/25/24 16:45 Influenza A (PCR) Negative (Negative) 12/25/24 16:56 Influenza Type B (PCR) Negative (Negative) 12/25/24 16:56 RSV (PCR) Negative (Negative) 12/25/24 16:56 SARS-CoV-2 (PCR) Negative (Negative) 12/25/24 16:56 All radiology interpretation(s) finalized by discharge Discharge Plan Discharge Admit Provider: Patrick Becerra Condition: Stable Coding Level of Care Code ED Mobile Manager for Jah Villalta
[2024-12-25 17:21] LABS: Alanine Aminotransferase 10 U/L (0-41); Albumin Level 3.9 g/dL (3.5-5.2); Alkaline Phosphatase 112 U/L (40-130); Anion Gap 19.2 (5-19); Aspartate Amino Transferase 12 U/L (0-40); Blood Urea Nitrogen 19 mg/dL (8-23); Calcium 8.9 mg/dL (8.5-10.5); Carbon Dioxide 28 mmol/L (22-29); Chloride 93 mmol/L (98-107); Creatinine Clr Calc Pharmacy 22.3002; Globulin 3.5 g/dL (1.3-4.6); Glomerular Filtration Rate 13.9 mL/min (90-130); Glucose 101 mg/dL (65-115); Osmolality Calculated 284 mOsm/kg (285-295); Potassium 4.2 mmol/L (3.5-5.1); Sodium 136 mmol/L (136-145); Total Bilirubin 0.3 mg/dL (0.15-1.2); Total Protein 7.4 g/dL (6.6-8.7)
[2024-12-25 17:22] LABS: Lactic Sepsis W/Reflex 1.6 mmol/L (0.5-2.2)
[2024-12-25 17:26] LABS: Troponin(5th) Baseline 163 ng/L (0-15)
[2024-12-25 17:42] LABS: Influenza A NEGATIVE (Negative); Influenza B NEGATIVE (Negative); Respiratory Syncytial Virus Ce NEGATIVE (Negative); SARS-CoV-2 PCR NEGATIVE (Negative)
--- NOTE | 2024-12-25 18:17 | ECG_ITS ---
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 Measurements Intervals [place] Rate: 83 P: 70 MD: 162 QRS: -20 QRSD: 107 T: 36 QT: 400 QTc: 471 Interpretive Statements SINUS RHYTHM Compared to ECG 12/25/2024 16:35:30 Sinus arrhythmia no longer present Electronically Signed On 12-28-2024 10:26:30 CDT by Jean Kohler M.D. [email or web address]
--- NOTE | 2024-12-25 18:22 | PC.NURSE ---
PATIENT HAS BEEN ASKED REPEATEDLY IF HE WOULD LIKE A NEW PAIR OF PANTS IT APPEARS PATIENT HAS SOILED HIS PANTS. PATIENT CONTINUES TO REFUSE STATING HE IS OK. NURSE GAVE PATIENT HIS CALL LIGHT AND TOLD TO PRESS IF NEEDED. PATIENT VERBALIZES UNDERSTANDING. PROVIDER NOTIFIED.
--- NOTE | 2024-12-25 18:59 | CTR_ITS ---
PROCEDURE INFORMATION: Exam: CTA Chest With Contrast Exam date and time: 12/25/2024 7:13 PM Age: 64 years old Clinical indication: Hyperventilation; Additional info: Hypoxia TECHNIQUE: Imaging protocol: Computed tomographic angiography of the chest with contrast. Exam focused on the arteries. 3D rendering (Not supervised by radiologist): MIP and/or 3D reconstructed images were created by the technologist. Radiation optimization: All CT scans at this facility use at least one of these dose optimization techniques: automated exposure control; mA and/or kV adjustment per patient size (includes targeted exams where dose is matched to clinical indication); or iterative reconstruction. Contrast material: OMNIPAQUEE 350; Contrast volume: 75 ml; Contrast route: INTRAVENOUS (IV); COMPARISON: CT angio chest PE protcl [id number] 10/02/2024 3:51 PM RADIATION DOSE METRICS: Total DLP (mGy-cm): 506 FINDINGS: Pulmonary arteries: No large or central pulmonary emboli. Limited assessment of some subsegmental and segmental branches. Aorta: Moderate aortic atherosclerotic calcification. Mild aortic valvular calcification. Stable borderline dilated ascending thoracic aorta up to 4 cm. Lungs: Moderate diffuse bronchial wall thickening and retained secretions especially in the right and left lower lobes. Mild bibasilar atelectasis most pronounced in the posterior left costophrenic sulcus. Previous ground-glass opacity in the medial right upper lobe has resolved since 10/02/2024. No consolidation. Mild nonspecific biapical pleural-parenchymal strand-like scarring. Pleural spaces: [id number] right and small left pleural effusions with patchy moderate pleural calcification, unchanged from 10/02/2024. Heart: Moderate left ventricular myocardial hypertrophy. Extensive mitral annular calcification. Borderline cardiomegaly. Coronary arteries: Moderate coronary calcification. Lymph nodes: A few bilateral calcified and noncalcified borderline enlarged paratracheal lymph nodes are again noted. Adrenal glands: Coarse calcified granuloma in the medial right apex 1.7 cm right adrenal nodule is unchanged, not further characterized but likely due to an adenoma. Bones/joints: Moderate multilevel degenerative thoracic endplate osteophytosis. Moderately advanced bilateral glenohumeral arthrosis. Soft tissues: Unremarkable. CT/CT angio chest PE protcl [id number] IMPRESSION: 1. No large or central pulmonary emboli. Limited assessment of some of the peripheral branches. 2. Moderate diffuse bibasilar bronchial wall thickening and retained secretions in has increased. No focal consolidation. Previous ground-glass opacity in the right upper lobe has resolved. Otherwise no significant interval change from 10/02/2024 . 3. Mild cardiomegaly, mitral calcification, moderate coronary calcification, left ventricular hypertrophy and bilateral mildly complex pleural effusions with patchy pleural calcification again demonstrated.
[2024-12-25 19:16] LABS: Troponin 5 2HR Delta -8.3 ABS# (0-10)
[2024-12-25 19:17] LABS: Troponin 5 2HR 154.7 ng/L (0-15)
[2024-12-25] MEDS: iohexol 350 mg/mL 500 mL Btl (per mL) IV (19:22)
[2024-12-25 19:25] LABS: Lactic Sepsis W/Reflex 1.3 mmol/L (0.5-2.2)
--- NOTE | 2024-12-25 19:37 | PC.NURSE ---
pt refused to change into gown, preferred to keep shirt and wear paper scrub pants instead. not enough stool present for stool sample upon bed change. pt sitting in bed at this time with no further requests.
--- NOTE | 2024-12-25 19:40 | PC.NURSE ---
pt states he is on 3L NC at baseline.
[2024-12-25] MEDS: piperacillin-tazobactam 3.375 GM in sodium chloride 0.9% (plus) 50 ML IV (20:14)
[2024-12-25] MEDS: VANCOMYCIN ADD-Vantage 1,000 MG in 0.9% NaCl ADD-Vantage 250 ML 250 MG IV (20:14)
--- NOTE | 2024-12-25 21:25 | PM.HP ---
Providers/Chief Complaint Admitting Physician: Patrick Becerra MD Primary Care Provider: Ziyad Negrete DO Chief Complaint: sob History of Present Illness Alvarado Park is a 64 year old male with end-stage renal disease from hypertension states he has been on dialysis for 3 years. He received 3 hours out of 4 today and was sent in because he states he was not breathing well. Patient is a poor historian and initially he was also an evasive historian but after directed on this he seems to be more forthright. Patient states he was given antibiotics for pneumonia here and looks like he was on Augmentin following admission here in September 2024 viral panel was negative. Patient states he took the antibiotic until he felt well and stopped. He had more cough developed in the last couple days. Dr. Perea gave him Zosyn and vancomycin for possible resistant pneumonia. I reviewed the patient's x-rays which show patchy right sided infiltrate on CT scan Patient reports that he has been having diarrhea green-colored 3-4 times a day for about a month. He has also had nausea and today vomited brown coffee like emesis. He denies bad odor to his vomit or his stool. He denies abdominal pain. He states the stool does have some mucus but no blood. Patient reports drinking 2 cups of coffee daily and no water as part of his fluid restriction Review of Systems Narrative: General no fevers chills weight gain Cardiovascular no chest pain palpitations or edema he has had edema in past Respiratory he has had dry cough and some shortness of breath GI positive for nausea vomiting today he has had green diarrhea with mucus but no blood he has not had abdominal pain no dysuria hematuria urine output is scant Neuro no history of seizures or strokes Malignancy no history of cancer Psych he reports mild depression but denies suicidal ideation Medications/Allergies Home Medications ?Medication ?Instructions ?Recorded ?Confirmed ?Last Taken ?Type pantoprazole 40 mg tablet,delayed 40 mg PO BID #60 tabs 07/11/21 10/06/24 01/13/23 Rx release (Protonix) losartan 100 mg tablet 100 mg PO DAILY 03/28/22 10/06/24 01/13/23 History sevelamer carbonate 800 mg tablet 1,600 mg PO TID 03/28/22 10/06/24 10/01/24 History amoxicillin 500 mg-potassium 1 tab PO QPM #5 tabs 10/04/24 10/06/24 Unknown Rx clavulanate 125 mg tablet (Augmentin) carvedilol 6.25 mg tablet 6.25 mg PO BID #60 tabs 10/04/24 10/06/24 Unknown Rx prednisone 20 mg tablet 40 mg (2 x 20 mg) PO DAILY #10 tabs 10/04/24 10/06/24 Unknown Rx albuterol sulfate 90 mcg/actuation 2 inh inhalation Q8H PRN shortness 10/05/24 10/06/24 Unknown Rx aerosol inhaler (Ventolin HFA) of breath or wheezing #6.7 grams budesonide-formoterol HFA 80 2 inh inhalation BID #10.2 grams 10/05/24 10/06/24 Unknown Rx mcg-4.5 mcg/actuation aerosol inhaler (Symbicort) tiotropium bromide 1.25 2 inh inhalation DAILY #4 grams 10/05/24 10/06/24 Unknown Rx mcg/actuation mist for inhalation (Spiriva Respimat) Allergies Allergy/AdvReac Type Severity Reaction Status Date / Time aspirin Allergy Severe ALGY-Hives Verified 03/28/22 15:35 PFSH Acute PFSH: Medical History Amphetamine abuse RSV bronchitis Hyponatremia Hypertensive urgency Congestive heart failure Shortness of breath ESRD (end stage renal disease) on dialysis Hyperkalemia Moderate aortic stenosis Uncontrolled hypertension End stage renal disease Hemodialysis initiated 06/15 MGUS (monoclonal gammopathy of unknown significance) Heart failure Diastolic grade 2, EF 50 to 55% Acute renal failure Surgical History No significant past surgical history Social History (Updated 12/25/24 @ 21:32 by Patrick Becerra MD) Smoking and tobacco/nicotine status: former use of tobacco/nicotine Quit status (tobacco/nicotine): has quit using Alcohol intake: never Substance/Drug Use: current Substance/Drug use type: Marijuana Other substance/drug use details: Couple times a week Additional social history: 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 CV regular rate and rhythm Lungs clear to auscultation bilaterally Abdomen abdomen positive bowel sounds soft there is a ventral hernia nontender no rebound tenderness Calves he has 1+2 pretibial edema and there is pruning of the skin and evidence of chronic venous stasis hygiene is poor and there looks to be stool on his leg Skin warm and dry Mentation he is alert and oriented x 3 not very talkative Vasculature left arm with a bruit and thrill in his graft Data 12/25/24 16:45 12/25/24 16:45 Micro: Microbiology 12/25/24 16:35 Blood Culture - Preliminary Blood SPECIMEN COLLECTED 12/25/24 16:45 Blood Culture - Preliminary Blood SPECIMEN COLLECTED A&P Assessment and plan (1) Atypical pneumonia: I do not think the patient has a resistant pneumonia he stopped his antibiotics possibly early but by CT scan that looks to be atypical. Will treat with doxycycline 100 mg twice a day which does not need to be renally adjusted for dialysis. Blood cultures were ordered in the ER (2) Diarrhea: C. difficile toxin. Monitor for diarrhea here (3) End stage renal disease on dialysis: Patient's sodium 136 potassium 4.2 BUN 19 and creatinine 4.3. He had only 3 hours of the dialysis. I do not think he needs to have more dialysis before Saturday unless things change. Troponin elevated at 163 dropped to 154 patient does not have chest pain and I think troponin elevation is due to end-stage renal disease PDMP PDMP Reviewed: Not Reviewed Attestations Medical Necessity Statement*: Patient will be observed in the hospital for further diarrhea and testing for C. difficile. He had hypoxemia that was transient and now is on room air if stable anticipate discharge tomorrow Coding Level of Care Code 08265 Diagnoses Atypical pneumonia J18.9 Diarrhea R19.7 End stage renal disease on dialysis N18.6; Z99.2 Time Spent (min) 55
[2024-12-25] MEDS: doxycycline 100 mg Tablet PO (21:57)
[2024-12-25] MEDS: heparin 5,000 unit/mL INJ 1 mL 5000 UNIT SUBCUT (21:57)
--- NOTE | 2024-12-25 22:04 | PC.NURSE ---
Addendum entered by Nichelle Denise RN 12/26/24 00:50: Skin assessment done @0045, severe maceration to sacrum, barrier cream applied. Original Note: Arrival to [facility] 269: Pt is refusing skin assessment at this time.
--- NOTE | 2024-12-25 22:17 | ECG_ITS ---
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 Measurements Intervals [place] Rate: 69 P: 53 [place]: 186 QRS: -15 QRSD: 109 T: 37 QT: 437 QTc: 469 Interpretive Statements SINUS RHYTHM Compared to ECG 12/25/2024 18:16:25 No significant changes Electronically Signed On 12-28-2024 10:25:08 CDT by Jean Kohler M.D. [email or web address]
[2024-12-25 23:17] LABS: Troponin 5 6HR Delta -8.3 ng/L (0-12)
[2024-12-25 23:18] LABS: Troponin 5 6HR 154.7 ng/L (0-15)
[2024-12-26] VITALS (7 sets, daily range): BP systolic 160–167; BP diastolic 75–91; PULSE 57–70; RESP 15–20; TEMP 36.5–36.6; O2SAT 93–96
--- NOTE | 2024-12-26 09:44 | PHA.VACGOAL ---
Vancomycin Goal - Goal Vancomycin Goal:: 15-20 mg/L Vancomycin Indication:: Pneumonia - Therapy Current therapy:: Pip/Tazo Day of therpy:: Day [1]of [] . Actual body weight (kg): 127.596 kg - Data Labs: WBC 12.59 10^3/uL (3.29-11.43) H 12/25/24 16:45 RBC 4.96 10^6/uL (3.85-5.65) 12/25/24 16:45 Hgb 14.80 g/dL (11.27-16.99) 12/25/24 16:45 Hct 47.3 % (37-53) 12/25/24 16:45 MCV 95.4 fl (82-101) 12/25/24 16:45 MCH 29.8 pg (27-33) 12/25/24 16:45 MCHC 31.3 g/dL (30-55) 12/25/24 16:45 RDW 13.6 % (12.1-15.1) 12/25/24 16:45 Sodium 136 mmol/L (136-145) 12/25/24 16:45 Potassium 4.2 mmol/L (3.5-5.1) 12/25/24 16:45 Chloride 93 mmol/L (98-107) L 12/25/24 16:45 Carbon Dioxide 28 mmol/L (22-29) 12/25/24 16:45 Anion Gap 19.2 (5-19) H 12/25/24 16:45 BUN 19 mg/dL (8-23) 12/25/24 16:45 Creatinine 4.3 mg/dL (0.7-1.2) H 12/25/24 16:45 GFR Calculation 13.9 mL/min (90-130) L 12/25/24 16:45 Treatment plan:: new consult Regimen:: New start vancomycin for Pneumonia. Received load dose of 1000 mg yesterday 12/25/24 @1999 in the ER. An additional 1500 mg ordered for today 12/26. Comorbid conditions: end stage renal disease on dialysis. Will start on Intermittent Dosing Post Load.
--- NOTE | 2024-12-26 10:14 | USCV_ITS ---
Alvarado Park Age: 64 Gender: M : 1960 Exam Date: 12/26/2024 17:07 Ordering Phys: Juan Antonio Calvo MD Technologist: Rodriguez Anne Exam Location: [facility] Indication: ef BP: 167 / 83 HR: Rhythm: Sinus Technical Quality: Adequate MEASUREMENTS (Male / Female) Normal Values 2D ECHO LV Diastolic Diameter PLAX 2.8 cm 4.2 - 5.9 / 3.9 - 5.3 cm IVS Diastolic Thickness 2.0 cm 0.6 - 1.0 / 0.6 - 0.9 cm IVS Systolic Thickness 1.8 cm LVPW Diastolic Thickness 2.9 cm 0.6 - 1.0 / 0.6 - 0.9 cm LVPW Systolic Thickness 3.8 cm LVOT Diameter 2.1 cm LV Ejection Fraction 2D Teich 65.9 % LV Ejection Fraction MOD 4C 60.9 % LV Ejection Fraction MOD 2C 65.8 % LV Ejection Fraction 2C AL 68.2 % LA Diameter 4.4 cm RA Systolic Volume 4C AL 56.6 ml RA Systolic Volume 4C MOD 55.4 ml LA Sys Volume AL 69.8 cm cubed LA Sys Volume Index AL 26.8 cm cubed/m squared Aorta at Sinotubular Diameter 2.0 cm IVC Diameter 1.9 cm M-MODE LA Ao Ratio MM 1.3 AV Cusp Separation MM 1.5 cm FINDINGS Left Ventricle Right Ventricle Right Atrium Left Atrium Mitral Valve Aortic Valve Tricuspid Valve Pulmonic Valve Pericardium Aorta IVC CONCLUSIONS Limited echocardiogram performed to assess LV systolic function LV systolic function with EF of 60-65%. No regional wall motion abnormalities. Jean Kohler MD (Electronically Signed) Final Date: 26 Dec 2024 22:32 S
[2024-12-26] MEDS: carvedilol 6.25 mg Tablet PO ×2 (11:08→18:04)
[2024-12-26] MEDS: vancomycin 1,500 MG/300 ML PIGGYBACK 200 MG IV (11:08)
[2024-12-26] MEDS: losartan 50 mg Tablet 100 MG PO (11:08)
[2024-12-26] MEDS: hyDRALAzine 50 mg Tablet 25 MG PO ×3 (11:08→21:06)
[2024-12-26] MEDS: sevelamer 800 mg Tablet 1600 MG PO ×3 (11:08→18:04)
[2024-12-26] MEDS: doxycycline 100 mg Tablet PO (11:08)
[2024-12-26 11:47] LABS: Platelet Count 195 10^3/cmm (157-399)
[2024-12-26 12:18] LABS: NT Pro B Type Natriuretic Pept 26689 pg/mL (0-125)
[2024-12-26 12:29] LABS: C Reactive Protein 97.3 mg/L (0.0-4.9)
[2024-12-26] MEDS: heparin 5,000 unit/mL INJ 1 mL IVP (12:46)
[2024-12-26] MEDS: heparin drip 25,000 UNIT/500 ML PREMIX 36 UNIT IV (12:46)
[2024-12-26] MEDS: piperacillin-tazobactam 3.375 GM in sodium chloride 0.9% (plus) 50 ML IV ×2 (12:47→22:46)
[2024-12-26] MEDS: ipratropium-albuterol 3 mL Neb INHALATION (13:26)
--- NOTE | 2024-12-26 13:56 | P.PN_ITS ---
Subjective 2 Subjective: Patient was seen this morning, he is alert to person, to place, not to time, he follows commands he answers most questions, but does have poor eye contact, does not elaborate a lot on his answers, does report lower extremity edema, does report shortness of breath, tells me he does not urinate much, reports a cough, no chest pain Vitals/I&O/Wt Last Vital Signs Temp 97.8 F 12/26/24 12:00 Pulse 70 12/26/24 13:31 Resp 20 H 12/26/24 13:31 BP 167/83 12/26/24 12:00 Pulse Ox 96 12/26/24 13:31 O2 Del Method Room Air 12/26/24 13:31 O2 Flow Rate 3 12/25/24 19:38 12/25/24 12/26/24 12/26/24 22:59 06:59 14:59 Intake Total 300 / 300 120 / 420 540 / 540 Balance 300 / 300 120 / 420 540 / 540 Weight last 48 hrs Weight 127.596 kg Weight 113.398 kg Physical Exam 2 Const: COMMON NORMALS: no acute distress ORIENTATION/CONSCIOUSNESS: Yes awake, Yes oriented to person and Yes oriented to place; not oriented to time Resp: COMMON NORMALS: normal respiratory effort, No retractions, No use of accessory muscles and clear to auscultation bilaterally AUSCULTATION: clear to auscultation bilaterally Cardio: COMMON NORMALS: regular rate, regular rhythm, S1 normal heart sound present and S2 normal heart sound present RATE: regular rate RHYTHM: r egular rhythm HEART SOUNDS: S1 normal heart sound present and S2 normal heart sound present GI: COMMON NORMALS: Normal to inspection, nondistended, normoactive bowel sounds present and non-tender Extremity: NARRATIVE EXTREMITY EXAM: 2+ pitting edema Neuro: SENSORIUM/ORIENTATION: Yes oriented to person, Yes oriented to place and No oriented to time Data 12/26/24 11:25 12/25/24 16:45 Micro: Microbiology 12/25/24 16:35 Blood Culture - Preliminary Blood SPECIMEN COLLECTED 12/25/24 16:45 Blood Culture - Preliminary Blood SPECIMEN COLLECTED A&P Assessment and plan (1) Atypical pneumonia: (2) Diarrhea: (3) End stage renal disease on dialysis: (4) NSTEMI (non-ST elevated myocardial infarction): (5) Fluid overload: Plan Pneumonia CT angiogram CT/CT angio chest PE protcl [id number] IMPRESSION: 1. No large or central pulmonary emboli. Limited assessment of some of the peripheral branches. 2. Moderate diffuse bibasilar bronchial wall thickening and retained secretions in has increased. No focal consolidation. Previous ground-glass opacity in the right upper lobe has resolved. Otherwise no significant interval change from 10/02/2024 . 3. Mild cardiomegaly, mitral calcification, moderate coronary calcification, left ventricular hypertrophy and bilateral mildly complex pleural effusions with patchy pleural calcification again demonstrated. - Elevated CRP 97.3, Pro-Eloy 0.8, leukocytosis - Plan - Continue vancomycin - Continue Zosyn - Monitor respiratory status closely Fluid overload, lower extremity edema, diastolic CHF -CT as above Plan - Nephrology consulted for dialysis NSTEMI - No chest pain complaints - Serial EKGs, short troponins, telemetry monitoring - Cardiac echo - Aspirin allergy - Start heparin drip End-stage renal disease on dialysis PDMP PDMP Reviewed: Not Reviewed Attestations 2 Medical Necessity Statement*: Patient requires hospitalization for pneumonia, fluid overload, NSTEMI, CHF Diagnoses Atypical pneumonia J18.9 Diarrhea R19.7 End stage renal disease on dialysis N18.6; Z99.2 NSTEMI (non-ST elevated myocardial infarction) I21.4 Fluid overload E87.70
[2024-12-26 19:06] LABS: Partial Thromboplastin Time 103.8 SECONDS (23.9-36.7)
[2024-12-27] VITALS (15 sets, daily range): BP systolic 151–198; BP diastolic 64–108; PULSE 63–84; RESP 17–22; TEMP 36.6–37.1; O2SAT 89–98
[2024-12-27 01:05] LABS: Basophils # 0.1 10^3/uL (0.0-0.1); Basophils % 1.1 %; Eosinophils # 0.8 10^3/uL (0.0-0.8); Eosinophils % 8.9 %; Hematocrit 41.2 % (37-53); Lymphocytes # 2.2 10^3/uL (0.8-4.8); Lymphocytes % 23.6 %; Mean Corpuscular HGB Conc 30.6 g/dL (30-55); Mean Corpuscular Hemoglobin 30.4 pg (27-33); Mean Corpuscular Volume 99.3 fl (82-101); Monocytes # 1.1 10^3/uL (0.2-0.9); Monocytes % 11.7 %; Neutrophils % 53.9 %; Nucleated Red Blood Cells % 0 %; Platelet Count 218 10^3/cmm (157-399); Red Blood Count 4.15 10^6/uL (3.85-5.65); White Blood Count 9.46 10^3/uL (3.29-11.43)
[2024-12-27 01:17] LABS: Partial Thromboplastin Time 56.3 SECONDS (23.9-36.7)
[2024-12-27 01:21] LABS: Alanine Aminotransferase 6 U/L (0-41); Albumin Level 3.1 g/dL (3.5-5.2); Alkaline Phosphatase 80 U/L (40-130); Aspartate Amino Transferase 7 U/L (0-40); Blood Urea Nitrogen 36 mg/dL (8-23); Calcium 8.9 mg/dL (8.5-10.5); Carbon Dioxide 24 mmol/L (22-29); Chloride 96 mmol/L (98-107); Creatinine Clr Calc Pharmacy 14.5325; Globulin 3.6 g/dL (1.3-4.6); Glomerular Filtration Rate 7.9 mL/min (90-130); Glucose 94 mg/dL (65-115); Magnesium 2.3 mg/dL (1.7-2.3); Osmolality Calculated 288 mOsm/kg (285-295); Phosphorus 6.8 mg/dL (2.5-4.5); Sodium 135 mmol/L (136-145); Total Bilirubin 0.2 mg/dL (0.15-1.2); Total Protein 6.7 g/dL (6.6-8.7)
[2024-12-27] MEDS: heparin drip 25,000 UNIT/500 ML PREMIX 28 UNIT IV (04:51)
[2024-12-27 08:17] LABS: Partial Thromboplastin Time 46.7 SECONDS (23.9-36.7)
[2024-12-27] MEDS: hyDRALAzine 50 mg Tablet 25 MG PO ×3 (08:21→20:47)
[2024-12-27] MEDS: sevelamer 800 mg Tablet 1600 MG PO ×3 (08:21→17:20)
[2024-12-27] MEDS: losartan 50 mg Tablet 100 MG PO (08:22)
[2024-12-27] MEDS: carvedilol 6.25 mg Tablet PO ×2 (08:23→20:40)
[2024-12-27] MEDS: heparin 5,000 unit/mL INJ 1 mL IVP ×3 (09:39→23:08)
[2024-12-27 10:06] LABS: Amphetamines Screen Urine Negative (Negative); Barbiturates Screen Urine Negative (Negative); Benzodiazepines Screen Urine Negative (Negative); Cocaine Screen Urine Negative (Negative); Opiate Screen Urine Negative (Negative); PCP Screen Urine Negative (Negative); THC Screen Urine Negative (Negative)
[2024-12-27 10:23] LABS: Protein Urine 3+ (Negative); Specific Gravity, Urine 1.017 (1.005-1.030); Urine Appearance Cloudy (CLEAR); Urine Color Yellow (Yellow); pH Urine >=9.0 (5-7)
[2024-12-27 10:24] LABS: Add Urine Culture? No; Add Urine Microscopic? YES; Bilirubin Urine Neg (Negative); Blood Urine Neg (Negative); Glucose Urine UA Trace (Normal); Ketones Urine Negative (Negative); Leukocyte Esterase Urine Negative (Negative); Nitrate Urine Negative (Negative); RBC Urine 0-2 /hpf (0-2); Squamous Epithelial Cell Urine 0-4 /hpf (0-5); Urobilinogen Urine 0.2 mg/dL (Negative); WBC Urine 0-5 /hpf (0-5)
[2024-12-27] MEDS: piperacillin-tazobactam 3.375 GM in sodium chloride 0.9% (plus) 50 ML IV ×2 (10:59→23:09)
[2024-12-27] MEDS: ipratropium-albuterol 3 mL Neb INHALATION ×2 (11:01→16:45)
--- NOTE | 2024-12-27 14:19 | P.PN_ITS ---
Subjective 2 Subjective: Patient was seen this morning, he sitting up in a chair, does report a cough, shortness of breath, denies any fevers, no chills, he gets upset with me when I turn off the TV, to speak with him, does have poor eye contact, tells me that he lives at home with his girlfriend, who helps take care of him, he walks with a walker at home, discussed ambulation, possible dialysis today to help with fluid overload continue antibiotics, Vitals/I&O/Wt Last Vital Signs Temp 98.3 F 12/27/24 11:02 Pulse 67 12/27/24 11:05 Resp 20 H 12/27/24 11:05 BP 162/64 12/27/24 11:02 Pulse Ox 90 12/27/24 11:05 O2 Del Method Room Air 12/27/24 11:05 O2 Flow Rate 3 12/25/24 19:38 12/26/24 12/27/24 12/27/24 22:59 06:59 14:59 Intake Total 527 / 1547 553.000 / 2100.000 974.4 / 974.4 Balance 527 / 1547 553.000 / 2100.000 974.4 / 974.4 Weight last 48 hrs Weight 127.459 kg Weight 127.596 kg Weight 113.398 kg Physical Exam 2 Const: COMMON NORMALS: no acute distress and patient oriented x3 Resp: COMMON NORMALS: normal respiratory effort, No retractions and No use of accessory muscles OTHER: Crackles and wheezing in all lung coles Cardio: COMMON NORMALS: regular rate, regular rhythm, S1 normal heart sound present and S2 normal heart sound present RATE: regular rate RHYTHM: r egular rhythm HEART SOUNDS: S1 normal heart sound present and S2 normal heart sound present GI: COMMON NORMALS: Normal to inspection, nondistended, normoactive bowel sounds present and non-tender Extremity: NARRATIVE EXTREMITY EXAM: 2+ pitting edema Neuro: COMMON NORMALS: patient oriented x3 Psych: COMMON NORMALS: mental status grossly normal Data 12/27/24 00:57 12/27/24 00:57 Micro: Microbiology 12/25/24 16:35 Blood Culture - Preliminary Blood NEGATIVE TO DATE 12/25/24 16:45 Blood Culture - Preliminary Blood NEGATIVE TO DATE A&P Assessment and plan (1) Atypical pneumonia: (2) Diarrhea: (3) End stage renal disease on dialysis: (4) NSTEMI (non-ST elevated myocardial infarction): (5) Fluid overload: Plan Pneumonia CT angiogram CT/CT angio chest PE protcl [id number] IMPRESSION: 1. No large or central pulmonary emboli. Limited assessment of some of the peripheral branches. 2. Moderate diffuse bibasilar bronchial wall thickening and retained secretions in has increased. No focal consolidation. Previous ground-glass opacity in the right upper lobe has resolved. Otherwise no significant interval change from 10/02/2024 . 3. Mild cardiomegaly, mitral calcification, moderate coronary calcification, left ventricular hypertrophy and bilateral mildly complex pleural effusions with patchy pleural calcification again demonstrated. - Elevated CRP 97.3, Pro-Eloy 0.8, leukocytosis - Plan - Continue vancomycin - Continue Zosyn - Monitor respiratory status closely Fluid overload, lower extremity edema, diastolic CHF -CT as above Plan - Nephrology consulted for dialysis, plans of possible dialysis today NSTEMI - No chest pain complaints - Serial EKGs, short troponins, telemetry monitoring - Cardiac echo CONCLUSIONS Limited echocardiogram performed to assess LV systolic function LV systolic function with EF of 60-65%. No regional wall motion abnormalities. - Aspirin allergy - Start heparin drip End-stage renal disease on dialysis PDMP PDMP Reviewed: Not Reviewed Attestations 2 Medical Necessity Statement*: Patient requires hospitalization for pneumonia, NSTEMI, fluid overload Diagnoses Atypical pneumonia J18.9 Diarrhea R19.7 End stage renal disease on dialysis N18.6; Z99.2 NSTEMI (non-ST elevated myocardial infarction) I21.4 Fluid overload E87.70
--- NOTE | 2024-12-27 15:36 | PM.CONSULT ---
Providers/Reason For Consult Consulting Physician/Specialty*: kom[facility]a/Nephrology Reason for Consult*: ESRD Attending Physician: Juan Antonio Calvo MD Primary Care Provider: Ziyad Negrete DO History of Present Illness History of Present Illness Alvarado Park is a 64 year old male Patient is a 64-year-old male with end-stage renal disease on dialysis per Saturday schedule, hypertension he was admitted to the hospital on 12/25/2024 due to shortness of breath. Patient also complained of having diarrhea at home. Labs reviewed. Patient was admitted for possible atypical pneumonia and is receiving antibiotics. Since hospitalization patient continued to complain of shortness of breath, last dialysis was on Saturday. His troponins came back elevated and was thought to have NSTEMI as well. He received CT chest with IV contrast. Review of Systems Narrative: negative Medications/Allergies Home Medications ?Medication ?Instructions ?Recorded ?Confirmed ?Last Taken ?Type losartan 100 mg tablet 100 mg PO DAILY 03/28/22 12/26/24 01/13/23 History sevelamer carbonate 800 mg tablet 1,600 mg PO TID 03/28/22 12/26/24 10/01/24 History carvedilol 6.25 mg tablet 6.25 mg PO BID #60 tabs 10/04/24 12/26/24 Unknown Rx albuterol sulfate 90 mcg/actuation 2 inh inhalation Q8H PRN shortness 10/05/24 12/26/24 Unknown Rx aerosol inhaler (Ventolin HFA) of breath or wheezing #6.7 grams budesonide-formoterol HFA 80 2 inh inhalation BID #10.2 grams 10/05/24 12/26/24 Unknown Rx mcg-4.5 mcg/actuation aerosol inhaler (Symbicort) tiotropium bromide 1.25 2 inh inhalation DAILY #4 grams 10/05/24 12/26/24 Unknown Rx mcg/actuation mist for inhalation (Spiriva Respimat) hydralazine 50 mg tablet 25 mg PO TID 12/26/24 12/26/24 Unknown History Allergies Allergy/AdvReac Type Severity Reaction Status Date / Time aspirin Allergy Severe ALGY-Hives Verified 03/28/22 15:35 Current Medications Generic Name Dose Route Start Last Admin Trade Name Freq PRN Reason Stop Dose Admin Albuterol/Ipratropium 3 ml 12/26/24 08:51 12/27/24 11:01 Ipratropium-Albuterol 3 Ml Neb INHALATION 3 ml Q4H PRN Administration SHORTNESS OF BREATH Carvedilol 6.25 mg 12/26/24 09:00 12/27/24 08:23 Carvedilol 6.25 Mg Tablet PO 6.25 mg BID GONZALO Administration Heparin Sodium (Porcine) 0 unit 12/26/24 10:14 12/27/24 09:39 Heparin 5,000 Unit/Ml Inj 1 Ml IVP 2,600 unit PRN PRN Administration Heparin Weight Based Protocol -Subsequent Bolus Protocol Hydralazine HCl 25 mg 12/26/24 09:00 12/27/24 14:58 Hydralazine 50 Mg Tablet PO 25 mg TID GONZALO Administration Piperacillin Sod/Tazobactam 50 mls @ 12.5 mls/hr 12/26/24 10:30 12/27/24 14:57 Sod 3.375 gm/ Sodium Chloride IV Infused Q12H GONZALO Infusion Heparin Sodium/Sodium Chloride 25,000 unit in 500 mls @ 0 mls/hr 12/26/24 10:15 12/27/24 09:39 Heparin Drip IV 12.15 unit/kg/hr CONT GONZALO 31 mls/hr Protocol Titration Per Protocol Losartan Potassium 100 mg 12/26/24 09:00 12/27/24 08:22 Losartan 50 Mg Tablet PO 100 mg DAILY GONZALO Administration Sevelamer Carbonate 1,600 mg 12/26/24 09:00 12/27/24 11:00 Sevelamer 800 Mg Tablet PO 1,600 mg TIDWM GONZALO Administration PFSH Acute PFSH: Medical History Amphetamine abuse RSV bronchitis Hyponatremia Hypertensive urgency Congestive heart failure Shortness of breath ESRD (end stage renal disease) on dialysis Hyperkalemia Moderate aortic stenosis Uncontrolled hypertension End stage renal disease Hemodialysis initiated 06/15 MGUS (monoclonal gammopathy of unknown significance) Heart failure Diastolic grade 2, EF 50 to 55% Acute renal failure Surgical History No significant past surgical history Social History (Updated 12/25/24 @ 21:32 by Patrick Becerra MD) Smoking and tobacco/nicotine status: former use of tobacco/nicotine Quit status (tobacco/nicotine): has quit using Alcohol intake: never Substance/Drug Use: current Substance/Drug use type: Marijuana Other substance/drug use details: Couple times a week Additional social history: Lives 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 Vitals/I&O/Wt Last Vital Signs Temp 98.3 F 12/27/24 11:02 Pulse 65 12/27/24 14:00 Resp 20 H 12/27/24 11:05 BP 162/64 12/27/24 11:02 Pulse Ox 90 12/27/24 11:05 O2 Del Method Room Air 12/27/24 11:05 O2 Flow Rate 3 12/25/24 19:38 12/27/24 12/27/24 12/27/24 06:59 14:59 22:59 Intake Total 553.000 / 2100.000 1024.4 / 1024.4 Balance 553.000 / 2100.000 1024.4 / 1024.4 Weight last 48 hrs Weight 127.459 kg Weight 127.596 kg Weight 113.398 kg Physical Exam Narrative: awake , alert , PEERLA No JVD S1S2 RRR per report Lungs with mgiuelito crackles Abd - soft , non tender No edema Data 12/28/24 04:21 12/28/24 04:21 Micro: Microbiology 12/25/24 16:35 Blood Culture - Preliminary Blood NEGATIVE TO DATE 12/25/24 16:45 Blood Culture - Preliminary Blood NEGATIVE TO DATE A&P Assessment and plan (1) End stage renal disease on dialysis: Plan 1. End-stage renal disease: On MWF schedule, last dialysis on Saturday, plan for HD again today due to volume overloaded ultrafiltration as tolerated 2. Acute on chronic respiratory failure, multifactorial with volume overload, atypical pneumonia 3. Monitor hemoglobin 4. History of hypertension, resume home meds 5 NSTEMI, management per primary team Patient evaluated using audiovisual cart. Time spent 40 min PDMP PDMP Reviewed: Not Reviewed Consult Attestations Medical Necessity Statement: per cecilia Coding Level of Care Code Acute Code for Chg Fwd Diagnoses End stage renal disease on dialysis N18.6; Z99.2
[2024-12-27] MEDS: heparin, porcine 1,000 unit/mL INJ 10 mL 1000 UNIT IV (17:15)
[2024-12-27 17:20] LABS: Hepatitis B Surface AB 11.2 (11.5-1000); Hepatitis B Surface Antigen Non-Reactive (Nonreactive)
[2024-12-27] MEDS: heparin drip 25,000 UNIT/500 ML PREMIX 39 UNIT IV (20:37)
--- NOTE | 2024-12-27 20:42 | PC.HD ---
Patient requested this RN terminate treatment with 3 minutes remaining due to patient needing to urinate. UF goal was 3000; 2937 removed.
[2024-12-27 22:34] LABS: Partial Thromboplastin Time 32.5 SECONDS (23.9-36.7)
[2024-12-28] VITALS (8 sets, daily range): BP systolic 125–174; BP diastolic 67–89; PULSE 61–69; RESP 16–19; TEMP 36.6–36.9; O2SAT 98–99
[2024-12-28 04:30] LABS: Basophils # 0.1 10^3/uL (0.0-0.1); Basophils % 0.9 %; Eosinophils # 0.8 10^3/uL (0.0-0.8); Eosinophils % 8.4 %; Hematocrit 41.6 % (37-53); Lymphocytes # 1.7 10^3/uL (0.8-4.8); Lymphocytes % 17.8 %; Mean Corpuscular HGB Conc 30.5 g/dL (30-55); Mean Corpuscular Hemoglobin 29.7 pg (27-33); Mean Corpuscular Volume 97.2 fl (82-101); Mean Platelet Volume 9.1 fL (7.4-10.4); Monocytes # 0.9 10^3/uL (0.2-0.9); Monocytes % 9.2 %; Neutrophils # 6.01 10^3/uL (1.8-7.7); Nucleated Red Blood Cells % 0 %; Platelet Count 221 10^3/cmm (157-399); Red Blood Count 4.28 10^6/uL (3.85-5.65); Red Cell Distribution Width 14.2 % (12.1-15.1); White Blood Count 9.55 10^3/uL (3.29-11.43)
--- NOTE | 2024-12-28 04:35 | PC.NURSE ---
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 Patient stated I'm not wearing it. Patient was educated on the importance of wearing telemetry with his diagnosis and medication he is receiving. Patient still refused to wear telemetry. Plan of care ongoing.
[2024-12-28 04:42] LABS: Partial Thromboplastin Time 28.3 SECONDS (23.9-36.7)
[2024-12-28 04:49] LABS: Vancomycin Random 18.8 ug/mL (20.0-40.0)
[2024-12-28 04:52] LABS: Alanine Aminotransferase 7 U/L (0-41); Albumin Level 3.6 g/dL (3.5-5.2); Alkaline Phosphatase 74 U/L (40-130); Blood Urea Nitrogen 27 mg/dL (8-23); Calcium 8.9 mg/dL (8.5-10.5); Carbon Dioxide 25 mmol/L (22-29); Chloride 98 mmol/L (98-107); Creatinine Clr Calc Pharmacy 17.8903; Globulin 2.9 g/dL (1.3-4.6); Glomerular Filtration Rate 9.6 mL/min (90-130); Glucose 123 mg/dL (65-115); Magnesium 2.2 mg/dL (1.7-2.3); Osmolality Calculated 296 mOsm/kg (285-295); Sodium 140 mmol/L (136-145); Total Bilirubin 0.2 mg/dL (0.15-1.2); Total Protein 6.5 g/dL (6.6-8.7)
[2024-12-28 04:56] LABS: Anion Gap 22.1 (5-19); Aspartate Amino Transferase 11 U/L (0-40); Potassium 5.1 mmol/L (3.5-5.1)
--- NOTE | 2024-12-28 04:59 | PC.NURSE ---
Patient ptt resulted this morning at 28.3. Patient's ptt has gradually decreased over the last 24 hours. This nurse contacted Dr. Becerra regarding the current ptt and the rate that the heparin drip is currently at, which is 47ml/hr. This nurse questioned the trend in ptt results and increasing heparin drip rate. Physician states to continue drip per protocol, which requires an increase in drip rate to go from 47 ml/hr to 55ml/hr and a bolus of 6500 units.
[2024-12-28] MEDS: heparin 5,000 unit/mL INJ 1 mL IVP (05:11)
[2024-12-28] MEDS: heparin drip 25,000 UNIT/500 ML PREMIX 55 UNIT IV (07:58)
--- NOTE | 2024-12-28 08:35 | PC.NURSE ---
rec'd verbal order from to d/c heparin gtt at 0805
[2024-12-28] MEDS: hyDRALAzine 50 mg Tablet 25 MG PO (08:52)
[2024-12-28] MEDS: losartan 50 mg Tablet 100 MG PO (08:52)
[2024-12-28] MEDS: sevelamer 800 mg Tablet 1600 MG PO (08:52)
[2024-12-28] MEDS: carvedilol 6.25 mg Tablet PO (08:52)
--- NOTE | 2024-12-28 09:38 | PC.SOCIAL ---
IMM Update Pg. 2 of IMM Updated and reviewed with patient, who verbalized understanding. Copy provided.
--- NOTE | 2024-12-28 09:50 | P.PN_ITS ---
Subjective 2 Subjective: s/p HD yesterday Medications: Reviewed: Yes Vitals/I&O/Wt Last Vital Signs Temp 98.4 F 12/28/24 08:00 Pulse 69 12/28/24 08:16 Resp 16 12/28/24 08:16 BP 157/75 12/28/24 08:52 Pulse Ox 99 12/28/24 08:16 O2 Del Method Nasal Cannula 12/28/24 08:16 O2 Flow Rate 3 12/28/24 08:16 12/27/24 12/28/24 12/28/24 22:59 06:59 14:59 Intake Total 985.60 / 2009. 420.750 / 2430.750 129.25 / 129.25 Output Total 3637 / 3637 Balance -2651.40 / -1627.00 420.750 / -1206.250 129.25 / 129.25 Weight last 48 hrs Weight 136.616 kg Weight 136.9 kg Weight 127.459 kg Physical Exam 2 Narrative: awake , alert , PEERLA No JVD S1S2 RRR per report Lungs with miguelito crackles Abd - soft , non tender No edema Data 12/28/24 04:21 12/28/24 04:21 A&P Assessment and plan (1) End stage renal disease on dialysis: Plan 1. End-stage renal disease: On MWF schedule, last dialysis yesterday and hD again today due to volume overloaded ultrafiltration as tolerated 2. Acute on chronic respiratory failure, multifactorial with volume overload, atypical pneumonia 3. Monitor hemoglobin 4. History of hypertension, resume home meds 5 NSTEMI, management per primary team Patient evaluated using audiovisual cart. Time spent 40 min PDMP PDMP Reviewed: Not Reviewed Attestations 2 Medical Necessity Statement*: per cecilia Coding Level of Care Code Acute Code for Chg Fwd Diagnoses End stage renal disease on dialysis N18.6; Z99.2
[2024-12-28 11:22] LABS: Partial Thromboplastin Time 112.3 SECONDS (23.9-36.7)
--- NOTE | 2024-12-28 11:50 | PM.DCS ---
Discharge Providers Date of Admission: 12/26/24 14:00 Date of Discharge: December 28, 2024 Attending Provider at Admission: Patrick Becerra MD Attending Provider at Discharge: Juan Antonio Calvo MD Primary Care Provider: Ziyad Negrete DO Diagnoses at Discharge Discharge Diagnosis (1) End stage renal disease on dialysis: Status: Acute Reason for Visit Reason for Visit: sob Hospital Course Hospital Course This is a 64-year-old male with past medical history of end-stage renal disease on dialysis, who presents [facility] for shortness of breath Patient was admitted to [facility] for pneumonia, received broad-spectrum antibiotic therapy, so far blood cultures no growth, remains afebrile, clinically improving, discharged on doxycycline as outpatient There was a concern for fluid overload, lower extremity edema, diastolic CHF during his hospitalization, received 2 sessions of inpatient dialysis, overall clinically improved, resume dialysis as outpatient For NSTEMI, no chest pain complaints, completed 48 hours of anticoagulant therapy, echocardiogram showed EF of 60 to 65%, patient was advised to follow-up with cardiology as outpatient, if any chest pain go to emergency room Physical Exam Const: COMMON NORMALS: no acute distress and patient oriented x3 Resp: COMMON NORMALS: normal respiratory effort, No retractions, No use of accessory muscles and clear to auscultation bilaterally AUSCULTATION: clear to auscultation bilaterally Cardio: COMMON NORMALS: regular rate, regular rhythm, S1 normal heart sound present and S2 normal heart sound present RATE: regular rate RHYTHM: regular rhythm HEART SOUNDS: S1 normal heart sound present and S2 normal heart sound present GI: COMMON NORMALS: Normal to inspection, nondistended, normoactive bowel sounds present and non-tender Extremity: COMMON NORMALS: no pedal edema Neuro: COMMON NORMALS: patient oriented x3 Psych: COMMON NORMALS: mental status grossly normal Discharge Data Studies Completed and Pending Completed Studies During Hospitalization Category Date Time Status CT angio chest PE protcl [id number] Stat Cat Scan 12/25/24 18:59 Completed XR chest 1V portable [id number] Stat Exams 12/25/24 16:41 Completed CV. echo limited [id number] Routine Ultrasound 12/26/24 10:14 Completed Pending at discharge Category Date Time Status Blood Culture Stat Lab 12/25/24 16:35 Results Complete Blood Count w/Auto AM LABS Lab 12/29/24 04:00 Ordered Comprehensive Metabolic Panel AM LABS Lab 12/29/24 04:00 Ordered Magnesium AM LABS Lab 12/29/24 04:00 Ordered Phosphorus AM LABS Lab 12/29/24 04:00 Ordered Radiology Impressions Chest X-Ray 12/25/24 16:41 IMPRESSION: 1. Probable small right pleural effusion. 2. Minimal right basilar atelectasis or scar. Chest CTA 12/25/24 18:59 IMPRESSION: 1. No large or central pulmonary emboli. Limited assessment of some of the peripheral branches. 2. Moderate diffuse bibasilar bronchial wall thickening and retained secretions in has increased. No focal consolidation. Previous ground-glass opacity in the right upper lobe has resolved. Otherwise no significant interval change from 10/02/2024 . 3. Mild cardiomegaly, mitral calcification, moderate coronary calcification, left ventricular hypertrophy and bilateral mildly complex pleural effusions with patchy pleural calcification again demonstrated. Laboratory Results WBC 9.55 10^3/uL (3.29-11.43) 12/28/24 04:21 RBC 4.28 10^6/uL (3.85-5.65) 12/28/24 04:21 Hgb 12.70 g/dL (11.27-16.99) 12/28/24 04:21 Hct 41.6 % (37-53) 12/28/24 04:21 MCV 97.2 fl (82-101) 12/28/24 04:21 MCH 29.7 pg (27-33) 12/28/24 04:21 MCHC 30.5 g/dL (30-55) 12/28/24 04:21 RDW 14.2 % (12.1-15.1) 12/28/24 04:21 Plt Count 221 10^3/cmm (157-399) 12/28/24 04:21 MPV 9.1 fL (7.4-10.4) 12/28/24 04:21 Neut % (Auto) 63.0 % 12/28/24 04:21 Lymph % (Auto) 17.8 % 12/28/24 04:21 [place] % (Auto) 9.2 % 12/28/24 04:21 Eos % (Auto) 8.4 % 12/28/24 04:21 Baso % (Auto) 0.9 % 12/28/24 04:21 Neut # (Auto) 6.01 10^3/uL (1.8-7.7) 12/28/24 04:21 Lymph # (Auto) 1.7 10^3/uL (0.8-4.8) 12/28/24 04:21 [place] # (Auto) 0.9 10^3/uL (0.2-0.9) 12/28/24 04:21 Eos # (Auto) 0.8 10^3/uL (0.0-0.8) 12/28/24 04:21 Baso # (Auto) 0.1 10^3/uL (0.0-0.1) 12/28/24 04:21 Nucleated RBC % (auto) 0 % 12/28/24 04:21 Nucleated RBCs # 0.0 /100WBC 12/28/24 04:21 APTT 112.3 SECONDS (23.9-36.7) H D 12/28/24 10:54 Specimen Type Arterial 12/25/24 16:22 Sample Site Radial, left 12/25/24 16:22 ABG pH 7.46 (7.35-7.45) H 12/25/24 16:22 ABG pCO2 42.7 mmHg (35-45) 12/25/24 16:22 ABG pO2 74.4 mmHg (80.0-100.0) L 12/25/24 16:22 ABG PO2/FiO2 Ratio 265 12/25/24 16:22 ABG HCO3 30.4 mmol/L (22-26) H 12/25/24 16:22 ABG O2 Saturation 96.4 12/25/24 16:22 ABG Base Excess 5.9 mmol/L (-2.0-2.0) H 12/25/24 16:22 Samuel Test Pos 12/25/24 16:22 A-a O2 Gradient 9.3 mmHg (5-10) 12/25/24 16:22 Hematocrit 46.5 % (42-52) 12/25/24 16:22 Hgb O2 Saturation 95.1 % (95-100) 12/25/24 16:22 Carboxyhemoglobin 1.3 %THgb (0.4-20.1) 12/25/24 16:22 Methemoglobin 0.1 % (0.4-1.5) L 12/25/24 16:22 Total Hemoglobin 15.2 g/dL (14-18) 12/25/24 16:22 Sodium 133.0 mmol/L (131-143) 12/25/24 16:22 Potassium 3.8 mmol/L (3.5-5.0) 12/25/24 16:22 Glucose 109.0 mg/dL (70-115) 12/25/24 16:22 Ionized Calcium 1.1 mmol/L (1.1-1.4) 12/25/24 16:22 O2 Delivery Device Nc 12/25/24 16:22 O2 Liters/Min 2.0 % 12/25/24 16:22 FiO2 28.0 % 12/25/24 16:22 Ambulance Driver Paramedic ID glc 12/25/24 16:22 Sodium 140 mmol/L (136-145) 12/28/24 04:21 Potassium 5.1 mmol/L (3.5-5.1) 12/28/24 04:21 Chloride 98 mmol/L (98-107) 12/28/24 04:21 Carbon Dioxide 25 mmol/L (22-29) 12/28/24 04:21 Anion Gap 22.1 (5-19) H 12/28/24 04:21 BUN 27 mg/dL (8-23) H 12/28/24 04:21 Creatinine 5.9 mg/dL (0.7-1.2) H* 12/28/24 04:21 GFR Calculation 9.6 mL/min (90-130) L 12/28/24 04:21 Glucose 123 mg/dL (65-115) H 12/28/24 04:21 Calculated Osmolality 296 mOsm/kg (285-295) H 12/28/24 04:21 Lactic Acid 1.3 mmol/L (0.5-2.2) 12/25/24 18:53 Calcium 8.9 mg/dL (8.5-10.5) 12/28/24 04:21 Phosphorus 6.0 mg/dL (2.5-4.5) H 12/28/24 04:21 Magnesium 2.2 mg/dL (1.7-2.3) 12/28/24 04:21 Total Bilirubin 0.2 mg/dL (0.15-1.2) 12/28/24 04:21 AST 11 U/L (0-40) 12/28/24 04:21 ALT 7 U/L (0-41) 12/28/24 04:21 Alkaline Phosphatase 74 U/L (40-130) 12/28/24 04:21 Troponin T Baseline 163 ng/L (0-15) H* 12/25/24 16:45 Troponin T 120 Minute 154.7 ng/L (0-15) H 12/25/24 18:53 Delta Troponin T -8.3 ABS# (0-10) L 12/25/24 18:53 Troponin T Hi Sens 6Hr 154.7 ng/L (0-15) H 12/25/24 20:39 Troponin T Hi Sens 6Hr Delta -8.3 ng/L (0-12) L 12/25/24 20:39 C-Reactive Protein 97.3 mg/L (0.0-4.9) H 12/26/24 11:25 NT-Pro-B Natriuret Pep 10059 pg/mL (0-125) H 12/26/24 11:25 Total Protein 6.5 g/dL (6.6-8.7) L 12/28/24 04:21 Albumin 3.6 g/dL (3.5-5.2) 12/28/24 04:21 Globulin 2.9 g/dL (1.3-4.6) 12/28/24 04:21 Procalcitonin 0.80 ng/mL (0-0.5) H 12/26/24 11:25 Urine Color Yellow (Yellow) 12/27/24 09:45 Urine Appearance Cloudy (CLEAR) A 12/27/24 09:45 Urine pH >=9.0 (5-7) A 12/27/24 09:45 Ur Specific Left Hand 1.017 (1.005-1.030) 12/27/24 09:45 Urine Protein 3+ (Negative) H 12/27/24 09:45 Urine Glucose (UA) Trace (Normal) H 12/27/24 09:45 Urine Ketones Negative (Negative) 12/27/24 09:45 Urine Blood Neg (Negative) 12/27/24 09:45 Urine Nitrate Negative (Negative) 12/27/24 09:45 Urine Bilirubin Neg (Negative) 12/27/24 09:45 Urine Urobilinogen 0.2 mg/dL (Negative) 12/27/24 09:45 Ur Leukocyte Esterase Negative (Negative) 12/27/24 09:45 Urine RBC 0-2 /hpf (0-2) 12/27/24 09:45 Urine WBC 0-5 /hpf (0-5) 12/27/24 09:45 Ur Squamous Epith Cells 0-4 /hpf (0-5) H 12/27/24 09:45 Amorphous Sediment Not Reportable 12/27/24 09:45 Urine Bacteria None /hpf (NONE) 12/27/24 09:45 Vancomycin Trough 22.0 ug/mL (10-15) H 12/27/24 10:03 Random Vancomycin 18.8 ug/mL (20.0-40.0) L 12/28/24 04:21 Urine Opiates Screen Negative ng/mL (Negative) 12/27/24 09:45 Ur Barbiturates Screen Negative ng/mL (Negative) 12/27/24 09:45 Ur Phencyclidine Scrn Negative ng/mL (Negative) 12/27/24 09:45 Ur Amphetamines Screen Negative ng/mL (Negative) 12/27/24 09:45 U Benzodiazepines Scrn Negative ng/mL (Negative) 12/27/24 09:45 Urine Cocaine Screen Negative ng/mL (Negative) 12/27/24 09:45 U Marijuana (THC) Screen Negative ng/mL (Negative) 12/27/24 09:45 C. difficile (PCR) Cancelled 12/27/24 07:25 Hep Bs Antigen Non-reactive (Nonreactive) 12/27/24 16:41 Hep Bs Antibody 11.2 (11.5-1000) L 12/27/24 16:41 Influenza A (PCR) Negative (Negative) 12/25/24 16:56 Influenza Type B (PCR) Negative (Negative) 12/25/24 16:56 RSV (PCR) Negative (Negative) 12/25/24 16:56 SARS-CoV-2 (PCR) Negative (Negative) 12/25/24 16:56 Vitals Last Vital Signs Temp 97.8 F 12/28/24 11:46 Pulse 62 12/28/24 11:46 Resp 18 12/28/24 11:46 BP 144/73 12/28/24 11:46 Pulse Ox 99 12/28/24 11:46 O2 Del Method Nasal Cannula 12/28/24 11:46 O2 Flow Rate 3 12/28/24 08:16 Discharge Plan Discharge Patient Disposition: Home Condition: Stable Prescriptions: New doxycycline hyclate 100 mg tablet 100 mg PO BID 7 Days Qty: 14 0RF Continued losartan 100 mg tablet 100 mg PO DAILY sevelamer carbonate 800 mg tablet 1,600 mg PO TID carvedilol 6.25 mg Tablet 6.25 mg PO BID Qty: 60 0RF budesonide-formoterol [Symbicort] 80-4.5 mcg/actuation HFA aerosol inhaler 2 inh inhalation BID Qty: 10.2 5RF Spiriva Respimat 1.25 mcg/actuation mist 2 inh inhalation DAILY Qty: 4 3RF albuterol sulfate [Ventolin HFA] 90 mcg/actuation HFA aerosol inhaler 2 inh inhalation Q8H PRN (Reason: shortness of breath or wheezing) Qty: 6.7 3RF hydralazine 50 mg tablet 25 mg PO TID Discharge Orders: Discharge Order (Routine); Ordered 12/28/24 Ordered By: Juan Antonio Calvo Referrals: Ziyad Negrete DO [Primary Care Provider, Family Practice] Jean Kohler M.D [Physician, Cardiology] - 2 weeks Discharge Diet: Cardiac Discharge Activity: Resume usual activity Patient Instructions: Opioid Safety Activity Restrictions/Additional Instructions: - If any worsening shortness of breath please go to emergency room Discharge Attestations Time Spent in Discharge Care*: greater than 30 min Status at Discharge: Cognitive status at discharge: cognitively intact, Behavioral status at discharge: cooperative, Quality Metrics Clinical Quality Measures [ No reported AMI, CVA or VTE this stay] Coding Level of Care Code 33364 Total time (in minutes) for Discharge: 45 Diagnoses End stage renal disease on dialysis N18.6; Z99.2
--- NOTE | 2024-12-28 12:44 | PC.HD ---
Per Dr. Moya, dialysate orders changed from 3k to a 2k bath due to K+ of 5.1 this morning. In addition, patient was noted to have an unkempt appearance, wearing muddy street shoes in bed with his wallet tucked into his shoe, a regular shirt and hospital pants
[2024-12-28] MEDS: epoetin alfa-epbx 10,000 unit/ml SDV (ESRD) 10000 UNIT SUBCUT (14:44)
--- NOTE | 2024-12-28 15:37 | PC.NURSE ---
[facility] calls back and states that [facility] will be picking pt up at 1800 tonight. [facility] unable to take ride.
--- NOTE | 2024-12-28 16:48 | PC.NURSE ---
at approx. 1640 pt was d/c and wanted to wait on ride downstairs in main lobby
== END 2024-12-28 16:40 | disposition home or self-care (01) | DRG 193 ==
LOC: ER 17:06 → MEDSURG 20:00
PROVIDERS: Hospitalist; Admitting Provider Internal Medicine; Emergency Provider Family Medicine; PCP Family Medicine; Visit Provider Family Medicine
DX: J18.9 Pneumonia, unspecified organism (principal); I21.4 Non-ST elevation (NSTEMI) myocardial infarction; N18.6 End stage renal disease; I13.2 Hypertensive heart and chronic kidney disease with heart failure and with stage 5 chronic kidney disease, or end stage renal disease; I50.30 Unspecified diastolic (congestive) heart failure; Z99.2 Dependence on renal dialysis; Z87.891 Personal history of nicotine dependence; R19.7 Diarrhea, unspecified
CPT/HCPCS: 36415; 36600; 71045; 71275; 80051; 80053; 80202; 80306; 81001; 82330; 82805; 83605; 83735; 83880; 84100; 84145; 84484; 85025; 85049; 85730; 86140; 86706; 87040; 87340; 87637; 90935; 93005; 93308; 94640; 96372; G0378; J1644; J2543; J3370; J7050; J9999; Q3014; Q5105

== ENCOUNTER 2025-03-28 18:59 | Emergency (ER) | payer MEDICARE, MEDICAID, SELFPAY ==
[2025-03-28 19:00] VITALS: BP 98/56; PULSE 114; RESP 20; TEMP 36.6; O2SAT 95; BMI 33.0
--- NOTE | 2025-03-28 19:02 | ECG_ITS ---
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: : [id number] Requested By: Ney Acosta Order Number: [id number] Preston MD: FARHAD KRISHNA Measurements Intervals [place] Rate: 112 P: 178 GA: 253 QRS: -45 QRSD: 114 T: 30 QT: 361 QTc: 495 Interpretive Statements SINUS TACHYCARDIA WITH FIRST DEGREE AV BLOCK LEFT ATRIAL ENLARGEMENT [-0.15mV P-WAVE IN V1/V2] PATTERN CONSISTENT WITH PULMONARY DISEASE LEFT ANTERIOR FASCICULAR BLOCK [QRS AXIS <= -45, QR IN I, RS IN II] INTERPRETATION BASED ON A DEFAULT AGE OF 40 YEARS Compared to ECG 12/26/2024 00:34:03 First degree AV block now present Atrial abnormality now present Left anterior fascicular block now present Sinus rhythm no longer present Electronically Signed On 03-29-2025 13:56:17 CDT by FARHAD KRISHNA [email or web address]
--- NOTE | 2025-03-28 19:09 | W.ED.WEAKNES ---
HPI - Weakness General: Chief complaint: Weakness Stated complaint: Weakness Time Seen by Provider: 03/28/25 19:02 History of Present Illness: 64-year-old male presents because I am stoned patient complains of generalized weakness but can walk. No other significant complaints he is a dialysis patient on Saturday and went to dialysis on Saturday. Associated symptoms: Denies chest pain, chills, fever(s), nausea or vomiting Related Data Home Medications ?Medication ?Instructions ?Recorded ?Confirmed losartan 100 mg tablet 100 mg PO DAILY 03/28/22 12/26/24 sevelamer carbonate 800 mg tablet 1,600 mg PO TID 03/28/22 12/26/24 hydralazine 50 mg tablet 25 mg PO TID 12/26/24 12/26/24 Previous Rx's ?Medication ?Instructions ?Recorded carvedilol 6.25 mg tablet 6.25 mg PO BID #60 tabs 10/04/24 albuterol sulfate 90 mcg/actuation 2 inh inhalation Q8H PRN shortness 10/05/24 aerosol inhaler (Ventolin HFA) of breath or wheezing #6.7 grams budesonide-formoterol HFA 80 2 inh inhalation BID #10.2 grams 10/05/24 mcg-4.5 mcg/actuation aerosol inhaler (Symbicort) tiotropium bromide 1.25 2 inh inhalation DAILY #4 grams 10/05/24 mcg/actuation mist for inhalation (Spiriva Respimat) cephalexin 500 mg capsule 500 mg PO BID 10 days #20 caps 03/28/25 Allergies Allergy/AdvReac Type Severity Reaction Status Date / Time aspirin Allergy Severe ALGY-Hives Verified 03/28/22 15:35 Review of Systems Const: Reports: fatigue; Denies: fever(s) or chills Card: Denies: chest pain or palpitations Resp: Denies: dyspnea, productive cough or wheezing GI: Denies: abdominal pain, nausea or vomiting Neuro: Reports: weakness in extremities [facility] PFSH: Medical History (Updated 03/28/25 @ 21:56 by Ney Acosta DO) Amphetamine abuse RSV bronchitis Hyponatremia Hypertensive urgency Congestive heart failure Shortness of breath ESRD (end stage renal disease) on dialysis Hyperkalemia Moderate aortic stenosis Uncontrolled hypertension End stage renal disease Hemodialysis initiated 10/21 MGUS (monoclonal gammopathy of unknown significance) Heart failure Diastolic grade 2, EF 50 to 55% Acute renal failure Surgical History No significant past surgical history Social History (Updated 12/25/24 @ 21:32 by Patrick Becerra MD) Smoking and tobacco/nicotine status: former use of tobacco/nicotine Quit status (tobacco/nicotine): has quit using Alcohol intake: never Substance/Drug Use: current Other substance/drug use details: Couple times a week Additional social history: Lives 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 Physical Exam Const: COMMON NORMALS: no acute distress NUTRITIONAL APPEARANCE: obese Resp: COMMON NORMALS: normal respiratory effort and clear to auscultation bilaterally AUSCULTATION: clear to auscultation bilaterally Cardio: COMMON NORMALS: regular rhythm RATE: tachycardic RHYTHM: regular rhythm GI: COMMON NORMALS: Soft to palpation and non-tender PALPATION: Yes Soft to palpation Skin: NARRATIVE SKIN EXAM: Chronic bilateral lower extremity venous stasis changes Course Vital Signs: Vital signs: Vital Signs Temperature 97.9 F 03/28/25 19:00 Pulse Rate 114 H 03/28/25 19:00 Respiratory Rate 20 H 03/28/25 19:00 Blood Pressure 149/74 03/28/25 21:39 Pulse Oximetry 100 03/28/25 21:39 Oxygen Delivery Me thod Room Air 03/28/25 19:00 MDM - Weakness Medical Decision Making Patient's diagnostic studies were ordered and reviewed by me. Patient does have elevated creatinine however he is a dialysis patient and this is appropriate for where he is in his dialysis cycle. He has an elevated troponin that is also near a baseline based on where he is at for his dialysis. Patient's EKG shows no acute changes. Patient does have a urinary tract infection that we will treat with IV Rocephin and start him on Keflex. I had a long discussion with him the need to be sure he does not miss dialysis. Patient is stable and should follow with primary care provider in a couple days along with be sure he follows with dialysis appropriately. Lab Data 03/28/25 19:07 03/28/25 19:07 Laboratory Results WBC 13.52 10^3/uL (3.29-11.43) H 03/28/25 19:07 RBC 5.12 10^6/uL (3.85-5.65) 03/28/25 19:07 Hgb 14.80 g/dL (11.27-16.99) 03/28/25 19:07 Hct 45.7 % (37-53) 03/28/25 19:07 MCV 89.3 fl (82-101) 03/28/25 19:07 MCH 28.9 pg (27-33) 03/28/25 19:07 MCHC 32.4 g/dL (30-55) 03/28/25 19:07 RDW 14.2 % (12.1-15.1) 03/28/25 19:07 Plt Count 380 10^3/cmm (157-399) 03/28/25 19:07 MPV 8.8 fL (7.4-10.4) 03/28/25 19:07 Neut % (Auto) 79.7 % 03/28/25 19:07 Lymph % (Auto) 9.6 % 03/28/25 19:07 [place] % (Auto) 8.9 % 03/28/25 19:07 Eos % (Auto) 0.4 % 03/28/25 19:07 Baso % (Auto) 0.6 % 03/28/25 19:07 Neut # (Auto) 10.78 10^3/uL (1.8-7.7) H 03/28/25 19:07 Lymph # (Auto) 1.3 10^3/uL (0.8-4.8) 03/28/25 19:07 [place] # (Auto) 1.2 10^3/uL (0.2-0.9) H 03/28/25 19:07 Eos # (Auto) 0.1 10^3/uL (0.0-0.8) 03/28/25 19:07 Baso # (Auto) 0.1 10^3/uL (0.0-0.1) 03/28/25 19:07 Nucleated RBC % (auto) 0 % 03/28/25 19:07 Nucleated RBCs # 0.0 /100WBC 03/28/25 19:07 Sodium 132 mmol/L (136-145) L 03/28/25 19:07 Potassium 4.8 mmol/L (3.5-5.1) 03/28/25 19:07 Chloride 90 mmol/L (98-107) L 03/28/25 19:07 Carbon Dioxide 21 mmol/L (22-29) L 03/28/25 19:07 Anion Gap 25.8 (5-19) H 03/28/25 19:07 BUN 24 mg/dL (8-23) H 03/28/25 19:07 Creatinine 8.2 mg/dL (0.7-1.2) H* 03/28/25 19:07 GFR Calculation 6.6 mL/min (90-130) L 03/28/25 19:07 Glucose 108 mg/dL (65-115) 03/28/25 19:07 Calculated Osmolality 279 mOsm/kg (285-295) L 03/28/25 19:07 Calcium 10.3 mg/dL (8.5-10.5) 03/28/25 19:07 Total Bilirubin 0.8 mg/dL (0.15-1.2) 03/28/25 19:07 AST 36 U/L (0-40) 03/28/25 19:07 ALT 10 U/L (0-41) 03/28/25 19:07 Alkaline Phosphatase 97 U/L (40-130) 03/28/25 19:07 Troponin T Baseline 211 ng/L (0-15) H* 03/28/25 19:07 Total Protein 8.4 g/dL (6.6-8.7) 03/28/25 19:07 Albumin 4.0 g/dL (3.5-5.2) 03/28/25 19:07 Globulin 4.4 g/dL (1.3-4.6) 03/28/25 19:07 Urine Color Yellow (Yellow) 03/28/25 19:27 Urine Appearance Clear (CLEAR) 03/28/25 19: Urine pH 8.5 (5-7) A 03/28/25: Ur Specific [place] 1.009 (1.005-1.030) 03/28/25 19: Urine Protein 2+ (Negative) A 03/28/25 19: Urine Glucose (UA) Trace (Normal) H 03/28/25 19: Urine Ketones Negative (Negative) 03/28/25 19: Urine Blood Trace (Negative) A 03/28/25 19:27 Urine Nitrate Negative (Negative) 03/28/25 19:27 Urine Bilirubin Negative (Negative) 03/28/25 19:27 Urine Urobilinogen 0.2 mg/dL (Negative) 03/28/25 19:27 Ur Leukocyte Esterase 1+ (Negative) A 03/28/25 19:27 Urine RBC 3-5 /hpf (0-2) 03/28/25 19:27 Urine WBC 6-10 /hpf (0-5) 03/28/25 19:27 Ur Squamous Epith Cells 0-5 /hpf (0-5) 03/28/25 19:27 Amorphous Sediment Not Reportable 03/28/25 19:27 Urine Bacteria 2+ /hpf (NONE) H 03/28/25 19:27 Hyaline Casts 3.71 /lpf 03/28/25 19:27 Urine Opiates Screen Negative ng/mL (Negative) 03/28/25 19:27 Ur Barbiturates Screen Negative ng/mL (Negative) 03/28/25 19:27 Ur Phencyclidine Scrn Negative ng/mL (Negative) 03/28/25 19:27 Ur Amphetamines Screen Negative ng/mL (Negative) 03/28/25 19:27 U Benzodiazepines Scrn Negative ng/mL (Negative) 03/28/25 19:27 Urine Cocaine Screen Negative ng/mL (Negative) 03/28/25 19:27 U Marijuana (THC) Screen Negative ng/mL (Negative) 03/28/25 19:27 Ethyl Alcohol < 10 mg/dL (0-10) 03/28/25 09:07 No radiology studies performed this visit Discharge Plan Discharge Patient Disposition: Home Clinical Impression: End stage renal disease on dialysis, Urinary tract infection Condition: Stable Prescriptions: New cephalexin 500 mg capsule 500 mg PO BID 10 Days Qty: 20 0RF No Action losartan 100 mg tablet 100 mg PO DAILY sevelamer carbonate 800 mg tablet 1,600 mg PO TID carvedilol 6.25 mg Tablet 6.25 mg PO BID Qty: 60 0RF budesonide-formoterol [Symbicort] 80-4.5 mcg/actuation HFA aerosol inhaler 2 inh inhalation BID Qty: 10.2 5RF Spiriva Respimat 1.25 mcg/actuation mist 2 inh inhalation DAILY Qty: 4 3RF albuterol sulfate [Ventolin HFA] 90 mcg/actuation HFA aerosol inhaler 2 inh inhalation Q8H PRN (Reason: shortness of breath or wheezing) Qty: 6.7 3RF hydralazine 50 mg tablet 25 mg PO TID Discharge Orders: Discharge ED (Routine); Ordered 03/28/25 Ordered By: Ney Acosta Referrals: Ziyad Negrete, [Primary Care Provider, [facility]] Discharge Diet: Usual diet Discharge Activity: Increase activity as tolerated Patient Instructions: Urinary Tract Infection in Men (DC), End Stage Kidney Disease (ED), Opioid Safety, Pain Management, Patient Portal & [place] Instructions Activity Restrictions/Additional Instructions: Please be sure you do not miss dialysis tomorrow. Please take antibiotics as prescribed. Follow-up with your primary care provider 2 to 3 days for recheck. Print Language: Filipino Coding Level of Care Code ED Coach Tour Driver for Jah Villalta
[2025-03-28 19:16] LABS: Hematocrit 45.7 % (37-53); Hemoglobin 14.80 g/dL (11.27-16.99); Mean Corpuscular HGB Conc 32.4 g/dL (30-55); Mean Corpuscular Hemoglobin 28.9 pg (27-33); Mean Corpuscular Volume 89.3 fl (82-101); Nucleated Red Blood Cells % 0 %; Platelet Count 380 10^3/cmm (157-399); Red Blood Count 5.12 10^6/uL (3.85-5.65); White Blood Count 13.52 10^3/uL (3.29-11.43)
--- OUTSIDE RECORDS SUMMARY | 2025-03-28 19:27 | XMS_ITS | Encounter Summary ---
Author Organization [facility] Address [address] [facility] [place] [address] Phone Care Team Providers Care Measurement Analyst Name Role Phone Souleymane Anne DO Primary Care Provider [phone] Reason for Visit * Reason Comments Med Refill Encounter Details Date Type Department Care Team (Late st Contact Info) Description 09/10/2024 Refill [facility] [address] [facility] [address] [place] [address] Gabriella Berrios MD [address] [facility] [place] [address] Social History Tobacco Use Types Packs/Day Years Used Date Smoking Tobacco: Never Assessed Sex and Gender Information Value Date Recorded Sex Assigned at Not on file Legal Sex Male 9:52 AM EDT Gender Identity Not on file Sexual Orientation Not on file documented as of this encounter Plan of Treatment Not on file documented as of this encounter Visit Diagnoses Not on filedocumented in this encounter Care Teams Measurement Analyst Relationship Specialty Start Date End Date Souleymane Anne DO [address] [place] [address] PCP - General Family Medicine 06/19/21 documented as of this encounter
--- OUTSIDE RECORDS SUMMARY | 2025-03-28 19:28 | XMS_ITS | Encounter Summary ---
Author Organization [employer] [facility] Address [address] [place] [address] Care Team Providers Care Curriculum And Assessment Coordinator Name Role Phone Souleymane Anne DO Primary Care Provider Unavaila ble Encounter Details Date Type Department Care Team (Late st Contact Info) Description 02/21/2015 Lab Requisition [facility] [place] [address] [facility] [address] [place] [address] Souleymane Anne DO NO ADDRESS ON FILE Sick Social History Tobacco Use Types Packs/Day Years Used Date Smoking Tobacco: Never Assessed Sex and Gender Information Value Date Recorded Sex Assigned at Not on file Legal Sex Male 8:42 AM CDT Gender Identity Not on file Sexual Orientation Not on file documented as of this encounter Plan of Treatment Not on file documented as of this encounter Procedures Procedure Name Priority Date/Time Associated Diagnosis Comments BRAIN NATRIURETIC PEPTIDE, BNP OR PROBNP Routine 02/21/2015 9:42 PM CDT Sick [ICD-9-CM] documented in this encounter Results * (ABNORMAL) BRAIN NATRIURETIC PEPTIDE, BNP OR PROBNP (02/21/2015 9:42 PM CDT) PROBNP, N TERMINAL 667(H) <=125 pg/mL 02/21/2015 10:40 PM CDT [facility] Blood Collection / Unknown 02/21/2015 9:42 PM CDT 02/21/2015 9:42 PM CDT us Souleymane Anne DO CHEMISTRY ORDERABLES Final Resu lt [facility] [email or web address] [facility] CLIA # [id number] [address] [facility] [address] [place] [address] documented in this encounter Visit Diagnoses Diagnosis Sick Other unknown and unspecified cause of morbidity or mortality documented in this encounter Care Teams Curriculum And Assessment Coordinator Relationship Specialty Start Date End Date Souleymane Anne DO PCP - General Family Practice 03/01/15 documented as of this encounter
--- OUTSIDE RECORDS SUMMARY | 2025-03-28 19:28 | XMS_ITS | Encounter Summary ---
Author Organization [facility] [employer] [employer] Address [address] [facility] [address] [place] [address] Phone Care Team Providers Care Cruise Consultant Name Role Phone Souleymane Anne DO Primary Care Provider [phone] Reason for Visit * Reason Comments Med Refill Encounter Details Date Type Department Care Team (Late st Contact Info) Description 04/24/2023 Refill [facility] [address] [facility] [address] [place] [address] Gabriella Berrios MD [address] [facility] [address] [place] [address] Social History Tobacco Use Types [...] on filedocumented in this encounter Care Teams Cruise Consultant Relationship Specialty Start Date End Date Souleymane Anne DO [address] [place] [address] PCP - General Family Medicine 06/19/21 documented as of this encounter
--- OUTSIDE RECORDS SUMMARY | 2025-03-28 19:28 | XMS_ITS | Encounter Summary ---
Author Organization [facility] [employer] Address [address] [facility] [address] [place] [address] Phone Care Team Providers Care Animal Stunner Name Role Phone Souleymane Anne DO Primary Care Provider [phone] Reason for Visit * Reason Comments Med Refill Encounter Details Date Type Department Care Team (Late st Contact Info) Description 11/22/2023 Refill [facility] [address] [facility] [address] [place] [address] Gabriella Berrios MD [address] [facility] [address] [place] [address] Social History Tobacco Use Types [...] on filedocumented in this encounter Care Teams Animal Stunner Relationship Specialty Start Date End Date Souleymane Anne DO [address] [place] [address] PCP - General Family Medicine 06/19/21 documented as of this encounter
--- OUTSIDE RECORDS SUMMARY | 2025-03-28 19:28 | XMS_ITS | Clinical Summary ---
Author Organization [facility] Address [address] [facility] [address] [place] [address] Care Team Providers Care Die Fitter Name Role Phone Varsha Annejuana KIRBY Primary Care Provider [phone] Active Problems Problem Noted Date Diagnosed Date Encounter for removal of dialysis catheter 09/12 Encounters Date Type Department Care Team Description 03/24/2025 Orders Only [place] [facility], [facility] [address] [place] [phone] Gabriella Berrios MD 03/17/2025 Orders Only [place] [facility], [facility] [address] [place] [address] Gabriella Berrios MD 03/17/[address] [place] [address] [employer], [facility] [address] [place] [phone] Gabriella Berrios MD End stage renal disease; Dependence on renal dialysis 03/10/2025 Orders Only [place] [facility] [facility] [address] [place] [address] Gabriella Berrios MD 03/08/2025 Treatment [facility] [place], [facility] [address] [place] [address] Gail Bustamante NP End stage renal disease; Dependence on renal dialysis 03/03/2025 Orders Only [facility], [facility] [address] [place] [phone] Gabriella Berrios MD 03/03/2025 Treatment [facility] [place], [facility] [address] [place] [phone] Nicole Padron NP End stage renal disease; Dependence on renal dialysis 03/01/2025 Orders Only [facility], [facility] [address] [place] [phone] Gabriella Berrios MD 02/24/[address] [facility], [facility] [address] [place] [address] Gabriella Berrios MD 02/23/[address] [place] [address], [facility] [address] [place] [address] Nicole Padron NP End stage renal disease; Dependence on renal dialysis 02/17/[address] [facility], [facility] [address] [place] [address] Gabriella Berrios MD 02/15/2025 Treatment [facility], [facility] [address] [place] [address] Gail Bustamante NP End stage renal disease; Dependence on renal dialysis 02/10/[address] [facility], [facility] [address] [place] [address] Gabriella Berrios MD 02/10/[address] [place], [place] [address]rology [facility], [facility] [address] [place] [address] Gabriella Berrios MD End stage renal disease; Dependence on renal dialysis 02/03/2025 Orders Only [facility], [facility] [address] [place] [address] Gabriella Berrios MD 02/01/[address] [place] [address] Nephrology [facility], [facility] [address] [place] [address] Gail Bustamante NP End stage renal disease; Dependence on renal dialysis 01/29/2025 Orders Only [facility], [facility] [address] [place] [phone] Gabriella Berrios MD 01/27/2025 Orders Only [place] [facility], [facility] [address] [place] [address] Gabriella Berrios MD 01/25/[address] [place] [address], [facility] [address] [place] [address] Gail Bustamante NP End stage renal disease; Dependence on renal dialysis 01/20/[address], [facility] [address] [place] [address] Gabriella Berrios MD 01/20/[address] [place] [address], [facility] [address] [place] [address] Gabriella Berrios MD End stage renal disease; Dependence on renal dialysis 01/13/[address], [facility] [address] [place] [address] Gabriella Berrios MD 01/11/[address], [facility] [address] [place] [address] Gabriella Berrios MD 01/11/[address] [place] [address], [facility] [address] [place] [address] Nicole Padron NP End stage renal disease; Dependence on renal dialysis 01/04/[address] [place] [address], [facility] [address] [place] [address] Gail Bustamante NP End stage renal disease; Dependence on renal dialysis 12/30/2024 Orders Only [place] [facility], [facility] [address] [place] [address] Gabriella Berrios MD from Last 3 Months Social History Tobacco Use Types Packs/Day Years Used Date Smoking Tobacco: Never Assessed Sex and Gender Information Value Date Recorded Sex Assigned at Not on file Legal Sex Male 9:52 AM EDT Gender Identity Not on file Sexual Orientation Not on file Plan of Treatment Health Maintenance Due Date Last Done Comments Hepatitis B Vaccine (1 of 5 - Risk Dialysis 4-dose series) 1978 12/29/2021, 09/11/2021, 08/02/2021, Additional history exists Colorectal Cancer Screening: Annual FOBT 2007 Colorectal Cancer Screening: Colonoscopy 2007 Colorectal Cancer Screening: Sigmoidoscopy 2007 Influenza Vaccine (#1) 2025 , 06/05/2023, 05/18/2022 Pneumococcal Vaccine: 50+ Ye ars (3 of 3 - PCV20 or PCV21) 09/13/2026 09/13/2021, 07/19/2021 Pneumococcal Vaccine: Peds ( 0 to 5 Years) and At-Risk Patients (6 to 49 Years) Discontinued 09/13/2021, 07/19/2021 Procedures Procedure Name Priority Date/Time Associated Diagnosis Comments HEMATOLOGY Routine 03/24/2025 HEMATOLOGY Routine 03/17/2025 HEMATOLOGY Routine 03/10/2025 HEMATOLOGY Routine 03/03/2025 HD KINETICS Routine 03/01/2025 POST CHEMISTRY Routine 03/01/2025 CHEMISTRY Routine 03/01/2025 HEMATOLOGY Routine 02/24/2025 CHEMISTRY Routine 02/24/2025 HEMATOLOGY Routine 02/17/2025 HEMATOLOGY Routine 02/10/2025 HEMATOLOGY Routine 02/03/2025 [facility] RESULTS Routine 01/29/2025 HD KINETICS Routine 01/29/2025 POST CHEMISTRY Routine 01/29/2025 CHEMISTRY Routine 01/29/2025 CHEMISTRY Routine 01/27/2025 CHEMISTRY Routine 01/27/2025 HEMATOLOGY Routine 01/27/2025 HEMATOLOGY Routine 01/20/2025 HEMATOLOGY Routine 01/13/2025 [facility] LAB RESULTS Routine 01/11/2025 HD KINETICS Routine 01/11/2025 POST CHEMISTRY Routine 01/11/2025 CHEMISTRY Routine 01/11/2025 [facility] LAB RESULTS Routine 12/30/2024 HD KINETICS Routine 12/30/2024 POST CHEMISTRY Routine 12/30/2024 CHEMISTRY Routine 12/30/2024 HEMATOLOGY Routine 12/30/2024 from Last 3 Months Results * (ABNORMAL) HEMATOLOGY (03/24/2025) Only the most recent of12 resultswithin the time period is included. Hemoglobin 13.6(L) 14.0 - 18.0 g/dL [facility] Hemoglobin x 3 40.8(L) 42.0 - 54.0 % [facility] 03/24/2025 03/25/2025 11: 09 AM DONNIET Narrative STAN - 03/25/2025 Unless otherwise specified, test(s) performed at: [facility], [address] [place] [id number] SOLAR PHOTOVOLTAIC DESIGNER: Bang Torres M.D. For any questions, please call customer service at FREQUENCY:OTHER Resulting Agency Comment Specimen source: Blood us Gabriella Berrios MD LAB BLOOD ORDERABLES Final Re sult Performing Organization Address [facility] de Phone Number LP AminaE [facility] See order comments or contact performing lab Unknown, [place] * HD KINETICS (03/01/2025) Only the most recent of4 resultswithin the time period is included. % Urea Reduction 75 65 - 80 % [facility] 03/01/2025 03/02/2025 1:3 5 PM CDT Narrative Resulting Agency Comment Specimen source: Plasma us Gabriella Berrios MD LAB BLOOD ORDERABLES Final Re sult Performing Organization Address [facility] de Phone Number [facility] See order comments or contact performing lab Unknown, [place] * POST CHEMISTRY (03/01/2025) Only the most recent of4 resultswithin the time period is included. BUN Post Dialysis 7 6 - 19 mg/dL [facility] 03/01/2025 03/02/2025 1:3 5 PM CDT Narrative [facility] - 03/02/2025 Unless otherwise specified, test(s) performed at: [facility], [address] [place] [id number] SOLAR PHOTOVOLTAIC DESIGNER: Bang Torres M.D. For any questions, please call customer service at FREQUENCY:OTHER Resulting Agency Comment Specimen source: Plasma us Gabriella Berrios MD LAB BLOOD ORDERABLES Final Re sult Performing Organization Address [facility] de Phone Number [facility] See order comments or contact performing lab Unknown, [place] * (ABNORMAL) [facility] Chemistry (03/01/2025) Only the most recent of7 resultswithin the time period is included. BUN 28(H) 6 - 19 mg/dL [facility] 03/01/2025 03/02/2025 12: 25 PM CDT Narrative [facility] - 03/02/2025 Unless otherwise specified, test(s) performed at: [facility], [address] [place], [place] [id number] SOLAR PHOTOVOLTAIC DESIGNER: Bang Torres M.D. For any questions, please call customer service at FREQUENCY:OTHER Resulting Agency Comment Specimen source: Serum us Gabriella Berrios MD LAB BLOOD ORDERABLES Final Re sult [facility] See order comments or contact performing lab Unknown, [place] * [facility] Lab Results (01/29/2025) Only the most recent of3 resultswithin the time period is included. spKt/V (Daugirdas II) 1.55 [facility] eKt/V (Tattersall) 1.36 [facility] WSTDKT/V 3.3 [facility] 01/29/2025 01/29/2025 Gabriela Ordering Provider LAB BLOOD ORDERABLES Final Result Performing Organization Address City/[facility]/ZIP Co de Phone Number [facility] Contact Performing lab Unknown, [place] from Last 3 Months Insurance Medicaid [place] ([id number]) Medicare Care Teams Die Fitter Relationship Specialty Start Date End Date Souleymane Anne DO [address] [place] [address] PCP - General Family Medicine 06/19/21
--- OUTSIDE RECORDS SUMMARY | 2025-03-28 19:28 | XMS_ITS | Encounter Summary ---
Author Organization [facility] Address [address] [place] [address] Care Team Providers Care Steam Engineer Name Role Phone Souleymane Anne DO Primary Care Provider Unavaila ble Encounter Details Date Type Department Care Team (Late st Contact Info) Description 02/21/2015 Lab Requisition [facility] [place] [address] [place] [phone] Souleymane Anne DO NO ADDRESS ON FILE Sick Social History Tobacco Use Types Packs/Day Years Used Date Smoking Tobacco: Never Assessed Sex and Gender Information Value Date Recorded Sex Assigned at Not on file Legal Sex Male 8:42 AM CDT Gender Identity Not on file Sexual Orientation Not on file documented as of this encounter Plan of Treatment Scheduled Orders Name Type Priority Associated Diagnoses Orde r Schedule POC BNP Point of Care Testing Routine Sick [ICD-9-CM] Ordered: 02/21/2015 documented as of this encounter Procedures Procedure Name Priority Date/Time Associated Diagnosis Comments BASIC METABOLIC PANEL Routine 02/21/2015 9:41 PM CDT Sick [ICD-9-CM] documented in this encounter Results * (ABNORMAL) BASIC METABOLIC PANEL (02/21/2015 9:41 PM CDT) SODIUM 141 136 - 145 mmol/L 02/21/2015 10:30 PM CDT [facility] [place] POTASSIUM 4.0 3.5 - 5.1 mmol/L 02/21/2015 10:30 PM CDT [facility] [place] CHLORIDE 105 98 - 107 mmol/L 02/21/2015 10:30 PM CDT [facility] [place] CO2 28 21 - 32 mmol/L 02/21/2015 10:30 PM CDT [facility] [place] CALCIUM 8.5 8.5 - 10.1 mg/dL 02/21/2015 10:30 PM CDT [facility] BUN 20(H) 7 - 18 mg/dL 02/21/2015 10:30 PM CDT [facility] CREATININE 1.62(H) 0.60 - 1.30 mg/dL 02/21/2015 10:30 PM CDT [facility] GLUCOSE 74 74 - 106 mg/dL 02/21/2015 10:30 PM T [facility] GFR 44(L) >=60 mL/min/1.7 3 sq meter 02/21/2015 10:30 PM T [facility] Comment: eGFR has not been validated for use in the elderly (> 70 years of age), women, patients with serious co-morbid conditions, or persons with extremes of body size or muscle mass and should also be interpreted with caution in patients with acute kidney failure, dialysis dependent patients, patients reporting exceptional dietary intake (e.g. vegetarian diet, high protein diets, creatine supplementation), and patients with severe liver disease. Based on National Kidney Disease Education Program If patient is , please refer to the GFR result. GFR, 54(L) >=60 mL/min/1.7 3 sq meter 02/21/2015 10:30 PM CDT [facility] ANION GAP 8(L) 12 - 20 mmol/L 02/21/2015 10:30 PM CDT [facility] Blood Collection / Unknown 02/21/2015 9:41 PM CDT 02/21/2015 9:41 PM CDT us Souleymane Anne DO CHEMISTRY ORDERABLES Final Resu lt [facility] CLIA # [id number] [address] [place] [id number] documented in this encounter Visit Diagnoses Diagnosis Sick Other unknown and unspecified cause of morbidity or mortality documented in this encounter Care Teams Steam Engineer Relationship Specialty Start Date End Date Souleyamne Anne DO PCP - General Family Practice 03/01/15 documented as of this encounter
--- OUTSIDE RECORDS SUMMARY | 2025-03-28 19:28 | XMS_ITS | Clinical Summary ---
Author Organization [facility] Address [address] [facility] [address] [place] [address] Phone Care Team Providers Care File System Installer Name Role Phone Souleymane Anne DO Primary Care Provider Unavaila ble Social History Tobacco Use Types Packs/Day Years Used Date Smoking Tobacco: Never Assessed Sex and Gender Information Value Date Recorded Sex Assigned at Not on file Legal Sex Male 8:42 AM CDT Gender Identity Not on file Sexual Orientation Not on file Plan of Treatment Health Maintenance Due Date Last Done Comments DTAP/TDAP/TD VACCINES (1 - Tdap) 1977 COLORECTAL SCREENING 2003 Colorectal Cancer Screening 2003 FIT-DNA Q 3 years 2003 FIT/FOBT Q 1 year 2003 Flex Sig/CT Colonography Q 5 years 2003 PNEUMOCOCCAL VACCINE 50+ YEARS (1 of 1 - PCV) 03/31/20 08 ZOSTER VACCINE (1 of 2) 2008 INFLUENZA VACCINE (#1) 2025 RSV VACCINE (60+ or ) (1 - 1-dose 75+ series) 2033 Care Teams File System Installer Relationship Specialty Start Date End Date Souleymane Anne DO PCP - General Family Practice 03/01/15
--- OUTSIDE RECORDS SUMMARY | 2025-03-28 19:28 | XMS_ITS | Encounter Summary ---
Author Organization [facility], [facility] Address [address] [place] [address] Phone Care Team Providers Care Clean Up Worker Name Role Phone Souleymane Anne DO Primary Care Provider [phone] Encounter Details Date Type Department Care Team (Late st Contact Info) Description 03/24/2025 Orders Only [place] [facility] [address] [place] [address] Gabriella Berrios MD [address] [place] [address] Social History Tobacco Use Types [...] Date/Time Associated Diagnosis Comments HEMATOLOGY Routine 03/24/2025 documented in this encounter Results * (ABNORMAL) HEMATOLOGY (03/24/2025) Hemoglobin 13.6(L) 14.0 - 18.0 g/dL [facility] Hemoglobin x 3 40.8(L) 42.0 - 54.0 % [facility] 03/24/2025 03/25/2025 11: 09 AM CDT Narrative [facility] - 03/25/2025 Unless otherwise specified, test(s) performed at: [facility], [address] [place] [id number] MICROBIOLOGICAL LABORATORY TECHNICIAN: Bang Torres M.D. For any questions, please call customer service at FREQUENCY:OTHER Resulting Agency Comment Specimen source: Blood us Gabriella Berrios MD LAB BLOOD ORDERABLES Final Re sult [facility] See order comments or contact performing lab Unknown, [place] documented in this encounter Visit Diagnoses Not on filedocumented in this encounter Care Teams Clean Up Worker Relationship Specialty Start Date End Date Souleymane Anne DO [address] [place], [place] [id number] PCP - General Family Medicine 06/19/21 documented as of this encounter
--- OUTSIDE RECORDS SUMMARY | 2025-03-28 19:28 | XMS_ITS | Encounter Summary ---
Author Organization [facility] Address [address] [facility] [address] [place] [address] Phone Care Team Providers Care Python Web Developer Name Role Phone Souleymane Anne DO Primary Care Provider [phone] Reason for Visit * Reason Comments Med Refill Encounter Details Date Type Department Care Team (Late st Contact Info) Description 06/07/2023 Refill [facility] [address] [facility] [address] [place] [address] Gabriella Berrios MD [address] [facility] [address] [place] [address] Social History Tobacco Use Types [...] on filedocumented in this encounter Care Teams Python Web Developer Relationship Specialty Start Date End Date Souleymane Anne DO [address] [place] [address] PCP - General Family Medicine 06/19/21 documented as of this encounter
--- OUTSIDE RECORDS SUMMARY | 2025-03-28 19:28 | XMS_ITS | Encounter Summary ---
Author Organization [facility] Address [address] [place] [address] Care Team Providers Care Director Of Curriculum And Instruction Name Role Phone Souleymane Anne DO Primary Care Provider Unavaila ble Encounter Details Date Type Department Care Team (Late st Contact Info) Description 12/28/2014 Lab Requisition [facility] [place] [address] [place] [phone] Kenna Baker, CONTRACT DESIGNER [address] [place] [address] Social History Tobacco Use Types Packs/Day Years [...] Procedure Name Priority Date/Time Associated Diagnosis Comments LIPID PANEL Routine 12/27/2014 8:43 PM CDT COMPREHENSIVE METABOLIC PANEL Routine 12/27/2014 8:43 PM CDT documented in this encounter Results * (ABNORMAL) LIPID PANEL (12/27/2014 8:43 PM CDT) CHOLESTEROL 248(H) 130 - 200 mg/dL 12/28/2014 9:05 AM CDT [facility] [place] TRIGLYCERIDE 248(H) 30 - 200 mg/dL 12/28/2014 9:05 AM CDT [facility] [place] HDL 36 35 - 80 mg/dL 12/28/2014 9:05 AM CDT [facility] [place] LDL CALCULATED 162(H) 0 - 100 mg/dL 12/28/2014 9:05 AM [facility] NON-HDL CHOLESTEROL 212 mg/dL 12/28/2014 9:05 AM [facility] Blood Collection / Unknown 12/27/2014 8:43 PM CDT 12/28/2014 8:43 AM CDT [facility]ORAT[facility] - 12/28/2014 9:05 AM CDT TOTAL CHOLESTEROL mg/dL Desirable <200 Borderline high 200-239 High >=240 TRIGLYCERIDES mg/dL Normal <150 Borderline high 150-199 High 200-499 Very high >=500 HDL CHOLESTEROL mg/dL Low <40 Normal 40-60 Desirable >60 LDL CHOLESTEROL mg/dL Optimal <100 Low risk 100-129 Borderline high 130-159 High 160-189 Very high >=190 NON HDL CHOLESTEROL mg/dL Desirable <130 Borderline high 130-159 High 160-189 Very high >=190 Based on AHA/NCEP Guidelines Kenna Baker [facility] CHEMISTRY ORDERABLES Final Resu lt [facility] CLIA # [id number] [address] [place] [id number] * (ABNORMAL) COMPREHENSIVE METABOLIC PANEL (12/27/2014 8:43 PM CDT) SODIUM 140 136 - 145 mmol/L 12/28/2014 9:05 AM [facility] POTASSIUM 4.3 3.5 - 5.1 mmol/L 12/28/2014 9:05 AM [facility] CHLORIDE 103 98 - 107 mmol/L 12/28/2014 9:05 AM [facility] CO2 33(H) 21 - 32 mmol/L 12/28/2014 9:05 AM [facility] CALCIUM 9.2 8.5 - 10.1 mg/dL 12/28/2014 9:05 AM [facility] BUN 26(H) 7 - 18 mg/dL 12/28/2014 9:05 AM [facility] CREATININE 1.72(H) 0.60 - 1.30 mg/dL 12/28/2014 9:05 AM [facility] GLUCOSE 85 74 - 106 mg/dL 12/28/2014 9:05 AM [facility] TOTAL PROTEIN 7.6 6.4 - 8.2 g/dL 12/28/2014 9:05 AM [facility] ALBUMIN 3.0(L) 3.4 - 5.0 g/dL 12/28/2014 9:05 AM [facility] BILIRUBIN TOTAL 0.3 0.2 - 1.0 mg/dL 12/28/2014 9:05 AM [facility] ALKALINE PHOSPHATASE 98 46 - 116 U/L 12/28/2014 9:05 AM [facility] AST 22 15 - 37 U/L 12/28/2014 9:05 AM [facility] ALT 22(L) 30 - 65 U/L 12/28/2014 9:05 AM [facility] GFR 41(L) >=60 mL/min/1.7 3 sq meter 12/28/2014 9:05 AM [facility] Comment: eGFR has not been validated for [...] please refer to the GFR result. GFR, 50(L) >=60 mL/min/1.7 3 sq meter 12/28/2014 9:05 AM [facility] ANION GAP 4(L) 12 - 20 mmol/L 12/28/2014 9:05 AM [facility] Blood Collection / Unknown 12/27/2014 8:43 PM CDT 12/28/2014 8:43 AM CDT Narrative [facility] [place] - 12/28/2014 9:05 AM CDT Effective 04/29/2014, the Alkaline Phosphatase test method and reference range have changed. Please take this into consideration when interpreting results prior to or after this date. Kenna Bakre CONTRACT DESIGNER CHEMISTRY ORDERABLES Final Resu lt [facility] [place] CLIA # [id number] [address] [place] [id number] documented in this encounter Visit Diagnoses Not on filedocumented in this encounter Care Teams Director Of Curriculum And Instruction Relationship Specialty Start Date End Date Souleymane Anne DO PCP - General Family Practice 03/01/15 documented as of this encounter
--- OUTSIDE RECORDS SUMMARY | 2025-03-28 19:28 | XMS_ITS | Encounter Summary ---
Author Organization [facility] [employer] Address [address] [facility] [address] [place] [address] Phone Care Team Providers Care Clinical Orthoptist Name Role Phone Souleymane Anne DO Primary Care Provider [phone] Reason for Visit * Reason Comments Med Refill Encounter Details Date Type Department Care Team (Late st Contact Info) Description 05/16/2022 Refill [facility] [address] [facility] [address] [place] [address] Kirill Robledo MD [address] [facility] [address] [place] [address] Social History Tobacco Use Types [...] on filedocumented in this encounter Care Teams Clinical Orthoptist Relationship Specialty Start Date End Date Souleymane Anne DO [address] [place] [address] PCP - General Family Medicine 06/19/21 documented as of this encounter
--- OUTSIDE RECORDS SUMMARY | 2025-03-28 19:28 | XMS_ITS | Encounter Summary ---
Author Organization [facility] [employer] Address [address] [facility] [address] [place] [address] Phone Care Team Providers Care Dietitian Name Role Phone Souleymane Anne DO Primary Care Provider [phone] Reason for Visit * Reason Comments Med Refill Encounter Details Date Type Department Care Team (Late st Contact Info) Description 06/19/2023 Refill [facility] [address] [facility] [address] [place] [address] Gabriella Berrios MD [address] [facility] [address] [place] [address] Social History Tobacco Use Types [...] on filedocumented in this encounter Care Teams Dietitian Relationship Specialty Start Date End Date Souleymane Anne DO [address] [place] [address] PCP - General Family Medicine 06/19/21 documented as of this encounter
--- OUTSIDE RECORDS SUMMARY | 2025-03-28 19:28 | XMS_ITS | Encounter Summary ---
Author Organization [facility] [employer] Address [address] [facility] [address] [place] [address] Phone Care Team Providers Care Can Piler Name Role Phone Souleymane Anne DO Primary Care Provider [phone] Reason for Visit * Reason Comments Med Refill Encounter Details Date Type Department Care Team (Late st Contact Info) Description 02/09/2022 Refill [facility] [employer] [employer] [address] [facility] [address] [place] [address] Kirill Robledo MD [address] [facility] [address] [place] [address] Social History Tobacco Use Types [...] on filedocumented in this encounter Care Teams Can Piler Relationship Specialty Start Date End Date Souleymane Anne DO [address] [place] [address] PCP - General Family Medicine 06/19/21 documented as of this encounter
--- OUTSIDE RECORDS SUMMARY | 2025-03-28 19:28 | XMS_ITS | Encounter Summary ---
Author Organization [facility] [employer] Address [address] [facility] [address] [place] [address] Phone Care Team Providers Care Sport Psychologist Name Role Phone Souleymane Anne DO Primary Care Provider Reason for Visit * Reason Comments Med Refill Encounter Details Date Type Department Care Team (Late st Contact Info) Description 05/17/2023 Refill [facility] [address] [facility] [address] [place] [address] Gabriella Berrios MD [address] [facility] [address] [place] [address] Social History Tobacco Use Types [...] on filedocumented in this encounter Care Teams Sport Psychologist Relationship Specialty Start Date End Date Souleymane Anne DO [address] [place] [address] PCP - General Family Medicine 06/19/21 documented as of this encounter
--- OUTSIDE RECORDS SUMMARY | 2025-03-28 19:28 | XMS_ITS | Clinical Summary ---
Author Organization [facility] Address [address] [facility] Attn: Epic Prelude ADT CHRISTOPHER MERINO [address] Care Team Providers Care Bellows Filler Name Role Phone Unavailable Primary Care Provider Unavailabl e Allergies Active Allergy Reactions Criticality Noted Date Comments Aspirin Hives High 06/16/2021 hives Medications amLODIPine (NORVASC) 10 mg tablet Take 1 Tablet (10 mg) by mouth daily. 30 Tablet 06/23/2021 1:59 PM CDT 1 Active bisacodyL (DULCOLAX) 5 mg Delayed Release tablet Take 2 Tablets (10 mg) by mouth 1 time daily as needed for Constipation. 30 Tablet 06/23/2021 1:59 PM CDT 1 Active calcitRIOL (ROCALTROL) 0.25 mcg capsule Take 1 Capsule (0.25 mcg) by mouth 2 times daily. 30 Capsule 06/23/2021 1:59 PM CDT 1 Active hydrALAZINE (APRESOLINE) 50 mg tablet Take 1.5 Tablets (75 mg) by mouth 3 times daily. 30 Tablet 06/23/2021 1:59 PM CDT 1 Active pantoprazole (PROTONIX) 40 mg Tablet, Delayed Release (E.C.) Take 1 Tablet (40 mg) by mouth 2 times daily. 30 Tablet 06/23/2021 1:59 PM CDT 1 Active calcium acetate,phospha t bind, (PHOSLO) 667 mg Capsule Take 2 Capsules (1,334 mg) by mouth 3 times daily with meals. 30 Capsule 1 Active HYDROcodone-farooq taminophen (NORCO) 5-325 mg tablet Take 1 Tablet by mouth every 6 hours as needed for pain. Max Daily Amount: 4 Tablets 6 Tablet 04/24/2022 2:52 PM CDT 2 Active naloxone (NARCAN) 4 mg/spray [place], Non-Aerosol Call 911. [place] contents of one inhaler (0.1mL) into one nostril. Repeat every three minutes alternating nostrils as needed if no or minimal response. 2 Each 04/24/2022 2:52 PM CDT 2 Active Miscellaneous Medical Supply (DisposeRx) Packet Use for disposal of opioid medications. 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 05/27 ESRD (end stage renal disease) 06/16/2021 HTN (hypertension), benign 06/16/2021 Grade II diastolic dysfunction 06/16/2021 Anemia 06/16/2021 Dialysis patient 06/16/2021 Acute renal failure Encounters Date Type Department Care Team Description 03/10/2025 External Device Data ST[facility] ABSTRACTION Provider, Abstract 03/09/2025 External Device Data [facility] ABSTRACTION Provider, Abstract 02/09/2025 External Device Data [facility] ABSTRACTION Provider, Abstract 01/28/2025 8:14 AM CDT - 01/28/2025 11:59 PM CDT Hospital Encounter [facility] Interventional Radiology [address] [place] [address] Gabriella Berrios MD Todd, Adam Ross, MD Discharge Disposition: Home or Self Care 01/27/2025 Telephone [facility] Interventional Radiology [address] [place] [address] [place], braille and talking books clerk (Nurse attempted to call pt to give instructions for fistulogram on 01/28/25. Pt did not answer at 1351 and 1442) 01/13/2025 Telephone [facility] Interventional Radiology [address] [place] [address] Shania Tobar, braille and talking books clerk (This RN attempted to call patients home # and cell # regarding tomorrows scheduled procedure. No answer and no option for voicemail.) from Last 3 Months Family History Medical History Relation Name Comments Diabetes Brother Liver Disease Father Diabetes Mother Kidney Disease Mother Diabetes Other Relation Name Status Comments Brother Alive Father Mother Other Alive Sister Alive Social History Tobacco Use Types Packs/Day Years Used Date Smoking Tobacco: Never Smokeless Tobacco: Former Chew Tobacco Cessation:Counseling Given: Not Answered Comments:Daily Alcohol Use Standard Drinks/Week Comments Not Currently 0 (1 standard drink = 0.6 oz pur e alcohol) Sex and Gender Information Value Date Recorded Sex Assigned at Not on file Legal Sex Male 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 Gender Identity Not on file Sexual Orientation Not on file Last Filed Vital Signs Vital Sign Reading Time Taken Comments Blood Pressure 162/83 01/28/2025 10:55 AM CDT Pulse 75 01/28/2025 10:55 AM CDT Temperature 36.4 C (97.5 F) 01/28/2025 10:55 AM CDT Respiratory Rate 16 01/28/2025 10:55 AM CDT Oxygen Saturation 96% 01/28/2025 10:55 AM CDT Inhaled Oxygen Concentration - - Weight 113.4 kg (250 lb) 01/28/2025 8:25 AM CDT Height 185.4 cm (6' 1 ) 01/28/2025 8:25 AM CDT Body Mass Index 32.98 01/28/2025 8:25 AM CDT Plan of Treatment Health Maintenance Due Date Last Done Comments Pre-Diabetes and Diabetes Screening 1960 DTAP/TDAP/TD VACCINES (1 - Tdap) 1977 PNEUMOCOCCAL VACCINE 50+ YEARS (1 of 2 - PCV) 03/31/19 77 COLORECTAL SCREENING 2003 Colorectal Cancer Screening 2003 FIT-DNA Q 3 years 2003 FIT/FOBT Q 1 year 2003 Flex Sig/CT Colonography Q 5 years 2003 ZOSTER VACCINE (1 of 2) 2008 RSV VACCINE (60+ or ) (1 - Risk 60-74 years 1-dose series) 2018 INFLUENZA VACCINE (#1) 2025 Medical Devices Implanted Type Area Advertising Account Representative Device Identifier Shelf Expiration Date Model / Serial / Lot Clip Ligating Horizon Ti Sm [id number] - [id number] Implanted:Qty: 2 on 04/24/2022 by Alvarado Flynn MD at [facility] Left: Arm TELEFLEX- WECK CLOSURE SYS 09/25/2026 [id number] / / [id number] Clip Ligating Horizon Med Ti [id number] - [facility] - [id number] Implanted:Qty: 1 on 04/24/2022 by Alvarado Flynn MD at [facility] Left: Arm TELEFLEX- WECK CLOSURE SYS 10/03/2026 [id number] / / [id number] Coil Azur Cx Detach .035 11cm [id number]/2 2/2022 Implanted:Qty: 2 on 08/16/2022 by Keagan Lucas MD Coil TERUMO- MED TAYE 03/25/2027 [id number] / / [id number] Coil Azur Cx Detach .035 7cm [id number]/2 2/2022 Implanted:Qty: 1 on 08/16/2022 by Keagan Lucas MD Coil TERUMO- MED TAYE 02/22/2027 [id number] 07 / / [id number] Coil Azur Cx Detach .035 7cm [id number]/2 2/2022 Implanted:Qty: 1 on 08/16/2022 by Keagan Lucas MD Coil TERUMO- MED TAYE 02/22/2027 [id number] 07 / / [id number] Coil Azur Cx Detach .035 7cm [id number]/04 Implanted:Qty: 1 on 09/04/2022 by Keagan Lucas MD Coil Arm TERUMO- MED TAYE 12/23/2026 [id number] Description:[id number] 4x7 Coil Azur Cx Detach .035 7cm [id number]/04 Implanted:Qty: 1 on 09/04/2022 by Keagan Lucas MD Coil Left: Arm TERUMO- MED TAYE 03/25/2027 [id number] 07 / / [id number] Description:azur cx35 4x7 Coil Azur Cx Detach .035 11cm [id number]/04 Implanted:Qty: 1 on 09/04/2022 by Keagan Lucas MD Coil Left: Arm TERUMO- MED TAYE 03/25/2027 [id number] Description:azur cx35 5x11 Coil Azur Cx Detach .035 11cm [id number]/04 Implanted:Qty: 1 on 09/04/2022 by Keagan Lucas MD Coil Left: Arm TERUMO- MED TAYE 03/25/2027 [id number] Description:azur cx35 5x11 Coil Azur Cx Detach .035 17cm [id number]/04 Implanted:Qty: 1 on 09/04/2022 by Keagan Lucas MD Coil Left: Chest Wall TERUMO- MED TAYE 12/23/2026 [id number] / / [id number] Description:azur cx35 6x17 Coil Azur Cx Detach .035 17cm [facility]652061-609/04 Implanted:Qty: 1 on 09/04/2022 by Keagan Lucas MD Coil Left: Arm TERUMO- MED TAYE 12/23/2026 [id number] [id number] Description:azur cx35 6x17 Coil Azur Cx Detach .035 17cm [facility]582570-709/04 Implanted:Qty: 1 on 09/04/2022 by Keagan Lucas MD Coil Left: Arm TERUMO- MED TAYE 12/23/2026 [facility]0566 758 Description:azur cx35 6x17 Hemostatic Surgicel 1x2in 1960 - [id number] Implanted:Qty: 1 on 04/24/2022 by Alvarado Flynn MD at [facility] Hemostatic Left: Arm [employer] 11/23/20241960 / [id number] Procedures Procedure Name Priority Date/Time Associated Diagnosis Comments IR FISTULOGRAM Routine 01/28/2025 10:14 AM CDT ESRD (end stage renal disease) ([facility]) from Last 3 Months Results * IR FISTULOGRAM (01/28/2025 10:14 AM CDT) Anatomical Region Laterality Modality X-Ray Angiograph y 01/28/2025 10:1 4 AM CDT Impressions 01/29/2025 6:50 AM CDT IMPRESSION: 1. Angioplasty of a stenotic lesion at the left cephalic arch resulted in brisk flow and no hemodynamically significant residual stenosis. 2. Antegrade flow is demonstrated in the left radial, ulnar, and interosseous arteries. The rate of flow is slow. Narrative 01/29/2025 6:50 AM CDT PROCEDURE: 1. Ultrasound-guided vascular access. 2. Fistulography of the left upper extremity arteriovenous fistula, including venography of the peripheral and central venous outflow and arteriography performed from the left vertebral artery. 3. Percutaneous transluminal angioplasty of a stenotic lesion at the left cephalic arch. INDICATION: ESRD (end stage renal disease) ([facility]) [N18.6 (ICD-10-CM)] DATE: 01/28/2025. COMPARISON: Fistulogram performed on 09/04/2022. PHYSICIAN: Manjeet Patel CONSENT: After discussing the potential risks, benefits, and alternatives of the procedure, written informed consent was obtained. MEDICATIONS: Versed 2 mg IV, fentanyl 100 mcg IV, 1% lidocaine subcutaneous. SEDATION: Moderate (conscious) sedation for this procedure was performed with continuous physician supervision. Medical history, physical exam, drug dosages, routes of drug administration, monitoring data, and precise times of service are documented in the medical record on the [facility]-approved form, 'Sedative/Analgesic Administration for Diagnostic and Therapeutic Procedures'. Please see nursing flow sheets for dosages and time. The total physician-monitored moderate sedation time was 34 minutes. DESCRIPTION OF PROCEDURE: The patient was brought to the angiography suite and placed on table in the supine position. His left upper extremity was prepped and draped in the usual sterile manner and with the use a maximum were technique. [place] timeout protocol was performed. After anesthetizing patient's skin with 1% lidocaine, the peripheral venous outflow in the left upper arm was accessed with a micropuncture needle using real-time ultrasound guidance (an ultrasound image was archived to PACS). Using standard micropuncture technique, the tract was dilated, and a 6 Guamanian vascular sheath was inserted over guidewire and directed antegrade. Venography of the peripheral venous outflow showed segments of mild to moderate stenosis in the left cephalic arch. Percutaneous transluminal angioplasty of these lesions in the left cephalic arch was performed using an 8 mm x 40 mm Canova balloon followed by a 9 mm x 40 mm [place]ova ballooned. Subsequent venography demonstrated brisk flow and no hemodynamically significant residual stenosis. Reflux angiography of the arteriovenous anastomosis was unremarkable. The wire, catheter, and vascular sheath were removed. Hemostasis was achieved with placement of a woggle temporary purse string suture. The patient stated that he occasionally had numbness in one of his left digits during hemodialysis. The skin was again anesthetized with 1% lidocaine. Using ultrasound guidance, the peripheral venous outflow in the mid left upper arm was accessed with a micropuncture needle using real-time ultrasound guidance (an ultrasound image was archived to PACS). A 4 Guamanian [employer] diagnostic catheter was advanced over Glidewire into the distal left brachial artery. Arteriography performed from the left hepatic artery demonstrated antegrade flow and the left radial, ulnar, and interosseous arteries. Vascular flow was somewhat slow, but appeared adequate. The peripheral venous outflow of the fistula was compressed, and arteriography was repeated. The greater vascular flow in the left radial, ulnar, and interosseous arteries was increased, but do not appear significantly different from images obtained without compression. COMPLICATIONS: None. The patient tolerated the procedure well. ESTIMATED BLOOD LOSS: Minimal. CONTRAST: Isovue-300, 65 mL intravenous FLUOROSCOPY TIME: 4.1 minutes. SAMPLES: None. Procedure Note Manjeet Patel MD - 01/29/2025 PROCEDURE: 1. Ultrasound-guided vascular access. 2. Fistulography of the left upper extremity arteriovenous fistula, including venography of the peripheral and central venous outflow and arteriography performed from the left vertebral artery. 3. Percutaneous transluminal angioplasty of a stenotic lesion at the left cephalic arch. INDICATION: ESRD (end stage renal disease) ([facility]) [N18.6 (ICD-10-CM)] DATE: 01/28/2025. COMPARISON: Fistulogram performed on 09/04/2022. PHYSICIAN: Manjeet Patel CONSENT: After discussing the potential risks, benefits, and alternatives of the procedure, written informed consent was obtained. MEDICATIONS: Versed 2 mg IV, fentanyl 100 mcg IV, 1% lidocaine subcutaneous. SEDATION: Moderate (conscious) sedation for this procedure was performed with continuous physician supervision. Medical history, physical exam, drug dosages, routes of drug administration, monitoring data, and precise times of service are documented in the medical record on the [facility]-approved form, 'Sedative/Analgesic Administration for Diagnostic and Therapeutic Procedures'. Please see nursing flow sheets for dosages and time. The total physician-monitored moderate sedation time was 34 minutes. DESCRIPTION OF PROCEDURE: The patient was brought to the angiography suite and placed on table in the supine position. His left upper extremity was prepped and draped in the usual sterile manner and with the use a maximum were technique. [place] timeout protocol was performed. After anesthetizing patient's skin with 1% lidocaine, the peripheral venous outflow in the left upper arm was accessed with a micropuncture needle using real-time ultrasound guidance (an ultrasound image was archived to PACS). Using standard micropuncture technique, the tract was dilated, and a 6 Guamanian vascular sheath was inserted over guidewire and directed antegrade. Venography of the peripheral venous outflow showed segments of mild to moderate stenosis in the left cephalic arch. Percutaneous transluminal angioplasty of these lesions in the left cephalic arch was performed using an 8 mm x 40 mm Canova balloon followed by a 9 mm x 40 mm Canova ballooned. Subsequent venography demonstrated brisk flow and no hemodynamically significant residual stenosis. Reflux angiography of the arteriovenous anastomosis was unremarkable. The wire, catheter, and vascular sheath were removed. Hemostasis was achieved with placement of a woggle temporary purse string suture. The patient stated that he occasionally had numbness in one of his left digits during hemodialysis. The skin was again anesthetized with 1% lidocaine. Using ultrasound guidance, the peripheral venous outflow in the mid left upper arm was accessed with a micropuncture needle using real-time ultrasound guidance (an ultrasound image was archived to PACS). A 4 Guamanian [employer] diagnostic catheter was advanced over Glidewire into the distal left brachial artery. Arteriography performed from the left hepatic artery demonstrated antegrade flow and the left radial, ulnar, and interosseous arteries. Vascular flow was somewhat slow, but appeared adequate. The peripheral venous outflow of the fistula was compressed, and arteriography was repeated. The greater vascular flow in the left radial, ulnar, and interosseous arteries was increased, but do not appear significantly different from images obtained without compression. COMPLICATIONS: None. The patient tolerated the procedure well. ESTIMATED BLOOD LOSS: Minimal. CONTRAST: Isovue-300, 65 mL intravenous FLUOROSCOPY TIME: 4.1 minutes. SAMPLES: None. IMPRESSION: 1. Angioplasty of a stenotic lesion at the left cephalic arch resulted in brisk flow and no hemodynamically significant residual stenosis. 2. Antegrade flow is demonstrated in the left radial, ulnar, and interosseous arteries. The rate of flow is slow. Gabriella Berrios MD IR ORDERABLES Final Result from Last 3 Months Insurance MEDICAID [place] MED[place]ARE PART A AND B RX INFOCROSSING Medicaid Advance Directives For more information, please contact: [phone] * Full Code (Latest Code Status on File) Date Activated Date Inactivated Comments 01/12/2022 8:36 AM 01/12/2022 11:28 AM * Full Code Date Activated Date Inactivated Comments 06/16/2021 7:38 PM 06/23/2021 3:55 PM
--- OUTSIDE RECORDS SUMMARY | 2025-03-28 19:28 | XMS_ITS | Encounter Summary ---
Author Organization [facility] Address [address] [place] [address] Care Team Providers Care Senior Accounting Associate Name Role Phone Souleymane Anne DO Primary Care Provider Unavaila ble Reason for Referral * Outpatient Services (Routine) - Closed Specialty Diagnoses / Procedures Referred By Contac t Referred To Contact Radiology Diagnoses Elevated brain natriuretic peptide (BNP) level Fluid retention Cellulitis Procedures ECHO COMPLETE Souleymane Anne DO [facility] [address] [place] [address] Phone: tel: fax: Referral ID Status Reason Start Date Expiration Date V isits Requested Visits Authorized [id number] Closed ILN View CTS to Schedule (SGF) 03/01/2015 2016 1 1 Encounter Details Date Type Department Care Team (Latest Contact Info) Description 03/01/2015 Ancillary Orders [facility] Centralized Scheduling [address] [place] [address] Souleymane Anne DO NO ADDRESS ON FILE Elevated brain natriuretic peptide (BNP) level (Primary Dx); Fluid retention; Cellulitis Social History Tobacco Use Types Packs/Day Years Used Date Smoking Tobacco: Never Assessed Sex and Gender Information Value Date Recorded Sex Assigned at Not on file Legal Sex Male 8:42 AM CDT Gender Identity Not on file Sexual Orientation Not on file documented as of this encounter Plan of Treatment Not on file documented as of this encounter Results * ECHO COMPLETE (03/03/2015 9:28 AM CDT) EJECTION FRACTION INTERFACE SYSTEM 03/03/2015 9:03 AM CDT [employer] INTERFACE SYSTEM - 03/03/2015 5:21 PM CDT [facility] Radiology Services - Echocardiology [address] [place] [address] Transthoracic Echocardiography Patient: Xavier Study [id number] Alvarado ID: Gender: M : 1960 Age: 54 Room: Study 03/03/2015 Pt Date: Status: Study 09:03 AM [facility] #: [id number] Time: Ordering:Souleymane Anne Interpreting:Taurus Esparza MD Indications and History: Hypertension. Summary and Conclusion: - Left ventricle: Hypertrophy was noted. Systolic function was normal. The visually estimated ejection fraction was in the range of 55% to 60%. Doppler parameters are consistent with abnormal left ventricular relaxation (grade 1 diastolic dysfunction). - Right ventricle: Not well visualized. Systolic function was difficult to assess and probably normal. RV systolic pressure: 27mm Hg (S, est). - Aortic valve: Mildly thickened leaflets. - Mitral valve: Mildly thickened. Procedure information: No prior study was available for comparison. Study status: Routine. Procedure: Transthoracic echocardiography. Image quality was adequate. Scanning was performed from the parasternal, apical, subcostal, and suprasternal notch acoustic windows. Study components: M-mode, 2D, complete spectral Doppler, and color Doppler. Height: Height: 185cm. Height: 72.8in. Weight: Weight: 161kg. Weight: 354.2lb. Body mass index: BMI: 47kg/m\S\2. Body surface area: BSA: 2.95m\S\2. Blood pressure: 160/90. Study date: Study date: March 03, 2015. Cardiac Anatomy: LEFT VENTRICLE: Hypertrophy was noted. Systolic function was normal. The visually estimated ejection fraction was in the range of 55% to 60%. Doppler parameters are consistent with abnormal left ventricular relaxation (grade 1 diastolic dysfunction). RIGHT VENTRICLE: Not well visualized. Systolic function was difficult to assess and probably normal. AORTIC VALVE: Mildly thickened leaflets. Doppler: There was no stenosis. No significant regurgitation. Mean gradient: 4mm Hg (S). Peak gradient: 7mm Hg (S). MITRAL VALVE: Mildly thickened. Doppler: There was no evidence for stenosis. Trivial regurgitation. Valve area by pressure half-time: 4.56cm\S\2. Indexed valve area by pressure half-time: 1.54cm\S\2/m\S\2. Peak gradient: 2mm Hg (D). TRICUSPID VALVE: Doppler: Trivial regurgitation. PULMONIC VALVE: Doppler: No significant regurgitation. Mean gradient: 2mm Hg (S). Peak gradient: 4mm Hg (S). PERICARDIUM: There was no pericardial effusion. 2D measurements Adult Normal Range Left ventricle LVID ED, chord, PLAX 45.45 mm 43-52 LVID ES, chord, PLAX *39.13 mm 23-38 FS, chord, PLAX *14 % >29 LVPW, ED 15.12 mm LVPW, ES 21.08 mm Post wall thickening 39 % IVS/LVPW ratio, ED 1.08 <1.3 Vol ED, MOD1 105.5 ml Vol ES, MOD1 53.1 ml EF, MOD1 49.73 % Stroke vol, MOD1 52.5 ml Vol index, ED, MOD1 36 ml/m\S\2 Vol index, ES, MOD1 18 ml/m\S\2 Stroke index, MOD1 17.8 ml/m\S\2 Vol ED, MOD2 105.2 ml 62-170 Vol ES, MOD2 62.7 ml EF, MOD2 40.44 % Vol index, ED, MOD2 36 ml/m\S\2 Vol index, ES, MOD2 21 ml/m\S\2 Ventricular septum IVS, ED 16.26 mm IVS, ES 17.46 mm Septal thickening 7 % Aorta Root diam, ED 37.7 mm Left atrium AP dim 36.69 mm AP dim index 1.24 cm/m\S\2 <2.2 SI dim, A4C *56.66 mm 29-53 Right ventricle RVID ED, PLAX 36.56 mm 19-38 M-mode measurements Adult Normal Range Left ventricle EF, Teichholz *29.81 % 64-83 Doppler measurements Adult Normal Range Main pulmonary artery Pressure, S 23 mm Hg <=30 Left ventricle IVRT 85 ms 60-100 Aortic valve Peak maribel, S 129.6 cm/s Mean maribel, S 88.56 cm/s VTI, S 29.82 cm Mean gradient, S 4 mm Hg Peak gradient, S 7 mm Hg Mitral valve Peak E maribel 75.84 cm/s Peak A maribel 94.72 cm/s Deceleration time 166 ms 150-230 Pressure half-time 48 ms Peak gradient, D 2 mm Hg Peak E/A ratio 0.8 Area (PHT) 4.56 cm\S\2 Area index (PHT) 1.54 cm\S\2/m\S\2 Tricuspid valve Regurg peak maribel 194.88 cm/s Peak RV-RA gradient, S 15 mm Hg Max regurg maribel 194.88 cm/s Systemic veins Estimated CVP 10 mm Hg Right ventricle Pressure, S 27 mm Hg <30 Pulmonic valve Peak maribel, S 95.92 cm/s Mean gradient, S 2 mm Hg Peak gradient, S 4 mm Hg Legend: Mean values are shown as u=mean value. Asterisk (*) brown values outside specified normal range. Prepared and Electronically Authenticated Taurus Esparza MD Confirmed 03/03/2015 17:20 Procedure Note Reynaldo Esparza MD - 03/03/2015 [facility] Radiology Services - Echocardiology [address] [place] [id number] Transthoracic Echocardiography Patient: Xavier Study [id number] Alvarado ID: Gender: M : 1960 Age: 54 Room: Study 03/03/2015 Pt Date: Status: Study 09:03 AM [facility] #: [id number] Time: Ordering:Souleymane Anne Interpreting:Taurus Esparza MD Indications and History: Hypertension. Summary and Conclusion: - Left ventricle: Hypertrophy was noted. Systolic function was normal. The visually estimated ejection fraction was in the range of 55% to 60%. Doppler parameters are consistent with abnormal left ventricular relaxation (grade 1 diastolic dysfunction). - Right ventricle: Not well visualized. Systolic function was difficult to assess and probably normal. RV systolic pressure: 27mm Hg (S, est). - Aortic valve: Mildly thickened leaflets. - Mitral valve: Mildly thickened. Procedure information: No prior study was available for comparison. Study status: Routine. Procedure: Transthoracic echocardiography. Image quality was adequate. Scanning was performed from the parasternal, apical, subcostal, and suprasternal notch acoustic windows. Study components: M-mode, 2D, complete spectral Doppler, and color Doppler. Height: Height: 185cm. Height: 72.8in. Weight: Weight: 161kg. Weight: 354.2lb. Body mass index: BMI: 47kg/m\S\2. Body surface area: BSA: 2.95m\S\2. Blood pressure: 160/90. Study date: Study date: March 03, 2015. Cardiac Anatomy: LEFT VENTRICLE: Hypertrophy was noted. Systolic function was normal. The visually estimated ejection fraction was in the range of 55% to 60%. Doppler parameters are consistent with abnormal left ventricular relaxation (grade 1 diastolic dysfunction). RIGHT VENTRICLE: Not well visualized. Systolic function was difficult to assess and probably normal. AORTIC VALVE: Mildly thickened leaflets. Doppler: There was no stenosis. No significant regurgitation. Mean gradient: 4mm Hg (S). Peak gradient: 7mm Hg (S). MITRAL VALVE: Mildly thickened. Doppler: There was no evidence for stenosis. Trivial regurgitation. Valve area by pressure half-time: 4.56cm\S\2. Indexed valve area by pressure half-time: 1.54cm\S\2/m\S\2. Peak gradient: 2mm Hg (D). TRICUSPID VALVE: Doppler: Trivial regurgitation. PULMONIC VALVE: Doppler: No significant regurgitation. Mean gradient: 2mm Hg (S). Peak gradient: 4mm Hg (S). PERICARDIUM: There was no pericardial effusion. 2D measurements Adult Normal Range Left ventricle LVID ED, chord, PLAX 45.45 mm 43-52 LVID ES, chord, PLAX *39.13 mm 23-38 FS, chord, PLAX *14 % >29 LVPW, ED 15.12 mm LVPW, ES 21.08 mm Post wall thickening 39 % IVS/LVPW ratio, ED 1.08 <1.3 Vol ED, MOD1 105.5 ml Vol ES, MOD1 53.1 ml EF, MOD1 49.73 % Stroke vol, MOD1 52.5 ml Vol index, ED, MOD1 36 ml/m\S\2 Vol index, ES, MOD1 18 ml/m\S\2 Stroke index, MOD1 17.8 ml/m\S\2 Vol ED, MOD2 105.2 ml 62-170 Vol ES, MOD2 62.7 ml EF, MOD2 40.44 % Vol index, ED, MOD2 36 ml/m\S\2 Vol index, ES, MOD2 21 ml/m\S\2 Ventricular septum IVS, ED 16.26 mm IVS, ES 17.46 mm Septal thickening 7 % Aorta Root diam, ED 37.7 mm Left atrium AP dim 36.69 mm AP dim index 1.24 cm/m\S\2 <2.2 SI dim, A4C *56.66 mm 29-53 Right ventricle RVID ED, PLAX 36.56 mm 19-38 M-mode measurements Adult Normal Range Left ventricle EF, Teichholz *29.81 % 64-83 Doppler measurements Adult Normal Range Main pulmonary artery Pressure, S 23 mm Hg <=30 Left ventricle IVRT 85 ms 60-100 Aortic valve Peak maribel, S 129.6 cm/s Mean maribel, S 88.56 cm/s VTI, S 29.82 cm Mean gradient, S 4 mm Hg Peak gradient, S 7 mm Hg Mitral valve Peak E maribel 75.84 cm/s Peak A maribel 94.72 cm/s Deceleration time 166 ms 150-230 Pressure half-time 48 ms Peak gradient, D 2 mm Hg Peak E/A ratio 0.8 Area (PHT) 4.56 cm\S\2 Area index (PHT) 1.54 cm\S\2/m\S\2 Tricuspid valve Regurg peak maribel 194.88 cm/s Peak RV-RA gradient, S 15 mm Hg Max regurg maribel 194.88 cm/s Systemic veins Estimated CVP 10 mm Hg Right ventricle Pressure, S 27 mm Hg <30 Pulmonic valve Peak maribel, S 95.92 cm/s Mean gradient, S 2 mm Hg Peak gradient, S 4 mm Hg Legend: Mean values are shown as u=mean value. Asterisk (*) brown values outside specified normal range. Prepared and Electronically Authenticated Taurus Esparza MD Confirmed 03/03/2015 17:20 Souleymane Anne DO ORDERABLES Final Result Performing Organization Address City/State/[facility] Co de Phone Number INTERFACE SYSTEM Refer to clinic/hospital department documented in this encounter Visit Diagnoses Diagnosis Elevated brain natriuretic peptide (BNP) level- Primary Other nonspecific findings on examination of blood Fluid retention Other fluid overload Cellulitis Cellulitis and abscess of unspecified site Elevated brain natriuretic peptide (BNP) level Other nonspecific findings on examination of blood Fluid retention Other fluid overload Cellulitis Cellulitis and abscess of unspecified site documented in this encounter Care Teams Senior Accounting Associate Relationship Specialty Start Date End Date Souleymane Anne, PCP - General Family Practice 03/01/15 documented as of this encounter
[2025-03-28 19:30] VITALS: BP 102/50; O2SAT 94
[2025-03-28 19:39] LABS: Glucose Urine UA Trace (Normal); Nitrate Urine Negative (Negative); Specific Gravity, Urine 1.009 (1.005-1.030)
[2025-03-28 19:41] LABS: Alanine Aminotransferase 10 U/L (0-41); Albumin Level 4.0 g/dL (3.5-5.2); Alkaline Phosphatase 97 U/L (40-130); Blood Urea Nitrogen 24 mg/dL (8-23); Calcium 10.3 mg/dL (8.5-10.5); Carbon Dioxide 21 mmol/L (22-29); Chloride 90 mmol/L (98-107); Creatinine Clr Calc Pharmacy 11.6940; Globulin 4.4 g/dL (1.3-4.6); Glucose 108 mg/dL (65-115); Osmolality Calculated 279 mOsm/kg (285-295); Sodium 132 mmol/L (136-145); Total Protein 8.4 g/dL (6.6-8.7)
[2025-03-28 19:44] LABS: Add Urine Microscopic? YES
[2025-03-28 19:46] LABS: PCP Screen Urine Negative (Negative)
[2025-03-28 20:00] VITALS: BP 124/70; O2SAT 100
[2025-03-28 20:08] LABS: UA Slide Review UA Slide Review Perf
[2025-03-28 20:50] LABS: Aspartate Amino Transferase 36 U/L (0-40); Troponin(5th) Baseline 211 ng/L (0-15)
[2025-03-28 20:51] LABS: Anion Gap 25.8 (5-19); Potassium 4.8 mmol/L (3.5-5.1)
[2025-03-28 21:11] LABS: Alcohol Level < 10 mg/dL (0-10)
[2025-03-28 21:39] VITALS: BP 149/74; O2SAT 100
[2025-03-28] MEDS: cefTRIAXone 1,000 mg SDV 1000 MG IVP (22:21)
[2025-03-28 22:35] VITALS: BP 164/82; PULSE 101; RESP 18; O2SAT 96
== END 2025-03-28 22:36 | disposition home or self-care (01) ==
PROVIDERS: Emergency Provider Student in an Organized Health Care Education/Training Program; PCP Family Medicine
DX: N39.0 Urinary tract infection, site not specified (principal); I13.2 Hypertensive heart and chronic kidney disease with heart failure and with stage 5 chronic kidney disease, or end stage renal disease; N18.6 End stage renal disease; I50.30 Unspecified diastolic (congestive) heart failure; Z99.2 Dependence on renal dialysis; Z87.891 Personal history of nicotine dependence
CPT/HCPCS: 80053; 80306; 80307; 81001; 84484; 85025; 87086; 93005; 96361; 96374; 99284; J0696; J7040